=== PATIENT | female | born 1945 | race Caucasian/White ===

== ENCOUNTER 2017-10-24 18:34 | Inpatient (IN) | payer MEDICARE, SELFPAY ==
[2017-10-24] VITALS (8 sets, daily range): BP systolic 123–181; BP diastolic 62–119; PULSE 59–87; RESP 15–17; TEMP 36.2; O2SAT 93–96; BMI 36.8
[2017-10-24] MEDS: Morphine 4 MG/ML Syringe IV (19:04)
[2017-10-24] MEDS: 0.9% Normal Saline 1,000 ML 150 ML IV (19:04)
[2017-10-24] MEDS: Ondansetron 4 MG/2 ML Vial IV (19:04)
[2017-10-24 19:17] LABS: Absolute Lymphocyte Count 3.71 X10^3/ul (0.83-4.51); Absolute Neutrophil Count 4.6 X10^3/uL (2.0-7.7); Basophil# 0.02 X10^3/uL; Basophil% 0.2 % (0-1); Eosinophil# 0.12 X10^3/uL; Eosinophils% 1.3 % (0-5); Hematocrit 40.9 % (37-47); Hemoglobin 13.1 g/dl (12.0-15.0); Lymphocyte # 3.71 X10^3/ul (4.0); Lymphocyte % 39.1 % (19-41); Mean Corpuscular Hgb 28.8 pg (27.0-32.0); Mean Corpuscular Volume 89.9 fL (81-99); Mean Platelet Vol. 12.4 fl (6.2-12.0); Monocyte# 1.02 X10^3/uL; Monocyte% 10.8 % (0-10); Neutrophil # 4.59 X10^3/uL (2.7-7.7); Neutrophil % 48.4 % (47-70); Platelet Count 185 K/mm3 (150-450); RBC Distribution Width CV 13.9 % (11.6-14.6); RBC Distribution Width SD 45.2 fl (35.1-43.9); Red Blood Count 4.55 M/mm3 (4.2-5.4); White Blood Count 9.5 K/mm3 (4.4-11.0)
[2017-10-24 19:22] LABS: POSITIVE COUNT NO; POSITIVE DIFFERENTIAL NO; POSITIVE MORPHOLOGY NO
[2017-10-24 19:32] LABS: Anion Gap 13 (5-15); BUN 14 mg/dL (7-18); BUN/Creat Ratio 10.1 RATIO (10-20); Calcium,Total 9.3 mg/dL (8.5-10.1); Chloride 105 mmol/L (98-107); Creatinine, Serum 1.38 mg/dL (0.55-1.02); EST Glomerular Filtration Rate 40 mL/min (>60); Est Glom Filt Rate - Afr Amer 48 mL/min (>60); Estimated Creatinine Clearance 29.14 ml/min; Glucose 147 mg/dL (74-106); Potassium 3.8 mmol/L (3.5-5.1); Sodium Level 141 mmol/L (136-145)
--- NOTE | 2017-10-24 20:18 | ED.RN ---
NO OLD EKG
[2017-10-24] MEDS: Mag Hydrox/Al Hydrox/Simeth 30 ML UDC PO (20:52)
--- NOTE | 2017-10-24 22:49 | PCM.HP.STD ---
Problem List (1) Chest pain Status: Acute Qualifiers: Chest pain type: unspecified Qualified Code(s): R07.9 - Chest pain, unspecified (2) NSTEMI (non-ST elevated myocardial infarction) Status: Acute (3) HTN (hypertension) Status: Chronic Qualifiers: Hypertension type: essential hypertension Qualified Code(s): I10 - Essential (primary) hypertension (4) HLD (hyperlipidemia) Status: Chronic Qualifiers: Hyperlipidemia type: pure hypercholesterolemia Qualified Code(s): E78.00 - Pure hypercholesterolemia, unspecified; E78.0 - Pure hypercholesterolemia (5) GERD (gastroesophageal reflux disease) Status: Chronic Qualifiers: Esophagitis presence: esophagitis presence not specified Qualified Code(s): K21.9 - Gastro-esophageal reflux disease without esophagitis (6) Diabetes mellitus, type II Status: Chronic Qualifiers: Diabetes mellitus long term acute care registered nurse insulin use: without custodial use Diabetes mellitus complication status: with unspecified complications Qualified Code(s): E11.8 - Type 2 diabetes mellitus with unspecified complications (7) Hypothyroidism Status: Chronic Qualifiers: Hypothyroidism type: unspecified Qualified Code(s): E03.9 - Hypothyroidism, unspecified (8) Obesity (BMI 30-39.9) Status: Chronic (9) Anxiety and depression Status: Chronic History of Present Illness Date of Admission: 10/24/17 Chief Complaint: Chest pain The patient is a 72 y/o F w/ PMHx: HTN, HLD, GERD, Diabetes mellitus type II, Hypothyroidism, Anxiety and Depression, Obesity who presents to the [facility] ED on 10/24/17 with history of onset substernal chest pain described as pressure without radiation with associated nausea without emesis w/ notable belching and dyspnea starting ~ 20 minutes following her evening meal, rated 9/10 with upon ED presentation improvement to 8/10. Following interventions in the ED patient reported being pain free. In the ED work-up included T 97.1, heart rate 87, BP initially 181/105--> 129/62, respiratory rate 17, 94% on room air, CBC unremarkable, BMP with BUN/creatinine 14/1.38 with no comparison function, hgb 147, initial troponin less than 0.015 with repeat delta 0.445, chest x-ray with minimal interstitial prominence in the lung bases possibly fibrosis versus interstitial pneumonia, EKG initial scooped T waves inferiorly, ST changes resolved after repeat EKG w/ resolution of chest pain. The ED patient administered Zofran, GI cocktail, morphine, oral lidocaine, therapeutic Lovenox, aspirin, Mylanta. Cardiology consulted per ED and requested therapeutic lovenox administration with planned evaluation. Past Medical History Past Medical History (Chronic Problems): Chronic Problems HTN (hypertension) (Chronic) HLD (hyperlipidemia) (Chronic) GERD (gastroesophageal reflux disease) (Chronic) Diabetes mellitus, type II (Chronic) Hypothyroidism (Chronic) Obesity (BMI 30-39.9) (Chronic) Anxiety and depression (Chronic) Allergies No Known Allergies Allergy (Verified 10/24/17 18:36) Home Medications: Ambulatory Orders Medication Instructions Recorded Aspirin [Aspirin, Baby] 81 mg PO DAILY@0810/24/17 Cholecalciferol (Vitamin D3) 5,000 unit PO DAILY 10/24/17 [Vitamin D3] Cyanocobalamin [Vitamin B12] 500 mcg PO DAILY@0800 10/24/17 Diltiazem CD [Cardizem CD] 180 mg PO DAILY 10/24/17 Escitalopram Oxalate [Lexapro] 10 mg PO DAILY 10/24/17 Levothyroxine Sodium [Synthroid] 50 mcg PO DAILY 10/24/17 Magnesium Oxide 500 mg PO DAILY 10/24/17 Metformin HCl 500 mg PO TID 10/24/17 [place]-3S/Dha/Epa/Fish Oil [Fish 1 each PO DAILY 10/24/17 Oil 1,200 mg Softgel] Omeprazole [Prilosec] 20 mg PO DAILY 10/24/17 Potassium 99 mg PO DAILY 10/24/17 Simvastatin [Zocor] 40 mg PO QHS 10/24/17 Solifenacin Succinate [Vesicare] 10 mg PO DAILY 10/24/17 Vit A/Vit C/Vit E/Zinc/Copper 1 each PO DAILY 10/24/17 [Preservision Areds Softgel] Surgical History: - - Cholecystectomy, hernia repair (ventral/umb). 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 Paternal History Items: - - Patient notes a paternal family history of heart disease, hypertension, hyperlipidemia and diabetes and does note he did have stents. Review of Systems Constitutional: Reports: Malaise, Weakness, Fatigue. Denies: Chills, Fever, Weight Change HEENT: Denies: Head Aches, Sinus Congestion, Sinus Drainage Cardiovascular: Reports: Chest Pain, Chest Pressure. Denies: Edema, Heaviness, Light Headedness, Orthopnea, Palpitations, Syncope Respiratory: Reports: Shortness of Breath. Denies: Cough, Shortness of breath at rest, Shortness of breath upon exertion, Sputum production Gastrointestinal: Reports: Nausea. Denies: Abdominal Pain, Vomiting Genitourinary: Denies: Dysuria Musculoskeletal: Denies: Joint Pain, Joint Tenderness Skin: Denies: Rash, Wounds Neurological: Denies: Numbness, Tingling, Focal weakness Psychiatric: Reports: Anxiety, Depression. Denies: Homicidal Ideations, Suicidal Ideations Hematologic/ Lymphatic: Denies: Easy Bruising, Easy Bleeding VTE Information - Inpt Only VTE Present on Admission: No VTE Mechan Device Prophylaxis: SCD's VTE Pharm Prophylaxis ordered?: Yes Patient Problems: Active and Suspected Problems Chest pain (Acute) NSTEMI (non-ST elevated myocardial infarction) (Acute) Subjective: Seated upright in the ED bed, notes chest pain 2/10, improved since initial ED presentation. Objective: Physical Examination: General: awake, alert, oriented x 3 and cooperative, seated upright in the ED bed in no apparent distress, notes improved chest pain, 2/10. Skin: normal color, turgor, no icterus, cyanosis. HEENT: AT/NC, EOMI, PERRLA, MMM, no carotid bruits or JVD noted. Lungs: CTA bilaterally, moderate effort, mild decrease BL bases, no rales, ronchi or wheezing. Heart: Regular rate and rhythm; no gallop, rub audible. Abdomen: soft, obese, NTTP, ND, normal BS, no HSM. Extremities: no cyanosis, clubbing, or edema. Neurological: patient awake, alert, oriented x 3; cognitive function intact; pupils equally reactive to light and accomodation; cranial nerves II-XII grossly normal, moving all 4 extremities, no focal deficits, strength mildly globally decreased. Psychiatric: affect appears normal, no acute evidence of depressive or anxiety feelings. - Physical Exam Vital Signs Temp Pulse Resp BP Pulse Ox 97.1 F L 59 L 15 129/62 H 95 10/24/17 18:34 10/24/17 20:34 10/24/17 20:34 10/24/17 20:34 10/24/17 20:34 Oxygen Delivery Method Room Air Weight: 201 lb 0.985 oz Body Mass Index (BMI) 36.8 Laboratory Tests Past 24 Hrs 10/24/17 10/24/17 10/24/17 18:40 18:40 21:40 WBC 9.5 RBC 4.55 Hgb 13.1 Hct 40.9 MCV 89.9 MCH 28.8 MCHC 32.0 RDW 13.9 RDW Differential 45.2 H Plt Count 185 MPV 12.4 H Immature Gran % (Auto) 0.200 Neut % (Auto) 48.4 Lymph % (Auto) 39.1 [place] % (Auto) 10.8 H Eos % (Auto) 1.3 Baso % (Auto) 0.2 Absolute Neuts (auto) 4.6 Absolute Lymphs (auto) 3.71 Total Counted Not Reportable Sodium 141 Potassium 3.8 Chloride 105 Carbon Dioxide 23.0 Anion Gap 13 BUN 14 Creatinine 1.38 H Estim Creat Clear Calc 29.14 Est GFR (MDRD) Af Amer 48 L Est GFR (MDRD) Non-Af 40 L BUN/Creatinine Ratio 10.1 Glucose 147 H Calcium 9.3 Troponin I < 0.015 0.445 H Assessment/Plan All Active Problems Chest pain (Acute) NSTEMI (non-ST elevated myocardial infarction) (Acute) The patient is a 72 y/o F w/ PMHx: HTN, HLD, GERD, Diabetes mellitus type II, Hypothyroidism, Anxiety and Depression, Obesity who presents to the [facility] ED on 10/24/17 with history of onset substernal chest pain described as pressure without radiation with associated nausea without emesis w/ notable belching and dyspnea starting ~ 20 minutes following her evening meal, rated 9/10 with upon ED presentation improvement to 8/10. (1) Chest Pain w/ Acute NSTEMI: ED work-up included T 97.1, heart rate 87, BP initially 181/105--> 129/62, respiratory rate 17, 94% on room air, CBC unremarkable, BMP with BUN/creatinine 14/1.38 with no comparison function, Evaristo 147, initial troponin less than 0.015 with repeat delta 0.445, chest x-ray with minimal interstitial prominence in the lung bases possibly fibrosis versus interstitial pneumonia, EKG initial scooped T waves inferiorly, ST changes resolved after repeat EKG w/ resolution of chest pain. The ED patient administered Zofran, GI cocktail, morphine, oral lidocaine, therapeutic Lovenox, aspirin, Mylanta. Will admit to PCU, maintain on a monitored bed, continue serial cardiac enzymes and EKGs. Obtain magnesium level upon admission. Continue therapeutic lovenox per Cardiology request. Continue medical management w/ asa, on cardizem but may need to consider transition but defer to cardiology, statin w/ AM FLP. Cardiology consulted, plan for cardiac catheterization. Maintain NPO after midnight for planned AM catheterization (10:00 am per discussion w/ Skein Drier). ASA, NG, morphine. ECHO requested but again may not be performed until 10/27/17. (2) Hypertension: Continue home regimen including Cardizem, PRN hydralazine. (3) Hyperlipidemia: Continue home statin regimen. AM FLP. (4) Diabetes mellitus type II: Hold oral home regimen, ADA diet until NPO status, accu checks w/ ISS. HgbA1c pending. (5) Suspected Chronic Kidney Disease Stage Likely Stage III: Admission BUN/Cr 14/1.38, no comparison function, repeat BMP in AM. (6) Hypothyroidism: Continue home synthroid regimen. (7) Anxiety and Depression: Continue home lexapro regimen. (8) GERD: PPI. (9) DVT Prophylaxis: SCDs, continue therapeutic lovenox. Code Visit Inpatient E&M: [id number] Init Hosp L3
--- NOTE | 2017-10-24 22:52 | ED.VISSUMM ---
- ER Visit Summary Date of Service: 10/24/17 Chief Complaint: Chest pain History of Present Illness: The patient is a [address] Jimenez. She reports that she had just finished eating dinner and began having substernal chest pain approximately 20 minutes ago. She describes it as a heaviness is 9 at 10 worsening a 10 currently. Is worsened by nothing including exertion. Is relieved by belching. She has been nauseated and short of breath with this. No vomiting or diaphoresis. There is no radiation of the pain. Patient reports she had a stress test proximally 6 months ago and Brittaney that was negative. She has never had a heart catheterization. She does have a strong family history of coronary artery disease. Physical Examination: Vitals: Stable. Afebrile. General: Well-nourished and well-developed. Head: Normocephalic atraumatic. Neck: Supple, no lymphadenopathy. No JVD. Nontender. Cardiovascular: Regular rate and rhythm. No murmurs. Respiratory: No respiratory distress. Clear to auscultation bilaterally. Moderate tenderness palpation over her sternum that does reproduce her pain. Abdominal: Soft, nontender, nondistended, normal bowel sounds. No guarding, rebound, or peritoneal signs. Back: Nontender. Extremities: Nontender, no edema. Skin: Normal color, no rash. Neurologic: Alert and oriented ?3. Cranial nerves II through XII are intact. Normal strength and sensation. Psych: Normal affect. Test Results: EKG is sinus at [address] segments inferiorly. There is no old EKG for comparison. Repeat EKG sinus bradycardia [address] changes of resolved. Initial troponin 0 0.015. Repeat troponin is 0.4453 hours. Chem-7 is more for creatinine is 1.38 and glucose 147. CBC is more for monocytes of 11. Chest x-ray shows no acute disease. Emergency Department Course and Treatment: Patient was treated with aspirin p.o., Lovenox subcu, morphine and Zofran IV. She is resting comfortably is pain-free at this time. Treatment Plan: Patient was discussed with Dr. Mitchell and Dr. Fernandez. She will be admitted to the hospital for further evaluation and treatment. Disposition: Admitted in serious condition. Impression: 1. Chest pain. 2. TABATHA score of 6. 3. Indeterminate troponin. 4. Critical care time 30 minutes. This note was generated with [employer] dictation software. It may contain incorrect words, spelling, and punctuation that were not noted in review of the chart prior to signing ED Disposition - Plan for ED Patient: Chief Complaint: Chest Pain Referrals: Angie Jimenez [Primary Care Provider] -
[2017-10-24] MEDS: Aspirin 81 MG TAB.CHEW 324 MG PO (23:23)
[2017-10-24] MEDS: Enoxaparin 100 MG/ML Syringe 90 MG SC (23:23)
--- NOTE | 2017-10-24 23:25 | NURSING ---
Called [facility] charge nursejoanie to send patient to the floor.
[2017-10-25] VITALS (24 sets, daily range): BP systolic 126–146; BP diastolic 51–87; PULSE 72–99; RESP 18; TEMP 36.4–37; O2SAT 88–96; BMI 35.7; BMI 35.8
[2017-10-25 00:16] LABS: Magnesium 1.9 mg/dL (1.6-2.6)
[2017-10-25] MEDS: Mag Hydrox/Al Hydrox/Simeth 30 ML UDC PO (00:39)
[2017-10-25] MEDS: 0.9% Normal Saline 1,000 ML 100 ML IV (00:40)
[2017-10-25 00:46] LABS: Hemoglobin A1c 6.1 % (4.2-6.3)
[2017-10-25 03:06] LABS: Bedside Glucose 156 mg/dL (70-110)
[2017-10-25 04:37] LABS: Hematocrit 35.3 % (37-47); Hemoglobin 11.4 g/dl (12.0-15.0); Mean Corp Hgb Conc 32.3 g/gl (32-36); Mean Corpuscular Hgb 29.2 pg (27.0-32.0); Mean Corpuscular Volume 90.5 fL (81-99); Mean Platelet Vol. 12.1 fl (6.2-12.0); Platelet Count 144 K/mm3 (150-450); RBC Distribution Width CV 13.8 % (11.6-14.6); RBC Distribution Width SD 45.1 fl (35.1-43.9)
[2017-10-25 04:40] LABS: Scan Indicated on CBC? Y/N NO
[2017-10-25 04:46] LABS: International Normalized Ratio 1.3; Prothrombin Time (Protime)PT. 15.9 SECONDS (11.7-14.9)
[2017-10-25 04:47] LABS: Partial Thromboplast Time 35.8 Seconds (24.1-36.2)
[2017-10-25 05:29] LABS: ALB/GLOB Ratio 0.9 RATIO (0.9-2.4); AST(SGOT) 92 U/L (15-37); Alanine Aminotransfer ALT/SGPT 57 U/L (13-56); Albumin, Serum 3.1 g/dL (3.2-5.0); Alkaline Phosphatase 64 U/L (45-117); Anion Gap 11 (5-15); BUN 12 mg/dL (7-18); BUN/Creat Ratio 10.1 RATIO (10-20); Calcium,Total 8.6 mg/dL (8.5-10.1); Chloride 109 mmol/L (98-107); Cholesterol 178 mg/dL (200); Creatinine, Serum 1.19 mg/dL (0.55-1.02); EST Glomerular Filtration Rate 47 mL/min (>60); Est Glom Filt Rate - Afr Amer 57 mL/min (>60); Estimated Creatinine Clearance 32.25 ml/min; Globulin 3.5 g/dL (2.2-4.2); Glucose 152 mg/dL (74-106); High Density Lipoprotein 29 mg/dL; Potassium 4.2 mmol/L (3.5-5.1); Protein, Total 6.6 g/dL (6.4-8.2); Sodium Level 143 mmol/L (136-145); Triglycerides 154 mg/dL; Very Low Density Lipoprotein 31 mg/dL (5-40)
[2017-10-25] MEDS: Morphine 2 MG/ML Syringe IV (06:13)
[2017-10-25] MEDS: Levothyroxine 50 MCG Tablet PO (06:19)
[2017-10-25] MEDS: Aspirin 81 MG TAB.CHEW PO (06:19)
[2017-10-25] MEDS: dilTIAZem CD 180 MG Capsule PO (06:19)
[2017-10-25] MEDS: Furosemide 20 MG/2 ML VIAL IV (09:11)
[2017-10-25] MEDS: 0.9% NaCl Peripheral Flush Adult/Peds IV (09:11)
--- NOTE | 2017-10-25 09:39 | PCM.CONS.C ---
Problem List (1) Chest pain Status: Chronic Qualifiers: Chest pain type: unspecified Qualified Code(s): R07.9 - Chest pain, unspecified (2) NSTEMI (non-ST elevated myocardial infarction) Status: Acute Reason for Consult Date of Consultation: 10/25/17 History of Present Illness: The patient is a 72 y/o F w/ PMHx: HTN, HLD, GERD, Diabetes mellitus type II, Hypothyroidism, Anxiety and Depression, Obesity who presents to the [facility] ED on 10/24/17 with history of onset substernal chest pain described as pressure without radiation with associated nausea without emesis w/ notable belching and dyspnea starting ~ 20 minutes following her evening meal, rated 9/10 with upon ED presentation improvement to 8/10. Following interventions in the ED patient reported being pain free. In the ED work-up included T 97.1, heart rate 87, BP initially 181/105--> 129/62, respiratory rate 17, 94% on room air, CBC unremarkable, BMP with BUN/creatinine 14/1.38 with no comparison function, hgb 147, initial troponin less than 0.015 with repeat delta 0.445, chest x-ray with minimal interstitial prominence in the lung bases possibly fibrosis versus interstitial pneumonia, EKG initial scooped T waves inferiorly, ST changes resolved after repeat EKG w/ resolution of chest pain. The ED patient administered Zofran, GI cocktail, morphine, oral lidocaine, therapeutic Lovenox, aspirin, Mylanta. Mi is now ruled in by minimally rising Troponin and dynamic ST deviation throughout the night. Pt also has developed pulmonary congestion which has required more O2 and . stopping the IV fluids and small dose of Lasix. Pt also has sleep apnea and uses a CPAP, and DJD of the knees. Past Medical History Allergies/Adverse Reactions: Allergies No Known Allergies Allergy (Verified 10/24/17 18:36) Home Medications: Ambulatory Orders Medication Instructions Recorded Aspirin [Aspirin, Baby] 81 mg PO DAILY@0810/24/17 Cholecalciferol (Vitamin D3) 5,000 unit PO DAILY 10/24/17 [Vitamin D3] Cyanocobalamin [Vitamin B12] 500 mcg PO DAILY@0810/24/17 Diltiazem CD [Cardizem CD] 180 mg PO DAILY 10/24/17 Escitalopram Oxalate [Lexapro] 10 mg PO DAILY 10/24/17 Levothyroxine Sodium [Synthroid] 50 mcg PO DAILY 10/24/17 Magnesium Oxide 500 mg PO DAILY 10/24/17 Metformin HCl 500 mg PO TID 10/24/17 [place]-3S/Dha/Epa/Fish Oil [Fish 1 each PO DAILY 10/24/17 Oil 1,200 mg Softgel] Omeprazole [Prilosec] 20 mg PO DAILY 10/24/17 Potassium 99 mg PO DAILY 10/24/17 Simvastatin [Zocor] 40 mg PO QHS 10/24/17 Solifenacin Succinate [Vesicare] 10 mg PO DAILY 10/24/17 Vit A/Vit C/Vit E/Zinc/Copper 1 each PO DAILY 10/24/17 [Preservision Areds Softgel] Past Medical History (Chronic Problems): Chronic Problems Chest pain (Chronic) HTN (hypertension) (Chronic) HLD (hyperlipidemia) (Chronic) GERD (gastroesophageal reflux disease) (Chronic) Diabetes mellitus, type II (Chronic) Hypothyroidism (Chronic) Obesity (BMI 30-39.9) (Chronic) Anxiety and depression (Chronic) Surgical History: - - Cholecystectomy, hernia repair (ventral/umb). 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 Paternal History Items: - - Patient notes a paternal family history of heart disease, hypertension, hyperlipidemia and diabetes and does note he did have stents. Lives: Alone Smoking Status: Never smoker Tobacco Use: Non-smoker Alcohol: None Drugs: None Review of Systems - Review of Systems General: Denies: Fever, Night Sweats, Fatigue Cardiovascular: Reports: Chest Discomfort, Chest Tightness Respiratory: Reports: Hemoptysis, Wheezing Gastrointestinal: Reports: Indigestion, Heart Burn, Dyspepsia, Epigastric Discomfort Genitourinary: Denies: Dysuria, Hematuria Muscoloskeletal: Reports: Joint Tenderness, Stiffness, Joint Pain Skin: Denies: Rash Psychiatric: Reports: Anxiety, Depression Objective: Vital Signs Temp Pulse Resp BP Pulse Ox 97.9 F 99 18 131/87 H 92 10/25/17 08:41 10/25/17 08:41 10/25/17 08:41 10/25/17 08:41 10/25/17 08:41 Oxygen Flow Rate (L/min) 3 Oxygen Delivery Method Nasal Cannula Weight: 88.2 kg Body Mass Index (BMI) 35.7 Intake and Output for Last 24 Hours 10/23/17 10/24/17 10/25/17 23:59 23:59 23:59 Intake Total 531 / 531 Balance 531 / 531 General: Oriented x 3, No Acute Distress Neck: Supple, No JVD Lungs: Rales - Mario Bases Cardiovascular: Regular Rhythm, No Murmurs Vascular: No Carotid Bruits Abdomen: Non Tender Extremities: No Cyanosis, No edema Neurological: No Focal Motor or Sensory Deficit Psych/Mental Status: Appropriate 10/25/17 00:51: Troponin I 0.714 H* 10/25/17 04:11: WBC 11.0, RBC 3.90 L, Hgb 11.4 L, Hct 35.3 L, MCV 90.5, MCH 29.2, MCHC 32.3, RDW 13.8, RDW Differential 45.1 H, Plt Count 144 L, MPV 12.1 H 10/25/17 04:11: Sodium 143, Potassium 4.2, Chloride 109 H, Carbon Dioxide 23.0, Anion Gap 11, BUN 12, Creatinine 1.19 H, Est GFR (MDRD) Af Amer 57 L, Est GFR (MDRD) Non-Af 47 L, BUN/Creatinine Ratio 10.1, Glucose 152 H, Calcium 8.6, Total Bilirubin 0.40, Triglycerides 154, Cholesterol 178, LDL Cholesterol 118, VLDL Cholesterol 31, HDL Cholesterol 29 L 10/25/17 04:11: Troponin I 1.030 H* 10/25/17 04:11: PT 15.9 H, INR 1.3, APTT 35.8 Rhythm: EKG: Sinus with inferior ST depression. ECHO: Stress Test: Cardiac Cath: PCI: CT Surgery: Holter monitor: EPS: PPM: CXR: Chest CT Scan: Assessment/Plan NSTEMI, high risk factor for CAD, mild GFR reduction, Recent negative stress test. Will Cath., today. Further recommendations to follow.
[2017-10-25] MEDS: HEPARIN/D5w 25,000 UNITS 25,000 UNITS/250 ML IV.SOLN. 10 UNITS IV (11:00)
--- NOTE | 2017-10-25 12:30 | PCM.DC.SUM ---
<Kristen Espitia - Last Filed: 10/25/17 12:41> Discharge Date and Diagnosis Date of Admission: 10/24/17 Date of Discharge: 10/25/17 - Primary Discharge Diagnosis Active and Suspected Problems 1. Unstable angina, NSTEMI (non-ST elevated myocardial infarction) 2. CAD with severe LAD 95% stenosis requiring transfer to tertiary care center for coronary revascularization consult 3. Acute hypoxia suspect secondary to fluid overload - Secondary Discharge Diagnosis Chronic Problems Chest pain (Chronic) HTN (hypertension) (Chronic) HLD (hyperlipidemia) (Chronic) GERD (gastroesophageal reflux disease) (Chronic) Diabetes mellitus, type II (Chronic) Hypothyroidism (Chronic) Obesity (BMI 30-39.9) (Chronic) Anxiety and depression (Chronic) Hospital Course and Treatment Imaging Results: Diagnostic Data Chest X-Ray 10/24/17 18:50 IMPRESSION: 1. Minimal interstitial prominence in the lung bases, possible interstitial pneumonia or fibrosis. Electronically Signed: Patito Pineda MD at 19:42 EDT Tel , Service support , Dr. Mitchell- Cardiology Operations: None Procedures: Cardiac catheterization Summary of Care Provided: The patient is a 72 year old F admitted 10/24/2017 due to chest pain. She has a past medical history of hypertension, hyperlipidemia, type 2 diabetes mellitus, GERD, hypothyroidism, anxiety, depression, obesity. Patient noted to have NSTEMI, unstable angina. Cardiology consulted. She underwent cardiac catheterization 10/25/17 which demonstrated severe 95% stenosis LAD. Transfer was arranged to [facility] for consult for coronary revascularization. Patient was started on heparin drip prior to discharge. Nitro paste applied with improvement in chest pain. Vital signs stable. Patient is stable at time of transfer. Patient was noted to have acute hypoxia suspected secondary to fluid overload as a result of IV fluids. She did receive IV Lasix ?1. General: awake, alert, oriented x 3 and cooperative Skin: normal color, turgor, no icterus, cyanosis. HEENT: EOMI, PERRLA, no carotid bruits or JVD noted. Lungs: Clear to auscultation, diminished Heart: Regular rate and rhythm; no gallop, rub audible. Abdomen: soft, obese, nontender, normal bowel sounds Extremities: no cyanosis, clubbing, or edema. Neurological: Neuro grossly intact Psychiatric: Normal affect Patient seen exam prior to discharge. Physical assessment as noted above. Patient is stable for transfer to [facility] for further evaluation. This patient was seen by MARISSA Buckley under the supervision of Dr. Hollingsworth. Home Medications: Medications to take at Discharge Aspirin [Aspirin, Baby] 81 mg PO DAILY@0810/24/17 Cholecalciferol (Vitamin D3) [Vitamin D3] 5,000 unit PO DAILY 10/24/17 Cyanocobalamin [Vitamin B12] 500 mcg PO DAILY@0800 10/24/17 Diltiazem CD [Cardizem CD] 180 mg PO DAILY 10/24/17 Escitalopram Oxalate [Lexapro] 10 mg PO DAILY 10/24/17 Levothyroxine Sodium [Synthroid] 50 mcg PO DAILY 10/24/17 Magnesium Oxide 500 mg PO DAILY 10/24/17 Metformin HCl 500 mg PO TID 10/24/17 [place]-3S/Dha/Epa/Fish Oil [Fish Oil 1,200 mg Softgel] 1 each PO DAILY 10/24/17 Omeprazole [Prilosec] 20 mg PO DAILY 10/24/17 Potassium 99 mg PO DAILY 10/24/17 Simvastatin [Zocor] 40 mg PO QHS 10/24/17 Solifenacin Succinate [Vesicare] 10 mg PO DAILY 10/24/17 Vit A/Vit C/Vit E/Zinc/Copper [Preservision Areds Softgel] 1 each PO DAILY 10/24/17 Primary Care Physician: Angie Jimenez [Primary Care Provider] - Disposition: Acute care Hospital Minutes spent on discharge:: 40 Patient Condition:: Stable Medical Necessity - Tobacco Use Smoking Status: Never smoker Tobacco Use: Non-smoker Meaningful Use Info Meaningful Use Diagnoses (Choose all that apply): None applicable <Radha Hollingsworth - Last Filed: 10/25/17 15:45> Discharge Date and Diagnosis - Secondary Discharge Diagnosis Chronic Problems Chest pain (Chronic) HTN (hypertension) (Chronic) HLD (hyperlipidemia) (Chronic) GERD (gastroesophageal reflux disease) (Chronic) Diabetes mellitus, type II (Chronic) Hypothyroidism (Chronic) Obesity (BMI 30-39.9) (Chronic) Anxiety and depression (Chronic) Hospital Course and Treatment Summary of Care Provided: Hospitalist note: Discharge summary above reviewed as well as physical examination and I agree with above discharge and transfer plan. Patient was admitted for chest pain and she was found to have acute non-ST elevation [place]. Her initial EKG revealed no evidence of acute ischemic changes. This morning, EKG revealed ST segment depression in lateral chest leads. There was no evidence of acute ST elevation. Her troponin was elevated and maximum was 1.03. She was started on aspirin, therapeutic Lovenox twice daily and statins. Cardiology consulted and she underwent cardiac authorization that revealed severe disease of LAD of 95% stenosis. Because patient is diabetic, evaluation for CABG as indicated. Patient was transferred to [facility] for evaluation for CABG. She was transferred in a stable medical condition. - Physical Exam General: Alert, Oriented x3, Cooperative, No apparent distress. HEENT: Atraumatic, PERRLA, EOMI. Neck: Supple, No JVD, Negative Carotid Bruits, Trachea Midline, Thyroid Normal. Lungs: Decreased breath sounds bilateral, no rhonchi, No wheeze, No rales. Cardiovascular: Regular rate, Regular Rhythm, Normal S1, Normal S2, PMI Normal. Abdomen: Bowel Sounds Present, Soft, Non Tender, Non-Distended, No Hepato-splenomegaly. Extremities: No clubbing, No cyanosis, No edema Skin: No rashes, No breakdown Neurological: Neuro grossly intact This note was generated with apomio dictation software. It may contain incorrect words, spelling, and punctuation that were not noted in checking the note before signing. Minutes spent on discharge:: 34 Patient Condition:: Stable Meaningful Use Info Meaningful Use Diagnoses (Choose all that apply): None applicable Code Visit Inpatient E&M: 52334 Disch Hosp
--- NOTE | 2017-10-25 12:45 | NURSING ---
Nursing report called to ERIN Munoz at [facility] CVICU at this time
[2017-10-25] MEDS: Escitalopram Oxalate 10 MG Tablet PO (12:54)
[2017-10-25] MEDS: Pantoprazole Sodium 20 MG Tablet PO (12:54)
[2017-10-25] MEDS: Tolterodine Tartrate 4 MG CAP.SA PO (12:54)
[2017-10-25] MEDS: Nitroglycerin Oint 1 INCH PACKET TRANSDERM. (12:55)
[2017-10-25 13:21] LABS: Bedside Glucose 154 mg/dL (70-110)
[2017-10-26 00:41] LABS: Bedside Glucose 169 mg/dL (70-110)
== END 2017-10-25 13:38 | disposition short-term general hospital (02) | DRG 282 ==
LOC: ED 18:57 → PCU 23:24
PROVIDERS: Admitting Provider Family Medicine; Emergency Provider Emergency Medicine; Family Provider Family Medicine; PCP Family Medicine; Visit Provider Hospitalist
DX: I21.4 Non-ST elevation (NSTEMI) myocardial infarction (principal); I25.110 Atherosclerotic heart disease of native coronary artery with unstable angina pectoris; E11.9 Type 2 diabetes mellitus without complications; I10 Essential (primary) hypertension; Z79.84 Long term (current) use of oral hypoglycemic drugs; Z79.899 Other long term (current) drug therapy; E03.9 Hypothyroidism, unspecified; K21.9 Gastro-esophageal reflux disease without esophagitis; E78.5 Hyperlipidemia, unspecified; E66.9 Obesity, unspecified; F41.9 Anxiety disorder, unspecified; F32.9 Major depressive disorder, single episode, unspecified; Z68.35 Body mass index [BMI] 35.0-35.9, adult; R09.02 Hypoxemia; E87.70 Fluid overload, unspecified
CPT/HCPCS: 36415; 71045; 80048; 80053; 80061; 82962; 83036; 83735; 84484; 85025; 85027; 85610; 85730; 93005; 93454; 99283; J7030; A4216; C1769; C1894; J1940; J2405; Q9967

== ENCOUNTER → 2017-11-30 07:23 | Outpatient (CLI) | payer MEDICARE, SELFPAY ==
[2017-11-30 08:27] LABS: AST(SGOT) 14 U/L (15-37); Alanine Aminotransfer ALT/SGPT 14 U/L (13-56); Albumin, Serum 3.2 g/dL (3.2-5.0); Alkaline Phosphatase 63 U/L (45-117); Cholesterol 90 mg/dL (200); Globulin 3.4 g/dL (2.2-4.2); High Density Lipoprotein 35 mg/dL; Protein, Total 6.6 g/dL (6.4-8.2); Triglycerides 98 mg/dL; Very Low Density Lipoprotein 20 mg/dL (5-40)
== END ==
PROVIDERS: Family Provider Family Medicine; PCP Family Medicine; Referring Provider Internal Medicine Cardiovascular Disease; Visit Provider Internal Medicine Cardiovascular Disease
DX: I25.10 Atherosclerotic heart disease of native coronary artery without angina pectoris (principal); I25.5 Ischemic cardiomyopathy
CPT/HCPCS: 36415; 80061; 80076

== ENCOUNTER → 2017-12-14 12:38 | Outpatient (CLI) | payer MEDICARE, SELFPAY ==
--- NOTE | 2017-12-14 12:54 | PCM.CR.HP2 ---
CR - History & Physical - General Arrival date:: 12/14/17 Arrival time:: 12:54 Date of Referral:: 12/10/17 Date of CR Evaluation:: 12/14/17 Referring Physician: Dr. Jaren Castellano Primary Diagnosis: Z95.5 coronary artery stenting 11/13/2017 - History of Present Cardiac Event Onset Date: Enter Onset Date of cardiac illnesses in Comment field below Acute Myocardial Infarction within 12 months:: Yes - NSTEMI 10/24/2017 PTCA or coronary stenting:: Yes - Medications Home Medications: Ambulatory Orders Medication Instructions Recorded Aspirin [Aspirin, Baby] 81 mg PO DAILY@0800 10/24/17 Cholecalciferol (Vitamin D3) 5,000 unit PO DAILY 10/24/17 [Vitamin D3] Escitalopram Oxalate [Lexapro] 10 mg PO DAILY 10/24/17 Magnesium Oxide 500 mg PO DAILY 10/24/17 Potassium 99 mg PO DAILY 10/24/17 Vit A/Vit C/Vit E/Zinc/Copper 1 ea PO DAILY 10/24/17 [Preservision Areds Softgel] metformin 500 mg tablet 500 mg PO BID tab 11/17/17 amiodarone 200 mg tablet 200 mg PO DAILY #90 tab 11/20/17 metoprolol tartrate 25 mg tablet 12.5 mg PO BID #90 tab 11/20/17 pantoprazole 40 mg tablet,delayed 40 mg PO DAILY #90 tab 11/20/17 release atorvastatin 80 mg tablet 80 mg PO QHS #90 tab 12/08/17 levothyroxine 50 mcg tablet 50 mcg PO DAILY #90 tab 12/08/17 ticagrelor 90 mg tablet 90 mg PO BID #270 tab 12/08/17 - Allergies Allergies/Adverse Reactions: Allergies No Known Allergies Allergy (Verified 11/20/17 13:57) - Sleep Disorder Evaluation Hx of Sleep Apnea: Yes Do you snore loudly (louder than talking or can be heard through closed doors)?: No Do you often feel tired/ fatigued/ sleepy during daytime?: No Has anyone observed you stop breathing during sleep?: Yes - pt uses machine History of Hypertension (for STOP score): Yes STOP Results: Positive Advanced Directives - Advanced Directives Power of Instrument Adjuster: No Living Will: No Advance Directives Information Provided: No Advance Directives on File: No DNR Order?:: No Past Medical History - Past Medical Illness Medical History: Past Medical History (Last Reviewed 11/20/17 @ 13:53 by Luz Marina Mckeon) Nonrheumatic mitral valve regurgitation (Chronic) I34.0 Mild (1+) per echo 10/28/2017 done @ [facility] Ischemic cardiomyopathy (Chronic) I25.5 EF 45-50% per echo done 10/28/2017 @ [facility] Atherosclerotic heart disease of [place] coronary artery without angina pectoris (Chronic) I25.10 Resolute laura 3.0 X 18 mm CHANTELLE to proximal LAD into left main per Dr. Gamez @ [facility] History of non-ST elevation myocardial infarction (NSTEMI) (Chronic) Onset Date: 10/24/17 I25.2 HTN (hypertension) (Chronic) I10 HLD (hyperlipidemia) (Chronic) E78.5 GERD (gastroesophageal reflux disease) (Chronic) K21.9 Diabetes mellitus, type II (Chronic) E11.9 Hypothyroidism (Chronic) E03.9 Obesity (BMI 30-39.9) (Chronic) E66.9 - Past Surgical History Surgical History: Past Surgical History (Last Reviewed 11/20/17 @ 13:53 by Luz Marina Mckeon) History of left heart catheterization (Chronic) Onset Date: 10/25/[address] Mitchell @ [facility], pt tsferred to [facility] for PCI vs. Possible CABG Stented coronary artery (Chronic) Onset Date: 10/25/17 Z95.5 Resolute laura 3.0 X 18 mm CHANTELLE to proximal LAD into left main, with post stent balloon angioplasty done to proximal LAD with 3.0 X 12 NC balloon and distal left main with 4.0 NC balloon; kissing balloon to ostial LAD and ramus was done with 2.5 X 12 balloon in ramus and 3.5 mm in ostial LAD. IVUS done, see report. Pt then admitted to ICU with balloon pump. Surgical History: - - Cholecystectomy, hernia repair (ventral/umb). - Family History Summary Family History: Family History (Last Updated 11/20/17 @ 13:54 by Luz Marina Mckeon) Mother CAD (coronary artery disease) Myocardial infarction Father CAD (coronary artery disease) Myocardial infarction Sister Myocardial infarction CAD (coronary artery disease) Stented coronary artery Social History - Smoking History Smoking Status: Never smoker Hx Tobacco Use: No Hx Smoking Exposure: No - Alcohol Use Alcohol Usage: No - Substance Abuse Hx Substance Use: No - Occupation Occupation (List type of work in comments):: Retired - Hobbies, Recreation, Social Activities Hobbies: Reading, Other - protestant Recreational Activities: I am able to engage in all my recreational activities Social Environment - Status Marital Status: - Current Living Arrangements Living Environment:: Alone - Children How many children do you have?: 0 Do any of your children live nearby?: No - Safety Do you feel safe in your surroundings?: Yes - Assistance Do you need any assistance at home?: none Review of Systems - Review of Systems Hints: Right click = Denies (Slash). Left click = Reports ([place]) Review of Present Symptoms: Reports: Fatigue, Heart Arrhythmia/Irregularities - Hx A-Fib, Sleep - Normal. Denies: Shortness of Breath at Rest, Shortness of Breath with Exertion, PVD, Operative Discomfort, Angina, Wound Healing, Dizziness/Lightheadedness, Appetite - Normal - not eating very much, Appetite - Special Diet, Sexual Changes - Pain Is Patient Pain Free?: Yes Risk Factor Assessment - Chief Complaint Chief Complaint: coronary artery stenting - Vital Signs Pulse Ox: 97 - Pulse Pulse Rate: 64 Pulse Rhythm: Regular - Hypertension How long have you been treated?: 5 years Blood Pressure Sitting - Left Arm: 124/76 - Stress Stress: Home/Family - Diabetes Diabetic History: Type II Nutrition Referral for Diabetes: No - Obesity Height: 1.57 m Weight:: 83.007 kg Weight in Pounds: 183.0 lbs Weight Source: Standing Scale Body Mass Index (BMI): 33.5 Nutritional Referral for Obesity: No - Physical Inactivity Physical Inactivity: Reg Exercise 30 min/day - walks every day - Risk Stratification Risk Guidelines: Lowest Risk: Risk Factor for Smoking, Moderate Risk: Risk Factor for Dyslipidemia, Risk Factor for Diabetes, Risk Factor for Obesity, Risk Factor for Hypertension, Risk Factor for Sedentary Lifestyle, Risk Factor for Depression - For Smoking Smoking Risk Guidelines: Smoking Low Risk: None or quit greater than 6 months ago. Smoking Moderate Risk: Smoker or quit 6 months or less ago. Smoking High Risk: Smoker - For Dyslipidemia Dyslipidemia Risk Guidelines: Low Risk: Moderate Risk: High Risk: 15-25% fat 25.1-29% fat >/= 30% fat. <7% sat fat 7-9% sat fat >9% sat fat. <150 mg chol 150-299 mg chol >/= 300 mg chol. LDL <100 LDL 100-129 LDL >/= 130. Chol/HDL ratio <5.0 Chol/HDL ratio 5.0-6.0 Chol/HDL ratio >6.0. Triglycerides <100 Triglycerides 100-149 Triglycerides >/= 150 - For Diabetes Mellitus Diabetes Risk Guidelines: Diabetes Low Risk: HgA1c <6.5% and/or FBG <120. Diabetes Moderate Risk: HgA1c 6.6-7.9% and/or FBG 120-180. Diabetes High Risk: HgA1c >/= 8% and/or FBG >180 - For Obesity/Overweight Obesity/Overweight Risk Guidelines: Obesity Low Risk: BMI <25.0. Obesity Moderate Risk: BMI 25-29.9. Obesity High Risk: BMI >/= 30.0 - For Hypertension Hypertension Risk Guidelines: Hypertension Low Risk: Systolic <120 and Diastolic <80. Hypertension Moderate Risk: Systolic 120-139 and Diastolic 80-89. Hypertension High Risk: Systolic >/= 140 and Diastolic >/= 90 - For Sedentary Lifestyle Sedentary Lifestyle Risk Guidelines: Sedentary Lifestyle Low Risk: >/= 1,500 kcal/week. Sedentary Lifestyle Moderate Risk: 700-1,499 kcal/week. Sedentary Lifestyle High Risk: < 700 kcal/week - For Depression Depression Risk Guidelines: Depression Low Risk: Not clinically depressed. Depression Moderate Risk: Mildly depressed. Depression High Risk: Clinically depressed - Family History Family History: Family History (Last Updated 11/20/17 @ 13:54 by Luz Marina Mckeon) Mother CAD (coronary artery disease) Myocardial infarction Father CAD (coronary artery disease) Myocardial infarction Sister Myocardial infarction CAD (coronary artery disease) Stented coronary artery Motivation - Motivation to Participate On a scale of 1 to 10, how prepared are you to commit to attending program?: 8 What do you see as barriers to successfully being able to complete the program?: transportation What do you see as the benefits of succesfully completing the program? In other words, what do you hope to get out of participating in the program?: improved health Are there issues you are dealing with that will interfere with completing the program?: none Do you have a spouse or signficant other, family or friends who will help support you to complete the program?: yes sister
--- NOTE | 2017-12-14 12:58 | CR.HP_ITS ---
CR - History & Physical - General Arrival date:: 12/14/17 Arrival time:: 12:54 Date of Referral:: 12/10/17 Date of CR Evaluation:: 12/14/17 Referring Physician: Dr. Jaren Castellano Primary Diagnosis: Z95.5 coronary artery stenting 11/13/2017 - History of Present Cardiac Event Onset Date: Enter Onset Date of cardiac illnesses in Comment field below Acute Myocardial Infarction within 12 months:: Yes - NSTEMI 10/24/2017 PTCA or coronary stenting:: Yes - Medications Home Medications: Ambulatory Orders Medication Instructions Recorded Aspirin [Aspirin, Baby] 81 mg PO DAILY@0800 10/24/17 Cholecalciferol (Vitamin D3) 5,000 unit PO DAILY 10/24/17 [Vitamin D3] Escitalopram Oxalate [Lexapro] 10 mg PO DAILY 10/24/17 Magnesium Oxide 500 mg PO DAILY 10/24/17 Potassium 99 mg PO DAILY 10/24/17 Vit A/Vit C/Vit E/Zinc/Copper 1 ea PO DAILY 10/24/17 [Preservision Areds Softgel] metformin 500 mg tablet 500 mg PO BID tab 11/17/17 amiodarone 200 mg tablet 200 mg PO DAILY #90 tab 11/20/17 metoprolol tartrate 25 mg tablet 12.5 mg PO BID #90 tab 11/20/17 pantoprazole 40 mg tablet,delayed 40 mg PO DAILY #90 tab 11/20/17 release atorvastatin 80 mg tablet 80 mg PO QHS #90 tab 12/08/17 levothyroxine 50 mcg tablet 50 mcg PO DAILY #90 tab 12/08/17 ticagrelor 90 mg tablet 90 mg PO BID #270 tab 12/08/17 - Allergies Allergies/Adverse Reactions: Allergies No Known Allergies Allergy (Verified 11/20/17 13:57) - Sleep Disorder Evaluation Hx of Sleep Apnea: Yes Do you snore loudly (louder than talking or can be heard through closed doors)?: No Do you often feel tired/ fatigued/ sleepy during daytime?: No Has anyone observed you stop breathing during sleep?: Yes - pt uses machine History of Hypertension (for STOP score): Yes STOP Results: Positive Advanced Directives - Advanced Directives Power of Sales Representative Metals: No Living Will: No Advance Directives Information Provided: No Advance Directives on File: No DNR Order?:: No Past Medical History - Past Medical Illness Medical History: Past Medical History (Last Reviewed 11/20/17 @ 13:53 by Luz Marina Mckeon) Nonrheumatic mitral valve regurgitation (Chronic) I34.0 Mild (1+) per echo 10/28/2017 done @ [facility] Ischemic cardiomyopathy (Chronic) I25.5 EF 45-50% per echo done 10/28/2017 @ [facility] Atherosclerotic heart disease of [place] coronary artery without angina pectoris (Chronic) I25.10 Resolute laura 3.0 X 18 mm CHANTELLE to proximal LAD into left main per Dr. Lorraine Silva @ [facility] History of non-ST elevation myocardial infarction (NSTEMI) (Chronic) Onset Date: 10/24/17 I25.2 HTN (hypertension) (Chronic) I10 HLD (hyperlipidemia) (Chronic) E78.5 GERD (gastroesophageal reflux disease) (Chronic) K21.9 Diabetes mellitus, type II (Chronic) E11.9 Hypothyroidism (Chronic) E03.9 Obesity (BMI 30-39.9) (Chronic) E66.9 - Past Surgical History Surgical History: Past Surgical History (Last Reviewed 11/20/17 @ 13:53 by Luz Marina Mckeon) History of left heart catheterization (Chronic) Onset Date: 10/25/[address] Mitchell @ [facility], pt tsferred to [facility] for PCI vs. Possible CABG Stented coronary artery (Chronic) Onset Date: 10/25/17 Z95.5 Resolute laura 3.0 X 18 mm CHANTELLE to proximal LAD into left main, with post stent balloon angioplasty done to proximal LAD with 3.0 X 12 NC balloon and distal left main with 4.0 NC balloon; kissing balloon to ostial LAD and ramus was done with 2.5 X 12 balloon in ramus and 3.5 mm in ostial LAD. IVUS done, see report. Pt then admitted to ICU with balloon pump. Surgical History: - - Cholecystectomy, hernia repair (ventral/umb). - Family History Summary Family History: Family History (Last Updated 11/20/17 @ 13:54 by Luz Marina Mckeon) Mother CAD (coronary artery disease) Myocardial infarction Father CAD (coronary artery disease) Myocardial infarction Sister Myocardial infarction CAD (coronary artery disease) Stented coronary artery Social History - Smoking History Smoking Status: Never smoker Hx Tobacco Use: No Hx Smoking Exposure: No - Alcohol Use Alcohol Usage: No - Substance Abuse Hx Substance Use: No - Occupation Occupation (List type of work in comments):: Retired - Hobbies, Recreation, Social Activities Hobbies: Reading, Other - worship Recreational Activities: I am able to engage in all my recreational activities Social Environment - Status Marital Status: - Current Living Arrangements Living Environment:: Alone - Children How many children do you have?: 0 Do any of your children live nearby?: No - Safety Do you feel safe in your surroundings?: Yes - Assistance Do you need any assistance at home?: none Review of Systems - Review of Systems Hints: Right click = Denies (Slash). Left click = Reports ([place]) Review of Present Symptoms: Reports: Fatigue, Heart Arrhythmia/Irregularities - Hx A-Fib, Sleep - Normal. Denies: Shortness of Breath at Rest, Shortness of Breath with Exertion, PVD, Operative Discomfort, Angina, Wound Healing, Dizziness/Lightheadedness, Appetite - Normal - not eating very much, Appetite - Special Diet, Sexual Changes - Pain Is Patient Pain Free?: Yes Risk Factor Assessment - Chief Complaint Chief Complaint: coronary artery stenting - Vital Signs Pulse Ox: 97 - Pulse Pulse Rate: 64 Pulse Rhythm: Regular - Hypertension How long have you been treated?: 5 years Blood Pressure Sitting - Left Arm: 124/76 - Stress Stress: Home/Family - Diabetes Diabetic History: Type II Nutrition Referral for Diabetes: No - Obesity Height: 1.57 m Weight:: 83.007 kg Weight in Pounds: 183.0 lbs Weight Source: Standing Scale Body Mass Index (BMI): 33.5 Nutritional Referral for Obesity: No - Physical Inactivity Physical Inactivity: Reg Exercise 30 min/day - walks every day - Risk Stratification Risk Guidelines: Lowest Risk: Risk Factor for Smoking, Moderate Risk: Risk Factor for Dyslipidemia, Risk Factor for Diabetes, Risk Factor for Obesity, Risk Factor for Hypertension, Risk Factor for Sedentary Lifestyle, Risk Factor for Depression - For Smoking Smoking Risk Guidelines: Smoking Low Risk: None or quit greater than 6 months ago. Smoking Moderate Risk: Smoker or quit 6 months or less ago. Smoking High Risk: Smoker - For Dyslipidemia Dyslipidemia Risk Guidelines: Low Risk: Moderate Risk: High Risk: 15-25% fat 25.1-29% fat >/= 30% fat. <7% sat fat 7-9% sat fat >9% sat fat. <150 mg chol 150-299 mg chol >/= 300 mg chol. LDL <100 LDL 100-129 LDL >/= 130. Chol/HDL ratio <5.0 Chol/HDL ratio 5.0-6.0 Chol/HDL ratio >6.0. Triglycerides <100 Triglycerides 100-149 Triglycerides >/= 150 - For Diabetes Mellitus Diabetes Risk Guidelines: Diabetes Low Risk: HgA1c <6.5% and/or FBG <120. Diabetes Moderate Risk: HgA1c 6.6-7.9% and/or FBG 120-180. Diabetes High Risk: HgA1c >/= 8% and/or FBG >180 - For Obesity/Overweight Obesity/Overweight Risk Guidelines: Obesity Low Risk: BMI <25.0. Obesity Moderate Risk: BMI 25-29.9. Obesity High Risk: BMI >/= 30.0 - For Hypertension Hypertension Risk Guidelines: Hypertension Low Risk: Systolic <120 and Diastolic <80. Hypertension Moderate Risk: Systolic 120-139 and Diastolic 80-89. Hypertension High Risk: Systolic >/= 140 and Diastolic >/= 90 - For Sedentary Lifestyle Sedentary Lifestyle Risk Guidelines: Sedentary Lifestyle Low Risk: >/= 1,500 kcal/week. Sedentary Lifestyle Moderate Risk: 700-1,499 kcal/week. Sedentary Lifestyle High Risk: < 700 kcal/week - For Depression Depression Risk Guidelines: Depression Low Risk: Not clinically depressed. Depression Moderate Risk: Mildly depressed. Depression High Risk: Clinically depressed - Family History Family History: Family History (Last Updated 11/20/17 @ 13:54 by Luz Marina Mckeon) Mother CAD (coronary artery disease) Myocardial infarction Father CAD (coronary artery disease) Myocardial infarction Sister Myocardial infarction CAD (coronary artery disease) Stented coronary artery Motivation - Motivation to Participate On a scale of 1 to 10, how prepared are you to commit to attending program?: 8 What do you see as barriers to successfully being able to complete the program?: transportation What do you see as the benefits of succesfully completing the program? In other words, what do you hope to get out of participating in the program?: improved health Are there issues you are dealing with that will interfere with completing the program?: none Do you have a spouse or signficant other, family or friends who will help support you to complete the program?: yes sister
[2017-12-14 13:53] VITALS: BP 124/76; PULSE 64; O2SAT 97; BMI 33.5
--- NOTE | 2017-12-14 13:55 | PCM.CR.ITP ---
General Information - General Information Admitting Diagnosis: Z95.5 coronary artery stenting - Education/Goals Barriers to Learning: None Cardiac Rehabilitation Goals: 1. Maintain the individual as the primary focus of care. 2. To improve the patient's quality of life. 3. Identification of cardiac risk factors and provide cardiac risk factor management. 4. Enhance the psychosocial status of the patient. 5. Reconditioning enough to allow the patient to resume customary activities. 6. Control symptoms of cardiac disease Scale for measuring improvement of personal goals: Enter appropriate number in Comments. 2 = Unchanged. 3 = Slightly Better. 4 = Moderate Improvement. 5 = Met my Goal Personal Goals: Initial Assessment: Improve energy level, Get back to work, or to resume activities faster, Improve knowledge of cardiac disease, Improve muscle strength and endurance, Improve diet and eating habits (eat healthier) Exercise - Initial Assessment - Visit Date of Eval: 12/14/17 - [facility] - Stages of Change Stages of Change:: Contemplate - Exercise Prescription Mode:: Treadmill, Biodyne, Rower, Airdyne, NuStep, Arm Ergometer Angina with exercise?: No Target Heart Rate:: 96-111 - Hypertension Do any of the following apply?: Yes Resting Blood Pressure:: 124/76 - Intervention Home Exercise/Activity Goal:: Sitting Time <3 hrs/day - Education Goals:: Warm-up, RPE [place] Scale, S/S, Safe Exercise, Self-Monitoring - Exercise Program Goals Exercise Program Goals: Aerobic Activity >30 min, B/P <130/80 Nutrition - Initial Assessment - Program Goals Nutrition Program Goals: LDL <70. Total Cholesterol <200. HDL >45. Triglycerides <150. HgbA1C <7%. BMI <25 - Visit Date of Assessment:: 12/14/17 - Stages of Change Stages of Change:: Contemplate - Diabetes Diabetes:: Yes Do you monitor your blood sugar at home?: Yes - Weight Management Height: 1.57 m Weight:: 83.007 kg Total Score:: 6 - Intervention Referral to dietitian:: No Referral to Diabetic Clinic:: No Will attend diet classes:: Yes - Education Gave educational materials for:: Signs & symptoms of hypoglycemia, Signs & symptoms of hyperglycemia, Relate diabetes to coronary artery disease, Healthy eating Tobacco - Initial Assessment - Program Goals Tobacco Program Goals: Complete smoking cessation. Attend education classes. Improve Knowledge Test score - Stage of Change Stages of Change:: Contemplate - Learning Barriers Total Score:: 15 - Family Support Do you have family support?: Yes - Tobacco Use Tobacco Use: Non-smoker Do you use smokeless tobacco?: No - Intervention Smoking Cessation Referral:: No Individual Education/Counseling:: No Education Schedule Given:: Yes - Education Gave educational material for:: Tobacco triggers, Coronary artery disease, Risk factors, Sexuality, Medical compliance, Cardiac A&P, Angina signs & symptoms Psychosocial - Initial Assess - Target Goals Target Goals: Assess presence or absence of depression. Using a valid screening tool, maximizes coping skills. Positive support system - Stages of Change Stages of Change:: Action - Psychosocial Test Tool Used:: HANDS Depression Questionnaire Total Mood Screening Score:: 10 Self-Efficacy Score:: 6 - Intervention PS - Interventions: Yes Attend Stress Management Classes, Yes Uses Stress Management Skills, No Referral to Mental Health, No Referral to [facility] Case Management, No Referral to Physician - Education Gave educational materials for:: Coping techniques, Signs & symptoms of depression, Stress management, Relaxation techniques - Assistive Devices Assistive Devices:: None Fall Risk Assessed:: Yes Patient Health Questionnaire Initial Assessment 1. Little interest or pleasure in doing things: More than half the days 2. Feeling down, depressed, or hopeless: Several days 3. Trouble falling or staying asleep, or sleeping too much: Several days 4. Feeling tired or having little energy: Nearly every day 5. Poor appetite or overeating: Nearly every day 6. Feeling bad about yourself -- or that you are a failure or have let yourself or your family down: Not at all 7. Trouble concentrating on things, such as reading the newspaper or watching television: Not at all 8. Moving or speaking so slowly that other people could have noticed. Or the opposite - being so fidgety or restless that you have been moving around a lot more than usual: Not at all 9. Thoughts that you would be better off , or of hurting yourself in some way: Not at all How difficult have these problems made it for you to do your work, take care of things at home, or get along with other people?: Not difficult at all Total Score: 10 HONEY-Q SV Test - Statements CAD is a disease of the arteries in the heart: True Examples of risk factors for heart disease: True Angina is chest pain or discomfort: True The benefits of resistance training include: True Eating more meat and dairy products: False Anti-platelet medications such as aspirin are important: True The only effective way to manage stress: True An exercise warm-up slowly increases heart rate: True Prepared, processed foods usually have high sodium: True Depression is common after a heart attack: True The statin medications lower cholesterol: True To control blood pressure, lower the amount of sodium: True If someone gets chest discomfort during walking: False Transfats are partially hydrogenated vegetable oils: False Sleep apnea that is not treated increases the risk: True To control cholesterol, one should become a vegetarian: False Someone knows if he/she is exercising at the right level: False Diabetes cannot be prevented with exercise & health eating: False Stress is a large risk for heart attack: True A diet that can help lower blood pressure is rich in: True - Total Score Total Correct Responses: 15 Self-Efficacy Initial Assessment We would like to know how confident you are in doing certain activities. Please select your confidence level for:: Select your confidence level for the following using the scale 1-10 where 1 is not at all confident and 10 is totally confident. Your score is the average of all 6 responses. Fatigue: How confident are you that you can keep the fatigue caused by your disease from interfering with the things you want to do? Select Number: 5 Physical Discomfort or Pain: How confident are you that you can keep the physical discomfort or pain of your disease from interfering with the things you want to do? Select Number: 7 Emotional Distress: How confident are you that you can keep the emotional distress caused by your disease from interfering with the things you want to do? Select Number: 5 Other Symptoms or Health Problems: How confident are you that you can keep other symptoms or health problems from interfering with the things you want to do? Select Number: 5 Different Tasks and Activities: How confident are you that you can do the different tasks and activities needed to manage your health condition so as to reduce your need to see a doctor? Select Number: 8 Medication: How confident are you that you can do things other than just taking medication to reduce how much your illness affects your everyday life? Select Number: 7 Total Score:: 6 Nutrition Survey - Nutrition Survey Instructions Scoring Instructions: Scoring is as follows: Yes = 1 points. No = 0 point. Patient score that is >/=12 is considered to be at potential nutritional risk and could benefit from a referral to a registered dietitian. - Nutrition Survey Initial Have you lost >10 lbs over the past 2 months without trying?: Yes Are you following a special diet at home for diabetes, low fat, or low salt?: Yes Are you interested in meeting with a dietitian for help understanding your diet?: No Do you eat less than 3 meals a day?: Yes Do you eat fatty meats (beach, sausage, ribs, etc), fried foods, desserts, large amounts of salad dressings, margarine, butter, or cheese most days?: Yes Do you have food allergies? [Enter types in comment field]: No Do you eat in restaurants more than 3 times a week?: No Do you season food with salt, seasoning salt, or garlic salt?: Yes Do you used canned, boxed, frozen meals, or soups, seasoning packets?: Yes Total Score:: 6
[2017-12-14 14:14] VITALS: BP 124/76
== END ==
PROVIDERS: Family Provider Family Medicine; PCP Family Medicine; Referring Provider Internal Medicine Cardiovascular Disease; Visit Provider Internal Medicine Cardiovascular Disease
DX: I25.10 Atherosclerotic heart disease of native coronary artery without angina pectoris (principal); I34.0 Nonrheumatic mitral (valve) insufficiency; I25.5 Ischemic cardiomyopathy; I25.2 Old myocardial infarction; I10 Essential (primary) hypertension; E78.5 Hyperlipidemia, unspecified; K21.9 Gastro-esophageal reflux disease without esophagitis; E11.9 Type 2 diabetes mellitus without complications; E03.9 Hypothyroidism, unspecified; E66.9 Obesity, unspecified; Z68.33 Body mass index [BMI] 33.0-33.9, adult; Z95.5 Presence of coronary angioplasty implant and graft; Z90.49 Acquired absence of other specified parts of digestive tract; Z79.82 Long term (current) use of aspirin; Z79.84 Long term (current) use of oral hypoglycemic drugs; Z79.899 Other long term (current) drug therapy

== ENCOUNTER 2017-12-23 09:15 | Outpatient (RCR) | payer MEDICARE, SELFPAY | END 2017-12-23 23:59 | LOC: CR 09:15 | PROVIDERS: Family Provider Family Medicine; PCP Family Medicine; Referring Provider Internal Medicine Cardiovascular Disease; Visit Provider Internal Medicine Cardiovascular Disease | DX: Z95.5 Presence of coronary angioplasty implant and graft (principal); I25.10 Atherosclerotic heart disease of native coronary artery without angina pectoris; I25.5 Ischemic cardiomyopathy; I34.0 Nonrheumatic mitral (valve) insufficiency; I25.2 Old myocardial infarction | CPT/HCPCS: 93798 ==

== ENCOUNTER 2018-01-22 09:15 | Outpatient (RCR) | payer MEDICARE, SELFPAY ==
--- NOTE | 2018-01-13 14:18 | PCM.CR.ITP ---
Exercise - 30-day Assessment - Visit Date of Eval: 01/13/18 Session #:: 11 - Stages of Change Stages of Change:: Action - Exercise Prescription Mode:: Treadmill, Biodyne, Airdyne, NuStep, Arm Ergometer Frequency (x/week): 3 Duration:: 35 METs - Progression: 0.5-1 MET as tolerated: 2.5 Target Heart Rate:: 111-118 - Hypertension Resting Blood Pressure:: 104/60 Peak Exercise Blood Pressure:: 142/80 Medication Changes:: No - Intervention Home Exercise/Activity Goal:: Sitting Time <3 hrs/day - Education Goals:: Warm-up, RPE [place] Scale, S/S, Safe Exercise, Self-Monitoring - Exercise Program Goals Exercise Program Goals: Aerobic Activity >30 min Nutrition - Initial Assessment - Program Goals Nutrition Program Goals: LDL <70. Total Cholesterol <200. HDL >45. Triglycerides <150. HgbA1C <7%. BMI <25 - Diabetes Do you monitor your blood sugar at home?: Yes Nutrition - 30-Day Assessment - Program Goals Nutrition Program Goals: LDL <70. Total Cholesterol <200. HDL >45. Triglycerides <150. HgbA1C <7%. BMI <25 - Visit Date of Eval: 01/13/18 - Stages of Change Stages of Change:: Action - Lipids Has the patient seen the dietitian?: Yes - Diabetes Diabetes:: No Insulin: No Non-Insulin Dependent?: No - Weight Management Weight:: 178 lb - Intervention Referral to dietitian:: No Referral to Diabetic Clinic:: No Will attend diet classes:: Yes - Education Attended class for:: Healthy eating Tobacco - 30-Day Assessment - Program Goals Tobacco Program Goals: Complete smoking cessation. Attend education classes. Improve Knowledge Test score - Stage of Change Stages of Change:: Action - Learning Barriers Learning Barriers: Participates in education - Family Support Do you have family support?: Yes - Tobacco Use Tobacco Use: Non-smoker Do you use smokeless tobacco?: No - Intervention Smoking Cessation Referral:: No Individual Education/Counseling:: No Education Schedule Given:: Yes - Education Attended class for:: Coronary artery disease, Risk factors, Sexuality, Medical compliance, Cardiac A&P, Angina signs & symptoms Psychosocial - Initial Assess - Target Goals Target Goals: Assess presence or absence of depression. Using a valid screening tool, maximizes coping skills. Positive support system - Psychosocial Test Tool Used:: HANDS Depression Questionnaire - Assistive Devices Fall Risk Assessed:: Yes Psychosocial - 30-Day Assess - Target Goals Target Goals: Assess presence or absence of depression. Using a valid screening tool, maximizes coping skills. Positive support system - Stages of Change Stages of Change:: Action - Psychosocial Test Tool Used:: HANDS Depression Questionnaire - Intervention PS - Interventions: Yes Attend Stress Management Classes, Yes Uses Stress Management Skills, No Referral to Mental Health, No Referral to [facility] Case Management, No Referral to Physician - Education Attended classes for:: Coping techniques, Signs & symptoms of depression, Stress management, Relaxation techniques - Patient/Program Goal Preventative Medication(s):: Aspirin, Clopidogrel, Beta bhavana, Statin/lipid - Assistive Devices Assistive Devices:: None Fall Risk Assessed:: Yes Patient Health Questionnaire 30-Day Re-eval Assessment 1. Little interest or pleasure in doing things: More than half the days 2. Feeling down, depressed, or hopeless: Several days 3. Trouble falling or staying asleep, or sleeping too much: Several days 4. Feeling tired or having little energy: Nearly every day 5. Poor appetite or overeating: Nearly every day 6. Feeling bad about yourself -- or that you are a failure or have let yourself or your family down: Not at all 7. Trouble concentrating on things, such as reading the newspaper or watching television: Not at all 8. Moving or speaking so slowly that other people could have noticed. Or the opposite - being so fidgety or restless that you have been moving around a lot more than usual: Not at all 9. Thoughts that you would be better off , or of hurting yourself in some way: Not at all How difficult have these problems made it for you to do your work, take care of things at home, or get along with other people?: Not difficult at all Total Score: 10 Self-Efficacy 30-Day Re-eval Assessment We would like to know how confident you are in doing certain activities. Please select your confidence level for:: Select your confidence level for the following using the scale 1-10 where 1 is not at all confident and 10 is totally confident. Your score is the average of all 6 responses. Fatigue: How confident are you that you can keep the fatigue caused by your disease from interfering with the things you want to do? Select Number: 6 Physical Discomfort or Pain: How confident are you that you can keep the physical discomfort or pain of your disease from interfering with the things you want to do? Select Number: 8 Emotional Distress: How confident are you that you can keep the emotional distress caused by your disease from interfering with the things you want to do? Select Number: 6 Other Symptoms or Health Problems: How confident are you that you can keep other symptoms or health problems from interfering with the things you want to do? Select Number: 6 Different Tasks and Activities: How confident are you that you can do the different tasks and activities needed to manage your health condition so as to reduce your need to see a doctor? Select Number: 8 Medication: How confident are you that you can do things other than just taking medication to reduce how much your illness affects your everyday life? Select Number: 7 Total Score:: 6
[2018-01-13 14:22] VITALS: BP 104/60; BP 142/80
== END 2018-01-22 23:59 ==
LOC: CR 09:15
PROVIDERS: Family Provider Family Medicine; PCP Family Medicine; Referring Provider Internal Medicine Cardiovascular Disease; Visit Provider Internal Medicine Cardiovascular Disease
DX: Z95.5 Presence of coronary angioplasty implant and graft (principal); I25.10 Atherosclerotic heart disease of native coronary artery without angina pectoris; I25.5 Ischemic cardiomyopathy; I34.0 Nonrheumatic mitral (valve) insufficiency; I25.2 Old myocardial infarction
CPT/HCPCS: 93798

== ENCOUNTER 2018-02-17 09:15 | Outpatient (RCR) | payer MEDICARE, SELFPAY ==
[2017-12-14 13:53] VITALS: BMI 33.5
[2018-01-23 01:45] VITALS: BP 104/60; BP 142/80
--- NOTE | 2018-02-12 11:08 | CR.ITP_ITS ---
General Information - General Information Admitting Diagnosis: PCI with coronary stent placement - Education/Goals Cardiac Rehabilitation Goals: 1. Maintain the individual as the primary focus of care. 2. To improve the patient's quality of life. 3. Identification of cardiac risk factors and provide cardiac risk factor management. 4. Enhance the psychosocial status of the patient. 5. Reconditioning enough to allow the patient to resume customary activities. 6. Control symptoms of cardiac disease Scale for measuring improvement of personal goals: Enter appropriate number in Comments. 2 = Unchanged. 3 = Slightly Better. 4 = Moderate Improvement. 5 = Met my Goal Exercise - 60-Day Assessment - Visit Date of Eval: 02/12/18 Session #:: 21 - Stages of Change Stages of Change:: Action - Exercise Prescription Mode:: Airdyne, NuStep, Arm Ergometer Frequency (x/week): 3 Duration:: 35 METs: 3.5 Target Heart Rate:: 111-118 Max HR 111 - Hypertension Resting Blood Pressure:: 108/58 Peak Exercise Blood Pressure:: 164/66 Medication Changes:: No - Intervention Home Exercise/Activity Goal:: Sitting Time <3 hrs/day - Education Goals:: Warm-up, RPE [place] Scale, S/S, Safe Exercise, Self-Monitoring - Exercise Program Goals Exercise Program Goals: Aerobic Activity >30 min, B/P <130/80 Nutrition - Initial Assessment - Program Goals Nutrition Program Goals: LDL <70. Total Cholesterol <200. HDL >45. Triglycerides <150. HgbA1C <7%. BMI <25 - Diabetes Do you monitor your blood sugar at home?: Yes Nutrition - 60-Day Assessment - Program Goals Nutrition Program Goals: LDL <70. Total Cholesterol <200. HDL >45. Triglycerides <150. HgbA1C <7%. BMI <25 - Visit Date of Eval: 02/12/18 - Stages of Change Stages of Change:: Action - Lipids Has the patient seen the dietitian?: No - Weight Management Weight:: 81.42 kg - Intervention Referral to dietitian:: No Referral to Diabetic Clinic:: No Will attend diet classes:: Yes - Education Attended class for:: Signs & symptoms of hypoglycemia, Signs & symptoms of hyperglycemia, Relate diabetes to coronary artery disease, Healthy eating Tobacco - 60-Day Assessment - Program Goals Tobacco Program Goals: Complete smoking cessation. Attend education classes. Improve Knowledge Test score - Stage of Change Stages of Change:: Action - Learning Barriers Learning Barriers: Participates in education - Family Support Do you have family support?: Yes - Tobacco Use Tobacco Use: Non-smoker - Intervention Smoking Cessation Referral:: No Individual Education/Counseling:: No Education Schedule Given:: Yes - Education Attended class for:: Tobacco triggers, Coronary artery disease, Risk factors, Sexuality, Medical compliance, Cardiac A&P, Angina signs & symptoms Psychosocial - Initial Assess - Target Goals Target Goals: Assess presence or absence of depression. Using a valid screening tool, maximizes coping skills. Positive support system - Psychosocial Test Tool Used:: HANDS Depression Questionnaire - Assistive Devices Fall Risk Assessed:: Yes Psychosocial - 60-Day Assess - Target Goals Target Goals: Assess presence or absence of depression. Using a valid screening tool, maximizes coping skills. Positive support system - Stages of Change Stages of Change:: Action - Psychosocial Test Tool Used:: HANDS Depression Questionnaire - Intervention PS - Interventions: Yes Attend Stress Management Classes, Yes Uses Stress Management Skills, No Referral to Mental Health, No Referral to [facility] Case Management, No Referral to Physician - Education Attended classes for:: Coping techniques, Signs & symptoms of depression, Stress management, Relaxation techniques - Assistive Devices Assistive Devices:: None Fall Risk Assessed:: Yes Patient Health Questionnaire 60-Day Re-eval Assessment 1. Little interest or pleasure in doing things: More than half the days 2. Feeling down, depressed, or hopeless: Several days 3. Trouble falling or staying asleep, or sleeping too much: Several days 4. Feeling tired or having little energy: Nearly every day 5. Poor appetite or overeating: Nearly every day 6. Feeling bad about yourself -- or that you are a failure or have let yourself or your family down: Not at all 7. Trouble concentrating on things, such as reading the newspaper or watching television: Not at all 8. Moving or speaking so slowly that other people could have noticed. Or the opposite - being so fidgety or restless that you have been moving around a lot more than usual: Not at all 9. Thoughts that you would be better off , or of hurting yourself in some way: Not at all How difficult have these problems made it for you to do your work, take care of things at home, or get along with other people?: Not difficult at all Total Score: 10 Self-Efficacy 60-Day Re-eval Assessment We would like to know how confident you are in doing certain activities. Please select your confidence level for:: Select your confidence level for the following using the scale 1-10 where 1 is not at all confident and 10 is totally confident. Your score is the average of all 6 responses. Fatigue: How confident are you that you can keep the fatigue caused by your disease from interfering with the things you want to do? Select Number: 6 Physical Discomfort or Pain: How confident are you that you can keep the physical discomfort or pain of your disease from interfering with the things you want to do? Select Number: 8 Emotional Distress: How confident are you that you can keep the emotional distress caused by your disease from interfering with the things you want to do? Select Number: 6 Other Symptoms or Health Problems: How confident are you that you can keep other symptoms or health problems from interfering with the things you want to do? Select Number: 6 Different Tasks and Activities: How confident are you that you can do the different tasks and activities needed to manage your health condition so as to reduce your need to see a doctor? Select Number: 8 Medication: How confident are you that you can do things other than just taking medication to reduce how much your illness affects your everyday life? Select Number: 7 Total Score:: 6
[2018-02-12 11:11] VITALS: BP 108/58; BP 164/66
== END 2018-02-22 23:59 ==
LOC: CR 09:15
PROVIDERS: Family Provider Family Medicine; PCP Family Medicine; Referring Provider Internal Medicine Cardiovascular Disease; Visit Provider Internal Medicine Cardiovascular Disease
DX: I25.2 Old myocardial infarction (principal); Z95.5 Presence of coronary angioplasty implant and graft; I25.10 Atherosclerotic heart disease of native coronary artery without angina pectoris; I25.5 Ischemic cardiomyopathy; I34.0 Nonrheumatic mitral (valve) insufficiency
CPT/HCPCS: 93798

== ENCOUNTER → 2018-02-18 13:41 | Outpatient (CLI) | payer MEDICARE, SELFPAY ==
[2017-12-14 13:53] VITALS: BMI 33.5
--- NOTE | 2018-02-18 13:43 | ECHOD_ITS ---
Reason For Study: S/P NC, ISCHEMIC CMP Procedure This was a 2D Doppler, Color Flow transthoracic echocardiogram. Exam performed in department. Left Ventricle Normal size and thickness. D shaped septum in diastole. The estimated ejection fraction is 55-60 %. Stage 1 diastolic dysfunction. No regional wall motion abnormalities noted. Right Ventricle Normal size and thickness. Normal systolic function. Atria The left atrium is mildly enlarged. Normal right atrium. Normal atrial septum. Mitral Valve The mitral valve is structurally normal. No prolapse or stenosis seen. Mild (1+) eccentric mitral valve insufficiency. Tricuspid Valve Normal tricuspid valve. Mild to moderate (1-2+) tricuspid valve insufficiency. Right ventricular systolic pressure estimated to be 51 mmHg. Moderate pulmonary hypertension. Aortic Valve Normal aortic valve. Trisinus/trileaflet aortic valve. Pulmonic Valve Normal pulmonic valve. Great Vessels Normal aortic root. Normal arch. Inferior vena cava collapse with sniff. The inferior vena cava is dilated. Pericardium/Pleural No pericardial effusion. MMode/2D Measurements & Calculations LVIDd: 5.3 cm IVSd: 0.88 cm Ao root diam: 2.8 cm LVIDs: 3.4 cm LVPWd: 0.82 cm RVDd: 3.5 cm FS: 36.6 % LAV(MOD-bp): 74.3 ml LA A4 area: 23.8 cm2 LA dimension(2D): 4.4 cm LAV(MOD-bp) Indexed: 40.4 ml/m2 LAV(MOD-sp2): 72.8 ml LAV(MOD-sp4): 75.2 ml RA A4 area: 17.7 cm2 Time Measurements MV dec time: 0.23 sec Doppler Measurements & Calculations MV E max tae: 139.6 cm/sec Lat Peak E' Tae: 11.0 cm/sec Med Peak E' Tae: 7.7 cm/sec MV A max tae: 52.0 cm/sec E/E' lat: 12.7 E/E' med: 18.2 MV E/A: 2.7 Ao V2 max: 158.7 cm/sec LV V1 max: 103.5 cm/sec MR max tae: 541.4 cm/sec Ao max P.1 mmHg LV V1 max P.3 mmHg MR max P.2 mmHg MR mean tae: 427.0 cm/sec MR mean P.3 mmHg MR VTI: 181.6 cm PA V2 max: 101.6 cm/sec TR max tae: 334.1 cm/sec TR max P.0 mmHg Interpretation Summary D shaped septum in diastole. The estimated ejection fraction is 55-60 %. Stage 1 diastolic dysfunction. The left atrium is mildly enlarged. Mild (1+) eccentric mitral valve insufficiency. Mild to moderate (1-2+) tricuspid valve insufficiency. Right ventricular systolic pressure estimated to be 51 mmHg. Moderate pulmonary hypertension. There is no comparison study available. Ordering Physician: Jaren Castellano Referring Physician: Angie Jimenez Performed By: Kimmy Rodríguez RDCS, RVT
== END ==
PROVIDERS: Family Provider Family Medicine; PCP Family Medicine; Referring Provider Internal Medicine Cardiovascular Disease; Visit Provider Internal Medicine Cardiovascular Disease
DX: I25.10 Atherosclerotic heart disease of native coronary artery without angina pectoris (principal); I25.2 Old myocardial infarction; I25.5 Ischemic cardiomyopathy; I34.0 Nonrheumatic mitral (valve) insufficiency; Z95.5 Presence of coronary angioplasty implant and graft
CPT/HCPCS: 93306

== ENCOUNTER 2018-05-13 10:47 | Emergency (ER) | payer MEDICARE, SELFPAY ==
[2018-05-13 10:47] VITALS: BP 140/99; PULSE 72; RESP 17; TEMP 36.7; O2SAT 98; BMI 31.1
[2018-05-13 10:50] VITALS: O2SAT 98
--- NOTE | 2018-05-13 10:57 | EKG12_ITS ---
Test Reason : SOB Blood Pressure : / mmHG Vent. Rate : 070 BPM Atrial Rate : 070 BPM P-R Int : 158 ms QRS Dur : 080 ms QT Int : 428 ms P-R-T Axes : 027 036 064 degrees QTc Int : 462 ms Normal sinus rhythm Normal ECG Confirmed by BRITTANY BECK, TRUNG ([id number]), proposal editor CARA CURTIS ([id number]) on 05/17/2018 11:31:00 AM Referred By: DALIA Confirmed By:TRUNG SOTO MD
--- NOTE | 2018-05-13 10:57 | RAD_ITS ---
STUDY: X-RAY CHEST REASON FOR EXAM: Female, 73 years old. TECHNIQUE: Portable chest upright COMPARISON: None. FINDINGS: The lungs are clear and expanded. Normal cardiomediastinal silhouette, dimitris and pleural margins. No acute osseous or upper abdominal process. RAD/Chest 1 View (Portable) IMPRESSION: No acute cardiopulmonary process. Electronically Signed: Baudilio Baez MD at 13:07 EDT Tel , Service support ,
--- NOTE | 2018-05-13 10:59 | ED.VISSUMM ---
- ER Visit Summary Date of Service: 05/13/18 Chief Complaint: Shortness of breath History of Present Illness: The patient is a 73 F who complains of shortness of breath. She has had this for 2 weeks. She feels more dyspnea on exertion. She states she went to make breakfast this morning and by the time she was finished she was out of breath and winded. She has never had any chest pain before during or after exerting herself. Her symptoms do get better with rest. She denies a cough or rhinorrhea. No fevers. She had a heart attack back in October. She has a total of [address] 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 She states she had a recent echocardiogram and was told that she has valve issues. Physical Examination: Vital signs reviewed. HEENT exam unremarkable. Heart is regular rate and rhythm without murmurs. Lungs are clear to auscultation. Abdomen is soft and nontender. Extremities reveal no edema. Her peripheral pulses are equal. Skin exam normal. Neurologic exam normal. Test Results: EKG is normal sinus rhythm with rate of 70. Nonspecific ST and T wave changes noted. Chest x-ray per my interpretation reveals chronic changes with no evidence of CHF or infiltrate. Hemoglobin 8.5, creatinine 1.31, glucose 114. Troponin less than 0.015. D-dimer 0.56. BNP 332 Emergency Department Course and Treatment: The patient's workup is fairly benign. Her hemoglobin is slightly low the patient denies any bleeding, dark stools. I do not feel she requires admission. Her echocardiogram reveals some slight valvular insufficiency with moderate pulmonary hypertension. She does see Dr. Castellano and she needs to follow-up with him as an outpatient. Treatment Plan: [] Disposition: Discharge Impression: Dyspnea This note was generated with [employer] dictation software. It may contain incorrect words, spelling, and punctuation that were not noted in review of the chart prior to signing ED Disposition - Plan for ED Patient: Referrals: Angie Jimenez [Primary Care Provider] -
[2018-05-13 11:48] LABS: Absolute Lymphocyte Count 0.54 X10^3/ul (0.83-4.51); Absolute Neutrophil Count 3.3 X10^3/uL (2.0-7.7); Basophil# 0.01 X10^3/uL; Basophil% 0.2 % (0-1); Eosinophil# 0.05 X10^3/uL; Eosinophils% 1.1 % (0-5); Hematocrit 28.7 % (37-47); Hemoglobin 8.5 g/dl (12.0-15.0); Lymphocyte # 0.54 X10^3/ul (4.0); Lymphocyte % 12.3 % (19-41); Mean Corp Hgb Conc 29.6 g/gl (32-36); Mean Corpuscular Hgb 26.5 pg (27.0-32.0); Mean Corpuscular Volume 89.4 fL (81-99); Mean Platelet Vol. 12.4 fl (6.2-12.0); Monocyte# 0.48 X10^3/uL; Monocyte% 10.9 % (0-10); Neutrophil % 75.3 % (47-70); Platelet Count 183 K/mm3 (150-450); RBC Distribution Width CV 16.3 % (11.6-14.6); Red Blood Count 3.21 M/mm3 (4.2-5.4); White Blood Count 4.4 K/mm3 (4.4-11.0)
[2018-05-13 11:49] LABS: Differential Indicated SCAN CRITERIA MET; POSITIVE COUNT NO; POSITIVE DIFFERENTIAL YES; POSITIVE MORPHOLOGY NO
[2018-05-13 11:52] VITALS: PULSE 62; RESP 15; O2SAT 97
[2018-05-13 11:57] LABS: Anion Gap 6 (5-15); BUN 17 mg/dL (7-18); Calcium,Total 8.8 mg/dL (8.5-10.1); Chloride 112 mmol/L (98-107); Creatinine, Serum 1.31 mg/dL (0.55-1.02); D-Dimer Quantitative (DVT/PE) 0.56 FEU/ug/m (0.27-0.49); EST Glomerular Filtration Rate 42 mL/min (>60); Est Glom Filt Rate - Afr Amer 51 mL/min (>60); Estimated Creatinine Clearance 30.25 ml/min; Glucose 114 mg/dL (74-106); Sodium Level 141 mmol/L (136-145)
--- NOTE | 2018-05-13 11:57 | ED.RN ---
d-dimer 0.56, md aware.
[2018-05-13 12:05] LABS: Anisocytosis 1+; Hypochromasia 2+; Platelet Estimate ADEQUATE (ADEQ)
[2018-05-13 12:06] LABS: Acanthocytes 1+; Ovalocyte 1+; Tear Drop Cell RARE
[2018-05-13 12:12] VITALS: BP 128/87; PULSE 60; RESP 15; O2SAT 98
[2018-05-13 12:14] LABS: BNP,B-Type NATRIURETIC PEPTIDE 332.6 pg/mL (0-100)
--- NOTE | 2018-05-13 13:07 | ED.DEP ---
ED Disposition - Plan for ED Patient: Disposition: Home or Assisted Living Instructions: ED Dyspnea Shortness of Breath Referrals: Angie Jimenez [Primary Care Provider] -
[2018-05-13 13:30] VITALS: BP 142/68; PULSE 61; RESP 16; O2SAT 96
== END 2018-05-13 13:31 | disposition home or self-care (01) ==
PROVIDERS: Emergency Provider Emergency Medicine; Family Provider Family Medicine; PCP Family Medicine
DX: R06.00 Dyspnea, unspecified (principal); I25.2 Old myocardial infarction; Z95.5 Presence of coronary angioplasty implant and graft
CPT/HCPCS: 71045; 80048; 83880; 84484; 85025; 85379; 93005; 99285; A4216

== ENCOUNTER → 2018-06-07 16:10 | Outpatient (CLI) | payer MEDICARE, SELFPAY ==
[2018-06-07 15:19] VITALS: BMI 31.4
--- NOTE | 2018-06-07 16:40 | RAD_ITS ---
STUDY: X-RAY CHEST REASON FOR EXAM: Female, 73 years old. Shortness of breath TECHNIQUE: PA and lateral chest COMPARISON: 05/13/2018 FINDINGS: The lungs are clear and expanded. Normal cardiomediastinal silhouette, dimitris and pleural margins. No acute osseous or upper abdominal process. Thoracolumbar scoliosis. RAD/Chest PA and Lateral IMPRESSION: No acute cardiopulmonary process. Electronically Signed: Baudilio Baez MD at 16:53 EDT Tel , Service support ,
[2018-06-07 17:07] LABS: Absolute Lymphocyte Count 0.72 X10^3/ul (0.83-4.51); Absolute Neutrophil Count 3.5 X10^3/uL (2.0-7.7); Basophil# 0.01 X10^3/uL; Basophil% 0.2 % (0-1); Eosinophil# 0.05 X10^3/uL; Hematocrit 26.2 % (37-47); Hemoglobin 7.7 g/dl (12.0-15.0); Lymphocyte # 0.72 X10^3/ul (4.0); Lymphocyte % 14.8 % (19-41); Mean Corp Hgb Conc 29.4 g/gl (32-36); Mean Corpuscular Hgb 24.8 pg (27.0-32.0); Mean Corpuscular Volume 84.5 fL (81-99); Mean Platelet Vol. 12.4 fl (6.2-12.0); Monocyte# 0.61 X10^3/uL; Monocyte% 12.5 % (0-10); Neutrophil # 3.48 X10^3/uL (2.7-7.7); Neutrophil % 71.3 % (47-70); Platelet Count 153 K/mm3 (150-450); RBC Distribution Width CV 16.3 % (11.6-14.6); RBC Distribution Width SD 48.5 fl (35.1-43.9); White Blood Count 4.9 K/mm3 (4.4-11.0)
[2018-06-07 17:10] LABS: POSITIVE COUNT NO; POSITIVE DIFFERENTIAL NO; POSITIVE MORPHOLOGY NO
[2018-06-07 18:25] LABS: AST(SGOT) 20 U/L (15-37); Alanine Aminotransfer ALT/SGPT 18 U/L (13-56); Albumin, Serum 3.3 g/dL (3.2-5.0); Alkaline Phosphatase 56 U/L (45-117); Bilirubin, Direct 0.27 mg/dL (0.00-0.30); Globulin 3.6 g/dL (2.2-4.2); Protein, Total 6.9 g/dL (6.4-8.2)
== END ==
PROVIDERS: Family Provider Family Medicine; PCP Family Medicine; Referring Provider Internal Medicine Cardiovascular Disease; Visit Provider Internal Medicine Cardiovascular Disease
DX: I50.22 Chronic systolic (congestive) heart failure (principal); E78.5 Hyperlipidemia, unspecified; D64.9 Anemia, unspecified; I27.21 Secondary pulmonary arterial hypertension; R06.02 Shortness of breath
CPT/HCPCS: 36415; 71046; 80076; 85025

== ENCOUNTER 2018-06-08 11:02 | Observation (INO) | payer MEDICARE, SELFPAY ==
[2018-06-07 15:19] VITALS: BMI 31.4
[2018-06-08] VITALS (16 sets, daily range): BP systolic 111–141; BP diastolic 46–73; PULSE 58–66; RESP 16–18; TEMP 36.6–37.1; O2SAT 92–98; BMI 31.0
[2018-06-08 09:07] LABS: Cholesterol 97 mg/dL (200); High Density Lipoprotein 39 mg/dL; Triglycerides 91 mg/dL; Very Low Density Lipoprotein 18 mg/dL (5-40)
--- NOTE | 2018-06-08 13:15 | EKG12_ITS ---
Test Reason : SYMPTOMATIC ANEMIA Blood Pressure : / mmHG Vent. Rate : 062 BPM Atrial Rate : 062 BPM P-R Int : 164 ms QRS Dur : 080 ms QT Int : 472 ms P-R-T Axes : 049 021 040 degrees QTc Int : 479 ms Normal sinus rhythm Septal infarct , age undetermined Abnormal ECG When compared with ECG of 13-MAY-2018 10:50, No significant change was found Confirmed by BRITTANY BECK, TRUNG ([id number]), brands editor CASSI HOOPER ([id number]) on 06/10/2018 9:51:44 AM Referred By: Po Pelayo Confirmed By:TRUNG SOTO MD
--- NOTE | 2018-06-08 13:24 | PCM.HP.STD ---
Problem List (1) Symptomatic anemia Status: Acute (2) Chronic systolic HF (heart failure) Status: Chronic (3) Shortness of breath Status: Acute (4) Secondary pulmonary arterial hypertension Status: Chronic Comment: RVSP 51 mmhg per echo 02/18/2018 (5) Nonrheumatic tricuspid (valve) insufficiency Status: Chronic Comment: 1-2+ per echo 02/18/18 done @ [facility] (6) History of left heart catheterization Status: Chronic Comment: Done by Dr. Mitchell @ [facility], pt tsferred to [facility] for PCI vs. Possible CABG (7) Nonrheumatic mitral valve regurgitation Status: Chronic Comment: Mild (1+) per echo 10/28/2017 done @ [facility], and per echo 02/18/18 @ [facility] (8) Ischemic cardiomyopathy Status: Chronic Comment: EF 45-50% per echo done 10/28/2017 @ [facility] (9) Atherosclerotic heart disease of [place] coronary artery without angina pectoris Status: Chronic Comment: Resolute laura 3.0 X 18 mm CHANTELLE to proximal LAD into left main per Dr. Gamez @ [facility] (10) Stented coronary artery Status: Chronic Comment: Resolute laura 3.0 X 18 mm CHANTELLE to proximal LAD into left main, with post stent balloon angioplasty done to proximal LAD with 3.0 X 12 NC balloon and distal left main with 4.0 NC balloon; kissing balloon to ostial LAD and ramus was done with 2.5 X 12 balloon in ramus and 3.5 mm in ostial LAD. IVUS done, see report. Pt then admitted to ICU with balloon pump. (11) History of non-ST elevation myocardial infarction (NSTEMI) Status: Chronic (12) HTN (hypertension) Status: Chronic Qualifiers: (13) HLD (hyperlipidemia) Status: Chronic Qualifiers: (14) GERD (gastroesophageal reflux disease) Status: Chronic Qualifiers: (15) Diabetes mellitus, type II Status: Chronic Qualifiers: (16) Hypothyroidism Status: Chronic Qualifiers: (17) Obesity (BMI 30-39.9) Status: Chronic (18) Anxiety and depression Status: Chronic History of Present Illness Date of Admission: 06/08/18 Chief Complaint: Dyspnea on exertion The patient is a 73 year old F with a past medical history of hypertension, status post PTCA/CHANTELLE to the ostial LAD and slightly into the left main in October 2017, coronary artery disease, diabetes mellitus type 2, anxiety/depression, hypothyroidism, obesity, hyperlipidemia and GERD who was sent to the hospital by Dr. Castellano for symptomatic anemia. Hemoglobin in October 2017 was 11.4 with an MCV of 90.5 and a normal RDW. Hemoglobin today is 7.7 with an MCV of 84.5 and an RDW of 16.3. She is complaining of severe shortness of breath with exertion and increased fatigue. She has no history of peptic ulcer disease. She has not had a colonoscopy in greater than 10 years. She does not look at her bowel movements but tells me that for the past 2 days she has had loose stool. Denies any nausea and also denies any abdominal pain. She has no vaginal bleeding. She does have lightheadedness. She has been on Brilinta and aspirin since the drug-eluting stent in October 2017. Brilinta is currently on hold but she will continue on aspirin. She will be transfused and Dr. Mathis has been consulted for endoscopy. Past Medical History Past Medical History (Chronic Problems): Chronic Problems (Last Reviewed 06/07/18 @ 15:29 by Luz Marina Mckeon) Chronic systolic HF (heart failure) (Chronic) Secondary pulmonary arterial hypertension (Chronic) RVSP 51 mmhg per echo 02/18/2018 Nonrheumatic tricuspid (valve) insufficiency (Chronic) 1-2+ per echo 02/18/18 done @ [facility] History of left heart catheterization (Chronic 10/25/17) Done by Dr. Mitchell @ [facility], pt tsferred to [facility] for PCI vs. Possible CABG Nonrheumatic mitral valve regurgitation (Chronic) Mild (1+) per echo 10/28/2017 done @ [facility], and per echo 02/18/18 @ [facility] Ischemic cardiomyopathy (Chronic) EF 45-50% per echo done 10/28/2017 @ [facility] Atherosclerotic heart disease of [place] coronary artery without angina pectoris (Chronic) Resolute laura 3.0 X 18 mm CHANTELLE to proximal LAD into left main per Dr. Gamez @ [facility] Stented coronary artery (Chronic 10/25/17) Resolute laura 3.0 X 18 mm CHANTELLE to proximal LAD into left main, with post stent balloon angioplasty done to proximal LAD with 3.0 X 12 NC balloon and distal left main with 4.0 NC balloon; kissing balloon to ostial LAD and ramus was done with 2.5 X 12 balloon in ramus and 3.5 mm in ostial LAD. IVUS done, see report. Pt then admitted to ICU with balloon pump. History of non-ST elevation myocardial infarction (NSTEMI) (Chronic 10/24/17) HTN (hypertension) (Chronic) HLD (hyperlipidemia) (Chronic) GERD (gastroesophageal reflux disease) (Chronic) Diabetes mellitus, type II (Chronic) Hypothyroidism (Chronic) Obesity (BMI 30-39.9) (Chronic) Anxiety and depression (Chronic) Medical History: Medical History (Last Reviewed 06/08/18 @ 13:39 by Po Pelayo DO) Chronic systolic HF (heart failure) (Chronic) I50.22 Shortness of breath (Acute) R06.02 Secondary pulmonary arterial hypertension (Chronic) I27.21 RVSP 51 mmhg per echo 02/18/2018 Nonrheumatic tricuspid (valve) insufficiency (Chronic) I36.1 1-2+ per echo 02/18/18 done @ [facility] Nonrheumatic mitral valve regurgitation (Chronic) I34.0 Mild (1+) per echo 10/28/2017 done @ [facility], and per echo 02/18/18 @ [facility] Ischemic cardiomyopathy (Chronic) I25.5 EF 45-50% per echo done 10/28/2017 @ [facility] Atherosclerotic heart disease of [place] coronary artery without angina pectoris (Chronic) I25.10 Resolute laura 3.0 X 18 mm CHANTELLE to proximal LAD into left main per Dr. Gamez @ [facility] History of non-ST elevation myocardial infarction (NSTEMI) (Chronic) Onset Date: 10/24/17 I25.2 HTN (hypertension) (Chronic) I10 HLD (hyperlipidemia) (Chronic) E78.5 GERD (gastroesophageal reflux disease) (Chronic) K21.9 Diabetes mellitus, type II (Chronic) E11.9 Hypothyroidism (Chronic) E03.9 Obesity (BMI 30-39.9) (Chronic) E66.9 Allergies No Known Allergies Allergy (Verified 06/07/18 15:31) Home Medications: Ambulatory Orders Medication Instructions Recorded Aspirin [Aspirin, Baby] 81 mg PO DAILY@0800 10/24/17 Escitalopram Oxalate [Lexapro] 10 mg PO DAILY 10/24/17 metformin 500 mg tablet 500 mg PO BID tab 11/17/17 Atorvastatin Calcium [Lipitor] 80 mg PO QHS 06/08/18 Levothyroxine Sodium [Synthroid] 50 mcg PO DAILY 06/08/18 Metoprolol Tartrate [Lopressor 12.5 mg PO BID 06/08/18 (beta bhavana)] Pantoprazole Sodium [Protonix] 40 mg PO DAILY 06/08/18 Vit A/Vit C/Vit E/Zinc/Copper 1 each PO DAILY 06/08/18 [Preservision Areds Softgel] Surgical History: Surgical History (Last Reviewed 06/08/18 @ 13:39 by Po Pelayo DO) History of left heart catheterization (Chronic) Onset Date: 10/25/[address] Mitchell @ [facility], pt tsferred to [facility] for PCI vs. Possible CABG Stented coronary artery (Chronic) Onset Date: 10/25/17 Z95.5 Resolute laura 3.0 X 18 mm CHANTELLE to proximal LAD into left main, with post stent balloon angioplasty done to proximal LAD with 3.0 X 12 NC balloon and distal left main with 4.0 NC balloon; kissing balloon to ostial LAD and ramus was done with 2.5 X 12 balloon in ramus and 3.5 mm in ostial LAD. IVUS done, see report. Pt then admitted to ICU with balloon pump. Surgical History: - - Cholecystectomy, hernia repair (ventral/umb). 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 Paternal Family History: Family History (Last Reviewed 06/08/18 @ 13:40 by Po Pelayo DO) Mother CAD (coronary artery disease) Myocardial infarction Father CAD (coronary artery disease) Myocardial infarction Sister Myocardial infarction CAD (coronary artery disease) Stented coronary artery History Items: - - Patient notes a paternal family history of heart disease, hypertension, hyperlipidemia and diabetes and does note he did have stents. Review of Systems Constitutional: Denies: Chills, Fever, Weight Change HEENT: Denies: Head Aches, Sinus Congestion, Sinus Drainage Cardiovascular: Denies: Chest Pain, Palpitations Respiratory: Reports: Shortness of breath upon exertion. Denies: Cough, Shortness of breath at rest, Sputum production Gastrointestinal: Denies: Abdominal Pain, Nausea, Vomiting Genitourinary: Denies: Dysuria Gynecological: Denies: Vaginal bleeding, Vaginal discharge Musculoskeletal: Denies: Joint Pain, Joint Tenderness Skin: Denies: Rash, Wounds Neurological: Denies: Numbness, Tingling, Focal weakness Psychiatric: Denies: Anxiety, Depression, Homicidal Ideations, Suicidal Ideations Hematologic/ Lymphatic: Denies: Easy Bruising, Easy Bleeding, Hx of blood clot VTE Information - Inpt Only VTE Present on Admission: No VTE Mechan Device Prophylaxis: SCD's, Knee High NGOZI Hose VTE Pharm Prophylaxis ordered?: No Reason prophylaxis not ordered:: Medical Contraindication - pt is admitted for severe anemia with marked ABRR and fatigue Patient Problems: Active and Suspected Problems (Last Reviewed 06/07/18 @ 15:29 by Luz Marina Mckeon) Symptomatic anemia (Acute) - Physical Exam General: Alert, Oriented x3, Cooperative, No apparent distress, Well developed, Well nourished, - - She has a bruise on the right forehead secondary to an encounter with a washing machine. HEENT: PERRLA, EOMI, Normocephalic Oral: Moist Mucosa, No Gingival or Mucosal Lesions/ Ulcerations Neck: Supple, No JVD, No Nodes, No Nuchal Rigidity, Trachea Midline, Carotid Bruit, Right - soft bruit R carotid Lungs: Clear to auscultation, Normal air movement, No rhonchi, No wheeze, No rales Cardiovascular: Regular rate, Regular Rhythm, Normal S1, Normal S2, Murmur - very soft systolic MM at the second RICS radiating to the LLSB Abdomen: Bowel Sounds Present, Soft, Non Tender, Non-Distended Extremities: No clubbing, No cyanosis, No edema, Peripheral Pulses Normal Skin: No rashes, No breakdown Musculoskeletal: No Muscle Wasting, Arthritic Changes Neurological: Cranial nerves II-XII grossly intact, Neuro grossly intact Psych/Mental Status: Normal Affect, Appropriate Vital Signs Temp Pulse Resp BP Pulse Ox 98.4 F 60 18 119/46 L 98 06/08/18 11:58 06/08/18 11:58 06/08/18 11:58 06/08/18 11:58 06/08/18 11:58 Oxygen Delivery Method Room Air Weight: 169 lb 12.095 oz Body Mass Index (BMI) 31.0 Laboratory Tests Past 24 Hrs 06/08/18 08:02 Triglycerides 91 Cholesterol 97 LDL Cholesterol 40 VLDL Cholesterol 18 HDL Cholesterol 39 L Assessment/Plan All Active Problems (Last Reviewed 06/07/18 @ 15:29 by Luz Marina Mckeon) Symptomatic anemia (Acute) Shortness of breath (Acute) Chest pain (Resolved) NSTEMI (non-ST elevated myocardial infarction) (Resolved) Impressions 1. Symptomatic anemia with severe dyspnea on exertion and fatigue. Patient on Brilinta and aspirin since October when she had a drug-eluting stent to the ostial LAD which extends partly into the left main. Suspect probable GI blood loss. 2. Hypertension 3. Hyperlipidemia 4. Coronary artery disease 5. PTCA/CHANTELLE to the left ostial LAD and partially into the left main in October 2017 at an outside facility 6. Moderate pulmonary hypertension 7. GERD 8. Diabetes mellitus type 2 9. Hypothyroidism 10. Anxiety/depression 11. Ischemic cardiomyopathy with a ejection fraction of 45% in October 2017 at an outside facility but 55-60% on an echocardiogram done at [facility] in January 2019. 12. Nonrheumatic mitral valve regurgitation 13. Nonrheumatic tricuspid insufficiency Type and crossmatch for 2 units of packed red blood cells and transfuse Dr. Mathis has been consulted for endoscopy 4 L of GoLYTELY and a clear liquid diet Continue aspirin but hold Brilinta until results of the endoscopy are available Recheck lab in the a.m. Protonix 40 mg IV every 12 hours EKG now Supplemental oxygen as needed Hemoccult stool D/W Dr. Castellano Code Visit OBSV E&M: 19830 Initial observation care L3
--- NOTE | 2018-06-08 13:29 | HP.PCM_ITS ---
Problem List (1) Symptomatic anemia Status: Acute (2) Chronic systolic HF (heart failure) Status: Chronic (3) Shortness of breath Status: Acute (4) Secondary pulmonary arterial hypertension Status: Chronic Comment: RVSP 51 mmhg per echo 02/18/2018 (5) Nonrheumatic tricuspid (valve) insufficiency Status: Chronic Comment: 1-2+ per echo 02/18/18 done @ [facility] (6) History of left heart catheterization Status: Chronic Comment: Done by Dr. Mitchell @ [facility], pt tsferred to [facility] for PCI vs. Possible CABG (7) Nonrheumatic mitral valve regurgitation Status: Chronic Comment: Mild (1+) per echo 10/28/2017 done @ [facility], and per echo 02/18/18 @ [facility] (8) Ischemic cardiomyopathy Status: Chronic Comment: EF 45-50% per echo done 10/28/2017 @ [facility] (9) Atherosclerotic heart disease of [place] coronary artery without angina pectoris Status: Chronic Comment: Resolute laura 3.0 X 18 mm CHANTELLE to proximal LAD into left main per Dr. Gamez @ [facility] (10) Stented coronary artery Status: Chronic Comment: Resolute laura 3.0 X 18 mm CHANTELLE to proximal LAD into left main, with post stent balloon angioplasty done to proximal LAD with 3.0 X 12 NC balloon and distal left main with 4.0 NC balloon; kissing balloon to ostial LAD and ramus was done with 2.5 X 12 balloon in ramus and 3.5 mm in ostial LAD. IVUS done, see report. Pt then admitted to ICU with balloon pump. (11) History of non-ST elevation myocardial infarction (NSTEMI) Status: Chronic (12) HTN (hypertension) Status: Chronic Qualifiers: (13) HLD (hyperlipidemia) Status: Chronic Qualifiers: (14) GERD (gastroesophageal reflux disease) Status: Chronic Qualifiers: (15) Diabetes mellitus, type II Status: Chronic Qualifiers: (16) Hypothyroidism Status: Chronic Qualifiers: (17) Obesity (BMI 30-39.9) Status: Chronic (18) Anxiety and depression Status: Chronic History of Present Illness Date of Admission: 06/08/18 Chief Complaint: Dyspnea on exertion The patient is a 73 year old F with a past medical history of hypertension, status post PTCA/CHANTELLE to the ostial LAD and slightly into the left main in October 2017, coronary artery disease, diabetes mellitus type 2, anxiety/depression, hypothyroidism, obesity, hyperlipidemia and GERD who was sent to the hospital by Dr. Castellano for symptomatic anemia. Hemoglobin in October 2017 was 11.4 with an MCV of 90.5 and a normal RDW. Hemoglobin today is 7.7 with an MCV of 84.5 and an RDW of 16.3. She is complaining of severe shortness of breath with exertion and increased fatigue. She has no history of peptic ulcer disease. She has not had a colonoscopy in greater than 10 years. She does not look at her bowel movements but tells me that for the past 2 days she has had loose stool. Denies any nausea and also denies any abdominal pain. She has no vaginal bleeding. She does have lightheadedness. She has been on Brilinta and aspirin since the drug-eluting stent in October 2017. Brilinta is currently on hold but she will continue on aspirin. She will be transfused and Dr. Mathis has been consulted for endoscopy. Past Medical History Past Medical History (Chronic Problems): Chronic Problems (Last Reviewed 06/07/18 @ 15:29 by Luz Marina Mckeon) Chronic systolic HF (heart failure) (Chronic) Secondary pulmonary arterial hypertension (Chronic) RVSP 51 mmhg per echo 02/18/2018 Nonrheumatic tricuspid (valve) insufficiency (Chronic) 1-2+ per echo 02/18/18 done @ [facility] History of left heart catheterization (Chronic 10/25/17) Done by Dr. Mitchell @ [facility], pt tsferred to [facility] for PCI vs. Possible CABG Nonrheumatic mitral valve regurgitation (Chronic) Mild (1+) per echo 10/28/2017 done @ [facility], and per echo 02/18/18 @ [facility] Ischemic cardiomyopathy (Chronic) EF 45-50% per echo done 10/28/2017 @ [facility] Atherosclerotic heart disease of [place] coronary artery without angina pectoris (Chronic) Resolute laura 3.0 X 18 mm CHANTELLE to proximal LAD into left main per Dr. Lorraine Silva @ [facility] Stented coronary artery (Chronic 10/25/17) Resolute laura 3.0 X 18 mm CHANTELLE to proximal LAD into left main, with post stent balloon angioplasty done to proximal LAD with 3.0 X 12 NC balloon and distal left main with 4.0 NC balloon; kissing balloon to ostial LAD and ramus was done with 2.5 X 12 balloon in ramus and 3.5 mm in ostial LAD. IVUS done, see report. Pt then admitted to ICU with balloon pump. History of non-ST elevation myocardial infarction (NSTEMI) (Chronic 10/24/17) HTN (hypertension) (Chronic) HLD (hyperlipidemia) (Chronic) GERD (gastroesophageal reflux disease) (Chronic) Diabetes mellitus, type II (Chronic) Hypothyroidism (Chronic) Obesity (BMI 30-39.9) (Chronic) Anxiety and depression (Chronic) Medical History: Medical History (Last Reviewed 06/08/18 @ 13:39 by Po Pelayo DO) Chronic systolic HF (heart failure) (Chronic) I50.22 Shortness of breath (Acute) R06.02 Secondary pulmonary arterial hypertension (Chronic) I27.21 RVSP 51 mmhg per echo 02/18/2018 Nonrheumatic tricuspid (valve) insufficiency (Chronic) I36.1 1-2+ per echo 02/18/18 done @ [facility] Nonrheumatic mitral valve regurgitation (Chronic) I34.0 Mild (1+) per echo 10/28/2017 done @ [facility], and per echo 02/18/18 @ [facility] Ischemic cardiomyopathy (Chronic) I25.5 EF 45-50% per echo done 10/28/2017 @ [facility] Atherosclerotic heart disease of [place] coronary artery without angina pectoris (Chronic) I25.10 Resolute laura 3.0 X 18 mm CHANTELLE to proximal LAD into left main per Dr. Lorraine Silva @ [facility] History of non-ST elevation myocardial infarction (NSTEMI) (Chronic) Onset Date: 10/24/17 I25.2 HTN (hypertension) (Chronic) I10 HLD (hyperlipidemia) (Chronic) E78.5 GERD (gastroesophageal reflux disease) (Chronic) K21.9 Diabetes mellitus, type II (Chronic) E11.9 Hypothyroidism (Chronic) E03.9 Obesity (BMI 30-39.9) (Chronic) E66.9 Allergies No Known Allergies Allergy (Verified 06/07/18 15:31) Home Medications: Ambulatory Orders Medication Instructions Recorded Aspirin [Aspirin, Baby] 81 mg PO DAILY@0800 10/24/17 Escitalopram Oxalate [Lexapro] 10 mg PO DAILY 10/24/17 metformin 500 mg tablet 500 mg PO BID tab 11/17/17 Atorvastatin Calcium [Lipitor] 80 mg PO QHS 06/08/18 Levothyroxine Sodium [Synthroid] 50 mcg PO DAILY 06/08/18 Metoprolol Tartrate [Lopressor 12.5 mg PO BID 06/08/18 (beta bhavana)] Pantoprazole Sodium [Protonix] 40 mg PO DAILY 06/08/18 Vit A/Vit C/Vit E/Zinc/Copper 1 each PO DAILY 06/08/18 [Preservision Areds Softgel] Surgical History: Surgical History (Last Reviewed 06/08/18 @ 13:39 by Po Pelayo DO) History of left heart catheterization (Chronic) Onset Date: 10/25/[address] Mitchell @ [facility], pt tsferred to [facility] for PCI vs. Possible CABG Stented coronary artery (Chronic) Onset Date: 10/25/17 Z95.5 Resolute laura 3.0 X 18 mm CHANTELLE to proximal LAD into left main, with post stent balloon angioplasty done to proximal LAD with 3.0 X 12 NC balloon and distal left main with 4.0 NC balloon; kissing balloon to ostial LAD and ramus was done with 2.5 X 12 balloon in ramus and 3.5 mm in ostial LAD. IVUS done, see report. Pt then admitted to ICU with balloon pump. Surgical History: - - Cholecystectomy, hernia repair (ventral/umb). Psychiatric History: No pertinent psych hx DIRECTOR TRIAL History: No pertinent DIRECTOR TRIAL history Lives: Alone Smoking Status: Never smoker Tobacco Use: Non-smoker Alcohol: None Drugs: None - *Family History Maternal Family History: Family History (Last Reviewed 06/08/18 @ 13:40 by Po Pelayo DO) Mother CAD (coronary artery disease) Myocardial infarction Father CAD (coronary artery disease) Myocardial infarction Sister Myocardial infarction CAD (coronary artery disease) Stented coronary artery History Items: - - Patient notes a maternal family history of heart disease, hypertension, hyperlipidemia and diabetes. Paternal Family History: Family History (Last Reviewed 06/08/18 @ 13:40 by Po Pelayo DO) Mother CAD (coronary artery disease) Myocardial infarction Father CAD (coronary artery disease) Myocardial infarction Sister Myocardial infarction CAD (coronary artery disease) Stented coronary artery History Items: - - Patient notes a paternal family history of heart disease, hypertension, hyperlipidemia and diabetes and does note he did have stents. Review of Systems Constitutional: Denies: Chills, Fever, Weight Change HEENT: Denies: Head Aches, Sinus Congestion, Sinus Drainage Cardiovascular: Denies: Chest Pain, Palpitations Respiratory: Reports: Shortness of breath upon exertion. Denies: Cough, Shortness of breath at rest, Sputum production Gastrointestinal: Denies: Abdominal Pain, Nausea, Vomiting Genitourinary: Denies: Dysuria Gynecological: Denies: Vaginal bleeding, Vaginal discharge Musculoskeletal: Denies: Joint Pain, Joint Tenderness Skin: Denies: Rash, Wounds Neurological: Denies: Numbness, Tingling, Focal weakness Psychiatric: Denies: Anxiety, Depression, Homicidal Ideations, Suicidal Ideations Hematologic/ Lymphatic: Denies: Easy Bruising, Easy Bleeding, Hx of blood clot VTE Information - Inpt Only VTE Present on Admission: No VTE Mechan Device Prophylaxis: SCD's, Knee High NGOZI Hose VTE Pharm Prophylaxis ordered?: No Reason prophylaxis not ordered:: Medical Contraindication - pt is admitted for severe anemia with marked BARR and fatigue Patient Problems: Active and Suspected Problems (Last Reviewed 06/07/18 @ 15:29 by Luz Marina Mckeon) Symptomatic anemia (Acute) - Physical Exam General: Alert, Oriented x3, Cooperative, No apparent distress, Well developed, Well nourished, - - She has a bruise on the right forehead secondary to an encounter with a washing machine. HEENT: PERRLA, EOMI, Normocephalic Oral: Moist Mucosa, No Gingival or Mucosal Lesions/ Ulcerations Neck: Supple, No JVD, No Nodes, No Nuchal Rigidity, Trachea Midline, Carotid Bruit, Right - soft bruit R carotid Lungs: Clear to auscultation, Normal air movement, No rhonchi, No wheeze, No rales Cardiovascular: Regular rate, Regular Rhythm, Normal S1, Normal S2, Murmur - very soft systolic MM at the second RICS radiating to the LLSB Abdomen: Bowel Sounds Present, Soft, Non Tender, Non-Distended Extremities: No clubbing, No cyanosis, No edema, Peripheral Pulses Normal Skin: No rashes, No breakdown Musculoskeletal: No Muscle Wasting, Arthritic Changes Neurological: Cranial nerves II-XII grossly intact, Neuro grossly intact Psych/Mental Status: Normal Affect, Appropriate Vital Signs Temp Pulse Resp BP Pulse Ox 98.4 F 60 18 119/46 L 98 06/08/18 11:58 06/08/18 11:58 06/08/18 11:58 06/08/18 11:58 06/08/18 11:58 Oxygen Delivery Method Room Air Weight: 169 lb 12.095 oz Body Mass Index (BMI) 31.0 Laboratory Tests Past 24 Hrs 06/08/18 08:02 Triglycerides 91 Cholesterol 97 LDL Cholesterol 40 VLDL Cholesterol 18 HDL Cholesterol 39 L Assessment/Plan All Active Problems (Last Reviewed 06/07/18 @ 15:29 by Luz Marina Mckeon) Symptomatic anemia (Acute) Shortness of breath (Acute) Chest pain (Resolved) NSTEMI (non-ST elevated myocardial infarction) (Resolved) Impressions 1. Symptomatic anemia with severe dyspnea on exertion and fatigue. Patient on Brilinta and aspirin since October when she had a drug-eluting stent to the ostial LAD which extends partly into the left main. Suspect probable GI blood loss. 2. Hypertension 3. Hyperlipidemia 4. Coronary artery disease 5. PTCA/CHANTELLE to the left ostial LAD and partially into the left main in October 2017 at an outside facility 6. Moderate pulmonary hypertension 7. GERD 8. Diabetes mellitus type 2 9. Hypothyroidism 10. Anxiety/depression 11. Ischemic cardiomyopathy with a ejection fraction of 45% in October 2017 at an outside facility but 55-60% on an echocardiogram done at [facility] in January 2019. 12. Nonrheumatic mitral valve regurgitation 13. Nonrheumatic tricuspid insufficiency Type and crossmatch for 2 units of packed red blood cells and transfuse Dr. Mathis has been consulted for endoscopy 4 L of GoLYTELY and a clear liquid diet Continue aspirin but hold Brilinta until results of the endoscopy are available Recheck lab in the a.m. Protonix 40 mg IV every 12 hours EKG now Supplemental oxygen as needed Hemoccult stool D/W Dr. Castellano Code Visit OBSV E&M: [id number] Initial observation care L3
[2018-06-08 14:52] LABS: Phosphorus 2.6 mg/dL (2.5-4.9)
[2018-06-08 14:54] LABS: ALB/GLOB Ratio 0.9 RATIO (0.9-2.4); AST(SGOT) 17 U/L (15-37); Alanine Aminotransfer ALT/SGPT 16 U/L (13-56); Albumin, Serum 2.9 g/dL (3.2-5.0); Alkaline Phosphatase 51 U/L (45-117); Anion Gap 9 (5-15); BUN 15 mg/dL (7-18); BUN/Creat Ratio 11.5 RATIO (10-20); Calcium,Total 8.4 mg/dL (8.5-10.1); Chloride 109 mmol/L (98-107); EST Glomerular Filtration Rate 43 mL/min (>60); Est Glom Filt Rate - Afr Amer 52 mL/min (>60); Estimated Creatinine Clearance 30.48 ml/min; Ferritin 42 ng/mL (8-252); Globulin 3.4 g/dL (2.2-4.2); Glucose 111 mg/dL (74-106); Iron 24 ug/dL (50-170); Iron Binding Capacity,Total 382 ug/dL (250-450); Magnesium 1.7 mg/dL (1.6-2.6); PERCENT IRON SATURATION 6.3 % (15.0-55.0); Potassium 3.7 mmol/L (3.5-5.1); Protein, Total 6.3 g/dL (6.4-8.2); Sodium Level 141 mmol/L (136-145)
[2018-06-08] MEDS: Electrolyte Solution/Peg's 4000 ML PO (15:25)
[2018-06-08] MEDS: 0.9% NaCl Peripheral Flush Adult/Peds IV (16:21)
--- NOTE | 2018-06-08 18:41 | PCM.CONS.GEN ---
Reason for Consult Date of Consultation: 06/08/18 Reason for Consultation: anemia History of Present Illness: The patient is a 73 year old F presents with symptomatic anemia. Patient's current hemoglobin is 7.7. She presented to [facility] respiratory complaining of severe shortness of breath with exertion and increasing fatigue. The patient had a hemoglobin level of 11.4 in October 2017. She denies a history of peptic ulcer disease. She has not had colonoscopy for greater than 10 years. She does not check her bowel movements for signs of bleeding. She notes no vaginal bleeding. She is on aspirin and Alimta since a drug-eluting stent was placed in 2018. She has a past medical history consistent with hypertension, previous PTCA with a drug-eluting stent for an ostial LAD lesion placed in October [address] Castellano.she has chronic systolic cardiac dysfunction with secondary pulmonary hypertension, mitral valve insufficiency mild ischemic cardiomyopathy with a decreased ejection fraction of 45% she had a non-ST elevation myocardial infarction on October 24, 2017, otherwise also has GERD, diabetes, hypothyroidism, and obesity Past Medical History Past Medical History (Chronic Problems): Chronic Problems (Last Reviewed 06/08/18 @ 13:39 by Po Pelayo DO) Chronic systolic HF (heart failure) (Chronic) Secondary pulmonary arterial hypertension (Chronic) RVSP 51 mmhg per echo 02/18/2018 Nonrheumatic tricuspid (valve) insufficiency (Chronic) 1-2+ per echo 02/18/18 done @ [facility] History of left heart catheterization (Chronic 10/25/17) Done by Dr. Mitchell @ [facility], pt tsferred to [facility] for PCI vs. Possible CABG Nonrheumatic mitral valve regurgitation (Chronic) Mild (1+) per echo 10/28/2017 done @ [facility], and per echo 02/18/18 @ [facility] Ischemic cardiomyopathy (Chronic) EF 45-50% per echo done 10/28/2017 @ [facility] Atherosclerotic heart disease of [place] coronary artery without angina pectoris (Chronic) Resolute laura 3.0 X 18 mm CHANTELLE to proximal LAD into left main per Dr. Gamze @ [facility] Stented coronary artery (Chronic 10/25/17) Resolute laura 3.0 X 18 mm CHANTELLE to proximal LAD into left main, with post stent balloon angioplasty done to proximal LAD with 3.0 X 12 NC balloon and distal left main with 4.0 NC balloon; kissing balloon to ostial LAD and ramus was done with 2.5 X 12 balloon in ramus and 3.5 mm in ostial LAD. IVUS done, see report. Pt then admitted to ICU with balloon pump. History of non-ST elevation myocardial infarction (NSTEMI) (Chronic 10/24/17) HTN (hypertension) (Chronic) HLD (hyperlipidemia) (Chronic) GERD (gastroesophageal reflux disease) (Chronic) Diabetes mellitus, type II (Chronic) Hypothyroidism (Chronic) Obesity (BMI 30-39.9) (Chronic) Anxiety and depression (Chronic) Medical History: Medical History (Last Reviewed 06/08/18 @ 13:39 by Po Pelayo DO) Chronic systolic HF (heart failure) (Chronic) I50.22 Shortness of breath (Acute) R06.02 Secondary pulmonary arterial hypertension (Chronic) I27.21 RVSP 51 mmhg per echo 02/18/2018 Nonrheumatic tricuspid (valve) insufficiency (Chronic) I36.1 1-2+ per echo 02/18/18 done @ [facility] Nonrheumatic mitral valve regurgitation (Chronic) I34.0 Mild (1+) per echo 10/28/2017 done @ [facility], and per echo 02/18/18 @ [facility] Ischemic cardiomyopathy (Chronic) I25.5 EF 45-50% per echo done 10/28/2017 @ [facility] Atherosclerotic heart disease of [place] coronary artery without angina pectoris (Chronic) I25.10 Resolute laura 3.0 X 18 mm CHANTELLE to proximal LAD into left main per Dr. Gamez @ [facility] History of non-ST elevation myocardial infarction (NSTEMI) (Chronic) Onset Date: 10/24/17 I25.2 HTN (hypertension) (Chronic) I10 HLD (hyperlipidemia) (Chronic) E78.5 GERD (gastroesophageal reflux disease) (Chronic) K21.9 Diabetes mellitus, type II (Chronic) E11.9 Hypothyroidism (Chronic) E03.9 Obesity (BMI 30-39.9) (Chronic) E66.9 Allergies No Known Allergies Allergy (Verified 06/07/18 15:31) Home Medications: Ambulatory Orders Medication Instructions Recorded Aspirin [Aspirin, Baby] 81 mg PO DAILY@0800 10/24/17 Escitalopram Oxalate [Lexapro] 10 mg PO DAILY 10/24/17 metformin 500 mg tablet 500 mg PO BID tab 11/17/17 Pantoprazole Sodium [Protonix] 40 mg PO DAILY 06/08/18 RX: Atorvastatin Calcium [Lipitor] 80 mg PO QHS 06/08/18 RX: Levothyroxine Sodium 50 mcg PO DAILY 06/08/18 [Synthroid] RX: Metoprolol Tartrate [Lopressor 12.5 mg PO BID 06/08/18 (beta bhavana)] Vit A/Vit C/Vit E/Zinc/Copper 1 each PO DAILY 06/08/18 [Preservision Areds Softgel] Surgical History: Surgical History (Last Reviewed 06/08/18 @ 13:39 by Po Pelayo DO) History of left heart catheterization (Chronic) Onset Date: 10/25/[address] Mitchell @ [facility], pt tsferred to [facility] for PCI vs. Possible CABG Stented coronary artery (Chronic) Onset Date: 10/25/17 Z95.5 Resolute laura 3.0 X 18 mm CHANTELLE to proximal LAD into left main, with post stent balloon angioplasty done to proximal LAD with 3.0 X 12 NC balloon and distal left main with 4.0 NC balloon; kissing balloon to ostial LAD and ramus was done with 2.5 X 12 balloon in ramus and 3.5 mm in ostial LAD. IVUS done, see report. Pt then admitted to ICU with balloon pump. Surgical History: - - Cholecystectomy, hernia repair (ventral/umb). Psychiatric History: No pertinent psych hx HUMAN RESOURCE ADVISER History: No pertinent HUMAN RESOURCE ADVISER history Lives: Alone Smoking Status: Never smoker Tobacco Use: Non-smoker Alcohol: None Drugs: None - *Family History Maternal Family History: Family History (Last Reviewed 06/08/18 @ 13:40 by Po Pelayo DO) Mother CAD (coronary artery disease) Myocardial infarction Father CAD (coronary artery disease) Myocardial infarction Sister Myocardial infarction CAD (coronary artery disease) Stented coronary artery History Items: - - Patient notes a maternal family history of heart disease, hypertension, hyperlipidemia and diabetes. Paternal Family History: Family History (Last Reviewed 06/08/18 @ 13:40 by Po Pelayo DO) Mother CAD (coronary artery disease) Myocardial infarction Father CAD (coronary artery disease) Myocardial infarction Sister Myocardial infarction CAD (coronary artery disease) Stented coronary artery History Items: - - Patient notes a paternal family history of heart disease, hypertension, hyperlipidemia and diabetes and does note he did have stents. Review of Systems Constitutional: Reports: Fatigue HEENT: Denies: Head Aches, Sinus Congestion, Sinus Drainage Cardiovascular: Denies: Chest Pain, Palpitations Respiratory: Reports: Shortness of Breath, Shortness of breath upon exertion. Denies: Cough, Shortness of breath at rest, Sputum production Gastrointestinal: Denies: Abdominal Pain, Nausea, Vomiting Genitourinary: Denies: Dysuria Musculoskeletal: Denies: Joint Pain, Joint Tenderness Skin: Denies: Rash, Wounds Neurological: Denies: Numbness, Tingling, Focal weakness Psychiatric: Denies: Anxiety, Depression, Homicidal Ideations, Suicidal Ideations Hematologic/ Lymphatic: Denies: Easy Bruising, Easy Bleeding Patient Problems: Active and Suspected Problems (Last Reviewed 06/08/18 @ 13:39 by Po Pelayo DO) Symptomatic anemia (Acute) - Physical Exam General: Alert, Oriented x3, Cooperative Lungs: Clear to auscultation, Normal air movement Cardiovascular: Regular rate, Regular Rhythm, Murmur - soft Abdomen: Bowel Sounds Present, Soft, Non Tender Vital Signs Temp Pulse Resp BP Pulse Ox 98 F 60 16 141/73 H 95 06/08/18 18:33 06/08/18 18:33 06/08/18 18:33 06/08/18 18:33 06/08/18 18:33 Oxygen Delivery Method Room Air Weight: 77 kg Body Mass Index (BMI) 31.0 Intake and Output for Last 24 Hours 06/06/18 06/07/18 06/08/18 23:59 23:59 23:59 Intake Total 1000 / 1000 Balance 1000 / 1000 Laboratory Tests Past 24 Hrs 06/08/18 06/08/18 06/08/18 08:02 14:15 14:15 Sodium 141 Potassium 3.7 Chloride 109 H Carbon Dioxide 23.0 Anion Gap 9 BUN 15 Creatinine 1.30 H Estim Creat Clear Calc 30.48 Est GFR (MDRD) Af Amer 52 L Est GFR (MDRD) Non-Af 43 L BUN/Creatinine Ratio 11.5 Glucose 111 H Calcium 8.4 L Phosphorus Magnesium 1.7 Iron 24 L TIBC 382 Iron Saturation 6.3 L Ferritin 42 Total Bilirubin 0.50 AST 17 ALT 16 Alkaline Phosphatase 51 Total Protein 6.3 L Albumin 2.9 L Globulin 3.4 Albumin/Globulin Ratio 0.9 Triglycerides 91 Cholesterol 97 LDL Cholesterol 40 VLDL Cholesterol 18 HDL Cholesterol 39 L Blood Type O POSITIVE Antibody Screen NEGATIVE Crossmatch See Detail 06/08/18 14:15 Sodium Potassium Chloride Carbon Dioxide Anion Gap BUN Creatinine Estim Creat Clear Calc Est GFR (MDRD) Af Amer Est GFR (MDRD) Non-Af BUN/Creatinine Ratio Glucose Calcium Phosphorus 2.6 Magnesium Iron TIBC Iron Saturation Ferritin Total Bilirubin AST ALT Alkaline Phosphatase Total Protein Albumin Globulin Albumin/Globulin Ratio Triglycerides Cholesterol LDL Cholesterol VLDL Cholesterol HDL Cholesterol Blood Type Antibody Screen Crossmatch Assessment/Plan All Active Problems (Last Reviewed 06/08/18 @ 13:39 by Po Pelayo DO) Symptomatic anemia (Acute) Shortness of breath (Acute) Chest pain (Resolved) NSTEMI (non-ST elevated myocardial infarction) (Resolved) increasing anemia with fatigue and shortness of breath with exertion, questionable GI source I plan to perform upper and lower endoscopy with monitored anesthetic care. The patient was in the risks, benefits, complications and possible alternatives to endoscopy. Currently her Balint is being held. The aspirin will be continued given her stent placement. we'll plan for bowel preparation with GoLYTELY which since the patient has had some looser stools can be stopped once she has adequate clearing of her stool.
--- NOTE | 2018-06-08 18:46 | CON.PCM_ITS ---
Reason for Consult Date of Consultation: 06/08/18 Reason for Consultation: anemia History of Present Illness: The patient is a 73 year old F presents with symptomatic anemia. Patient's current hemoglobin is 7.7. She presented to [facility] respiratory complaining of severe shortness of breath with exertion and increasing fatigue. The patient had a hemoglobin level of 11.4 in October 2017. She denies a history of peptic ulcer disease. She has not had colonosc opy for greater than 10 years. She does not check her bowel movements for signs of bleeding. She notes no vaginal bleeding. She is on aspirin and Alimta since a drug-eluting stent was placed in 2018. She has a past medical history consistent with hypertension, previous PTCA with a drug-eluting stent for an ostial LAD lesion placed in October [address] Castellano.she has chronic systolic cardiac dysfunction with secondary pulmonary hypertension, mitral valve insufficiency mild ischemic cardiomyopathy with a decreased ejection fraction of 45% she had a non-ST elevation myocardial infarction on October 24, 2017, otherwise also has GERD, diabetes, hypothyroidism, and obesity Past Medical History Past Medical History (Chronic Problems): Chronic Problems (Last Reviewed 06/08/18 @ 13:39 by Po Pelayo DO) Chronic systolic HF (heart failure) (Chronic) Secondary pulmonary arterial hypertension (Chronic) RVSP 51 mmhg per echo 02/18/2018 Nonrheumatic tricuspid (valve) insufficiency (Chronic) 1-2+ per echo 02/18/18 done @ [facility] History of left heart catheterization (Chronic 10/25/17) Done by Dr. Mitchell @ [facility], pt tsferred to [facility] for PCI vs. Possible CABG Nonrheumatic mitral valve regurgitation (Chronic) Mild (1+) per echo 10/28/2017 done @ [facility], and per echo 02/18/18 @ [facility] Ischemic cardiomyopathy (Chronic) EF 45-50% per echo done 10/28/2017 @ [facility] Atherosclerotic heart disease of [place] coronary artery without angina pectoris (Chronic) Resolute laura 3.0 X 18 mm CHANTELLE to proximal LAD into left main per Dr. Damian trinidad @ [facility] Stented coronary artery (Chronic 10/25/17) Resolute laura 3.0 X 18 mm CHANTELLE to proximal LAD into left main, with post stent balloon angioplasty done to proximal LAD with 3.0 X 12 NC balloon and distal left main with 4.0 NC balloon; kissing balloon to ostial LAD and ramus was done with 2.5 X 12 balloon in ramus and 3.5 mm in ostial LAD. IVUS done, see report. Pt then admitted to ICU with balloon pump. History of non-ST elevation myocardial infarction (NSTEMI) (Chronic 10/24/17) HTN (hypertension) (Chronic) HLD (hyperlipidemia) (Chronic) GERD (gastroesophageal reflux disease) (Chronic) Diabetes mellitus, type II (Chronic) Hypothyroidism (Chronic) Obesity (BMI 30-39.9) (Chronic) Anxiety and depression (Chronic) Medical History: Medical History (Last Reviewed 06/08/18 @ 13:39 by Po Pelayo DO) Chronic systolic HF (heart failure) (Chronic) I50.22 Shortness of breath (Acute) R06.02 Secondary pulmonary arterial hypertension (Chronic) I27.21 RVSP 51 mmhg per echo 02/18/2018 Nonrheumatic tricuspid (valve) insufficiency (Chronic) I36.1 1-2+ per echo 02/18/18 done @ [facility] Nonrheumatic mitral valve regurgitation (Chronic) I34.0 Mild (1+) per echo 10/28/2017 done @ [facility], and per echo 02/18/18 @ [facility] Ischemic cardiomyopathy (Chronic) I25.5 EF 45-50% per echo done 10/28/2017 @ [facility] Atherosclerotic heart disease of [place] coronary artery without angina pectoris (Chronic) I25.10 Resolute laura 3.0 X 18 mm CHANTELLE to proximal LAD into left main per Dr. Lorraine Silva @ [facility] History of non-ST elevation myocardial infarction (NSTEMI) (Chronic) Onset Date: 10/24/17 I25.2 HTN (hypertension) (Chronic) I10 HLD (hyperlipidemia) (Chronic) E78.5 GERD (gastroesophageal reflux disease) (Chronic) K21.9 Diabetes mellitus, type II (Chronic) E11.9 Hypothyroidism (Chronic) E03.9 Obesity (BMI 30-39.9) (Chronic) E66.9 Allergies No Known Allergies Allergy (Verified 06/07/18 15:31) Home Medications: Ambulatory Orders Medication Instructions Recorded Aspirin [Aspirin, Baby] 81 mg PO DAILY@0800 10/24/17 Escitalopram Oxalate [Lexapro] 10 mg PO DAILY 10/24/17 metformin 500 mg tablet 500 mg PO BID tab 11/17/17 Pantoprazole Sodium [Protonix] 40 mg PO DAILY 06/08/18 RX: Atorvastatin Calcium [Lipitor] 80 mg PO QHS 06/08/18 RX: Levothyroxine Sodium 50 mcg PO DAILY 06/08/18 [Synthroid] RX: Metoprolol Tartrate [Lopressor 12.5 mg PO BID 06/08/18 (beta bhavana)] Vit A/Vit C/Vit E/Zinc/Copper 1 each PO DAILY 06/08/18 [Preservision Areds Softgel] Surgical History: Surgical History (Last Reviewed 06/08/18 @ 13:39 by Po Pelayo DO) History of left heart catheterization (Chronic) Onset Date: 10/25/[address] Mitchell @ [facility], pt tsferred to [facility] for PCI vs. Possible CABG Stented coronary artery (Chronic) Onset Date: 10/25/17 Z95.5 Resolute laura 3.0 X 18 mm CHANTELLE to proximal LAD into left main, with post stent balloon angioplasty done to proximal LAD with 3.0 X 12 NC balloon and distal left main with 4.0 NC balloon; kissing balloon to ostial LAD and ramus was done with 2.5 X 12 balloon in ramus and 3.5 mm in ostial LAD. IVUS done, see report. Pt then admitted to ICU with balloon pump. Surgical History: - - Cholecystectomy, hernia repair (ventral/umb). 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 Paternal Family History: Family History (Last Reviewed 06/08/18 @ 13:40 by Po Pelayo DO) Mother CAD (coronary artery disease) Myocardial infarction Father CAD (coronary artery disease) Myocardial infarction Sister Myocardial infarction CAD (coronary artery disease) Stented coronary artery History Items: - - Patient notes a paternal family history of heart disease, hypertension, hyperlipidemia and diabetes and does note he did have stents. Review of Systems Constitutional: Reports: Fatigue HEENT: Denies: Head Aches, Sinus Congestion, Sinus Drainage Cardiovascular: Denies: Chest Pain, Palpitations Respiratory: Reports: Shortness of Breath, Shortness of breath upon exertion. Denies: Cough, Shortness of breath at rest, Sputum production Gastrointestinal: Denies: Abdominal Pain, Nausea, Vomiting Genitourinary: Denies: Dysuria Musculoskeletal: Denies: Joint Pain, Joint Tenderness Skin: Denies: Rash, Wounds Neurological: Denies: Numbness, Tingling, Focal weakness Psychiatric: Denies: Anxiety, Depression, Homicidal Ideations, Suicidal Ideations Hematologic/ Lymphatic: Denies: Easy Bruising, Easy Bleeding Patient Problems: Active and Suspected Problems (Last Reviewed 06/08/18 @ 13:39 by Po Pelayo DO) Symptomatic anemia (Acute) - Physical Exam General: Alert, Oriented x3, Cooperative Lungs: Clear to auscultation, Normal air movement Cardiovascular: Regular rate, Regular Rhythm, Murmur - soft Abdomen: Bowel Sounds Present, Soft, Non Tender Vital Signs Temp Pulse Resp BP Pulse Ox 98 F 60 16 141/73 H 95 06/08/18 18:33 06/08/18 18:33 06/08/18 18:33 06/08/18 18:33 06/08/18 18:33 Oxygen Delivery Method Room Air Weight: 77 kg Body Mass Index (BMI) 31.0 Intake and Output for Last 24 Hours 06/06/18 06/07/18 06/08/18 23:59 23:59 23:59 Intake Total 1000 / 1000 Balance 1000 / 1000 Laboratory Tests Past 24 Hrs 06/08/18 06/08/18 06/08/18 08:02 14:15 14:15 Sodium 141 Potassium 3.7 Chloride 109 H Carbon Dioxide 23.0 Anion Gap 9 BUN 15 Creatinine 1.30 H Estim Creat Clear Calc 30.48 Est GFR (MDRD) Af Amer 52 L Est GFR (MDRD) Non-Af 43 L BUN/Creatinine Ratio 11.5 Glucose 111 H Calcium 8.4 L Phosphorus Magnesium 1.7 Iron 24 L TIBC 382 Iron Saturation 6.3 L Ferritin 42 Total Bilirubin 0.50 AST 17 ALT 16 Alkaline Phosphatase 51 Total Protein 6.3 L Albumin 2.9 L Globulin 3.4 Albumin/Globulin Ratio 0.9 Triglycerides 91 Cholesterol 97 LDL Cholesterol 40 VLDL Cholesterol 18 HDL Cholesterol 39 L Blood Type O POSITIVE Antibody Screen NEGATIVE Crossmatch See Detail 06/08/18 14:15 Sodium Potassium Chloride Carbon Dioxide Anion Gap BUN Creatinine Estim Creat Clear Calc Est GFR (MDRD) Af Amer Est GFR (MDRD) Non-Af BUN/Creatinine Ratio Glucose Calcium Phosphorus 2.6 Magnesium Iron TIBC Iron Saturation Ferritin Total Bilirubin AST ALT Alkaline Phosphatase Total Protein Albumin Globulin Albumin/Globulin Ratio Triglycerides Cholesterol LDL Cholesterol VLDL Cholesterol HDL Cholesterol Blood Type Antibody Screen Crossmatch Assessment/Plan All Active Problems (Last Reviewed 06/08/18 @ 13:39 by Po Pelayo DO) Symptomatic anemia (Acute) Shortness of breath (Acute) Chest pain (Resolved) NSTEMI (non-ST elevated myocardial infarction) (Resolved) increasing anemia with fatigue and shortness of breath with exertion, questionable GI source I plan to perform upper and lower endoscopy with monitored anesthetic care. The patient was in the risks, benefits, complications and possible alternatives to endoscopy. Currently her Balint is being held. The aspirin will be continued given her stent placement. we'll plan for bowel preparation with GoLYTELY which since the patient has had some looser stools can be stopped once she has adequate clearing of her stool.
[2018-06-08] MEDS: Metoprolol Tartrate 25 MG Tablet 12.5 MG PO (22:13)
[2018-06-08] MEDS: Atorvastatin Calcium 80 MG Tablet PO (22:13)
[2018-06-09] VITALS (18 sets, daily range): BP systolic 106–139; BP diastolic 53–95; PULSE 54–80; RESP 14–18; TEMP 36.4–37.2; O2SAT 83–97
--- NOTE | 2018-06-09 | GASB_PTH ---
PATIENT: JORGE HARRY LOC: PCU U#:[id number] AGE/SX: 73/F ROOM: [facility] RE06/08/[address]: Dr. Radha Hollingsworth MD : 1945 BED: 1 DIS: 06/10/2018 SPEC #: [id number] RECD: 06/09/18 14:29 STATUS: CAROLINE REQ #: [id number] KETAN: 06/09/18 00:[address]: Baudilio Mathis DEPT: SURGICAL PATHOLOGY RECD BY: Avery Marcelino ENTERED: 06/09/18 14:29 SP TYPE: Gastric Bx OTHR DR: DO Dr. Jaren Chong MD Dr. Ghasem E Ashelfah, MD Dr. Lisa M Esterle, DO Dr. Baudilio Mathis MD Tissues: Gastric mucous membrane Procedures: Surgery Specimen Level IV Comments: @ Ordering doctor for SUIV edited from to DR.RGUTTM Hinojosa by JAMAL at 06/09/18 160 @ Submitting doctor edited from to DR.RGUTTM Hinojosa by JAMAL at 06/09/18 1602 HEADER OPERATION: Colonoscopy[place] [place] DIAGNOSIS: Anemia TISSUE SUBMITTED: Antral biopsy MICROSCOPIC DIAGNOSIS Antral biopsy: Mild gastritis. See microscopic description and comment. JOVAYN:ralph 06/10/18 COMMENT The results of immunohistochemistry for Helicobacter pylori will be reported separately ([id number]). MICROSCOPIC DESCRIPTION Slides are reviewed. The specimen shows fragments of gastric mucosa with chronic inflammatory cell infiltrates in the lamina propria consisting of lymphocytes and plasma cells, consistent with mild chronic gastritis. GROSS DESCRIPTION Received in fixative is one container labeled with the patient's name and designated antral biopsy. The specimen consists of one irregular fragment of light christie soft tissue that measures 0.9 x 0.2 x 0.1 cm. The entire specimen is submitted in one cassette. / JOVANY:ralph 06/09/18 TC:3 CPT: 67818
--- NOTE | 2018-06-09 | IMM_PTH ---
PATIENT: JORGE HARRY LOC: PCU U#:[id number] AGE/SX: 73/F ROOM: [facility] RE06/08/[address]: Dr. Radha Hollingsworth MD : 1945 BED: 1 DIS: 06/10/2018 SPEC #: [id number] RECD: 06/10/18 13:00 STATUS: CAROLINE REQ #: [id number] KETAN: 06/09/18 00:[address]: Baudilio Mathis DEPT: IMMUNOHISTOCHEMISTRY RECD BY: Nicole Parker ENTERED: 06/10/18 13:01 SP TYPE: IMMUNO OTHR DR: DO Dr. Jaren Chong MD Dr. Ghasem E Ashelfah, MD Dr. Lisa M Esterle, DO Tissues: Stomach, NOS Procedures: H Pylori (initial) PHYSICIAN & INSTITUTION [place] [address] SPECIMEN INFORMATION: Tissue Source: Antral biopsy Clinical Info: Mercedes Specimen Number: [id number] CPT code: 69442 METHODOLOGY: Deparaffinized sections of prefer/formalin-fixed tissue or PAP/DQ stained slides are incubated with monoclonal/polyclonal antibodies/oligonucleotide probes. Localization is made via biotin free immunoperoxidase method. Appropriate controls are performed and reacted as expected. Results on target cell population are indicated in the following table: RESULTS: ANTIBODY / CLONE RESULT H Pylori (polyclonal) negative These tests were developed and their performance characteristics determined by [facility]. They may not have been cleared or approved by the U.S. Food and Drug Administration. The FDA has determined that such clearance or approval is not necessary. INTERPRETATION: Antral biopsy: Negative for Helicobacter pylori organisms. SJ:ralph 06/11/18
[2018-06-09] MEDS: Levothyroxine 50 MCG Tablet PO (05:18)
[2018-06-09 06:21] LABS: Hematocrit 29.9 % (37-47); Hemoglobin 9.3 g/dl (12.0-15.0); Mean Corp Hgb Conc 31.1 g/gl (32-36); Mean Corpuscular Hgb 25.5 pg (27.0-32.0); Mean Corpuscular Volume 81.9 fL (81-99); Mean Platelet Vol. 11.9 fl (6.2-12.0); Platelet Count 119 K/mm3 (150-450); RBC Distribution Width CV 16.2 % (11.6-14.6); RBC Distribution Width SD 47.3 fl (35.1-43.9); Red Blood Count 3.65 M/mm3 (4.2-5.4)
[2018-06-09 06:24] LABS: Scan Indicated on CBC? Y/N NO
[2018-06-09 06:52] LABS: Anion Gap 5 (5-15); BUN 15 mg/dL (7-18); BUN/Creat Ratio 12.7 RATIO (10-20); Calcium,Total 8.3 mg/dL (8.5-10.1); Chloride 112 mmol/L (98-107); Creatinine, Serum 1.18 mg/dL (0.55-1.02); EST Glomerular Filtration Rate 48 mL/min (>60); Est Glom Filt Rate - Afr Amer 58 mL/min (>60); Estimated Creatinine Clearance 33.58 ml/min; Glucose 85 mg/dL (74-106); Phosphorus 2.5 mg/dL (2.5-4.9); Potassium 3.9 mmol/L (3.5-5.1); Sodium Level 138 mmol/L (136-145); Thyroid Stim Hormone (TSH) 0.93 uIU/mL (0.358-3.74)
[2018-06-09] MEDS: Metoprolol Tartrate 25 MG Tablet 12.5 MG PO ×2 (09:08→20:49)
[2018-06-09] MEDS: 0.9% NaCl Peripheral Flush Adult/Peds IV ×2 (09:12→20:47)
--- NOTE | 2018-06-09 11:29 | NURSING ---
off unit via bed for scope
--- NOTE | 2018-06-09 13:05 | OP.ENDO_ITS ---
06/09/2018 Angie Jimenez Re : Upper GI endoscopy procedure for Chante Travis Dear Tony This procedure was performed on Saturday, June 09, 2018. My impressions and recommendations are as follows: Impressions : - A single non-bleeding angiodysplastic lesion in the jejunum. - Normal. - Normal stomach. Biopsied. - Normal esophagus. Recommendations : - [facility]. - Return to my office in 1 week. - Continue present medications. My findings are described in the full procedure note, which is enclosed. If I can be of further assistance, please feel free to contact me at Doctor phone number(s): , Work: . Sincerely, Baudilio Mathis MD 06/09/2018 1:04:35 PM This report has been signed electronically.
--- NOTE | 2018-06-09 13:06 | OP.ENDO_ITS ---
06/09/2018 Angie Jimenez Re : Colonoscopy procedure for Chante Travis Dear Tony This procedure was performed on Saturday, June 09, 2018. My impressions and recommendations are as follows: Impressions : - The entire examined colon is normal on direct and retroflexion views. - Diverticulosis in the entire examined colon. - No specimens collected. Recommendations : - [facility]. - Repeat colonoscopy in 10 years for screening purposes. - Continue present medications. My findings are described in the full procedure note, which is enclosed. If I can be of further assistance, please feel free to contact me at Doctor phone number(s): , Work: . Sincerely, Baudilio Mathis MD 06/09/2018 1:06:11 PM This report has been signed electronically.
--- NOTE | 2018-06-09 13:54 | NURSING ---
back from procedure
--- NOTE | 2018-06-09 14:04 | PN_ITS ---
<Kristen Espitia - Last Filed: 06/09/18 14:04> Patient Problems: Active and Suspected Problems (Last Reviewed 06/08/18 @ 13:39 by Po Pelayo DO) Symptomatic anemia (Acute) Subjective: Patient seen and examined. Reports she has had ongoing shortness of breath for the past 4 months. States she has been generally feeling unwell. Denies blood in stool. Denies other associated symptoms. - Physical Exam General: Alert, Oriented x3, Cooperative HEENT: Atraumatic, PERRLA, EOMI, Normocephalic, - - Right eye ecchymosis following injury at home Oral: Moist Mucosa Neck: Supple, No JVD, Negative Carotid Bruits Lungs: Clear to auscultation, Normal air movement Cardiovascular: Regular Rhythm, Normal S1, Normal S2, Bradycardic, Murmur Abdomen: Bowel Sounds Present, Soft, Non Tender, Non-Distended Extremities: No clubbing, No cyanosis, No edema, Capillary Refill Less than 3 Seconds Skin: No rashes, No breakdown Musculoskeletal: No Tenderness to Palpation of Joints or Extremities Neurological: Cranial nerves II-XII grossly intact, Neuro grossly intact Psych/Mental Status: Normal Affect, Appropriate Vital Signs Temp Pulse Resp BP Pulse Ox 98.9 F 54 L 16 132/59 H 94 06/09/18 13:25 06/09/18 13:25 06/09/18 13:25 06/09/18 13:20 06/09/18 13:25 Oxygen Flow Rate (L/min) 2 Oxygen Delivery Method Nasal Cannula Weight: 169 lb 12.095 oz Body Mass Index (BMI) 31.0 Intake and Output for Last 24 Hours 06/07/18 06/08/18 06/09/18 23:59 23:59 23:59 Intake Total 2426 / 2426 1000 / 1000 Balance 2426 / 2426 1000 / 1000 Microbiology Past 72 Hours 06/08/18 21:00 Stool Occult Blood (YUE) - Final Stool Laboratory Tests Past 24 Hrs 06/08/18 06/08/18 06/08/18 14:15 14:15 14:15 WBC RBC Hgb Hct MCV MCH MCHC RDW RDW Differential Plt Count MPV Sodium 141 Potassium 3.7 Chloride 109 H Carbon Dioxide 23.0 Anion Gap 9 BUN 15 Creatinine 1.30 H Estim Creat Clear Calc 30.48 Est GFR (MDRD) Af Amer 52 L Est GFR (MDRD) Non-Af 43 L BUN/Creatinine Ratio 11.5 Glucose 111 H Hemoglobin A1c Calcium 8.4 L Phosphorus 2.6 Magnesium 1.7 Iron 24 L TIBC 382 Iron Saturation 6.3 L Ferritin 42 Total Bilirubin 0.50 AST 17 ALT 16 Alkaline Phosphatase 51 Total Protein 6.3 L Albumin 2.9 L Globulin 3.4 Albumin/Globulin Ratio 0.9 TSH Blood Type O POSITIVE Antibody Screen NEGATIVE Crossmatch See Detail 06/09/18 06/09/18 06/09/18 05:54 05:54 05:54 WBC 5.0 RBC 3.65 L Hgb 9.3 L Hct 29.9 L MCV 81.9 MCH 25.5 L MCHC 31.1 L RDW 16.2 H RDW Differential 47.3 H Plt Count 119 L MPV 11.9 Sodium 138 Potassium 3.9 Chloride 112 H Carbon Dioxide 21.0 Anion Gap 5 BUN 15 Creatinine 1.18 H Estim Creat Clear Calc 33.58 Est GFR (MDRD) Af Amer 58 L Est GFR (MDRD) Non-Af 48 L BUN/Creatinine Ratio 12.7 Glucose 85 Hemoglobin A1c 6.0 Calcium 8.3 L Phosphorus 2.5 Magnesium 2.0 Iron TIBC Iron Saturation Ferritin Total Bilirubin AST ALT Alkaline Phosphatase Total Protein Albumin Globulin Albumin/Globulin Ratio TSH 0.93 Blood Type Antibody Screen Crossmatch Medical Necessity - Tobacco Use Smoking Status: Never smoker Tobacco Use: Non-smoker Assessment/Plan All Active Problems (Last Reviewed 06/08/18 @ 13:39 by Po Pelayo DO) Symptomatic anemia (Acute) Shortness of breath (Acute) Chest pain (Resolved) NSTEMI (non-ST elevated myocardial infarction) (Resolved) 1. Acute on chronic normocytic anemia-her hemoglobin appears to have trended down since October 2017. Status post 2 units PRBC for hemoglobin 7.7. Improved to 9.[address] Mathis consulted. Patient underwent EGD/colonoscopy which were both generally unremarkable. Colonoscopy with diverticulosis. EGD with single nonbleeding angiodysplastic lesion in the jejunum. Otherwise normal. Trend CBC. Follow up with Dr. Mathis in 1 week. Iron studies consistent with iron deficiency anemia. Begin iron supplementation. PO Protonix. 2. Chronic dyspnea, suspect multifactorial as a result of #1 as well as moderate pulmonary hypertension and chronic diastolic CHF-slightly improved following blood transfusion however patient reports dyspnea has been ongoing for the past 4 months. She is currently on supplemental oxygen although she was not documented to be hypoxic. She will need walking pulse ox prior to discharge. Echocardiogram February 2018 with EF 55-60%, stage I diastolic dysfunction, mild mitral valve insufficiency, mild to moderate tricuspid valve insufficiency, RVSP estimated to be 51 mmHg, moderate pulmonary hypertension. Recommend outpatient follow-up with pulmonary medicine. Continue CPAP regimen. Begin low-dose Lasix 20mg daily. 3. CAD status post PTCA/CHANTELLE of the left ostial LAD October 2017/ischemic cardiomyopathy-prior EF 45% at outside facility however echo February 2017 with EF 55-60%. Continue aspirin, statin, beta-bhavana. Continue outpatient follow- up with Dr. Castellano. 4. Type 2 diabetes mellitus-on metformin regimen at home. On hold. Hemoglobin A1c 6%. Carb controlled diet. 5. Chronic kidney disease stage III-at baseline. 6. Hypertension-stable, continue home metoprolol regimen. 7. Hyperlipidemia-continue statin. 8. Hypothyroidism-continue Synthroid regimen. 9. GERD-continue PPI. 10. Anxiety/Depression-continue home Lexapro regimen. DVT prophylaxis- SCDs. This patient was seen by MARISSA Buckley under the supervision of Dr. Hollingsworth. <Radha Hollingsworth - Last Filed: 06/09/18 15:49> - Physical Exam Vital Signs Temp Pulse Resp BP Pulse Ox 97.9 F 54 L 14 122/53 H 94 06/09/18 14:00 06/09/18 14:00 06/09/18 14:00 06/09/18 14:00 06/09/18 14:00 Oxygen Flow Rate (L/min) 2 Oxygen Delivery Method Nasal Cannula Weight: 169 lb 12.095 oz Body Mass Index (BMI) 31.0 Intake and Output for Last 24 Hours 06/07/18 06/08/18 06/09/18 23:59 23:59 23:59 Intake Total 2426 / 2426 1156 / 1156 Balance 2426 / 2426 1156 / 1156 Microbiology Past 72 Hours 06/08/18 21:00 Stool Occult Blood (YUE) - Final Stool Laboratory Tests Past 24 Hrs 04/06/09/18 06/09/18 14:15 05:54 05:54 WBC 5.0 RBC 3.65 L Hgb 9.3 L Hct 29.9 L MCV 81.9 MCH 25.5 L MCHC 31.1 L RDW 16.2 H RDW Differential 47.3 H Plt Count 119 L MPV 11.9 Sodium 138 Potassium 3.9 Chloride 112 H Carbon Dioxide 21.0 Anion Gap 5 BUN 15 Creatinine 1.18 H Estim Creat Clear Calc 33.58 Est GFR (MDRD) Af Amer 58 L Est GFR (MDRD) Non-Af 48 L BUN/Creatinine Ratio 12.7 Glucose 85 Hemoglobin A1c Calcium 8.3 L Phosphorus 2.5 Magnesium 2.0 TSH 0.93 Blood Type O POSITIVE Antibody Screen NEGATIVE Crossmatch See Detail 06/09/18 05:54 WBC RBC Hgb Hct MCV MCH MCHC RDW RDW Differential Plt Count MPV Sodium Potassium Chloride Carbon Dioxide Anion Gap BUN Creatinine Estim Creat Clear Calc Est GFR (MDRD) Af Amer Est GFR (MDRD) Non-Af BUN/Creatinine Ratio Glucose Hemoglobin A1c 6.0 Calcium Phosphorus Magnesium TSH Blood Type Antibody Screen Crossmatch Assessment/Plan Hospitalist note: I am seeing this patient in conjunction with Kristen Espitia. I independently seen and examined the patient. Progress note above, laboratory data and imaging studies reviewed and I concur with the above treatment plan. Patient seen and examined.. No acute events overnight. She has been having shortness of breath over the last several months. She mentioned that her breathing is slightly improved with oxygen. Denied chest pain, orthopnea, PND, cough or sputum pro duction. Her vital signs are stable, pulse ox is maintained on 2 L of oxygen. - Physical Exam General: Alert, Oriented x3, Cooperative, No apparent distress. HEENT: Atraumatic, PERRLA, EOMI. Neck: Supple, No JVD, Negative Carotid Bruits, Trachea Midline, Thyroid Normal. Lungs: Decreased sounds bilateral, otherwise clear, No rhonchi, No wheeze, No rales. Cardiovascular: Regular rate, Regular Rhythm, Normal S1, Normal S2, PMI Normal. Abdomen: Bowel Sounds Present, Soft, Non Tender, Non-Distended, No Hepato- splenomegaly. Extremities: No clubbing, No cyanosis, No edema Skin: No rashes, No breakdown Neurological: Neuro grossly intact Vital Signs are stable. Assessment and plan: #1 acute on chronic normocytic anemia: Received 2 units of packed RBCs, hemoglobin went up to 9.3 g/dL. Her serum iron and iron saturation are low. Upper EGD and colonoscopy revealed no evidence of active GI bleed. She is on iron supplement. #2 respiratory insufficiency/chronic shortness of breath: Seems to be multifactorial secondary to obstructive sleep apnea, moderate pulmonary hypertension and also exacerbated by anemia. Patient has history of obstructive apnea, has been on CPAP. 2D echocardiogram on February, revealed ejection fraction of 55-60%, stage I diastolic dysfunction and moderate pulmonary hypertension. Chest x-ray showed no acute findings. Started on small dose of Lasix, recommend follow-up with pulmonology as outpatient to titrate her CPAP machine, repeat walking pulse oximetry tomorrow morning, home oxygen if pulse ox dropped down less than 88%. #3 other chronic medical problems: Stable, continue current medications as above. This note was generated with [employer] dictation software. It may contain incorrect words, spelling, and punctuation that were not noted in checking the note before signing. Code Visit Inpatient E&M: 97408 Subs Hosp L2
--- NOTE | 2018-06-09 15:07 | CASEMGMT ---
ERIN SMALL NOTE: To room to review LAWSON form with pt. Pt denies having any questions. LAWSNO form signed by pt, copy made and placed on chart, and pt given original. Pt also given MCR's article Are you a hospital Inpatient or Outpatient. Sylvia RUBALCAVAN ERIN CM
--- NOTE | 2018-06-09 16:41 | PCM.PN.SRG ---
Patient Problems: Active and Suspected Problems (Last Reviewed 06/08/18 @ 13:39 by Po Pelayo DO) Symptomatic anemia (Acute) Subjective: follow-up patient noted darker stools overnight with bowel prep, feeling more energy after transfusion - Physical Exam Lungs: Clear to auscultation, Normal air movement Cardiovascular: Regular rate, No murmurs Abdomen: Bowel Sounds Present, Soft, Non Tender Vital Signs Temp Pulse Resp BP Pulse Ox 97.9 F 54 L 14 122/53 H 94 06/09/18 14:00 06/09/18 14:00 06/09/18 14:00 06/09/18 14:00 06/09/18 14:00 Oxygen Flow Rate (L/min) 2 Oxygen Delivery Method Nasal Cannula Weight: 77 kg Body Mass Index (BMI) 31.0 Intake and Output for Last 24 Hours 06/07/18 06/08/18 06/09/18 23:59 23:59 23:59 Intake Total 2426 / 2426 1156 / 1156 Balance 2426 / 2426 1156 / 1156 Microbiology Past 72 Hours 06/08/18 21:00 Stool Occult Blood (YUE) - Final Stool Laboratory Tests Past 24 Hrs 06/08/18 06/09/18 06/09/18 14:15 05:54 05:54 WBC 5.0 RBC 3.65 L Hgb 9.3 L Hct 29.9 L MCV 81.9 MCH 25.5 L MCHC 31.1 L RDW 16.2 H RDW Differential 47.3 H Plt Count 119 L MPV 11.9 Sodium 138 Potassium 3.9 Chloride 112 H Carbon Dioxide 21.0 Anion Gap 5 BUN 15 Creatinine 1.18 H Estim Creat Clear Calc 33.58 Est GFR (MDRD) Af Amer 58 L Est GFR (MDRD) Non-Af 48 L BUN/Creatinine Ratio 12.7 Glucose 85 Hemoglobin A1c Calcium 8.3 L Phosphorus 2.5 Magnesium 2.0 TSH 0.93 Blood Type O POSITIVE Antibody Screen NEGATIVE Crossmatch See Detail 06/09/18 05:54 WBC RBC Hgb Hct MCV MCH MCHC RDW RDW Differential Plt Count MPV Sodium Potassium Chloride Carbon Dioxide Anion Gap BUN Creatinine Estim Creat Clear Calc Est GFR (MDRD) Af Amer Est GFR (MDRD) Non-Af BUN/Creatinine Ratio Glucose Hemoglobin A1c 6.0 Calcium Phosphorus Magnesium TSH Blood Type Antibody Screen Crossmatch Medical Necessity - Tobacco Use Smoking Status: Never smoker Tobacco Use: Non-smoker Assessment/Plan All Active Problems (Last Reviewed 06/08/18 @ 13:39 by Po Pelayo DO) Symptomatic anemia (Acute) Shortness of breath (Acute) Chest pain (Resolved) NSTEMI (non-ST elevated myocardial infarction) (Resolved) increasing anemia with fatigue and shortness of breath with exertion, questionable GI source I performed upper and lower endoscopy with monitored anesthetic care. the patient had an unremarkable colonoscopy with few diverticula. 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 Its possible that the patient has additional AVMs and that could've been the source of bleeding.
[2018-06-09] MEDS: Aspirin 81 MG TAB.CHEW PO (17:03)
[2018-06-09] MEDS: Multivitamin (Healthy Eyes) Capsule 1 CAP PO (17:04)
[2018-06-09] MEDS: Ferrous Sulfate 325 MG Tablet PO (17:04)
[2018-06-09] MEDS: Furosemide 20 MG Tablet PO (17:04)
[2018-06-09] MEDS: Escitalopram Oxalate 10 MG Tablet PO (17:04)
[2018-06-09] MEDS: Atorvastatin Calcium 80 MG Tablet PO (20:49)
[2018-06-10] VITALS (8 sets, daily range): BP systolic 124–138; BP diastolic 60–78; PULSE 57–79; RESP 16–18; TEMP 36.6–36.8; O2SAT 87–95
[2018-06-10] MEDS: Levothyroxine 50 MCG Tablet PO (05:12)
[2018-06-10 05:30] LABS: Hematocrit 30.3 % (37-47); Hemoglobin 9.4 g/dl (12.0-15.0); Mean Corpuscular Hgb 25.8 pg (27.0-32.0); Mean Platelet Vol. 11.6 fl (6.2-12.0); Platelet Count 140 K/mm3 (150-450); RBC Distribution Width CV 16.3 % (11.6-14.6); RBC Distribution Width SD 49.2 fl (35.1-43.9); Red Blood Count 3.65 M/mm3 (4.2-5.4); White Blood Count 6.1 K/mm3 (4.4-11.0)
[2018-06-10 05:44] LABS: Anion Gap 3 (5-15); BUN 14 mg/dL (7-18); BUN/Creat Ratio 11.7 RATIO (10-20); Calcium,Total 8.7 mg/dL (8.5-10.1); Chloride 112 mmol/L (98-107); EST Glomerular Filtration Rate 47 mL/min (>60); Est Glom Filt Rate - Afr Amer 57 mL/min (>60); Estimated Creatinine Clearance 33.02 ml/min; Glucose 115 mg/dL (74-106); Potassium 4.2 mmol/L (3.5-5.1); Sodium Level 142 mmol/L (136-145)
[2018-06-10 06:04] LABS: Scan Indicated on CBC? Y/N NO
--- NOTE | 2018-06-10 06:07 | PCM.PN.SRG ---
Patient Problems: Active and Suspected Problems (Last Reviewed 06/08/18 @ 13:39 by Po Pelayo DO) Symptomatic anemia (Acute) Subjective: no complaints - Physical Exam Abdomen: Soft, Non Tender Vital Signs Temp Pulse Resp BP Pulse Ox 98.3 F 58 L 16 125/60 H 93 06/10/18 05:00 06/10/18 05:00 06/10/18 05:00 06/10/18 05:00 06/10/18 05:00 Oxygen Flow Rate (L/min) 2 Oxygen Delivery Method Nasal Cannula Weight: 77 kg Body Mass Index (BMI) 31.0 Intake and Output for Last 24 Hours 06/08/18 06/09/18 06/10/18 23:59 23:59 23:59 Intake Total 2426 / 2426 1316 / 1316 Balance 2426 / 2426 1316 / 1316 Microbiology Past 72 Hours 06/08/18 21:00 Stool Occult Blood (YUE) - Final Stool Laboratory Tests Past 24 Hrs 06/09/18 06/09/18 06/09/18 05:54 05:54 05:54 WBC 5.0 RBC 3.65 L Hgb 9.3 L Hct 29.9 L MCV 81.9 MCH 25.5 L MCHC 31.1 L RDW 16.2 H RDW Differential 47.3 H Plt Count 119 L MPV 11.9 Sodium 138 Potassium 3.9 Chloride 112 H Carbon Dioxide 21.0 Anion Gap 5 BUN 15 Creatinine 1.18 H Estim Creat Clear Calc 33.58 Est GFR (MDRD) Af Amer 58 L Est GFR (MDRD) Non-Af 48 L BUN/Creatinine Ratio 12.7 Glucose 85 Hemoglobin A1c 6.0 Calcium 8.3 L Phosphorus 2.5 Magnesium 2.0 TSH 0.93 06/10/18 06/10/18 05:20 05:20 WBC 6.1 RBC 3.65 L Hgb 9.4 L Hct 30.3 L MCV 83.0 MCH 25.8 L MCHC 31.0 L RDW 16.3 H RDW Differential 49.2 H Plt Count 140 L MPV 11.6 Sodium 142 Potassium 4.2 Chloride 112 H Carbon Dioxide 27.0 Anion Gap 3 L BUN 14 Creatinine 1.20 H Estim Creat Clear Calc 33.02 Est GFR (MDRD) Af Amer 57 L Est GFR (MDRD) Non-Af 47 L BUN/Creatinine Ratio 11.7 Glucose 115 H Hemoglobin A1c Calcium 8.7 Phosphorus Magnesium TSH Medical Necessity - Tobacco Use Smoking Status: Never smoker Tobacco Use: Non-smoker Assessment/Plan All Active Problems (Last Reviewed 06/08/18 @ 13:39 by Po Pelayo DO) Symptomatic anemia (Acute) Shortness of breath (Acute) Chest pain (Resolved) NSTEMI (non-ST elevated myocardial infarction) (Resolved) increasing anemia with fatigue and shortness of breath with exertion, questionable GI source I performed upper and lower endoscopy with monitored anesthetic care. the patient had an unremarkable colonoscopy with few diverticula. 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 Its possible that the patient has additional AVMs and that could've been the source of bleeding.
[2018-06-10] MEDS: Furosemide 20 MG Tablet PO (08:03)
[2018-06-10] MEDS: Multivitamin (Healthy Eyes) Capsule 1 CAP PO (08:03)
[2018-06-10] MEDS: Metoprolol Tartrate 25 MG Tablet 12.5 MG PO (08:03)
[2018-06-10] MEDS: Escitalopram Oxalate 10 MG Tablet PO (08:03)
[2018-06-10] MEDS: Aspirin 81 MG TAB.CHEW PO (08:03)
[2018-06-10] MEDS: Pantoprazole Sodium 40 MG Tablet PO (08:04)
--- NOTE | 2018-06-10 10:19 | PCM.PN.CARD ---
Subjectve: Patient doing better this morning. Colonoscopy and EGD completed. Colonoscopy was clean, EGD demonstrated 1 nonbleeding angiodysplastic lesion in the jejunum. Be aspirin continued. Hemoglobin stable at 9.7. Objective: Vital Signs Temp Pulse Resp BP Pulse Ox 98.3 F 64 16 125/60 H 90 06/10/18 05:00 06/10/18 08:03 06/10/18 05:00 06/10/18 05:00 06/10/18 08:23 Oxygen Flow Rate (L/min) 2 Oxygen Delivery Method Nasal Cannula Weight: 169 lb 12.095 oz Body Mass Index (BMI) 31.0 Intake and Output for Last 24 Hours 06/08/18 06/09/18 06/10/18 23:59 23:59 23:59 Intake Total 2426 / 2426 1316 / 1316 60 / 60 Balance 2426 / 2426 1316 / 1316 60 / 60 General: Awake, Alert, Oriented x 3 HEENT: PERRL, EOMI, Sclera Non Icteric Neck: Supple, Good ROM, No Lymph Node Enlargement Lungs: Clear to auscultation Cardiovascular: Regular Rhythm, Normal S1, Normal S2, No Murmurs, No Rubs, No Gallops Vascular: No Carotid Bruits, Normal Femoral Pulses, Normal Radial Pulses, Normal Dorsalis Pedal Pulse, Normal Posterior Tibial Pulses Abdomen: Bowel Sounds Present, Soft, Non Tender, No HSM, No Organomegaly Extremities: No Cyanosis, No Clubbing, No edema Neurological: No Focal Motor or Sensory Deficit 06/10/18 05:20: WBC 6.1, RBC 3.65 L, Hgb 9.4 L, Hct 30.3 L, MCV 83.0, MCH 25.8 L, MCHC 31.0 L, RDW 16.3 H, RDW Differential 49.2 H, Plt Count 140 L, MPV 11.6 06/10/18 05:20: Sodium 142, Potassium 4.2, Chloride 112 H, Carbon Dioxide 27.0, Anion Gap 3 L, BUN 14, Creatinine 1.20 H, Est GFR (MDRD) Af Amer 57 L, Est GFR (MDRD) Non-Af 47 L, BUN/Creatinine Ratio 11.7, Glucose 115 H, Calcium 8.7 Rhythm: EKG: ECHO: Stress Test: Cardiac Cath: PCI: CT Surgery: Holter monitor: EPS: PPM: CXR: Chest CT Scan: Medical Necessity - Tobacco Use Smoking Status: Never smoker Tobacco Use: Non-smoker Assessment/Plan #1. Coronary artery disease: Patient underwent complex angioplasty and drug-eluting stenting of her ostial LAD in October 2017. At that time she received a 3.0X 18 resolute [place] drug-eluting stent. She has less than 12 months out from her procedure, and requires dual antiplatelet therapy at least for 1 years time. Now that her EGD has been completed and identified a nonbleeding angiodysplastic lesion in her jejunum, we can continue her baby aspirin and will restart her Plavix 75 mg p.o. daily. We will hold off on loading her with Plavix. His lungs her hemoglobin remains stable, we will continue dual antiplatelet therapy and continue look for other reasons for her anemia. It is possible she may have a AV formation somewhere in between her stomach/jejunum in her colon, and we will repeat serial hemoglobins. 2. Hyperlipidemia: Continue Lipitor therapy. 3. Thank you very much for allowing us the opportunity to participate in the cardiac care of your patient. Code Visit Inpatient E&M: 54922 Subs Hosp L2
--- NOTE | 2018-06-10 10:24 | PN.CARD_ITS ---
Subjectve: Patient doing better this morning. Colonoscopy and EGD completed. Colonoscopy was clean, EGD demonstrated 1 nonbleeding angiodysplastic lesion in the jejunum. Be aspirin continued. Hemoglobin stable at 9.7. Objective: Vital Signs Temp Pulse Resp BP Pulse Ox 98.3 F 64 16 125/60 H 90 06/10/18 05:00 06/10/18 08:03 06/10/18 05:00 06/10/18 05:00 06/10/18 08:23 Oxygen Flow Rate (L/min) 2 Oxygen Delivery Method Nasal Cannula Weight: 169 lb 12.095 oz Body Mass Index (BMI) 31.0 Intake and Output for Last 24 Hours 06/08/18 06/09/18 06/10/18 23:59 23:59 23:59 Intake Total 2426 / 2426 1316 / 1316 60 / 60 Balance 2426 / 2426 1316 / 1316 60 / 60 General: Awake, Alert, Oriented x 3 HEENT: PERRL, EOMI, Sclera Non Icteric Neck: Supple, Good ROM, No Lymph Node Enlargement Lungs: Clear to auscultation Cardiovascular: Regular Rhythm, Normal S1, Normal S2, No Murmurs, No Rubs, No Gallops Vascular: No Carotid Bruits, Normal Femoral Pulses, Normal Radial Pulses, Normal Dorsalis Pedal Pulse, Normal Posterior Tibial Pulses Abdomen: Bowel Sounds Present, Soft, Non Tender, No HSM, No Organomegaly Extremities: No Cyanosis, No Clubbing, No edema Neurological: No Focal Motor or Sensory Deficit 06/10/18 05:20: WBC 6.1, RBC 3.65 L, Hgb 9.4 L, Hct 30.3 L, MCV 83.0, MCH 25.8 L , MCHC 31.0 L, RDW 16.3 H, RDW Differential 49.2 H, Plt Count 140 L, MPV 11.6 06/10/18 05:20: Sodium 142, Potassium 4.2, Chloride 112 H, Carbon Dioxide 27.0, Anion Gap 3 L, BUN 14, Creatinine 1.20 H, Est GFR (MDRD) Af Amer 57 L, Est GFR (MDRD) Non-Af 47 L, BUN/Creatinine Ratio 11.7, Glucose 115 H, Calcium 8.7 Rhythm: EKG: ECHO: Stress Test: Cardiac Cath: PCI: CT Surgery: Holter monitor: EPS: PPM: CXR: Chest CT Scan: Medical Necessity - Tobacco Use Smoking Status: Never smoker Tobacco Use: Non-smoker Assessment/Plan #1. Coronary artery disease: Patient underwent complex angioplasty and drug- eluting stenting of her ostial LAD in October 2017. At that time she received a 3.0X 18 resolute [place] drug-eluting stent. She has less than 12 months out from her procedure, and requires dual antiplatelet therapy at least for 1 years time. Now that her EGD has been completed and identified a nonbleeding angiodysplastic lesion in her jejunum, we can continue her baby aspirin and will restart her Plavix 75 mg p.o. daily. We will hold off on loading her with Plavix. His lungs her hemoglobin remains stable, we will continue dual antiplatelet therapy and continue look for other reasons for her anemia. It is possible she may have a AV formation somewhere in between her stomach/jejunum in her colon, and we will repeat serial hemoglobins. 2. Hyperlipidemia: Continue Lipitor therapy. 3. Thank you very much for allowing us the opportunity to participate in the cardiac care of your patient. Code Visit Inpatient E&M: 49932 Subs Hosp L2
--- NOTE | 2018-06-10 10:58 | DCINST_ITS ---
- Discharge Diagnoses Current Active Problems: Current Active and Chronic Problems (Last Reviewed 06/08/18 @ 13:39 by Po Pelayo DO) Symptomatic anemia (Acute) You will use the following diet at home:: Calorie/Carbohydrate Controlled (specify 1200, 1400, etc) - 1800 dwaine / day, Cardiac Your food should be the consistency of: Regular Your liquids should be the consistency of: Regular/Thin Discharge Activity: Return to Normal Activity Allergies/Adverse Reactions: Allergies No Known Allergies Allergy (Verified 06/07/18 15:31) Medications to take at Discharge Aspirin [Aspirin, Baby] 81 mg PO DAILY@0800 10/24/17 Escitalopram Oxalate [Lexapro] 10 mg PO DAILY 10/24/17 metformin 500 mg tablet 500 mg PO BID tab 11/17/17 Atorvastatin Calcium [Lipitor] 80 mg PO QHS 06/08/18 Levothyroxine Sodium [Synthroid] 50 mcg PO DAILY 06/08/18 Metoprolol Tartrate [Lopressor (beta bhavana)] 12.5 mg PO BID 06/08/18 Vit A/Vit C/Vit E/Zinc/Copper [Preservision Areds Softgel] 1 each PO DAILY 06/08/18 Clopidogrel Bisulfate [Plavix] 75 mg PO DAILY tablet 06/10/18 Ferrous Sulfate 325 mg PO 1200,1700 #60 tablet 06/10/18 Furosemide [Lasix] 20 mg PO DAILY #30 tablet 06/10/18 Pantoprazole Sodium [Protonix] 40 mg PO DAILY tablet 06/10/18 The following prescriptions were given: Ferrous Sulfate 325 mg PO 1200,1700 #60 tablet Furosemide [Lasix] 20 mg PO DAILY #30 tablet Primary Care Physician: Angie Jimenez [Primary Care Provider] - Please follow up with your Primary Care Physician in: 1-2 weeks Test Results: Test results from this visit will be discussed in further detail at your follow- up appointment, if applicable. Please Follow Up With: Baudilio Mathis MD When: 3-4 weeks Please Follow Up With: Jaren Castellano MD When: As directed Proposed Discharge Date: 06/10/18
[2018-06-10] MEDS: Clopidogrel Bisulfate 75 MG Tablet PO (11:06)
[2018-06-10] MEDS: Ferrous Sulfate 325 MG Tablet PO (11:07)
--- NOTE | 2018-06-10 11:22 | CASEMGMT ---
Per Sydney RN, pt qualifies for home oxygen at this time. This RN CM to room to discuss with pt and pt states no preference for DME at this time. Pt does have [facility] and [facility] is the preferred provider. Pt agrees to [facility] at this time and all pt's questions answered at this time. Referral faxed to [facility] at this time, awaiting F2F and then will fax. Keshav KHAN CM
--- NOTE | 2018-06-10 12:49 | PCM.DC.SUM ---
<Adama Mahajan - Last Filed: 06/10/18 12:49> Discharge Date and Diagnosis Date of Admission: 06/08/18 Date of Discharge: 06/10/18 - Primary Discharge Diagnosis Symptomatic anemia, 2/2 jejunal AVM Iron deficiency anemia Chronic Respiratory failure with hypoxia CAD with prior PTCA Ischemic CM T2DM BERTHA on cpap. CKDIII HTN HLD Hypothyroidism GERD Anx/Depression - Secondary Discharge Diagnosis Chronic Problems (Last Reviewed 06/08/18 @ 13:39 by Po Pelayo DO) Chronic systolic HF (heart failure) (Chronic) Secondary pulmonary arterial hypertension (Chronic) RVSP 51 mmhg per echo 02/18/2018 Nonrheumatic tricuspid (valve) insufficiency (Chronic) 1-2+ per echo 02/18/18 done @ [facility] History of left heart catheterization (Chronic 10/25/17) Done by Dr. Mitchell @ [facility], pt tsferred to [facility] for PCI vs. Possible CABG Nonrheumatic mitral valve regurgitation (Chronic) Mild (1+) per echo 10/28/2017 done @ [facility], and per echo 02/18/18 @ [facility] Ischemic cardiomyopathy (Chronic) EF 45-50% per echo done 10/28/2017 @ [facility] Atherosclerotic heart disease of [place] coronary artery without angina pectoris (Chronic) Resolute laura 3.0 X 18 mm CHANTELLE to proximal LAD into left main per Dr. Gamez @ [facility] Stented coronary artery (Chronic 10/25/17) Resolute laura 3.0 X 18 mm CHANTELLE to proximal LAD into left main, with post stent balloon angioplasty done to proximal LAD with 3.0 X 12 NC balloon and distal left main with 4.0 NC balloon; kissing balloon to ostial LAD and ramus was done with 2.5 X 12 balloon in ramus and 3.5 mm in ostial LAD. IVUS done, see report. Pt then admitted to ICU with balloon pump. History of non-ST elevation myocardial infarction (NSTEMI) (Chronic 10/24/17) HTN (hypertension) (Chronic) HLD (hyperlipidemia) (Chronic) GERD (gastroesophageal reflux disease) (Chronic) Diabetes mellitus, type II (Chronic) Hypothyroidism (Chronic) Obesity (BMI 30-39.9) (Chronic) Anxiety and depression (Chronic) Hospital Course and Treatment Consults: [facility] Cardiology - [place] Operations: None Procedures: Colonoscopy, EGD Summary of Care Provided: Hospital course: The patient is a 73 year old F with past medical history as above who presented to primary bereavement counselor Dr. Castellano for symptomatic anemia. In October 2017 she had a hemoglobin of 11.4, on presentation she had a hemoglobin of 7.7 with decreased MCV. She complained of shortness of breath with exertion and increased fatigue. She had not had a colonoscopy within 10 years. She was on aspirin and Plavix for prior stents in 2018. She is admitted to the PCU and placed on telemetry. Dr. Bergman, general surgery, and Dr. Castellano, cardiology were consulted. She underwent an EGD and colonoscopy, this revealed a jejunal AVM which could have been the source of bleeding. It was not bleeding at this time. She received 2 units of packed red blood cells and had market improvement. Her colonoscopy showed a few diverticula. Dr. Castellano was okay with her returning on aspirin and Plavix. Patient was already on Protonix 40 daily, this was resumed. She was iron deficient and was started on oral iron. Her hemoglobin remained stable. She did remain short of breath with exertion, a walking pulse oximeter demonstrated hypoxia with exertion. She was stable with room air. She will require oxygen with ambulation going forward after discharge, this is been arranged for her. She will continue CPAP at night. We also advised her to follow-up with pulmonology as an outpatient regarding her underlying breathing issues. She was discharged home in stable condition will need to follow-up with her PCP in 1-2 weeks, cardiology as directed, Dr. Bergman in 3-4 weeks. This patient was seen by Adama Mahajan PA-C under the supervision of Doctor Hollingsworth. [] - Physical Exam General: Alert, Oriented x3, Cooperative HEENT: Atraumatic, PERRLA, EOMI, Normocephalic Neck: Supple, No JVD, Negative Carotid Bruits Lungs: Clear to auscultation, Normal air movement Cardiovascular: Regular rate, No murmurs Abdomen: Bowel Sounds Present, Soft, Non Tender Extremities: No edema, Capillary Refill Less than 3 Seconds Skin: No rashes, No breakdown Musculoskeletal: No Tenderness to Palpation of Joints or Extremities Neurological: Cranial nerves II-XII grossly intact Psych/Mental Status: Normal Affect, Appropriate Vital Signs Temp Pulse Resp BP Pulse Ox 97.9 F 79 18 124/78 H 94 06/10/18 10:54 06/10/18 10:54 06/10/18 10:54 06/10/18 10:54 06/10/18 10:54 Oxygen Flow Rate (L/min) [ 2 AMBULATION with Oxygen] Oxygen Flow Rate (L/min) 2 Oxygen Delivery Method Room Air Weight: 169 lb 12.095 oz Body Mass Index (BMI) 31.0 Intake and Output for Last 24 Hours 06/08/18 06/09/18 06/10/18 23:59 23:59 23:59 Intake Total 2426 / 2426 1316 / 1316 660 / 660 Balance 2426 / 2426 1316 / 1316 660 / 660 Microbiology Past 72 Hours 06/08/18 21:00 Stool Occult Blood (YUE) - Final Stool Laboratory Tests Past 24 Hrs 06/10/18 06/10/18 05:20 05:20 WBC 6.1 RBC 3.65 L Hgb 9.4 L Hct 30.3 L MCV 83.0 MCH 25.8 L MCHC 31.0 L RDW 16.3 H RDW Differential 49.2 H Plt Count 140 L MPV 11.6 Sodium 142 Potassium 4.2 Chloride 112 H Carbon Dioxide 27.0 Anion Gap 3 L BUN 14 Creatinine 1.20 H Estim Creat Clear Calc 33.02 Est GFR (MDRD) Af Amer 57 L Est GFR (MDRD) Non-Af 47 L BUN/Creatinine Ratio 11.7 Glucose 115 H Calcium 8.7 Discharge Diet: Low fat/ Low Cholesterol, 1800 Calorie Control Diet, 2000 mg Sodium Diet Discharge Activity: Return to Normal Activity Home Medications: Medications to take at Discharge Aspirin [Aspirin, Baby] 81 mg PO DAILY@0800 10/24/17 Escitalopram Oxalate [Lexapro] 10 mg PO DAILY 10/24/17 metformin 500 mg tablet 500 mg PO BID tab 11/17/17 Atorvastatin Calcium [Lipitor] 80 mg PO QHS 06/08/18 Levothyroxine Sodium [Synthroid] 50 mcg PO DAILY 06/08/18 Metoprolol Tartrate [Lopressor (beta bhavana)] 12.5 mg PO BID 06/08/18 Vit A/Vit C/Vit E/Zinc/Copper [Preservision Areds Softgel] 1 each PO DAILY 06/08/18 Clopidogrel Bisulfate [Plavix] 75 mg PO DAILY #30 tablet 06/10/18 Ferrous Sulfate 325 mg PO 1200,1700 #60 tablet 06/10/18 Furosemide [Lasix] 20 mg PO DAILY #30 tablet 06/10/18 Pantoprazole Sodium [Protonix] 40 mg PO DAILY tablet 06/10/18 Following Prescrptions Were Given to Patient: Clopidogrel Bisulfate [Plavix] 75 mg PO DAILY #30 tablet Ferrous Sulfate 325 mg PO 1200,1700 #60 tablet Furosemide [Lasix] 20 mg PO DAILY #30 tablet Primary Care Physician: Angie Jimenez [Primary Care Provider] - Please follow up with your Primary Care Physician in: 1-2 weeks Please Follow Up With: Baudilio Mathis MD When: 3-4 weeks Please Follow Up With: Jaren Castellano MD When: As directed Please Follow Up With: Sav Longoria MD When: 2 weeks Disposition: Home Minutes spent on discharge:: 35 Patient Condition:: Stable Medical Necessity - Tobacco Use Smoking Status: Never smoker Tobacco Use: Non-smoker Meaningful Use Info Meaningful Use Diagnoses (Choose all that apply): None applicable <Radha Hollingsworth E - Last Filed: 06/10/18 15:19> Discharge Date and Diagnosis - Secondary Discharge Diagnosis Chronic Problems (Last Reviewed 06/08/18 @ 13:39 by Po Pelayo DO) Chronic systolic HF (heart failure) (Chronic) Secondary pulmonary arterial hypertension (Chronic) RVSP 51 mmhg per echo 02/18/2018 Nonrheumatic tricuspid (valve) insufficiency (Chronic) 1-2+ per echo 02/18/18 done @ [facility] History of left heart catheterization (Chronic 10/25/17) Done by Dr. Mitchell @ [facility], pt tsferred to [facility] for PCI vs. Possible CABG Nonrheumatic mitral valve regurgitation (Chronic) Mild (1+) per echo 10/28/2017 done @ [facility], and per echo 02/18/18 @ [facility] Ischemic cardiomyopathy (Chronic) EF 45-50% per echo done 10/28/2017 @ [facility] Atherosclerotic heart disease of [place] coronary artery without angina pectoris (Chronic) Resolute laura 3.0 X 18 mm CHANTELLE to proximal LAD into left main per Dr. Gamez @ [facility] Stented coronary artery (Chronic 10/25/17) Resolute laura 3.0 X 18 mm CHANTELLE to proximal LAD into left main, with post stent balloon angioplasty done to proximal LAD with 3.0 X 12 NC balloon and distal left main with 4.0 NC balloon; kissing balloon to ostial LAD and ramus was done with 2.5 X 12 balloon in ramus and 3.5 mm in ostial LAD. IVUS done, see report. Pt then admitted to ICU with balloon pump. History of non-ST elevation myocardial infarction (NSTEMI) (Chronic 10/24/17) HTN (hypertension) (Chronic) HLD (hyperlipidemia) (Chronic) GERD (gastroesophageal reflux disease) (Chronic) Diabetes mellitus, type II (Chronic) Hypothyroidism (Chronic) Obesity (BMI 30-39.9) (Chronic) Anxiety and depression (Chronic) Hospital Course and Treatment Summary of Care Provided: Hospitalist note: Discharge summary above reviewed as well as physical examination and I agree with above discharge and treatment plan. Patient was admitted for shortness of breath for several months for evaluation. She was found to have respiratory failure which seems to be chronic and probably exaggerated by acute on chronic anemia that required blood transfusion. This patient has a history of obstructive sleep apnea and she has been on CPAP machine and her sleep apnea is not well controlled and she has been never followed up with a agency service coordinator regarding her sleep apnea. Her chest x-ray showed no acute findings. She was found to have hemoglobin of 7.7 g/dL. She received 2 units of packed RBCs and her hemoglobin went up to 9.4 g/dL upon discharge. Her stool was negative for occult blood. Because of anemia, she underwent upper EGD and colonoscopy. Both upper EGD and colonoscopy revealed no evidence of active GI bleed. Upper EGD revealed 1 nonbleeding angiodysplastic lesion of the jejunum. She had 2D echocardiogram that was done on February, that revealed ejection fraction of 55-60%, RVSP of 51 consistent with moderate pulmonary hypertension. Patient required oxygen and before discharge, walking pulse oximeter dropped down to 87% with ambulation on room air and she qualified for home oxygen to be able to ambulate around home and do her daily activities. This shortness of breath which has been chronic is likely due to moderate pulmonary hypertension secondary to obstructive sleep apnea which seems to be not well controlled and also this shortness of breath exaggerated by acute on chronic anemia. Patient discharged home in a stable medical condition, discharged home oxygen, started on small dose of Lasix 20 mg daily, started on iron supplement, continued on aspirin and Plavix and her other previous medications without any changes, recommended follow-up with PCP in 1-2 weeks, follow-up with Dr. Bergman in 2-4 weeks and follow-up with Dr. Castellano according to his recommendations. - Physical Exam General: Alert, Oriented x3, Cooperative, No apparent distress. HEENT: Atraumatic, PERRLA, EOMI. Neck: Supple, No JVD, Negative Carotid Bruits, Trachea Midline, Thyroid Normal. Lungs: Diminished breath sounds bilateral, otherwise clear, No rhonchi, No wheeze, No rales. Cardiovascular: Regular rate, Regular Rhythm, Normal S1, Normal S2, PMI Normal. Abdomen: Bowel Sounds Present, Soft, Non Tender, Non-Distended, No Hepato-splenomegaly. Extremities: No clubbing, No cyanosis, No edema Skin: No rashes, No breakdown Neurological: Neuro grossly intact Vital Signs are stable. This note was generated with [employer] dictation software. It may contain incorrect words, spelling, and punctuation that were not noted in checking the note before signing. - Physical Exam Vital Signs Temp Pulse Resp BP Pulse Ox 97.9 F 79 18 124/78 H 94 06/10/18 10:54 06/10/18 10:54 06/10/18 10:54 06/10/18 10:54 06/10/18 10:54 Oxygen Flow Rate (L/min) [ 2 AMBULATION with Oxygen] Oxygen Flow Rate (L/min) 2 Oxygen Delivery Method Room Air Weight: 169 lb 12.095 oz Body Mass Index (BMI) 31.0 Intake and Output for Last 24 Hours 06/08/18 06/09/18 06/10/18 23:59 23:59 23:59 Intake Total 2426 / 2426 1316 / 1316 660 / 660 Balance 2426 / 2426 1316 / 1316 660 / 660 Microbiology Past 72 Hours 06/08/18 21:00 Stool Occult Blood (YUE) - Final Stool Laboratory Tests Past 24 Hrs 06/10/18 06/10/18 05:20 05:20 WBC 6.1 RBC 3.65 L Hgb 9.4 L Hct 30.3 L MCV 83.0 MCH 25.8 L MCHC 31.0 L RDW 16.3 H RDW Differential 49.2 H Plt Count 140 L MPV 11.6 Sodium 142 Potassium 4.2 Chloride 112 H Carbon Dioxide 27.0 Anion Gap 3 L BUN 14 Creatinine 1.20 H Estim Creat Clear Calc 33.02 Est GFR (MDRD) Af Amer 57 L Est GFR (MDRD) Non-Af 47 L BUN/Creatinine Ratio 11.7 Glucose 115 H Calcium 8.7 Disposition: Home Minutes spent on discharge:: 32 Patient Condition:: Stable Meaningful Use Info Meaningful Use Diagnoses (Choose all that apply): None applicable Code Visit Inpatient E&M: 10804 Disch Hosp
--- NOTE | 2018-06-10 12:56 | DS.PCM_ITS ---
<Adama Mahajan - Last Filed: 06/10/18 12:49> Discharge Date and Diagnosis Date of Admission: 06/08/18 Date of Discharge: 06/10/18 - Primary Discharge Diagnosis Symptomatic anemia, 2/2 jejunal AVM Iron deficiency anemia Chronic Respiratory failure with hypoxia CAD with prior PTCA Ischemic CM T2DM BERTHA on cpap. CKDIII HTN HLD Hypothyroidism GERD Anx/Depression - Secondary Discharge Diagnosis Chronic Problems (Last Reviewed 06/08/18 @ 13:39 by Po Pelayo DO) Chronic systolic HF (heart failure) (Chronic) Secondary pulmonary arterial hypertension (Chronic) RVSP 51 mmhg per echo 02/18/2018 Nonrheumatic tricuspid (valve) insufficiency (Chronic) 1-2+ per echo 02/18/18 done @ [facility] History of left heart catheterization (Chronic 10/25/17) Done by Dr. Mitchell @ [facility], pt tsferred to [facility] for PCI vs. 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 Lorraine Silva @ [facility] Stented coronary artery (Chronic 10/25/17) Resolute laura 3.0 X 18 mm CHANTELLE to proximal LAD into left main, with post stent balloon angioplasty done to proximal LAD with 3.0 X 12 NC balloon and distal left main with 4.0 NC balloon; kissing balloon to ostial LAD and ramus was done with 2.5 X 12 balloon in ramus and 3.5 mm in ostial LAD. IVUS done, see report. Pt then admitted to ICU with balloon pump. History of non-ST elevation myocardial infarction (NSTEMI) (Chronic 10/24/17) HTN (hypertension) (Chronic) HLD (hyperlipidemia) (Chronic) GERD (gastroesophageal reflux disease) (Chronic) Diabetes mellitus, type II (Chronic) Hypothyroidism (Chronic) Obesity (BMI 30-39.9) (Chronic) Anxiety and depression (Chronic) Hospital Course and Treatment Consults: [facility] Surgery Cardiology - [place] Operations: None Procedures: Colonoscopy, EGD Summary of Care Provided: Hospital course: The patient is a 73 year old F with past medical history as above who presented to primary gun number Dr. Castellano for symptomatic anemia. In October 2017 she had a hemoglobin of 11.4, on presentation she had a hemoglobin of 7.7 with decreased MCV. She complained of shortness of breath with exertion and increased fatigue. She had not had a colonoscopy within 10 years. She was on aspirin and Plavix for prior stents in 2018. She is admitted to the PCU and placed on telemetry. Dr. Bergman, general surgery, and Dr. Castellano, cardiology were consulted. She underwent an EGD and colonoscopy, this revealed a jejunal AVM which could have been the source of bleeding. It was not bleeding at this time. She received 2 units of packed red blood cells and had market improvement. Her colonoscopy showed a few diverticula. Dr. Castellano was okay with her returning on aspirin and Plavix. Patient was already on Protonix 40 daily, this was resumed. She was iron deficient and was started on oral iron. Her hemoglobin remained stable. She did remain short of breath with exertion, a walking pulse oximeter demonstrated hypoxia with exertion. She was stable with room air. She will require oxygen with ambulation going forward after discharge, this is been arranged for her. She will continue CPAP at night. We also advised her to follow-up with pulmonology as an outpatient regarding her underlying breathing issues. She was discharged home in stable condition will need to follow-up with her PCP in 1-2 weeks, cardiology as directed, Dr. Bergman in 3-4 weeks. This patient was seen by Adama Mahajan PA-C under the supervision of Doctor Hollingsworth. [] - Physical Exam General: Alert, Oriented x3, Cooperative HEENT: Atraumatic, PERRLA, EOMI, Normocephalic Neck: Supple, No JVD, Negative Carotid Bruits Lungs: Clear to auscultation, Normal air movement Cardiovascular: Regular rate, No murmurs Abdomen: Bowel Sounds Present, Soft, Non Tender Extremities: No edema, Capillary Refill Less than 3 Seconds Skin: No rashes, No breakdown Musculoskeletal: No Tenderness to Palpation of Joints or Extremities Neurological: Cranial nerves II-XII grossly intact Psych/Mental Status: Normal Affect, Appropriate Vital Signs Temp Pulse Resp BP Pulse Ox 97.9 F 79 18 124/78 H 94 06/10/18 10:54 06/10/18 10:54 06/10/18 10:54 06/10/18 10:54 06/10/18 10:54 Oxygen Flow Rate (L/min) [ 2 AMBULATION with Oxygen] Oxygen Flow Rate (L/min) 2 Oxygen Delivery Method Room Air Weight: 169 lb 12.095 oz Body Mass Index (BMI) 31.0 Intake and Output for Last 24 Hours 06/08/18 06/09/18 06/10/18 23:59 23:59 23:59 Intake Total 2426 / 2426 1316 / 1316 660 / 660 Balance 2426 / 2426 1316 / 1316 660 / 660 Microbiology Past 72 Hours 06/08/18 21:00 Stool Occult Blood (YUE) - Final Stool Laboratory Tests Past 24 Hrs 06/10/18 06/10/18 05:20 05:20 WBC 6.1 RBC 3.65 L Hgb 9.4 L Hct 30.3 L MCV 83.0 MCH 25.8 L MCHC 31.0 L RDW 16.3 H RDW Differential 49.2 H Plt Count 140 L MPV 11.6 Sodium 142 Potassium 4.2 Chloride 112 H Carbon Dioxide 27.0 Anion Gap 3 L BUN 14 Creatinine 1.20 H Estim Creat Clear Calc 33.02 Est GFR (MDRD) Af Amer 57 L Est GFR (MDRD) Non-Af 47 L BUN/Creatinine Ratio 11.7 Glucose 115 H Calcium 8.7 Discharge Diet: Low fat/ Low Cholesterol, 1800 Calorie Control Diet, 2000 mg Sodium Diet Discharge Activity: Return to Normal Activity Home Medications: Medications to take at Discharge Aspirin [Aspirin, Baby] 81 mg PO DAILY@0800 10/24/17 Escitalopram Oxalate [Lexapro] 10 mg PO DAILY 10/24/17 metformin 500 mg tablet 500 mg PO BID tab 11/17/17 Atorvastatin Calcium [Lipitor] 80 mg PO QHS 06/08/18 Levothyroxine Sodium [Synthroid] 50 mcg PO DAILY 06/08/18 Metoprolol Tartrate [Lopressor (beta bhavana)] 12.5 mg PO BID 06/08/18 Vit A/Vit C/Vit E/Zinc/Copper [Preservision Areds Softgel] 1 each PO DAILY 06/08/18 Clopidogrel Bisulfate [Plavix] 75 mg PO DAILY #30 tablet 06/10/18 Ferrous Sulfate 325 mg PO 1200,1700 #60 tablet 06/10/18 Furosemide [Lasix] 20 mg PO DAILY #30 tablet 06/10/18 Pantoprazole Sodium [Protonix] 40 mg PO DAILY tablet 06/10/18 Following Prescrptions Were Given to Patient: Clopidogrel Bisulfate [Plavix] 75 mg PO DAILY #30 tablet Ferrous Sulfate 325 mg PO 1200,1700 #60 tablet Furosemide [Lasix] 20 mg PO DAILY #30 tablet Primary Care Physician: Angie Jimenez [Primary Care Provider] - Please follow up with your Primary Care Physician in: 1-2 weeks Please Follow Up With: Baudilio Mathis MD When: 3-4 weeks Please Follow Up With: Jaren Castellano MD When: As directed Please Follow Up With: Sav Longoria MD When: 2 weeks Disposition: Home Minutes spent on discharge:: 35 Patient Condition:: Stable Medical Necessity - Tobacco Use Smoking Status: Never smoker Tobacco Use: Non-smoker Meaningful Use Info Meaningful Use Diagnoses (Choose all that apply): None applicable <Radha Hollingsworth E - Last Filed: 06/10/18 15:19> Discharge Date and Diagnosis - Secondary Discharge Diagnosis Chronic Problems (Last Reviewed 06/08/18 @ 13:39 by Po Pelayo DO) Chronic systolic HF (heart failure) (Chronic) Secondary pulmonary arterial hypertension (Chronic) RVSP 51 mmhg per echo 02/18/2018 Nonrheumatic tricuspid (valve) insufficiency (Chronic) 1-2+ per echo 02/18/18 done @ [facility] History of left heart catheterization (Chronic 10/25/17) Done by Dr. Mitchell @ [facility], pt tsferred to [facility] for PCI vs. 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 Lorraine Silva @ [facility] Stented coronary artery (Chronic 10/25/17) Resolute laura 3.0 X 18 mm CHANTELLE to proximal LAD into left main, with post stent balloon angioplasty done to proximal LAD with 3.0 X 12 NC balloon and distal left main with 4.0 NC balloon; kissing balloon to ostial LAD and ramus was done with 2.5 X 12 balloon in ramus and 3.5 mm in ostial LAD. IVUS done, see report. Pt then admitted to ICU with balloon pump. History of non-ST elevation myocardial infarction (NSTEMI) (Chronic 10/24/17) HTN (hypertension) (Chronic) HLD (hyperlipidemia) (Chronic) GERD (gastroesophageal reflux disease) (Chronic) Diabetes mellitus, type II (Chronic) Hypothyroidism (Chronic) Obesity (BMI 30-39.9) (Chronic) Anxiety and depression (Chronic) Hospital Course and Treatment Summary of Care Provided: Hospitalist note: Discharge summary above reviewed as well as physical examination and I agree with above discharge and treatment plan. Patient was admitted for shortness of breath for several months for evaluation. She was found to have respiratory failure which seems to be chronic and probably exaggerated by acute on chronic anemia that required blood transfusion. This patient has a history of obstructive sleep apnea and she has been on CPAP machine and her sleep apnea is not well controlled and she has been never followed up with a level vial marker regarding her sleep apnea. Her chest x-ray showed no acute findings. She was found to have hemoglobin of 7.7 g/dL. She received 2 units of packed RBCs and her hemoglobin went up to 9.4 g/dL upon discharge. Her stool was negative for occult blood. Because of anemia, she underwent upper EGD and colonoscopy. Both upper EGD and colonoscopy revealed no evidence of active GI bleed. Upper EGD revealed 1 nonbleeding angiodysplastic lesion of the jejunum. She had 2D echocardiogram that was done on February, that revealed ejection fraction of 55-60%, RVSP of 51 consistent with moderate pulmonary hypertension. Patient required oxygen and before discharge, walking pulse oximeter dropped down to 87% with ambulation on room air and she qualified for home oxygen to be able to ambulate around home and do her daily activities. This shortness of breath which has been chronic is likely due to moderate pulmonary hypertension s econdary to obstructive sleep apnea which seems to be not well controlled and also this shortness of breath exaggerated by acute on chronic anemia. Patient discharged home in a stable medical condition, discharged home oxygen, started on small dose of Lasix 20 mg daily, started on iron supplement, continued on aspirin and Plavix and her other previous medications without any changes, recommended follow-up with PCP in 1-2 weeks, follow-up with Dr. Bergman in 2-4 weeks and follow-up with Dr. Castellano according to his recommendations. - Physical Exam General: Alert, Oriented x3, Cooperative, No apparent distress. HEENT: Atraumatic, PERRLA, EOMI. Neck: Supple, No JVD, Negative Carotid Bruits, Trachea Midline, Thyroid Normal. Lungs: Diminished breath sounds bilateral, otherwise clear, No rhonchi, No wheeze, No rales. Cardiovascular: Regular rate, Regular Rhythm, Normal S1, Normal S2, PMI Normal. Abdomen: Bowel Sounds Present, Soft, Non Tender, Non-Distended, No Hepato- splenomegaly. Extremities: No clubbing, No cyanosis, No edema Skin: No rashes, No breakdown Neurological: Neuro grossly intact Vital Signs are stable. This note was generated with [employer] dictation software. It may contain incorrect words, spelling, and punctuation that were not noted in checking the note before signing. - Physical Exam Vital Signs Temp Pulse Resp BP Pulse Ox 97.9 F 79 18 124/78 H 94 06/10/18 10:54 06/10/18 10:54 06/10/18 10:54 06/10/18 10:54 06/10/18 10:54 Oxygen Flow Rate (L/min) [ 2 AMBULATION with Oxygen] Oxygen Flow Rate (L/min) 2 Oxygen Delivery Method Room Air Weight: 169 lb 12.095 oz Body Mass Index (BMI) 31.0 Intake and Output for Last 24 Hours 06/08/18 06/09/18 06/10/18 23:59 23:59 23:59 Intake Total 2426 / 2426 1316 / 1316 660 / 660 Balance 2426 / 2426 1316 / 1316 660 / 660 Microbiology Past 72 Hours 06/08/18 21:00 Stool Occult Blood (YUE) - Final Stool Laboratory Tests Past 24 Hrs 06/10/18 06/10/18 05:20 05:20 WBC 6.1 RBC 3.65 L Hgb 9.4 L Hct 30.3 L MCV 83.0 MCH 25.8 L MCHC 31.0 L RDW 16.3 H RDW Differential 49.2 H Plt Count 140 L MPV 11.6 Sodium 142 Potassium 4.2 Chloride 112 H Carbon Dioxide 27.0 Anion Gap 3 L BUN 14 Creatinine 1.20 H Estim Creat Clear Calc 33.02 Est GFR (MDRD) Af Amer 57 L Est GFR (MDRD) Non-Af 47 L BUN/Creatinine Ratio 11.7 Glucose 115 H Calcium 8.7 Disposition: Home Minutes spent on discharge:: 32 Patient Condition:: Stable Meaningful Use Info Meaningful Use Diagnoses (Choose all that apply): None applicable Code Visit Inpatient E&M: 84714 Disch Hosp
--- NOTE | 2018-06-10 14:11 | CASEMGMT ---
ERIN CM NOTE: Discharge summary faxed to [facility]. Sylvia RINCON RN CM
== END 2018-06-10 10:58 | disposition home or self-care (01) ==
LOC: PCU 11:02
PROVIDERS: Internal Medicine Cardiovascular Disease; Nurse Practitioner Family; Surgery; Admitting Provider Internal Medicine; Family Provider Family Medicine; PCP Family Medicine; Referring Provider Internal Medicine; Visit Provider Hospitalist
PROC: 0DJD8ZZ Inspection of Lower Intestinal Tract, Via Natural or Artificial Opening Endoscopic (ICD-10-PCS; CPT 45378; principal; 2018-06-09 11:55)
DX: D50.9 Iron deficiency anemia, unspecified (principal); Q27.33 Arteriovenous malformation of digestive system vessel; J96.11 Chronic respiratory failure with hypoxia; I25.10 Atherosclerotic heart disease of native coronary artery without angina pectoris; G47.33 Obstructive sleep apnea (adult) (pediatric); E03.9 Hypothyroidism, unspecified; F41.9 Anxiety disorder, unspecified; F32.9 Major depressive disorder, single episode, unspecified; K21.9 Gastro-esophageal reflux disease without esophagitis; E78.5 Hyperlipidemia, unspecified; E11.22 Type 2 diabetes mellitus with diabetic chronic kidney disease; N18.3 Chronic kidney disease, stage 3 (moderate); I27.21 Secondary pulmonary arterial hypertension; I13.0 Hypertensive heart and chronic kidney disease with heart failure and stage 1 through stage 4 chronic kidney disease, or unspecified chronic kidney disease; I50.22 Chronic systolic (congestive) heart failure; I25.2 Old myocardial infarction; E66.9 Obesity, unspecified; K57.90 Diverticulosis of intestine, part unspecified, without perforation or abscess without bleeding; K29.70 Gastritis, unspecified, without bleeding; K55.20 Angiodysplasia of colon without hemorrhage; Z79.899 Other long term (current) drug therapy; Z79.82 Long term (current) use of aspirin; Z68.31 Body mass index [BMI] 31.0-31.9, adult; Z71.3 Dietary counseling and surveillance; Z95.5 Presence of coronary angioplasty implant and graft
CPT/HCPCS: 43239; 45378; 36415; 36430; 80048; 80053; 80061; 82274; 82728; 83036; 83540; 83550; 83735; 84100; 84443; 85027; 86850; 86900; 86920; 86922; 88305; 88342; 93005; 96365; 96366; 97802; 99218; J7040; P9016; A4216; G0378; G0379; J2405

== ENCOUNTER → 2018-07-16 | Outpatient (CLI) | payer MEDICARE, SELFPAY ==
[2018-06-08 11:40] VITALS: BMI 31.0
[2018-07-08 13:09] VITALS: BMI 29.2
--- NOTE | 2018-07-16 09:49 | ECHOD_ITS ---
Reason For Study: SOB Procedure This was a 2D Doppler, Color Flow transthoracic echocardiogram. Exam performed in department. Left Ventricle Normal size and thickness. The estimated ejection fraction is 55-60 %. Stage 2 diastolic dysfunction. Anterior [place] : Mildly hypokinetic. Right Ventricle Mildly dilated right ventricle. Normal systolic function. Atria The left atrium is moderately enlarged. Normal right atrium. Normal atrial septum. Mitral Valve The mitral valve is structurally normal. No prolapse or stenosis seen. Mild (1+) mitral valve insufficiency. Tricuspid Valve Normal tricuspid valve. Mild (1+) tricuspid valve insufficiency. Right ventricular systolic pressure estimated to be 37 mmHg. Mild pulmonary hypertension. Aortic Valve Normal aortic valve. Trisinus/trileaflet aortic valve. Pulmonic Valve The pulmonic valve is not well visualized. Great Vessels Normal aortic root. Normal arch. Normal inferior vena cava. Inferior vena cava collapse with sniff. Pericardium/Pleural No pericardial effusion. MMode/2D Measurements & Calculations LVIDd: 4.7 cm IVSd: 0.76 cm Ao root diam: 3.2 cm LVIDs: 3.0 cm LVPWd: 1.2 cm RVDd: 3.6 cm FS: 35.3 % LAV(MOD-bp): 58.8 ml EDV(MOD-sp4): 79.7 ml EDV(MOD-sp2): 70.1 ml LAV(MOD-bp) Indexed: 34.1 ml/m2 ESV(MOD-sp4): 35.9 ml EF(MOD-sp2): 57.9 % LAV(MOD-sp2): 42.7 ml EF(MOD-sp4): 55.0 % LAV(MOD-sp4): 61.3 ml SV(MOD-sp4): 43.8 ml SV(MOD-sp2): 40.6 ml LA A4 area: 22.1 cm2 LA dimension(2D): 4.4 cm RA A4 area: 13.5 cm2 Doppler Measurements & Calculations MV E max tae: 92.2 cm/sec Lat Peak E' Tae: 9.8 cm/sec Med Peak E' Tae: 6.4 cm/sec MV A max tae: 57.8 cm/sec E/E' lat: 9.4 E/E' med: 14.4 MV E/A: 1.6 Ao V2 max: 164.6 cm/sec LV V1 max: 131.8 cm/sec PA V2 max: 100.4 cm/sec Ao max P.8 mmHg LV V1 max P.0 mmHg TR max tae: 279.9 cm/sec TR max P.4 mmHg Interpretation Summary The estimated ejection fraction is 55-60 %. Anterior [place] : Mildly hypokinetic Stage 2 diastolic dysfunction. Mildly dilated right ventricle. The left atrium is moderately enlarged. Mild (1+) mitral valve insufficiency. Mild (1+) tricuspid valve insufficiency. Right ventricular systolic pressure estimated to be 37 mmHg. Mild pulmonary hypertension. Compared to echo report dated 02/18/2018, no appreciable changes noted. Ordering Physician: Jaren Castellano Referring Physician: Angie Jimenez Performed By: Rosa Ruiz RDCS
== END | disposition home or self-care (01) ==
LOC: CVS 09:48
PROVIDERS: Family Provider Family Medicine; PCP Family Medicine; Referring Provider Internal Medicine Cardiovascular Disease; Visit Provider Internal Medicine Cardiovascular Disease
DX: I50.22 Chronic systolic (congestive) heart failure (principal)
CPT/HCPCS: 93306

== ENCOUNTER 2018-09-11 18:16 | Observation (INO) | payer MEDICARE, SELFPAY ==
[2018-09-02 13:57] VITALS: BMI 29.6
[2018-09-11 18:18] VITALS: BP 148/66; PULSE 57; RESP 16; TEMP 37; O2SAT 100; BMI 27.1
--- NOTE | 2018-09-11 18:46 | EKG12_ITS ---
Test Reason : GENERAL ILLNESS Blood Pressure : / mmHG Vent. Rate : 057 BPM Atrial Rate : 057 BPM P-R Int : 160 ms QRS Dur : 072 ms QT Int : 546 ms P-R-T Axes : 062 039 064 degrees QTc Int : 531 ms Sinus bradycardia Confirmed by TRUNG SOTO MD ([id number]), news editor SEBASTIÁN PATTERSON ([id number]) on 09/13/2018 1:48:35 PM Referred By: Jean Serna Confirmed By:TRUNG SOTO MD
[2018-09-11 19:03] LABS: Hematocrit 31.8 % (37-47); Hemoglobin 10.4 g/dL (12.0-15.0); Mean Corp Hgb Conc 32.7 g/dL (32-36); Mean Corpuscular Hgb 29.1 pg (27.0-32.0); Mean Corpuscular Volume 88.8 fL (81-99); Mean Platelet Vol. 11.9 fl (6.2-12.0); Platelet Count 122 K/mm3 (150-450); RBC Distribution Width CV 19.1 % (11.6-14.6); RBC Distribution Width SD 62.7 fl (35.1-43.9); Red Blood Count 3.58 M/mm3 (4.2-5.4); White Blood Count 5.6 K/mm3 (4.4-11.0)
[2018-09-11] MEDS: 0.9% Normal Saline 1,000 ML 1000 ML IV (19:05)
[2018-09-11 19:17] LABS: AST(SGOT) 25 U/L (15-37); Alanine Aminotransfer ALT/SGPT 15 U/L (13-56); Albumin, Serum 3.7 g/dL (3.2-5.0); Alkaline Phosphatase 64 U/L (45-117); Anion Gap 8 (5-15); BUN 20 mg/dL (7-18); BUN/Creat Ratio 8.8 RATIO (10-20); Calcium,Total 9.9 mg/dL (8.5-10.1); Chloride 106 mmol/L (98-107); Creatinine, Serum 2.26 mg/dL (0.55-1.02); EST Glomerular Filtration Rate 23 mL/min (>60); Est Glom Filt Rate - Afr Amer 27 mL/min (>60); Estimated Creatinine Clearance 17.53 ml/min; Globulin 3.8 g/dL (2.2-4.2); Glucose 87 mg/dL (74-106); Potassium 3.7 mmol/L (3.5-5.1); Protein, Total 7.5 g/dL (6.4-8.2); Sodium Level 138 mmol/L (136-145)
[2018-09-11 19:24] LABS: Basophil% 0.4 % (0-1); Eosinophils% 0.9 % (0-5); Lymphocyte % 31.5 % (19-41); Monocyte% 12.6 % (0-10); Neutrophil % 54.4 % (47-70)
[2018-09-11 19:25] LABS: Absolute Lymphocyte Count 1.75 X10^3/uL (0.83-4.51); Basophil# 0.02 X10^3/uL; Eosinophil# 0.05 X10^3/uL; Lymphocyte # 1.75 X10^3/ul (4.0); Neutrophil # 3.02 X10^3/uL (2.7-7.7)
--- NOTE | 2018-09-11 19:49 | ED.VIS.GEN ---
History of Present Illness Chief Complaint: General Illness Informant: Patient, Family Onset: Today Timing: Continuous Current Severity: Moderate Maximum Severity: Moderate Narrative: Patient presents via squad, apparently she called her daughter because she did not feel well she felt confused, her daughter found her house quite hot at least 90 degrees and humid she apparently had her air conditioning off, she was given an IV and brought to the emergency department apparently by the time I saw her she had improved somewhat per her daughter. She denies any chest pain shortness of breath fever or chills. There was no history of localizing symptoms or weakness. No speech difficulty. Past Medical History - Allergies and Home Meds Allergies/Adverse Reactions: Allergies No Known Allergies Allergy (Verified 09/11/18 18:17) Primary Care Physician: Angie Jimenez [Primary Care Provider] - Past Medical History: - - Hypertension, history of DVT, on Eliquis Surgical History: - - Cholecystectomy, hernia repair (ventral/umb). Lives: Alone Smoking Status: Never smoker - Family History Maternal Family History: Family History (Last Reviewed 07/08/18 @ 13:10 by Luz Marina Mckeon) Mother CAD (coronary artery disease) Myocardial infarction Father CAD (coronary artery disease) Myocardial infarction Sister Myocardial infarction CAD (coronary artery disease) Stented coronary artery Family History: Reports: - - Patient notes a maternal family history of heart disease, hypertension, hyperlipidemia and diabetes. Paternal Family History: Family History (Last Reviewed 07/08/18 @ 13:10 by Luz Marina Mckeon) Mother CAD (coronary artery disease) Myocardial infarction Father CAD (coronary artery disease) Myocardial infarction Sister Myocardial infarction CAD (coronary artery disease) Stented coronary artery Family History: Reports: - - Patient notes a paternal family history of heart disease, hypertension, hyperlipidemia and diabetes and does note he did have stents. Review of Systems All systems negative except as indicated General: Reports: - - She feels weak and lightheaded. Denies: Fever Eyes: Denies: Visual changes - bilaterally Cardiovascular: Denies: Chest pain Respiratory: Denies: Dyspnea, Cough Gastrointestinal: Denies: Nausea Musculoskeletal: Denies: Back pain Skin: Denies: Rash Neurological: Reports: Weakness. Denies: Parasthesia, Numbness Psych: Denies: Depression Endocrine: Denies: Polydipsia Physical Exam Vital Signs/Narrative: Vital Signs Temp Pulse Resp BP Pulse Ox 09/11/18 18:18 98.6 F 57 L 16 148/66 H 100 General: Well nourished, - - Does not appear in significant distress Head: Negative for: Trauma Eyes: - - Chronic disconjugate gaze ENT: Dry mucous membranes Cardiovascular: Regular rate, Regular rhythm Respiratory: No distress, CTA bilaterally Abdomen: Soft, Nontender Rectal: Deferred Back: Nontender Extremities: Nontender, No edema Skin: Normal color, No rash Neurological: Alert, Oriented x3 Psychological: Normal affect Diagnostic/Tx/Re-eval - Medical Decision Making Patient is given IV fluids. Her creatinine essentially doubled from her last creatinine. She has an unremarkable EKG. Because of her renal insufficiency, this is likely secondary to dehydration I will admit, likely suffered a heat stroke and she was confused and now she improved. Disposition admit in guarded condition ED Disposition - Plan for ED Patient: Diagnosis: Renal insufficiency, Heat stroke Referrals: Angie Jimenez [Primary Care Provider] -
--- NOTE | 2018-09-11 19:53 | PCM.HP.STD ---
Problem List (1) Acute encephalopathy Status: Acute (2) Heat stroke Status: Acute (3) Symptomatic anemia Status: Resolved History of Present Illness Date of Admission: 09/11/18 Chief Complaint: altered mental status The patient is a 73 year old F with a significant history of CAD status post stent; diabetes mellitus type 2; ischemic cardiomyopathy who presented to the emergency department with altered mental status. Reportedly patient was confused; had vertigo and rigors. She felt very hot at her home so she intended to increase the air conditioning at home. She placed a cold rag on her head. She called her family. However her family realized that her air-conditioning was rather turned off. At the emergency department patient was found to have severely elevated creatinine. Patient was given IV fluid bolus for probable heat stroke and she was admitted. Past Medical History Past Medical History (Chronic Problems): Chronic Problems (Last Reviewed 09/11/18 @ 23:14 by Jean Serna MD) Chronic systolic HF (heart failure) (Chronic) Secondary pulmonary arterial hypertension (Chronic) RVSP 51 mmhg per echo 02/18/2018 Nonrheumatic tricuspid (valve) insufficiency (Chronic) 1-2+ per echo 02/18/18 done @ [facility] History of left heart catheterization (Chronic 10/25/17) Done by Dr. Mitchell @ [facility], pt tsferred to [facility] for PCI vs. Possible CABG Nonrheumatic mitral valve regurgitation (Chronic) Mild (1+) per echo 10/28/2017 done @ [facility], and per echo 02/18/18 @ [facility] Ischemic cardiomyopathy (Chronic) EF 45-50% per echo done 10/28/2017 @ [facility] Atherosclerotic heart disease of apache coronary artery without angina pectoris (Chronic) Resolute laura 3.0 X 18 mm CHANTELLE to proximal LAD into left main per Dr. Gamez @ [facility] Stented coronary artery (Chronic 10/25/17) Resolute laura 3.0 X 18 mm CHANTELLE to proximal LAD into left main, with post stent balloon angioplasty done to proximal LAD with 3.0 X 12 NC balloon and distal left main with 4.0 NC balloon; kissing balloon to ostial LAD and ramus was done with 2.5 X 12 balloon in ramus and 3.5 mm in ostial LAD. IVUS done, see report. Pt then admitted to ICU with balloon pump. History of non-ST elevation myocardial infarction (NSTEMI) (Chronic 10/24/17) HTN (hypertension) (Chronic) HLD (hyperlipidemia) (Chronic) GERD (gastroesophageal reflux disease) (Chronic) Diabetes mellitus, type II (Chronic) Hypothyroidism (Chronic) Obesity (BMI 30-39.9) (Chronic) Anxiety and depression (Chronic) Medical History: Medical History (Last Reviewed 09/11/18 @ 23:14 by Jean Serna MD) Chronic systolic HF (heart failure) (Chronic) I50.22 Shortness of breath (Resolved) R06.02 Secondary pulmonary arterial hypertension (Chronic) I27.21 RVSP 51 mmhg per echo 02/18/2018 Nonrheumatic tricuspid (valve) insufficiency (Chronic) I36.1 1-2+ per echo 02/18/18 done @ [facility] Nonrheumatic mitral valve regurgitation (Chronic) I34.0 Mild (1+) per echo 10/28/2017 done @ [facility], and per echo 02/18/18 @ [facility] Ischemic cardiomyopathy (Chronic) I25.5 EF 45-50% per echo done 10/28/2017 @ [facility] Atherosclerotic heart disease of apache coronary artery without angina pectoris (Chronic) I25.10 Resolute laura 3.0 X 18 mm CHANTELLE to proximal LAD into left main per Dr. Gamez @ [facility] History of non-ST elevation myocardial infarction (NSTEMI) (Chronic) Onset Date: 10/24/17 I25.2 HTN (hypertension) (Chronic) I10 HLD (hyperlipidemia) (Chronic) E78.5 GERD (gastroesophageal reflux disease) (Chronic) K21.9 Diabetes mellitus, type II (Chronic) E11.9 Hypothyroidism (Chronic) E03.9 Obesity (BMI 30-39.9) (Chronic) E66.9 Allergies No Known Allergies Allergy (Verified 09/11/18 18:17) Home Medications: Ambulatory Orders Medication Instructions Recorded metformin 500 mg tablet 500 mg PO BID tab 11/17/17 Atorvastatin Calcium [Lipitor] 80 mg PO QHS 06/08/18 Levothyroxine Sodium [Synthroid] 50 mcg PO DAILY 06/08/18 Metoprolol Tartrate [Lopressor 12.5 mg PO BID 06/08/18 (beta bhavana)] Vit A/Vit C/Vit E/Zinc/Copper 1 ea PO DAILY 06/08/18 [Preservision Areds Softgel] escitalopram 20 mg tablet 20 mg PO DAILY tab 07/08/18 aspirin 81 mg chewable tablet 81 mg PO DAILY@0800 09/02/18 Clopidogrel Bisulfate [Plavix] 75 mg PO DAILY 09/11/18 Ferrous Sulfate 325 mg PO 1200,1700 09/11/18 Furosemide [Lasix] 20 mg PO DAILY 09/11/18 Pantoprazole Sodium [Protonix] 40 mg PO DAILY 09/11/18 Surgical History: Surgical History (Last Reviewed 09/11/18 @ 23:14 by Jean Serna MD) History of left heart catheterization (Chronic) Onset Date: 10/25/[address] Mitchell @ [facility], pt tsferred to [facility] for PCI vs. Possible CABG Stented coronary artery (Chronic) Onset Date: 10/25/17 Z95.5 Resolute laura 3.0 X 18 mm CHANTELLE to proximal LAD into left main, with post stent balloon angioplasty done to proximal LAD with 3.0 X 12 NC balloon and distal left main with 4.0 NC balloon; kissing balloon to ostial LAD and ramus was done with 2.5 X 12 balloon in ramus and 3.5 mm in ostial LAD. IVUS done, see report. Pt then admitted to ICU with balloon pump. Surgical History: - - Cholecystectomy, hernia repair (ventral/umb). 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 Paternal Family History: Family History (Last Reviewed 09/12/18 @ 01:30 by Jean Serna MD) Mother CAD (coronary artery disease) Myocardial infarction Father CAD (coronary artery disease) Myocardial infarction Sister Myocardial infarction CAD (coronary artery disease) Stented coronary artery History Items: - - Patient notes a paternal family history of heart disease, hypertension, hyperlipidemia and diabetes and does note he did have stents. Review of Systems Constitutional: Denies: Fever, Weight Change HEENT: Denies: Head Aches, Sinus Congestion, Sinus Drainage Cardiovascular: Denies: Chest Pain, Palpitations Respiratory: Denies: Cough, Shortness of breath at rest, Sputum production Gastrointestinal: Denies: Abdominal Pain, Nausea, Vomiting Genitourinary: Denies: Dysuria Musculoskeletal: Denies: Joint Pain, Joint Tenderness Skin: Denies: Rash, Wounds Neurological: Reports: Confusion. Denies: Focal weakness, Numbness, Tingling Psychiatric: Denies: Anxiety, Depression, Homicidal Ideations, Suicidal Ideations Hematologic/ Lymphatic: Denies: Easy Bruising, Easy Bleeding VTE Information - Inpt Only VTE Present on Admission: No VTE Mechan Device Prophylaxis: None VTE Pharm Prophylaxis ordered?: Yes Patient Problems: Active and Suspected Problems (Last Reviewed 09/11/18 @ 23:14 by Jean Serna MD) Renal insufficiency (Acute) Heat stroke (Acute) Acute encephalopathy (Acute) - Physical Exam General: Alert, Oriented x3, Cooperative HEENT: Atraumatic, PERRLA, EOMI, Normocephalic Neck: Supple, No JVD, Negative Carotid Bruits Lungs: Clear to auscultation, Normal air movement Cardiovascular: Regular rate, No murmurs Abdomen: Bowel Sounds Present, Soft, Non Tender Extremities: No edema, Capillary Refill Less than 3 Seconds Skin: No rashes, No breakdown Musculoskeletal: No Tenderness to Palpation of Joints or Extremities Neurological: Cranial nerves II-XII grossly intact Psych/Mental Status: Normal Affect, Appropriate Vital Signs Temp Pulse Resp BP Pulse Ox 98.6 F 57 L 16 148/66 H 100 09/11/18 18:18 09/11/18 18:18 09/11/18 18:18 09/11/18 18:18 09/11/18 18:18 Oxygen Delivery Method Room Air Weight: 67.3 kg Body Mass Index (BMI) 27.1 Laboratory Tests Past 24 Hrs 09/11/18 09/11/18 18:38 18:55 WBC 5.6 RBC 3.58 L Hgb 10.4 L Hct 31.8 L MCV 88.8 MCH 29.1 MCHC 32.7 RDW Std Deviation 62.7 H RDW Coeff of Yesy 19.1 H Plt Count 122 L MPV 11.9 Immature Gran % (Auto) 0.200 Neut % (Auto) 54.4 Lymph % (Auto) 31.5 [place] % (Auto) 12.6 H Eos % (Auto) 0.9 Baso % (Auto) 0.4 Absolute Neuts (auto) 3.0 Absolute Lymphs (auto) 1.75 Absolute Nucleated RBC Not Reportable Sodium 138 Potassium 3.7 Chloride 106 Carbon Dioxide 24.0 Anion Gap 8 BUN 20 H Creatinine 2.26 H Estim Creat Clear Calc 17.53 Est GFR (MDRD) Af Amer 27 L Est GFR (MDRD) Non-Af 23 L BUN/Creatinine Ratio 8.8 L Glucose 87 Calcium 9.9 Total Bilirubin 0.80 AST 25 ALT 15 Alkaline Phosphatase 64 Troponin I < 0.015 Total Protein 7.5 Albumin 3.7 Globulin 3.8 Albumin/Globulin Ratio 1.0 Assessment/Plan All Active Problems (Last Reviewed 09/11/18 @ 23:14 by Jean Serna MD) Renal insufficiency (Acute) Heat stroke (Acute) Acute encephalopathy (Acute) Symptomatic anemia (Resolved) Shortness of breath (Resolved) Chest pain (Resolved) NSTEMI (non-ST elevated myocardial infarction) (Resolved) The patient is a 73 year old F with a significant history of CAD status post stent; diabetes mellitus type 2; ischemic cardiomyopathy who presented to the emergency department with altered mental status; confused; vertigo and rigors; and who felt hot; and with a severe elevation in the creatinine consistent with acute encephalopathy secondary to likely heatstroke; and with MANJIT on CKD. Acute encephalopathy secondary to probable heat stroke Patient received normal saline bolus at the emergency department and she was feeling better. We will continue patient on gentle normal saline hydration. We will stop home Lasix at this time. MANJIT on CKD stage III On presentation her creatinine was 2.26. Review of old records shows a creatinine baseline 1.18 at 1.38. Likely due to his stroke IV hydration as above Trend BMP Avoid nephrotoxic Hold Lasix. Depression/anxiety Citalopram continued CAD status post stent Aspirin; Plavix; Lipitor; and metoprolol continued. Hypertension On presentation her blood pressure was fairly stable in regard to age Metoprolol continued Trend blood pressure and adjust blood pressure medication Hypothyroidism Synthroid continued diabetes mellitus Diabetes mellitus Blood glucose on BMP was normal. Hold metformin because of MANJIT. Accu-Chek q. before meals at bedtime with no correction scale at this time. Patient is at risk of hypoglycemia since her blood glucose on admission was 87. Chronic Anemia Ferrous sulfate continued DVT prophylaxis SC Heparin Code Visit OBSV E&M: [id number] Initial observation care L3
[2018-09-11 20:11] VITALS: BP 155/117; PULSE 60; RESP 20; O2SAT 100
[2018-09-11 21:09] VITALS: BMI 30.4
[2018-09-11 21:35] VITALS: BP 126/60; PULSE 57; RESP 16; TEMP 36.9; O2SAT 100
[2018-09-11 22:21] LABS: Bedside Glucose 101 mg/dL (70-110)
[2018-09-11] MEDS: Heparin Injection (Vial) 5,000 UNIT/ML VIAL 5000 UNIT SC (23:13)
[2018-09-11] MEDS: Atorvastatin Calcium 80 MG Tablet PO (23:14)
[2018-09-11] MEDS: 0.9% Normal Saline 1,000 ML 100 ML IV (23:15)
[2018-09-11 23:16] VITALS: PULSE 54
[2018-09-12 03:30] VITALS: BP 124/55; PULSE 55; RESP 18; TEMP 36.8; O2SAT 99
[2018-09-12] MEDS: Levothyroxine 50 MCG Tablet PO (05:36)
[2018-09-12] MEDS: 0.9% Normal Saline 1,000 ML 100 ML IV (05:36)
[2018-09-12 06:04] LABS: Absolute Lymphocyte Count 1.16 X10^3/uL (0.83-4.51); Absolute Neutrophil Count 2.6 X10^3/uL (2.0-7.7); Basophil# 0.01 X10^3/uL; Basophil% 0.2 % (0-1); Eosinophil# 0.07 X10^3/uL; Eosinophils% 1.6 % (0-5); Hematocrit 30.1 % (37-47); Hemoglobin 9.6 g/dL (12.0-15.0); Lymphocyte # 1.16 X10^3/ul (4.0); Lymphocyte % 25.8 % (19-41); Mean Corp Hgb Conc 31.9 g/dL (32-36); Mean Corpuscular Hgb 29.3 pg (27.0-32.0); Mean Corpuscular Volume 91.8 fL (81-99); Mean Platelet Vol. 11.7 fl (6.2-12.0); Monocyte% 13.4 % (0-10); NRBC Flagged by Analyzer 0 % (0-5); Neutrophil # 2.64 X10^3/uL (2.7-7.7); Neutrophil % 58.8 % (47-70); POSITIVE MORPHOLOGY YES; Platelet Count 99 K/mm3 (150-450); RBC Distribution Width CV 19.9 % (11.6-14.6); Red Blood Count 3.28 M/mm3 (4.2-5.4); White Blood Count 4.5 K/mm3 (4.4-11.0)
[2018-09-12 06:29] LABS: Anion Gap 9 (5-15); BUN 23 mg/dL (7-18); BUN/Creat Ratio 11.6 RATIO (10-20); Calcium,Total 8.6 mg/dL (8.5-10.1); Chloride 111 mmol/L (98-107); Creatinine, Serum 1.98 mg/dL (0.55-1.02); EST Glomerular Filtration Rate 26 mL/min (>60); Est Glom Filt Rate - Afr Amer 32 mL/min (>60); Estimated Creatinine Clearance 20.01 ml/min; Glucose 96 mg/dL (74-106); Potassium 3.5 mmol/L (3.5-5.1); Sodium Level 147 mmol/L (136-145)
[2018-09-12 06:55] LABS: Bedside Glucose 93 mg/dL (70-110)
[2018-09-12] MEDS: 0.45% Normal Saline 1,000 ML 100 ML IV (07:25)
[2018-09-12 08:00] VITALS: BP 122/51; PULSE 56; RESP 16; TEMP 36.6; O2SAT 99
[2018-09-12] MEDS: Multivitamins,Ther W-Minerals Tablet 1 TABLET PO (08:16)
[2018-09-12] MEDS: Pantoprazole Sodium 40 MG Tablet PO (08:16)
[2018-09-12] MEDS: Escitalopram Oxalate 20 MG Tablet PO (08:16)
[2018-09-12] MEDS: Aspirin 81 MG TAB.CHEW PO (08:17)
[2018-09-12 08:55] LABS: Bacteria 0 SEEN /hpf (None Seen); Mucous, Urine 0 SEEN /hpf (<or=2+); Red Blood Cells-Urine 0 SEEN /hpf (0-5); Squamous Epithelial Cells - UA 0 SEEN /hpf (5-10)
[2018-09-12 09:11] LABS: Color, Urine Yellow (Yellow); Glucose, Dipstick Normal (Normal); Ketone-Dipstick Negative (Negative); Leukocyte Esterase-Dipstick 25 /ul (Negative); Nitrite-Dipstick Negative (Negative); Occult Blood-Urine Negative /ul (Negative); Protein-Dipstick Negative (Negative); Specific Gravity, Urine 1.015 (1.002-1.030); Urine Bilirubin Dipstick Negative (Negative); Urine Clarity Sl. Cloudy (Clear); Urine Urobilinogen Normal (Normal)
[2018-09-12 09:13] LABS: White Blood Cells 0-5 SEEN /hpf (0-5)
--- NOTE | 2018-09-12 09:36 | PN_ITS ---
Patient Problems: Active and Suspected Problems (Last Reviewed 09/11/18 @ 23:14 by Jean Serna MD) Renal insufficiency (Acute) Heat stroke (Acute) Acute encephalopathy (Acute) Subjective: Feels better today, knows where she is and what year it is. Still has to work with physical therapy today. Vitals/I&O's: Vital Signs Temp Pulse Resp BP Pulse Ox 97.9 F 56 L 16 122/51 H 99 09/12/18 08:00 09/12/18 08:00 09/12/18 08:00 09/12/18 08:00 09/12/18 08:00 Oxygen Delivery Method Room Air Weight: 166 lb 7.184 oz Body Mass Index (BMI) 30.4 Intake and Output for Last 24 Hours 09/10/18 09/11/18 09/12/18 23:59 23:59 23:59 Intake Total 1072 / 1072 Balance 1072 / 1072 General: Alert, Oriented x3, Cooperative, No apparent distress HEENT: Atraumatic, PERRLA, EOMI, Normocephalic Oral: Moist Mucosa Neck: Supple, No JVD Lungs: Clear to auscultation, Normal air movement, No rhonchi, No wheeze, No rales Cardiovascular: Regular rate, Regular Rhythm, Normal S1, Normal S2, No murmurs Abdomen: Soft, Non Tender, Non-Distended, No Hepato-splenomegaly Extremities: No edema, Capillary Refill Less than 3 Seconds Skin: No rashes, No breakdown Neurological: Neuro grossly intact, Sensory exam intact to light touch and pain Psych/Mental Status: Normal Affect, Appropriate Laboratory Results 09/11/18 18:38: Sodium 138, Potassium 3.7, Chloride 106, Carbon Dioxide 24.0, Anion Gap 8, BUN 20 H, Creatinine 2.26 H, Estim Creat Clear Calc 17.53, Est GFR (MDRD) Af Amer 27 L, Est GFR (MDRD) Non-Af 23 L, BUN/Creatinine Ratio 8.8 L, Glucose 87, Calcium 9.9, Total Bilirubin 0.80, AST 25, ALT 15, Alkaline Phosphatase 64, Troponin I < 0.015, Total Protein 7.5, Albumin 3.7, Globulin 3.8, Albumin/Globulin Ratio 1.0 09/11/18 18:55: WBC 5.6, RBC 3.58 L, Hgb 10.4 L, Hct 31.8 L, MCV 88.8, MCH 29.1, MCHC 32.7, RDW Std Deviation 62.7 H, RDW Coeff of Yesy 19.1 H, Plt Count 122 L, MPV 11.9, Immature Gran % (Auto) 0.200, Neut % (Auto) 54.4, Lymph % (Auto) 31.5, [place] % (Auto) 12.6 H, Eos % (Auto) 0.9, Baso % (Auto) 0.4, Absolute Neuts (auto) 3.0, Absolute Lymphs (auto) 1.75, Absolute Nucleated RBC Not Reportable 09/11/18 22:15: POC Glucose 101 09/12/18 05:41: WBC 4.5, RBC 3.28 L, Hgb 9.6 L, Hct 30.1 L, MCV 91.8, MCH 29.3, MCHC 31.9 L, RDW Std Deviation 67.0 H, RDW Coeff of Yesy 19.9 H, Plt Count 99 L, MPV 11.7, Immature Gran % (Auto) 0.200, Neut % (Auto) 58.8, Lymph % (Auto) 25.8, [place] % (Auto) 13.4 H, Eos % (Auto) 1.6, Baso % (Auto) 0.2, Absolute Neuts (auto) 2.6, Absolute Lymphs (auto) 1.16, Absolute Nucleated RBC 0.00, Nucleated RBC % 0, Diff Path Review N/A 09/12/18 05:41: Sodium 147 H, Potassium 3.5, Chloride 111 H, Carbon Dioxide 27.0, Anion Gap 9, BUN 23 H, Creatinine 1.98 H, Estim Creat Clear Calc 20.01, Est GFR (MDRD) Af Amer 32 L, Est GFR (MDRD) Non-Af 26 L, BUN/Creatinine Ratio 11.6, Glucose 96, Calcium 8.6 09/12/18 06:51: POC Glucose 93 09/12/18 08:20: Urine Color Yellow, Urine Clarity Sl. Cloudy, Urine pH 6.0, Ur Specific [place] 1.015, Urine Protein Negative, Urine Glucose (UA) Normal, Urine Ketones Negative, Urine Occult Blood Negative, Urine Nitrite Negative, Urine Bilirubin Negative, Urine Urobilinogen Normal, Ur Leukocyte Esterase 25 H, Urine RBC 0 SEEN, Urine WBC 0-5 SEEN, Ur Squamous Epith Cells 0 SEEN, Urine Bacteria 0 SEEN, Urine Mucus 0 SEEN Current Medications Acetaminophen (Tylenol) 650 mg PO Q6H PRN PRN PRN Reason: Mild Pain (1-3)/Temp > 100.7 F Aspirin (Aspirin, Baby) 81 mg PO DAILY@0800 [facility] Last Admin: 09/12/18 08:17 Dose: 81 mg Documented by: Atorvastatin Calcium (Lipitor) 80 mg PO QHS [facility] Last Admin: 09/11/18 23:14 Dose: 80 mg Documented by: Clopidogrel Bisulfate (Plavix) 75 mg PO DAILY [facility] Dextrose (D50w Syringe) 0 gm IV X1 PRN; Protocol PRN Reason: Hypoglycemia Escitalopram Oxalate (Lexapro) 20 mg PO DAILY [facility] Last Admin: 09/12/18 08:16 Dose: 20 mg Documented by: Ferrous Sulfate (Ferrous Sulfate) 325 mg PO 1200,1700 [facility] Glucagon () 1 mg IM .X1 PRN PRN Reason: Hypoglycemia Heparin Sodium (Porcine) (Heparin Na) 5,000 unit SC Q12 [facility] Last Admin: 09/11/18 23:13 Dose: 5,000 unit Documented by: Sodium Chloride () 1,000 mls @ 100 mls/hr IV .Q10H [facility] Last Admin: 09/12/18 07:25 Dose: 100 mls/hr Documented by: Levothyroxine Sodium (Synthroid) 50 mcg PO DAILY@0600 [facility] Last Admin: 09/12/18 05:36 Dose: 50 mcg Documented by: Metoprolol Tartrate (Lopressor (Beta Dat)) 12.5 mg PO BID [facility] Last Admin: 09/11/18 23:16 Dose: Not Given Documented by: Multivitamins/Minerals (Multivitamin With Minerals) 1 tablet PO DAILY@0800 [facility] Last Admin: 09/12/18 08:16 Dose: 1 tablet Documented by: Pantoprazole Sodium (Protonix) 40 mg PO DAILY [facility] Last Admin: 09/12/18 08:16 Dose: 40 mg Documented by: Sodium Chloride () 10 - 40 ml IV UD PRN PRN Reason: SALINE FLUSH Medical Necessity - Tobacco Use Smoking Status: Never smoker Assessment/Plan All Active Problems (Last Reviewed 09/11/18 @ 23:14 by Jean Serna MD) Renal insufficiency (Acute) Heat stroke (Acute) Acute encephalopathy (Acute) Symptomatic anemia (Resolved) Shortness of breath (Resolved) Chest pain (Resolved) NSTEMI (non-ST elevated myocardial infarction) (Resolved) 1. Acute encephalopathy secondary to possible heatstroke/MANJIT/hypernatremia/CKD 3 -She is found to have an elevated creatinine on admission to 2.26 which is down to 1.98 -Continue with IV fluids -She has been afebrile since admission -We will obtain a UA to evaluate for possible UTI to explain altered mental status -We will transition normal saline to half-normal saline given her elevated sodium of 147 -If UA is normal, will discuss with the possibility of discharge later today. 2. CAD status post stent/HTN/HLD -Blood pressure stable -Continue with her home medications 3. Hypothyroidism -Stable, most recent TSH is 0.93 -Continue with Synthroid 4. DM 2 -Continue to monitor blood sugars with Accu-Cheks, hold metformin 5. Chronic iron deficiency anemia/GERD -Hemoglobin is stable -Continue with iron replacement -continue with vitamin C and PPI DVT: Heparin Code Visit OBSV E&M: [id number] Subsequent observation care L2
[2018-09-12 10:42] VITALS: PULSE 56
[2018-09-12] MEDS: Clopidogrel Bisulfate 75 MG Tablet PO (10:42)
[2018-09-12] MEDS: Metoprolol Tartrate 25 MG Tablet 12.5 MG PO (10:42)
--- NOTE | 2018-09-12 11:26 | DCINST_ITS ---
- Discharge Diagnoses Current Active Problems: Current Active and Chronic Problems (Last Reviewed 09/11/18 @ 23:14 by Jean Serna MD) Renal insufficiency (Acute) Heat stroke (Acute) Acute encephalopathy (Acute) You will use the following diet at home:: Calorie/Carbohydrate Controlled (specify 1200, 1400, etc) Your food should be the consistency of: Regular Your liquids should be the consistency of: Regular/Thin Discharge Activity: Return to Normal Activity Call your doctor if you observe: Fever of 101 or Higher, Shortness of breath, Dizziness, Fainting spells, Swelling in the ankles, Chest pain, Increased p alpitations (irregular heartbeat) Additional Instructions: Hold Metformin for 3 days and obtain a BMP at your PCP for your kidney function prior to restarting. Allergies/Adverse Reactions: Allergies No Known Allergies Allergy (Verified 09/11/18 18:17) Medications to take at Discharge metformin 500 mg tablet 500 mg PO BID tab 11/17/17 Atorvastatin Calcium [Lipitor] 80 mg PO QHS 06/08/18 Levothyroxine Sodium [Synthroid] 50 mcg PO DAILY 06/08/18 Metoprolol Tartrate [Lopressor (beta bhavana)] 12.5 mg PO BID 06/08/18 Vit A/Vit C/Vit E/Zinc/Copper [Preservision Areds Softgel] 1 ea PO DAILY 06/08/18 escitalopram 20 mg tablet 20 mg PO DAILY tab 07/08/18 aspirin 81 mg chewable tablet 81 mg PO DAILY@0800 09/02/18 Clopidogrel Bisulfate [Plavix] 75 mg PO DAILY 09/11/18 Ferrous Sulfate 325 mg PO 1200,1700 09/11/18 Pantoprazole Sodium [Protonix] 40 mg PO DAILY 09/11/18 Furosemide [Lasix] 20 mg PO DAILY #0 09/12/18 Primary Care Physician: Angie Jimenez [Primary Care Provider] - Please follow up with your Primary Care Physician in: 3-5 days Test Results: Test results from this visit will be discussed in further detail at your follow- up appointment, if applicable.
--- NOTE | 2018-09-12 11:55 | PCM.DC.SUM ---
Discharge Date and Diagnosis - Problem List Patient Problems: Active and Suspected Problems (Last Reviewed 09/11/18 @ 23:14 by Jean Serna MD) Renal insufficiency (Acute) Heat stroke (Acute) Acute encephalopathy (Acute) Date of Admission: 09/11/18 Date of Discharge: 09/12/18 - Primary Discharge Diagnosis Active and Suspected Problems (Last Reviewed 09/11/18 @ 23:14 by Jean Serna MD) Renal insufficiency (Acute) Heat stroke (Acute) Acute encephalopathy (Acute) - Secondary Discharge Diagnosis Chronic Problems (Last Reviewed 09/11/18 @ 23:14 by Jean Serna MD) Chronic systolic HF (heart failure) (Chronic) Secondary pulmonary arterial hypertension (Chronic) RVSP 51 mmhg per echo 02/18/2018 Nonrheumatic tricuspid (valve) insufficiency (Chronic) 1-2+ per echo 02/18/18 done @ [facility] History of left heart catheterization (Chronic 10/25/17) Done by Dr. Mitchell @ [facility], pt tsferred to [facility] for PCI vs. Possible CABG Nonrheumatic mitral valve regurgitation (Chronic) Mild (1+) per echo 10/28/2017 done @ [facility], and per echo 02/18/18 @ [facility] Ischemic cardiomyopathy (Chronic) EF 45-50% per echo done 10/28/2017 @ [facility] Atherosclerotic heart disease of [place] coronary artery without angina pectoris (Chronic) Resolute laura 3.0 X 18 mm CHANTELLE to proximal LAD into left main per Dr. Gamez @ [facility] Stented coronary artery (Chronic 10/25/17) Resolute laura 3.0 X 18 mm CHANTELLE to proximal LAD into left main, with post stent balloon angioplasty done to proximal LAD with 3.0 X 12 NC balloon and distal left main with 4.0 NC balloon; kissing balloon to ostial LAD and ramus was done with 2.5 X 12 balloon in ramus and 3.5 mm in ostial LAD. IVUS done, see report. Pt then admitted to ICU with balloon pump. History of non-ST elevation myocardial infarction (NSTEMI) (Chronic 10/24/17) HTN (hypertension) (Chronic) HLD (hyperlipidemia) (Chronic) GERD (gastroesophageal reflux disease) (Chronic) Diabetes mellitus, type II (Chronic) Hypothyroidism (Chronic) Obesity (BMI 30-39.9) (Chronic) Anxiety and depression (Chronic) Hospital Course and Treatment Imaging Results: None Consults: None Operations: None Procedures: None Summary of Care Provided: Per HPI: The patient is a 73 year old F with a significant history of CAD status post stent; diabetes mellitus type 2; ischemic cardiomyopathy who presented to the emergency department with altered mental status. Reportedly patient was confused; had vertigo and rigors. She felt very hot at her home so she intended to increase the air conditioning at home. She placed a cold rag on her head. She called her family. However her family realized that her air-conditioning was rather turned off. At the emergency department patient was found to have severely elevated creatinine. Patient was given IV fluid bolus for probable heat stroke and she was admitted. Hospital Course: 1. Encephalopathy secondary to heat exhaustion/MANJIT/hypernatremia/CKD 1-29-j[age]nc-old female who was at home and became confused, had vertigo and rigors and called her family saying that she needed help. He came over noticed that she was confused and she had told him that she turned the air conditioning up in the when they went to look they noticed that it had been turned off. She presents to the ER and was found to have an elevated creatinine to 2.26 which is down to 1.98 after IV fluids. However with the IV fluids her sodium did increase to 147 so her fluids were changed to half-normal saline. She had a UA which was normal indicating that her confusion was not secondary to UTI, and she worked with physical therapy who did not feel that she needs any ongoing therapy on discharge. Family is in the room and they stated that they are happy to take her home and I explained to the patient that she can go home as long as she remains hydrated. She is to hold off on her Lasix for 3 days as well as her metformin until she sees her PCP and has a follow-up BMP to document that her creatinine has returned to her baseline of 1.2. This plan was discussed with both the patient and her family and they are in agreement. 2. Her other medical diagnoses were evaluated and her home medications were continued where appropriate Patient Problems: Active and Suspected Problems (Last Reviewed 09/11/18 @ 23:14 by Jean Serna MD) Renal insufficiency (Acute) Heat stroke (Acute) Acute encephalopathy (Acute) - Physical Exam Vital Signs Temp Pulse Resp BP Pulse Ox 97.9 F 56 L 16 122/51 H 99 09/12/18 08:00 09/12/18 10:42 09/12/18 08:00 09/12/18 08:00 09/12/18 08:00 Oxygen Delivery Method Room Air Weight: 166 lb 7.184 oz Body Mass Index (BMI) 30.4 Intake and Output for Last 24 Hours 09/10/18 09/11/18 09/12/18 23:59 23:59 23:59 Intake Total 1072 / 1072 Balance 1072 / 1072 Laboratory Tests Past 24 Hrs 09/11/18 09/11/18 09/12/18 18:38 18:55 05:41 WBC 5.6 4.5 RBC 3.58 L 3.28 L Hgb 10.4 L 9.6 L Hct 31.8 L 30.1 L MCV 88.8 91.8 MCH 29.1 29.3 MCHC 32.7 31.9 L RDW Std Deviation 62.7 H 67.0 H RDW Coeff of Yesy 19.1 H 19.9 H Plt Count 122 L 99 L MPV 11.9 11.7 Immature Gran % (Auto) 0.200 0.200 Neut % (Auto) 54.4 58.8 Lymph % (Auto) 31.5 25.8 Alfalfa % (Auto) 12.6 H 13.4 H Eos % (Auto) 0.9 1.6 Baso % (Auto) 0.4 0.2 Absolute Neuts (auto) 3.0 2.6 Absolute Lymphs (auto) 1.75 1.16 Absolute Nucleated RBC Not Reportable 0.00 Nucleated RBC % 0 Diff Path Review N/A Sodium 138 Potassium 3.7 Chloride 106 Carbon Dioxide 24.0 Anion Gap 8 BUN 20 H Creatinine 2.26 H Estim Creat Clear Calc 17.53 Est GFR (MDRD) Af Amer 27 L Est GFR (MDRD) Non-Af 23 L BUN/Creatinine Ratio 8.8 L Glucose 87 Calcium 9.9 Total Bilirubin 0.80 AST 25 ALT 15 Alkaline Phosphatase 64 Troponin I < 0.015 Total Protein 7.5 Albumin 3.7 Globulin 3.8 Albumin/Globulin Ratio 1.0 Urine Color Urine Clarity Urine pH Ur Specific [place] Urine Protein Urine Glucose (UA) Urine Ketones Urine Occult Blood Urine Nitrite Urine Bilirubin Urine Urobilinogen Ur Leukocyte Esterase Urine RBC Urine WBC Ur Squamous Epith Cells Urine Bacteria Urine Mucus 09/12/18 09/12/18 05:41 08:20 WBC RBC Hgb Hct MCV MCH MCHC RDW Std Deviation RDW Coeff of Yesy Plt Count MPV Immature Gran % (Auto) Neut % (Auto) Lymph % (Auto) Alfalfa % (Auto) Eos % (Auto) Baso % (Auto) Absolute Neuts (auto) Absolute Lymphs (auto) Absolute Nucleated RBC Nucleated RBC % Diff Path Review Sodium 147 H Potassium 3.5 Chloride 111 H Carbon Dioxide 27.0 Anion Gap 9 BUN 23 H Creatinine 1.98 H Estim Creat Clear Calc 20.01 Est GFR (MDRD) Af Amer 32 L Est GFR (MDRD) Non-Af 26 L BUN/Creatinine Ratio 11.6 Glucose 96 Calcium 8.6 Total Bilirubin AST ALT Alkaline Phosphatase Troponin I Total Protein Albumin Globulin Albumin/Globulin Ratio Urine Color Yellow Urine Clarity Sl. Cloudy Urine pH 6.0 Ur Specific [place] 1.015 Urine Protein Negative Urine Glucose (UA) Normal Urine Ketones Negative Urine Occult Blood Negative Urine Nitrite Negative Urine Bilirubin Negative Urine Urobilinogen Normal Ur Leukocyte Esterase 25 H Urine RBC 0 SEEN Urine WBC 0-5 SEEN Ur Squamous Epith Cells 0 SEEN Urine Bacteria 0 SEEN Urine Mucus 0 SEEN POC Glucose 09/12/18 09/11/18 06:51 22:15 POC Glucose 93 101 Discharge Activity: Return to Normal Activity Call your doctor if you observe: Fever of 101 or Higher, Shortness of breath, Dizziness, Fainting spells, Swelling in the ankles, Chest pain, Increased palpitations (irregular heartbeat) Home Medications: Medications to take at Discharge metformin 500 mg tablet 500 mg PO BID tab 11/17/17 Atorvastatin Calcium [Lipitor] 80 mg PO QHS 06/08/18 Levothyroxine Sodium [Synthroid] 50 mcg PO DAILY 06/08/18 Metoprolol Tartrate [Lopressor (beta bhavana)] 12.5 mg PO BID 06/08/18 Vit A/Vit C/Vit E/Zinc/Copper [Preservision Areds Softgel] 1 ea PO DAILY 06/08/18 escitalopram 20 mg tablet 20 mg PO DAILY tab 07/08/18 aspirin 81 mg chewable tablet 81 mg PO DAILY@0800 09/02/18 Clopidogrel Bisulfate [Plavix] 75 mg PO DAILY 09/11/18 Ferrous Sulfate 325 mg PO 1200,1700 09/11/18 Pantoprazole Sodium [Protonix] 40 mg PO DAILY 09/11/18 Furosemide [Lasix] 20 mg PO DAILY #0 09/12/18 Primary Care Physician: Angie Jimenez [Primary Care Provider] - Please follow up with your Primary Care Physician in: 3-5 days Disposition: Home Minutes spent on discharge:: 35 Patient Condition:: Good Medical Necessity - Tobacco Use Smoking Status: Never smoker Meaningful Use Info Meaningful Use Diagnoses (Choose all that apply): None applicable Code Visit OBSV E&M: 43652 Observation care discharge
== END 2018-09-12 12:24 | disposition home or self-care (01) ==
LOC: ED 19:43 → MS3 20:24
PROVIDERS: Admitting Provider Hospitalist; Emergency Provider Emergency Medicine; Family Provider Family Medicine; PCP Family Medicine; Referring Provider Hospitalist; Visit Provider Family Medicine
DX: N17.9 Acute kidney failure, unspecified (principal); T67.0XXA Heatstroke and sunstroke, initial encounter; X58.XXXA Exposure to other specified factors, initial encounter; I25.10 Atherosclerotic heart disease of native coronary artery without angina pectoris; I50.22 Chronic systolic (congestive) heart failure; I27.21 Secondary pulmonary arterial hypertension; I25.5 Ischemic cardiomyopathy; K21.9 Gastro-esophageal reflux disease without esophagitis; E03.9 Hypothyroidism, unspecified; E66.9 Obesity, unspecified; F41.9 Anxiety disorder, unspecified; F32.9 Major depressive disorder, single episode, unspecified; E78.5 Hyperlipidemia, unspecified; I25.2 Old myocardial infarction; D50.9 Iron deficiency anemia, unspecified; G93.40 Encephalopathy, unspecified; I13.0 Hypertensive heart and chronic kidney disease with heart failure and stage 1 through stage 4 chronic kidney disease, or unspecified chronic kidney disease; E11.22 Type 2 diabetes mellitus with diabetic chronic kidney disease; N18.3 Chronic kidney disease, stage 3 (moderate); Z86.718 Personal history of other venous thrombosis and embolism; Z79.01 Long term (current) use of anticoagulants; Z79.899 Other long term (current) drug therapy; Z79.02 Long term (current) use of antithrombotics/antiplatelets; Z95.5 Presence of coronary angioplasty implant and graft; Z68.30 Body mass index [BMI] 30.0-30.9, adult; Z71.3 Dietary counseling and surveillance; Z79.84 Long term (current) use of oral hypoglycemic drugs; E87.0 Hyperosmolality and hypernatremia
CPT/HCPCS: 36415; 80048; 80053; 81001; 82962; 84484; 85025; 93005; 96360; 96361; 96372; 97161; 97165; 99218; 99285; J7030; A4216; G0378

== ENCOUNTER → 2019-02-05 10:34 | Outpatient (CLI) | payer MEDICARE, SELFPAY ==
[2019-02-03 13:25] VITALS: BMI 28.5
[2019-02-05 11:53] LABS: Hematocrit 30.9 % (37-47); Hemoglobin 9.8 g/dL (12.0-15.0); Mean Corp Hgb Conc 31.7 g/dL (32-36); Mean Corpuscular Volume 97.8 fL (81-99); Mean Platelet Vol. 12.4 fl (6.2-12.0); Platelet Count 113 K/mm3 (150-450); RBC Distribution Width CV 14.4 % (11.6-14.6); Red Blood Count 3.16 M/mm3 (4.2-5.4); White Blood Count 6.2 K/mm3 (4.4-11.0)
[2019-02-05 12:19] LABS: AST(SGOT) 16 U/L (15-37); Alanine Aminotransfer ALT/SGPT 17 U/L (13-56); Albumin, Serum 3.6 g/dL (3.2-5.0); Alkaline Phosphatase 48 U/L (45-117); Anion Gap 5 (5-15); BUN 50 mg/dL (7-18); BUN/Creat Ratio 17.5 RATIO (10-20); Bilirubin, Direct 0.16 mg/dL (0.00-0.30); Chloride 108 mmol/L (98-107); Cholesterol 125 mg/dL (200); Creatinine, Serum 2.86 mg/dL (0.55-1.02); EST Glomerular Filtration Rate 17 mL/min (>60); Est Glom Filt Rate - Afr Amer 21 mL/min (>60); Globulin 3.4 g/dL (2.2-4.2); Glucose 104 mg/dL (74-106); High Density Lipoprotein 53 mg/dL; Potassium 4.2 mmol/L (3.5-5.1); Sodium Level 141 mmol/L (136-145); Triglycerides 75 mg/dL; Very Low Density Lipoprotein 15 mg/dL (5-40)
== END ==
PROVIDERS: Family Provider Family Medicine; PCP Family Medicine; Referring Provider Internal Medicine Cardiovascular Disease; Visit Provider Internal Medicine Cardiovascular Disease
DX: I50.22 Chronic systolic (congestive) heart failure (principal); I25.5 Ischemic cardiomyopathy; E78.5 Hyperlipidemia, unspecified; D64.9 Anemia, unspecified; N28.9 Disorder of kidney and ureter, unspecified
CPT/HCPCS: 36415; 80048; 80061; 80076; 85027

== ENCOUNTER → 2019-08-12 11:23 | Outpatient (CLI) | payer MEDICARE, SELFPAY ==
[2019-02-03 13:25] VITALS: BMI 28.5
--- NOTE | 2019-08-12 11:38 | US_ITS ---
STUDY: RENAL ULTRASOUND - COMPLETE REASON FOR EXAM: Female, 74 years old. MANJIT TECHNIQUE: Ultrasound evaluation of the kidneys was performed with real-time and static baker-scale imaging. COMPARISON: None. FINDINGS: RIGHT KIDNEY: with mild renal atrophy. The right kidney measures 8.4 cm x 4.2 cm x 3.7 cm. There is a normal cortex of the right kidney. The renal cortex measures 1.1 cm. There is an 8mm by 8mm by 6 mm cyst in the superior pole. There are no right renal calculi. There is no right hydronephrosis. DISTAL RIGHT URETER: There is non-visualization of the distal right ureter. There is no demonstrated right ureterovesical junction calculus. There is a visualized right ureteral jet. LEFT KIDNEY: with mild renal atrophy. The left kidney measures 7 cm x 3.5 cm x 4.0 cm. There is a normal cortex of the left kidney. The renal cortex measures 1.0 cm. There is no left renal mass or cyst. There are no left renal calculi. There is no left hydronephrosis. DISTAL LEFT URETER: There is non-visualization of the distal left ureter. There is no demonstrated left ureterovesical junction calculus. There is a visualized left ureteral jet. BLADDER: The distended urinary bladder has a volume of 103 ml. There is a normal wall thickness of the distended urinary bladder. There is no demonstrated mass within the urinary bladder. There are no demonstrated bladder calculi. US/Kidney and Bladder IMPRESSION: Mild atrophy of both kidneys. 8mm by 8mm by 6 mm cyst in the upper pole of the right kidney. Electronically Signed: Tc Thakur, at 13:01 EDT , Service support ,
== END ==
PROVIDERS: PCP Family Medicine
DX: N17.9 Acute kidney failure, unspecified (principal)
CPT/HCPCS: 76770

== ENCOUNTER → 2019-09-14 07:56 | Outpatient (CLI) | payer MEDICARE, SELFPAY ==
[2019-02-03 13:25] VITALS: BMI 28.5
[2019-09-14 09:11] LABS: AST(SGOT) 19 U/L (15-37); Alanine Aminotransfer ALT/SGPT 22 U/L (13-56); Albumin, Serum 3.3 g/dL (3.2-5.0); Alkaline Phosphatase 66 U/L (45-117); Bilirubin, Direct 0.11 mg/dL (0.00-0.30); Cholesterol 162 mg/dL (200); Globulin 3.3 g/dL (2.2-4.2); High Density Lipoprotein 44 mg/dL; Protein, Total 6.6 g/dL (6.4-8.2); Triglycerides 111 mg/dL; Very Low Density Lipoprotein 22 mg/dL (5-40)
== END ==
PROVIDERS: PCP Family Medicine; Referring Provider Internal Medicine Cardiovascular Disease; Visit Provider Internal Medicine Cardiovascular Disease
DX: I25.10 Atherosclerotic heart disease of native coronary artery without angina pectoris (principal); E78.5 Hyperlipidemia, unspecified
CPT/HCPCS: 36415; 80061; 80076

== ENCOUNTER → 2019-09-30 08:40 | Outpatient (CLI) | payer MEDICARE, SELFPAY ==
[2019-09-15 08:53] VITALS: BMI 26.6
--- NOTE | 2019-09-30 08:41 | ECHOD_ITS ---
Reason For Study: Pulmonary Hypertension Procedure This was a 2D Doppler, Color Flow transthoracic echocardiogram. Exam performed in department. Left Ventricle Normal size and thickness. The estimated ejection fraction is 65 %. Stage 2 diastolic dysfunction. No regional wall motion abnormalities noted. Right Ventricle Normal size and thickness. Normal systolic function. Atria Normal left atrium. Normal right atrium. Normal atrial septum. Mitral Valve Mild diffuse mitral valve thickening. Mild (1+) mitral valve insufficiency. Tricuspid Valve Normal tricuspid valve. Mild (1+) tricuspid valve insufficiency. Right ventricular systolic pressure estimated to be 41 mmHg. Mild pulmonary hypertension. Aortic Valve Trisinus/trileaflet aortic valve. Pulmonic Valve Normal pulmonic valve. Great Vessels Normal aortic root. Normal arch. Normal inferior vena cava. Inferior vena cava collapse with sniff. Pericardium/Pleural No pericardial effusion. MMode/2D Measurements & Calculations LVIDd: 4.4 cm IVSd: 0.91 cm LA dimension: 3.6 cm LVIDs: 3.0 cm LVPWd: 0.98 cm RVDd: 3.1 cm FS: 32.6 % LAV(MOD-bp): 59.0 ml LA A4 area: 19.4 cm2 RA A4 area: 18.0 cm2 LAV(MOD-bp) Indexed: 35.2 ml/m2 LAV(MOD-sp2): 64.8 ml LAV(MOD-sp4): 53.9 ml Time Measurements MV dec time: 0.29 sec Doppler Measurements & Calculations MV E max tae: 119.9 cm/sec Lat Peak E' Tae: 9.3 cm/sec Med Peak E' Tae: 7.2 cm/sec MV A max tae: 28.9 cm/sec E/E' lat: 12.9 E/E' med: 16.6 MV E/A: 4.1 MV V2 max: 117.1 cm/sec MV P1/2t max tae: 117.1 cm/sec Ao V2 max: 156.3 cm/sec MV max P.5 mmHg MV P1/2t: 113.5 msec Ao max P.8 mmHg MV V2 mean: 54.1 cm/sec MV dec slope: 302.2 cm/sec2 Ao V2 mean: 105.2 cm/sec MV mean P.5 mmHg MVA(P1/2t): 1.9 cm2 Ao mean P.9 mmHg MV V2 VTI: 36.8 cm Ao V2 VTI: 40.2 cm LV V1 max: 99.3 cm/sec MR max tae: 541.0 cm/sec PA V2 max: 87.5 cm/sec LV V1 max P.9 mmHg MR max P.1 mmHg LV V1 mean P.0 mmHg MR mean tae: 431.0 cm/sec LV V1 mean: 66.8 cm/sec MR mean P.3 mmHg LV V1 VTI: 24.1 cm MR VTI: 220.1 cm TR max tae: 305.8 cm/sec TR max P.4 mmHg Interpretation Summary The estimated ejection fraction is 65 %. Stage 2 diastolic dysfunction. Mild (1+) mitral valve insufficiency. Mild (1+) tricuspid valve insufficiency. Right ventricular systolic pressure estimated to be 41 mmHg. Mild pulmonary hypertension. Compared to echo report dated 07/16/2018, LV wall motion abnormalities have normalized, EF has improved from 55 to 65%, and RVSP has remained about the same. Ordering Physician: Jaren Castellano Referring Physician: Angie Jimenez Performed By: Antony Silva RCS
== END ==
PROVIDERS: PCP Family Medicine; Referring Provider Internal Medicine Cardiovascular Disease; Visit Provider Internal Medicine Cardiovascular Disease
DX: I50.22 Chronic systolic (congestive) heart failure (principal); I27.20 Pulmonary hypertension, unspecified
CPT/HCPCS: 93306

== ENCOUNTER → 2020-09-06 13:08 | Outpatient (CLI) | payer MEDICARE, SELFPAY ==
[2020-04-11 13:22] VITALS: BMI 27.4
== END ==
PROVIDERS: PCP Family Medicine; Referring Provider Physician Assistant Medical; Visit Provider Physician Assistant Medical
DX: R55 Syncope and collapse (principal)
CPT/HCPCS: 93225; 93226

== ENCOUNTER → 2020-10-18 07:50 | Outpatient (CLI) | payer MEDICARE, SELFPAY ==
[2020-09-28 15:43] VITALS: BMI 29.9
--- NOTE | 2020-10-18 07:54 | CDU_ITS ---
Reason For Study: bruit Rt. Velocities/BP Lt. Velocities/BP Prox CCA 69.5/13.4 cm/sec. Prox CCA 65.7/16.8 cm/sec. Mid CCA 74.7/13.4 cm/sec. Mid CCA 77.0/19.5 cm/sec. Dist CCA 79.9/17.3 cm/sec. Dist CCA 70.0/18.6 cm/sec. Prox ICA 135.7/29.8 cm/sec. Prox ICA 77.9/15.1 cm/sec. Mid ICA 124.7/26.1 cm/sec. Mid ICA 71.8/23.8 cm/sec. Dist ICA 117.4/24.3 cm/sec. Dist ICA 94.9/27.8 cm/sec. Rt. ICA/CCA = 1.8. Lt. ICA/CCA = 1.2. Prox ECA 86.5/6.9 cm/sec. Prox ECA 63.1/9.0 cm/sec. Rt. Vert. 38.6/7.2 cm/sec. Lt. Vert. 48.7/12.4 cm/sec. Right Extracranial There is homogeneous, smooth atherosclerotic plaque noted in the right common carotid artery. There is heterogeneous, irregular atherosclerotic plaque noted in the right internal carotid artery. There is heterogeneous, irregular atherosclerotic plaque noted in the right external carotid artery. Antegrade flow is noted in the right vertebral artery. Left Extracranial There is heterogeneous, smooth atherosclerotic plaque noted in the left common carotid artery. There is heterogeneous, irregular atherosclerotic plaque noted in the left internal carotid artery. There is heterogeneous, irregular atherosclerotic plaque noted in the left external carotid artery. Antegrade flow is noted in the left vertebral artery. Procedure Carotid Duplex 56103. This is a Carotid Duplex examination using B-mode, color flow and specral Doppler. The exam was diagnostic. Exam performed in department. VL/Carotid Duplex Ultrasound Interpretation Summary Moderate (50-69%) stenosis right extracranial internal carotid. Mild (<50%) josefina nosis left extracranial internal carotid. Flow within the vertebral arteries is antegrade bilaterally. Ordering Physician: Rafael Trivedi Performed By: Tom Joseph RVT
[2020-10-18 09:25] LABS: AST(SGOT) 27 U/L (15-37); Alanine Aminotransfer ALT/SGPT 25 U/L (13-56); Albumin, Serum 3.2 g/dL (3.2-5.0); Alkaline Phosphatase 67 U/L (45-117); Bilirubin, Direct 0.13 mg/dL (0.00-0.30); Cholesterol 164 mg/dL (200); Free T3 1.5 pg/mL (2.18-3.98); Free T3 1.6 pg/mL (2.18-3.98); Globulin 3.2 g/dL (2.2-4.2); High Density Lipoprotein 53 mg/dL; Protein, Total 6.4 g/dL (6.4-8.2); T4 Free Direct 1.24 ng/dL (0.76-1.46); T4 Free Direct 1.25 ng/dL (0.76-1.46); T4 Total, Thyroxin 12.7 ug/dL (4.8-13.9); Triglycerides 67 mg/dL; Very Low Density Lipoprotein 13 mg/dL (5-40)
== END ==
PROVIDERS: Physician Assistant Medical; PCP Family Medicine; Referring Provider Internal Medicine Cardiovascular Disease; Visit Provider Internal Medicine Cardiovascular Disease
DX: I25.10 Atherosclerotic heart disease of native coronary artery without angina pectoris (principal); Z95.5 Presence of coronary angioplasty implant and graft; R09.89 Other specified symptoms and signs involving the circulatory and respiratory systems; E78.00 Pure hypercholesterolemia, unspecified; I27.21 Secondary pulmonary arterial hypertension; I34.0 Nonrheumatic mitral (valve) insufficiency; I36.1 Nonrheumatic tricuspid (valve) insufficiency; I11.0 Hypertensive heart disease with heart failure; I50.22 Chronic systolic (congestive) heart failure; E11.9 Type 2 diabetes mellitus without complications; I48.0 Paroxysmal atrial fibrillation
CPT/HCPCS: 36415; 80061; 80076; 84436; 84439; 84443; 84481; 93880

== ENCOUNTER 2020-11-26 15:17 | Emergency (ER) | payer MEDICARE, SELFPAY ==
[2020-11-26 15:18] VITALS: BP 138/66; PULSE 55; RESP 20; TEMP 36.1; O2SAT 100; BMI 29.6
--- NOTE | 2020-11-26 15:21 | EKG12_ITS ---
Test Reason : Blood Pressure : / mmHG Vent. Rate : 054 BPM Atrial Rate : 054 BPM P-R Int : 156 ms QRS Dur : 070 ms QT Int : 502 ms P-R-T Axes : 074 019 061 degrees QTc Int : 476 ms Sinus bradycardia Low voltage QRS Poor R wave progression Anterior [place], age undetermined, cannot be excluded Confirmed by TRINIDAD BECK, MOHAN ([id number]), metropolitan editor CARA CURTIS ([id number]) on 11/27/2020 10:15:04 AM Referred By: CRISTINA Confirmed By:MOHAN ABDI MD
--- NOTE | 2020-11-26 15:25 | RAD_ITS ---
STUDY: X-RAY - UNILATERAL RIBS ( LEFT ) WITH CHEST REASON FOR EXAM: Female, 75 years old. FALL, LEFT SIDED RIB PAIN -- ED WAITING ROOM, WHEELCHAIR TECHNIQUE - RIBS: 3 view(s) of the ribs. TECHNIQUE - CHEST: Single PA view of the chest. COMPARISON: 06/07/2018 FINDINGS - RIBS: Normal visualized ribs without a demonstrated fracture. FINDINGS - CHEST: The lungs are clear and expanded. There is no demonstrated pleural abnormality. Normal size heart. Normal mediastinum and dimitris. Normal visualized pulmonary arteries. Normal visualized aortic arch and descending thoracic aorta. Normal visualized thoracic spine. Normal visualized ribs, clavicles, and shoulders. There is no demonstrated abnormality of the visualized soft tissue structures of the upper abdomen. RAD/Ribs Uni Min 3V w/PA Chest IMPRESSION: RIBS: Normal x-ray examination of the ribs. CHEST: Normal x-ray examination of the chest. Electronically Signed: Baudilio Zaldivar MD at 15:46 EDT Tel , Service support ,
[2020-11-26 17:57] VITALS: RESP 18
--- NOTE | 2020-11-26 19:12 | ED.VIS.FALL ---
HPI HPI - Fall History of Present Illness Chief Complaint: Fall Informant: patient Occured/Mechanism Occurred: Yesterday Pain/Injury Pain Location: chest and upper extremity Quality of Pain: Sharp Current Severity: Mild Maximum Severity: Mild Associated Symptoms Associated Symptoms: Negative for Parasthesias and Weakness Narrative Narrative: 75-year-old female was at home yesterday lost her balance fell hitting the kitchen table bruising the medial aspect of her right arm and injuring her left lower and lateral rib cage. She denies being ill. She denies any nausea vomiting or diarrhea. No fever or chills. Otherwise she states she feels okay. Prior similar symptoms: No Recent Illness/Hospitalization: No PFSH PFSH Medical History Atherosclerotic heart disease of [place] coronary artery without angina pectoris Bruit of left carotid artery Chronic systolic HF (heart failure) Diabetes mellitus, type II End stage kidney disease Essential hypertension GERD (gastroesophageal reflux disease) History of non-ST elevation myocardial infarction (NSTEMI) (10/24/17) Hypothyroidism Ischemic cardiomyopathy senior living current use of amiodarone Nonrheumatic mitral valve regurgitation Nonrheumatic tricuspid (valve) insufficiency Obesity (BMI 30-39.9) Pure hypercholesterolemia Secondary pulmonary arterial hypertension Shortness of breath Home Medications vitamins A,C,O-wscd-iqfsgn 1 ea PO DAILY 06/08/18 [History Last Taken 09/11/18 08:00] escitalopram oxalate 20 mg tablet 20 mg PO DAILY tab 07/08/18 [History Last Taken 09/11/18 08:00 20 mg] aspirin 81 mg chewable tablet 81 mg PO DAILY@0800 09/02/18 [History Last Taken 09/11/18 08:00 81 mg] ferrous sulfate 325 mg PO 1200,1700 09/11/18 [History Last Taken 09/11/18 08:00 325 mg] alprazolam 0.5 mg tablet 0.5 mg PO QHS PRN 09/15/19 [History Last Taken Unknown] clopidogrel 75 mg tablet 75 mg PO DAILY #90 tab 03/07/20 [Rx Last Taken Unknown] atorvastatin 80 mg tablet 80 mg PO DAILY 04/11/20 [History Last Taken Unknown] amiodarone 200 mg tablet 100 mg PO DAILY #90 tab 09/12/20 [Rx Last Taken Unknown] levothyroxine 50 mcg tablet 50 mcg PO DAILY #90 tab 10/23/20 [Rx Last Taken Unknown] Allergy/AdvReac Type Severity Reaction Status Date / Time No Known Allergies Allergy Verified 11/26/20 15:18 Family History Mother CAD (coronary artery disease) Myocardial infarction Father CAD (coronary artery disease) Myocardial infarction Sister Myocardial infarction CAD (coronary artery disease) Stented coronary artery Surgical History History of left heart catheterization (10/25/17) Stented coronary artery (10/25/17) Social History Smoking Status: Never smoker ROS ROS ED ROS Narrative Denies recent illness. Review of Systems ROS Unobtainable: Denies due to encephalopathy Constitutional Constitutional ED: Denies chills or fever(s) Eyes Eyes: Denies change in vision ENT ENT ED: Denies ear pain Cardiovascular Cardiovascular: Denies chest pain or palpitations Respiratory/Chest Respiratory/Chest: Denies cough or dyspnea Gastrointestinal Gastrointestinal: Denies abdominal pain, diarrhea, nausea or vomiting Genitourinary Genitourinary ED: Denies dysuria or hematuria Musculoskeletal Musculoskeletal: Denies myalgias Integumentary Denies abscess or rash Neurologic Neurologic: Denies headache(s) Psychiatric Psychiatric: Denies depression Endocrine Endocrinology: Denies polyuria Hematologic/Lymphatic Hematologic/Lymphatic: Denies easy bruising Allergic/Immunologic Allergic/Immunologic ED: Denies urticaria EXAM Physical Exam Narrative Exam Narrative: 79-year-old female sitting upright in hallway chair with family member. Vital signs are stable afebrile. No distress. H EENT exam atraumatic. Moist extremities. Neck nontender. Lungs clear to auscultation bilaterally. Heart regular rhythm no murmur. Chest wall mild tenderness left lower lateral rib cage. No ecchymosis or bruising. No subcu air crepitance. Abdomen soft nontender no signs of trauma. Pelvic girdle intact. Extremities moves all 4. Small hematoma right bicep area medially. Full range of motion of both shoulders elbows wrist and hands. Nontender. Lower extremities are nontender. Neurologically she is awake alert with no focal motor deficits. Const Vital Signs: 11/26/20 15:18 11/26/20 17:55 11/26/20 17:57 Temperature 96.9 F L Temperature Source Temporal Pulse Rate 55 L Respiratory Rate 20 H 18 Respiratory Effort Normal Blood Pressure 138/66 H Blood Pressure Mean 90 Pulse Ox 100 Oxygen Delivery Method Room Air Room Air Positive well nourished and well developed; Negative for cachectic, contractures or unkempt General Appearance ED: well developed and NAD; Negative for unkempt, cachectic or contractures Nutritional Appearance: Negative for cachectic HEENT Reports normocephalic atraumatic; Negative for trauma or tenderness Eyes PERRL and EOMs intact bilaterally Neck full ROM, no lymphadenopathy and supple General: Negative for tenderness Chest Wall inspection of chest normal; Negative for palpation of chest normal Chest Narrative: Mild tenderness left lower lateral rib cage. Resp normal respiratory effort, no retractions and clear to auscultation bilaterally Auscultation: Negative for rales, rhonchi, wheezes or diminished lung sounds Cardio regular rate, regular rhythm, S1 normal heart sound, S2 normal heart sound and no murmurs GI non-tender, non-distended and no masses Auscultation: normoactive bowel sounds Palpation: soft; Negative for guarding or rebound tenderness present Back/Spine no CVA tenderness Cervical Spine: Negative for cervical spine tenderness Thoracic Spine / Upper Back: Negative for thoracic spinal tenderness Lumbar Spine / Lower Back: Negative for lumbar spinal tenderness Extremity normal to inspection and full ROM Neuro oriented x3, moves all extremities and no focal motor deficits Sensorium / Orientation: alert, oriented to person, oriented to place and oriented to time; Negative for confused, lethargic or stuporous Psych mental status grossly normal Appearance: Negative for unkempt Skin Lesions: no lesions Rashes: no rashes MDM MDM MDM Narrative Medical decision making narrative: Older female fell yesterday no table. Is a bruise in her right arm but has normal range of motion of bone no bony tenderness. Left lateral rib cage is tender. X-rays obtained the chest and the rib cage shows no acute abnormality. Radiography Diagnostic Testing: Radiology Impression Ribs w/Chest X-Ray 11/26/20 15:25 IMPRESSION: RIBS: Normal x-ray examination of the ribs. CHEST: Normal x-ray examination of the chest. Electronically Signed: Baudilio Zaldivar MD at 15:46 EDT Tel , Service support , Chest x-ray and rib views show no acute fractures noted. I went over the films with the patient and family member. Also explained to them that nondisplaced rib fractures often are not seen on x-ray. But it would not change her treatment plan. Discharge Plan Triage Chief Complaint: Fall ED Provider: David Delgado Dx/Rx/DC Orders Clinical Impression: Fall, Contusion of rib, Contusion of arm, right Instructions: ED Fall with Uncertain Cause, ED Contusion, Rib Prescriptions: No Action escitalopram oxalate 20 mg tablet 20 mg PO DAILY RF: 0 alprazolam [Xanax] 0.5 mg tablet 0.5 mg PO QHS PRNRF: 0 atorvastatin 80 mg tablet 80 mg PO DAILY RF: 0 aspirin 81 mg tablet,chewable 81 mg PO DAILY@0800 RF: 0 vitamins A,C,O-zubj-ozuauj 1 EACH capsule 1 ea PO DAILY RF: 0 ferrous sulfate 325 MG tablet 325 mg PO 1200,1700 RF: 0 clopidogrel 75 mg tablet 75 mg PO DAILY Qty: 90 RF: 3 amiodarone 200 mg tablet 100 mg PO DAILY Qty: 90 RF: 3 levothyroxine 50 mcg tablet 50 mcg PO DAILY Qty: 90 RF: 3 Primary Care Provider: Angie Jimenez Referrals: Angie Jimenez, DO [Primary Care Provider] - 1 Week if not improving Activity Restrictions/Additional Instructions: Ice all sore areas. To decrease pain and swelling. Tylenol for pain. Use a pillow or blankets to help support the rib cage area that sore. This should progressively get better may take several weeks. If not improving follow-up with your doctor. These are either bruised or cracked ribs that are not seen on the x-ray. Disposition Disposition: Home, Self Care
[2020-11-26 19:48] VITALS: PULSE 55; RESP 18; O2SAT 99
== END 2020-11-26 19:48 | disposition home or self-care (01) ==
PROVIDERS: Emergency Provider Emergency Medicine; PCP Family Medicine
DX: S20.212A Contusion of left front wall of thorax, initial encounter (principal); S40.021A Contusion of right upper arm, initial encounter; W01.190A Fall on same level from slipping, tripping and stumbling with subsequent striking against furniture, initial encounter; Y93.9 Activity, unspecified; Y92.009 Unspecified place in unspecified non-institutional (private) residence as the place of occurrence of the external cause; E03.9 Hypothyroidism, unspecified; E11.22 Type 2 diabetes mellitus with diabetic chronic kidney disease; E78.00 Pure hypercholesterolemia, unspecified; I13.2 Hypertensive heart and chronic kidney disease with heart failure and with stage 5 chronic kidney disease, or end stage renal disease; I25.10 Atherosclerotic heart disease of native coronary artery without angina pectoris; I36.1 Nonrheumatic tricuspid (valve) insufficiency; I34.0 Nonrheumatic mitral (valve) insufficiency; I25.2 Old myocardial infarction; I25.5 Ischemic cardiomyopathy; I27.21 Secondary pulmonary arterial hypertension; I50.22 Chronic systolic (congestive) heart failure; K21.9 Gastro-esophageal reflux disease without esophagitis; N18.6 End stage renal disease; Z79.82 Long term (current) use of aspirin; Z79.899 Other long term (current) drug therapy
CPT/HCPCS: 71101; 93005; 99284

== ENCOUNTER 2021-03-30 09:48 | Outpatient (CLI) | payer MEDICARE, SELFPAY ==
[2021-03-30 11:02] LABS: AST(SGOT) 19 U/L (15-37); Alanine Aminotransfer ALT/SGPT 16 U/L (13-56); Albumin, Serum 3.2 g/dL (3.2-5.0); Alkaline Phosphatase 67 U/L (45-117); Bilirubin, Direct 0.17 mg/dL (0.00-0.30); Cholesterol 170 mg/dL (200); Free T3 1.3 pg/mL (2.18-3.98); Globulin 3.2 g/dL (2.2-4.2); High Density Lipoprotein 53 mg/dL; Protein, Total 6.4 g/dL (6.4-8.2); T4 Total, Thyroxin 12.2 ug/dL (4.8-13.9); Thyroid Stim Hormone (TSH) 1.78 uIU/mL (0.358-3.74); Triglycerides 54 mg/dL; Very Low Density Lipoprotein 11 mg/dL (5-40)
== END 2021-03-30 23:59 | disposition home or self-care (01) ==
LOC: LAB 09:50
PROVIDERS: PCP Family Medicine; Referring Provider Internal Medicine Cardiovascular Disease; Visit Provider Internal Medicine Cardiovascular Disease
DX: I48.0 Paroxysmal atrial fibrillation (principal); E78.00 Pure hypercholesterolemia, unspecified; Z79.899 Other long term (current) drug therapy
CPT/HCPCS: 36415; 80061; 80076; 84436; 84443; 84481

== ENCOUNTER 2021-05-31 11:51 | Outpatient (CLI) | payer MEDICARE, SELFPAY ==
--- NOTE | 2021-05-31 12:00 | RAD_ITS ---
STUDY: X-RAY CHEST REASON FOR EXAM: Female, 76 years old. Technologist Notes Dyspnea on exertion, Amiodarone, Pt. states she generally just doesn''t feel well, SOB with small activities PAIN Dyspnea on exertion, Amiodarone TECHNIQUE: XR Chest 2 Views COMPARISON: 11.26.20 FINDINGS: There is no demonstrated pleural abnormality. Normal size heart. Normal mediastinum and dimitris. Normal visualized pulmonary arteries. There is atherosclerotic calcification of the aortic arch with tortuosity. There are diffuse degenerative changes of the visualized thoracic spine. There is degenerative osteoarthritis of the bilateral shoulders. There is no demonstrated abnormality of the visualized soft tissue structures of the upper abdomen. RAD/Chest PA and Lateral IMPRESSION: There are no acute findings. Electronically Signed: Parmjit Ludwig MD at 8:26 EDT ,
[2021-05-31 13:53] LABS: Absolute Lymphocyte Count 1.54 X10^3/uL (0.83-4.51); Absolute Neutrophil Count 2.8 X10^3/uL (2.0-7.7); Basophil# 0.02 X10^3/uL; Basophil% 0.4 % (0-1); Eosinophil# 0.07 X10^3/uL; Eosinophils% 1.4 % (0-5); Hematocrit 36.3 % (37-47); Hemoglobin 11.4 g/dL (12.0-15.0); Lymphocyte # 1.54 X10^3/ul (0.83-4.51); Lymphocyte % 31.2 % (19-41); Mean Corp Hgb Conc 31.4 g/dL (32-36); Mean Corpuscular Hgb 30.5 pg (27.0-32.0); Mean Corpuscular Volume 97.1 fL (81-99); Mean Platelet Vol. 12.3 fl (6.2-12.0); Monocyte# 0.53 X10^3/uL; Monocyte% 10.7 % (0-10); NRBC Flagged by Analyzer 0 % (0-5); Neutrophil # 2.76 X10^3/uL (2.7-7.7); Neutrophil % 55.9 % (47-70); Platelet Count 115 K/mm3 (150-450); RBC Distribution Width CV 13.6 % (11.6-14.6); RBC Distribution Width SD 48.6 fl (35.1-43.9); Red Blood Count 3.74 M/mm3 (4.2-5.4); White Blood Count 4.9 K/mm3 (4.4-11.0)
[2021-05-31 14:15] LABS: BNP,B-Type NATRIURETIC PEPTIDE 155.4 pg/mL (0-100)
[2021-05-31 14:17] LABS: AST(SGOT) 22 U/L (15-37); Alanine Aminotransfer ALT/SGPT 20 U/L (13-56); Albumin, Serum 3.6 g/dL (3.2-5.0); Alkaline Phosphatase 65 U/L (45-117); Bilirubin, Direct 0.13 mg/dL (0.00-0.30); Cholesterol 174 mg/dL (200); Globulin 3.4 g/dL (2.2-4.2); High Density Lipoprotein 55 mg/dL; Triglycerides 104 mg/dL; Very Low Density Lipoprotein 21 mg/dL (5-40)
[2021-05-31 14:58] LABS: Anion Gap 8 (5-15); BUN 52 mg/dL (7-18); BUN/Creat Ratio 14.1 RATIO (10-20); Calcium,Total 8.9 mg/dL (8.5-10.1); Chloride 109 mmol/L (98-107); Creatinine, Serum 3.69 mg/dL (0.55-1.02); EST Glomerular Filtration Rate 13 mL/min (>60); Est Glom Filt Rate - Afr Amer 15 mL/min (>60); Free T3 1.4 pg/mL (2.18-3.98); Glucose 101 mg/dL (74-106); Potassium 4.4 mmol/L (3.5-5.1); Sodium Level 139 mmol/L (136-145); T4 Free Direct 1.27 ng/dL (0.76-1.46); T4 Total, Thyroxin 12.9 ug/dL (4.8-13.9); Thyroid Stim Hormone (TSH) 1.14 uIU/mL (0.358-3.74)
== END 2021-05-31 23:59 | disposition home or self-care (01) ==
PROVIDERS: Internal Medicine Cardiovascular Disease; Referring Provider Nurse Practitioner Gerontology; Visit Provider Nurse Practitioner Gerontology
DX: R06.02 Shortness of breath (principal); Z79.899 Other long term (current) drug therapy
CPT/HCPCS: 36415; 71046; 80048; 80061; 80076; 83880; 84436; 84439; 84443; 84481; 85025

== ENCOUNTER → 2021-06-19 | Outpatient (CLI) | payer MEDICARE, SELFPAY ==
--- NOTE | 2021-06-19 13:10 | PFTCOMP_ITS ---
COMPLETE PULMONARY FUNCTION TEST INTERPRETATION Brief HPI: Patient is a 76 year old female, currently under the care of Dr. Trivedi, who presents to [facility] for complete pulmonary function tests secondary to diagnosis of dyspnea. Respiratory therapist reports good effort and reproducible results. Interpretation: Forced expiration spirometry shows no large airways obstructive ventilatory defect with an FEV1 of 154% predicted. There is no significant bronchodilator response by strict ATS criteria. Spirograms are of poor quality with prebronchodilator showing exhalation for only 1 second, likely greatly underestimating FVC. The respiratory flow volume loop shows a normal pattern. Lung volumes by body plethysmography show an elevated total lung capacity at 6.88 L, 158% predicted. All other lung volumes are increased symmetrically. Diffusion capacity by carbon monoxide is decreased at 58% predicted. The airway resistance is normal. No previous pulmonary function tests were available for review. Impression: Isolated reduction diffusion capacity consistent with a pulmonary vascular disorder. Supranormal predicted values of unclear significance in spirometry and lung volumes.
== END | disposition home or self-care (01) ==
LOC: PSN 10:41
PROVIDERS: Referring Provider Nurse Practitioner Gerontology; Visit Provider Nurse Practitioner Gerontology
DX: R06.00 Dyspnea, unspecified (principal); Z79.899 Other long term (current) drug therapy
CPT/HCPCS: 94060; 94726; 94729

== ENCOUNTER → 2021-08-15 | Outpatient (CLI) | payer MEDICARE, SELFPAY ==
[2021-08-15 16:16] LABS: Hematocrit 37.2 % (37-47); Hemoglobin 11.7 g/dL (12.0-15.0); Mean Corp Hgb Conc 31.5 g/dL (32-36); Mean Corpuscular Hgb 30.9 pg (27.0-32.0); Mean Corpuscular Volume 98.2 fL (81-99); Mean Platelet Vol. 11.6 fl (6.2-12.0); Platelet Count 126 K/mm3 (150-450); RBC Distribution Width CV 13.8 % (11.6-14.6); RBC Distribution Width SD 49.7 fl (35.1-43.9); Red Blood Count 3.79 M/mm3 (4.2-5.4); White Blood Count 4.5 K/mm3 (4.4-11.0)
[2021-08-15 16:29] LABS: Vitamin D,25 Hydroxy 20.9 ng/mL
[2021-08-15 16:30] LABS: Albumin, Serum 3.5 g/dL (3.2-5.0); BUN 43 mg/dL (7-18); BUN/Creat Ratio 12.5 RATIO (10-20); Calcium,Total 8.7 mg/dL (8.5-10.1); Chloride 107 mmol/L (98-107); Creatinine, Serum 3.43 mg/dL (0.55-1.02); EST Glomerular Filtration Rate 14 mL/min (>60); Est Glom Filt Rate - Afr Amer 17 mL/min (>60); Ferritin 189 ng/mL (8-252); Glucose 73 mg/dL (74-106); Iron 71 ug/dL (50-170); Iron Binding Capacity,Total 252 ug/dL (250-450); Phosphorus 3.9 mg/dL (2.5-4.9); Potassium 4.4 mmol/L (3.5-5.1); Sodium Level 138 mmol/L (136-145)
[2021-08-16 08:00] LABS: PTHIN 137.7 pg/mL (18.4-80.1)
== END | disposition home or self-care (01) ==
LOC: POLAB3 11:55
PROVIDERS: Visit Provider Internal Medicine Nephrology
DX: N18.5 Chronic kidney disease, stage 5 (principal); D50.9 Iron deficiency anemia, unspecified
CPT/HCPCS: 36415; 80069; 82306; 82728; 83540; 83550; 83970; 85027

== ENCOUNTER → 2021-09-06 | Outpatient (CLI) | payer MEDICARE, SELFPAY ==
[2021-09-06 13:22] LABS: Albumin, Serum 3.4 g/dL (3.2-5.0); BUN 39 mg/dL (7-18); BUN/Creat Ratio 12.7 RATIO (10-20); Calcium,Total 8.9 mg/dL (8.5-10.1); Chloride 112 mmol/L (98-107); Creatinine, Serum 3.07 mg/dL (0.55-1.02); EST Glomerular Filtration Rate 16 mL/min (>60); Est Glom Filt Rate - Afr Amer 19 mL/min (>60); Free T3 1.5 pg/mL (2.18-3.98); Glucose 84 mg/dL (74-106); Phosphorus 3.2 mg/dL (2.5-4.9); Sodium Level 140 mmol/L (136-145); T4 Free Direct 1.29 ng/dL (0.76-1.46); Thyroid Stim Hormone (TSH) 1.04 uIU/mL (0.358-3.74)
== END | disposition home or self-care (01) ==
LOC: LAB 10:59
PROVIDERS: Internal Medicine Cardiovascular Disease; Referring Provider Internal Medicine Nephrology; Visit Provider Internal Medicine Nephrology
DX: N18.5 Chronic kidney disease, stage 5 (principal); E78.00 Pure hypercholesterolemia, unspecified; E03.9 Hypothyroidism, unspecified
CPT/HCPCS: 36415; 80069; 84439; 84443; 84481

== ENCOUNTER → 2021-12-03 | Outpatient (CLI) | payer MEDICARE, SELFPAY ==
[2021-12-03 11:05] LABS: Hematocrit 35.6 % (37-47); Hemoglobin 11.2 g/dL (12.0-15.0); Mean Corp Hgb Conc 31.5 g/dL (32-36); Mean Corpuscular Hgb 31.4 pg (27.0-32.0); Mean Corpuscular Volume 99.7 fL (81-99); Mean Platelet Vol. 11.5 fl (6.2-12.0); Platelet Count 115 K/mm3 (150-450); RBC Distribution Width CV 13.9 % (11.6-14.6); RBC Distribution Width SD 51.1 fl (35.1-43.9); Red Blood Count 3.57 M/mm3 (4.2-5.4); White Blood Count 5.3 K/mm3 (4.4-11.0)
[2021-12-03 11:37] LABS: PTHIN 110.2 pg/mL (18.4-80.1)
[2021-12-03 11:40] LABS: AST(SGOT) 18 U/L (15-37); Alanine Aminotransfer ALT/SGPT 12 U/L (13-56); Albumin, Serum 3.3 g/dL (3.2-5.0); Alkaline Phosphatase 65 U/L (45-117); BUN 38 mg/dL (7-18); BUN/Creat Ratio 12.3 RATIO (10-20); Bilirubin, Direct 0.14 mg/dL (0.00-0.30); Cholesterol 181 mg/dL (200); EST Glomerular Filtration Rate 16 mL/min (>60); Est Glom Filt Rate - Afr Amer 19 mL/min (>60); Globulin 3.6 g/dL (2.2-4.2); Glucose 91 mg/dL (74-106); Phosphorus 3.3 mg/dL (2.5-4.9); Protein, Total 6.9 g/dL (6.4-8.2); Triglycerides 68 mg/dL
[2021-12-03 11:41] LABS: Anion Gap 3 (5-15); Chloride 110 mmol/L (98-107); High Density Lipoprotein 53 mg/dL; Potassium 4.9 mmol/L (3.5-5.1); Sodium Level 139 mmol/L (136-145); Very Low Density Lipoprotein 14 mg/dL (5-40)
== END | disposition home or self-care (01) ==
LOC: LAB 10:39
PROVIDERS: Internal Medicine Cardiovascular Disease; Referring Provider Internal Medicine Nephrology; Visit Provider Internal Medicine Nephrology
DX: N18.5 Chronic kidney disease, stage 5 (principal); E78.00 Pure hypercholesterolemia, unspecified
CPT/HCPCS: 36415; 80048; 80061; 80076; 83970; 84100; 85027

== ENCOUNTER → 2022-04-07 | Outpatient (CLI) | payer MEDICARE, SELFPAY ==
[2022-04-07 14:18] LABS: Hematocrit 38.6 % (37-47); Hemoglobin 11.9 g/dL (12.0-15.0); Mean Corp Hgb Conc 30.8 g/dL (32-36); Mean Corpuscular Hgb 30.9 pg (27.0-32.0); Mean Corpuscular Volume 100.3 fL (81-99); Mean Platelet Vol. 11.3 fl (6.2-12.0); Platelet Count 115 K/mm3 (150-450); RBC Distribution Width SD 51.8 fl (35.1-43.9); Red Blood Count 3.85 M/mm3 (4.2-5.4); White Blood Count 5.7 K/mm3 (4.4-11.0)
[2022-04-07 15:05] LABS: Albumin, Serum 3.4 g/dL (3.2-5.0); BUN 44 mg/dL (7-18); BUN/Creat Ratio 15.1 RATIO (10-20); Calcium,Total 9.2 mg/dL (8.5-10.1); Chloride 115 mmol/L (98-107); Creatinine, Serum 2.91 mg/dL (0.55-1.02); EST Glomerular Filtration Rate 17 mL/min (>60); Est Glom Filt Rate - Afr Amer 20 mL/min (>60); Glucose 157 mg/dL (74-106); Phosphorus 4.2 mg/dL (2.5-4.9); Potassium 5.1 mmol/L (3.5-5.1); Sodium Level 144 mmol/L (136-145)
[2022-04-08 08:48] LABS: PTHIN 77.3 pg/mL (18.4-80.1)
== END | disposition home or self-care (01) ==
PROVIDERS: PCP Family Medicine; Referring Provider Internal Medicine Nephrology; Visit Provider Internal Medicine Nephrology
DX: N18.5 Chronic kidney disease, stage 5 (principal)
CPT/HCPCS: 36415; 80069; 83970; 85027

== ENCOUNTER → 2022-07-08 | Outpatient (CLI) | payer MEDICARE, SELFPAY ==
[2022-07-08 13:51] LABS: Hematocrit 40.2 % (37-47); Hemoglobin 12.3 g/dL (12.0-15.0); Mean Corp Hgb Conc 30.6 g/dL (32-36); Platelet Count 125 K/mm3 (150-450); RBC Distribution Width CV 13.8 % (11.6-14.6); White Blood Count 5.7 K/mm3 (4.4-11.0)
[2022-07-08 14:19] LABS: PTHIN 69.5 pg/mL (18.4-80.1)
[2022-07-08 14:28] LABS: Albumin, Serum 3.7 g/dL (3.2-5.0); BUN 39 mg/dL (7-18); BUN/Creat Ratio 11.7 RATIO (10-20); Calcium,Total 9.4 mg/dL (8.5-10.1); Chloride 113 mmol/L (98-107); Creatinine, Serum 3.32 mg/dL (0.55-1.02); EST Glomerular Filtration Rate 14 mL/min (>60); Est Glom Filt Rate - Afr Amer 17 mL/min (>60); Glucose 85 mg/dL (74-106); Phosphorus 3.6 mg/dL (2.5-4.9); Sodium Level 141 mmol/L (136-145)
== END | disposition home or self-care (01) ==
LOC: LAB 09:35 → POLAB3 09:56
PROVIDERS: PCP Family Medicine; Referring Provider Internal Medicine Nephrology; Visit Provider Internal Medicine Nephrology
DX: N18.5 Chronic kidney disease, stage 5 (principal)
CPT/HCPCS: 36415; 80069; 83970; 85027

== ENCOUNTER 2023-01-08 22:24 | Emergency (ER) | payer MEDICARE, SELFPAY ==
[2023-01-08 22:26] VITALS: BP 123/80; PULSE 75; RESP 17; TEMP 36.6; O2SAT 98; BMI 37.8
--- NOTE | 2023-01-08 22:55 | EKG12_ITS ---
Test Reason : PALPS Blood Pressure : / mmHG Vent. Rate : 081 BPM Atrial Rate : 250 BPM P-R Int : 000 ms QRS Dur : 070 ms QT Int : 416 ms P-R-T Axes : 000 014 049 degrees QTc Int : 483 ms Atrial flutter with variable A-V block Low voltage QRS Septal infarct , age undetermined Abnormal ECG Confirmed by BRITTANY BECK, TRUNG ([id number]), editor at large CARA CURTIS ([id number]) on 01/14/2023 12:07:53 PM Referred By: OKSANA Confirmed By:TRUNG SOTO MD
--- NOTE | 2023-01-08 23:17 | CT_ITS ---
INDICATION: dizziness EXAMINATION: CT BRAIN - CT Head or Brain W/O Contrast Injection TECHNIQUE: Multiple axial images were obtained of the head without intravenous contrast. A radiation dose optimization technique was used for this scan. IV Contrast dosage and agent: None. COMPARISON: None FINDINGS: BRAIN PARENCHYMA: No intra- or extra-axial hemorrhage. No evidence of acute infarct. No intracranial mass or mass effect. Unremarkable white matter for age. There is preservation of the thorpe/white matter interface. Posterior fossa structures are unremarkable. Bilateral carotid atherosclerosis. CSF SPACES: Cerebral volume appropriate for age. No hydrocephalus. Basal cisterns are patent. CALVARIUM, SKULL BASE, PARANASAL SINUSES AND MASTOID AIR CELLS: Hyperostosis frontalis. No acute osseous finding. [place] sinuses are clear. Mastoid air cells are clear. ORBITS: Both globes, extraocular muscles, optic nerves and retrobulbar fat appear unremarkable. ASPECTS Score for Acute Strokes: 10 CT/Brain/Head without Contrast IMPRESSION: Negative Brain CT without contrast. Electronically Signed: Kj Espinal MD at 0:53 EST ,
[2023-01-08 23:30] LABS: Absolute Lymphocyte Count 2.09 X10^3/uL (0.83-4.51); Absolute Neutrophil Count 3.5 X10^3/uL (2.0-7.7); Basophil# 0.03 X10^3/uL; Basophil% 0.5 % (0-1); Eosinophil# 0.13 X10^3/uL; Eosinophils% 2.1 % (0-5); Hemoglobin 12.5 g/dL (12.0-15.0); Lymphocyte # 2.09 X10^3/ul (0.83-4.51); Mean Corp Hgb Conc 31.3 g/dL (32-36); Mean Corpuscular Hgb 29.8 pg (27.0-32.0); Mean Corpuscular Volume 95.2 fL (81-99); Mean Platelet Vol. 12.2 fl (6.2-12.0); Monocyte# 0.54 X10^3/uL; Monocyte% 8.5 % (0-10); NRBC Flagged by Analyzer 0 % (0-5); Neutrophil # 3.53 X10^3/uL (2.7-7.7); Neutrophil % 55.7 % (47-70); Platelet Count 127 K/mm3 (150-450); RBC Distribution Width CV 13.6 % (11.6-14.6); RBC Distribution Width SD 47.7 fl (35.1-43.9); White Blood Count 6.3 K/mm3 (4.4-11.0)
[2023-01-08 23:52] LABS: Anion Gap 7 (5-15); BUN 38 mg/dL (7-18); BUN/Creat Ratio 11.2 RATIO (10-20); Calcium,Total 9.2 mg/dL (8.5-10.1); Chloride 111 mmol/L (98-107); Creatinine, Serum 3.39 mg/dL (0.55-1.02); EST Glomerular Filtration Rate 14 mL/min (>60); Est Glom Filt Rate - Afr Amer 17 mL/min (>60); Estimated Creatinine Clearance 10.99 ml/min; Glucose 93 mg/dL (74-106); Magnesium 2.3 mg/dL (1.6-2.6); Sodium Level 141 mmol/L (136-145)
[2023-01-08] MEDS: Ondansetron 4 MG/2 ML Vial IV (23:52)
[2023-01-08] MEDS: 0.9% Normal Saline (1000mL) 1,000 ML 999 ML IV (23:52)
[2023-01-08] MEDS: diazePAM 5 MG Tablet PO (23:52)
[2023-01-09 01:21] VITALS: BP 117/68; PULSE 57; RESP 18; O2SAT 93
--- NOTE | 2023-01-09 01:34 | ED.RN ---
cristo requests that we call her at [phone] if pt is dc'd.
--- NOTE | 2023-01-09 02:44 | EDS_ITS ---
HPI History of Present Illness Chief Complaint: Dizziness Informant: patient and family Narrative Narrative: Patient is a 77-year-old female who lives at home alone with past medical history of type 2 diabetes hypertension congestive heart failure atrial fibrillation on Eliquis and coronary artery disease. She states she was doing laundry this evening and after standing up from bending over she felt lightheaded/dizzy. She states she describes this as a sense of motion. She states that she was afraid of falling and therefore sat down and did have improvement of symptoms at rest. She states ever as she turned her head or try to stand up the symptoms returned and secondary to this she presents for evaluation [facility] Medical History (Reviewed 06/23/22 @ 11:22 by Nolan Parker INORGANIC CHEMISTRY TEACHER, INORGANIC CHEMISTRY TEACHER-C) Atherosclerotic heart disease of [place] coronary artery without angina pectoris Bruit of left carotid artery Chronic systolic HF (heart failure) Diabetes mellitus, type II End stage kidney disease Essential hypertension GERD (gastroesophageal reflux disease) History of non-ST elevation myocardial infarction (NSTEMI) (10/24/17) Hypothyroidism Ischemic cardiomyopathy [employer]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 Nonrheumatic mitral valve regurgitation Nonrheumatic tricuspid (valve) insufficiency Obesity (BMI 30-39.9) Pure hypercholesterolemia Secondary pulmonary arterial hypertension Shortness of breath Home Medications escitalopram oxalate 20 mg tablet 20 mg PO DAILY Depression 07/08/18 [History Last Taken 09/11/18 08:00 20 mg] aspirin 81 mg chewable tablet 81 mg PO DAILY@0800 [facility] 09/02/18 [History Last Taken 09/11/18 08:00 81 mg] ferrous sulfate 325 mg (65 mg iron) tablet 325 mg PO 1200,1700 supplement 09/11/18 [History Last Taken 09/11/18 08:00 325 mg] alprazolam 0.5 mg tablet (Xanax) 0.5 mg PO QHS PRN 09/15/19 [History Last Taken Unknown] hydrocodone-acetaminophen 5-325mg 5mg-325mg 1 tab PO QHS PRN 05/31/21 [History L ast Taken Unknown] levothyroxine 50 mcg tablet 50 mcg PO DAILY hypothyroid #90 tabs 01/08/22 [Rx Last Taken Unknown] apixaban 2.5 mg tablet 2.5 mg PO BID #180 tabs 10/29/22 [Rx Last Taken Unknown] diazepam 5 mg tablet (Valium) 5 mg PO TID PRN dizziness or vertigo 5 days #15 tabs 01/09/23 [Rx Last Taken Unknown] ondansetron 4 mg disintegrating tablet 4 mg PO TID PRN nausea and vomiting #21 tabs 01/09/23 [Rx Last Taken Unknown] rosuvastatin 10 mg tablet 10 mg PO DAILY 01/09/23 [History Last Taken Unknown] Allergy/AdvReac Type Severity Reaction Status Date / Time amiodarone AdvReac Severe Affected Verified 01/08/23 22:31 lung function: see PFT 05/2021 Family History (Reviewed 06/23/22 @ 11:22 by Nolan Parker INORGANIC CHEMISTRY TEACHER, INORGANIC CHEMISTRY TEACHER-C) Mother CAD (coronary artery disease) Myocardial infarction Father CAD (coronary artery disease) Myocardial infarction Sister Myocardial infarction CAD (coronary artery disease) Stented coronary artery Surgical History (Reviewed 06/23/22 @ 11:22 by Nolan Parker INORGANIC CHEMISTRY TEACHER, INORGANIC CHEMISTRY TEACHER-C) History of left heart catheterization (10/25/17) Stented coronary artery (10/25/17) Social History Smoking Status: Never smoker alcohol intake: never substance use type: does not use caffeine: Yes Type: coffee Number of servings: 1 ROS ROS ED Constitutional Constitutional ED: Denies chills or fever(s) Eyes Eyes: Denies blurry vision or change in vision ENT ENT ED: Denies sore throat Cardiovascular Cardiovascular: Reports palpitations; Denies chest pain or racing heartbeat Respiratory/Chest Respiratory/Chest: Denies cough or dyspnea Gastrointestinal Gastrointestinal: Reports nausea; Denies abdominal pain, diarrhea or vomiting Genitourinary Genitourinary ED: Denies dysuria Musculoskeletal Musculoskeletal: Denies myalgias Integumentary Denies rash Neurologic Neurologic: Reports other Details: Positive dizziness ; Denies headache(s) Hematologic/Lymphatic Hematologic/Lymphatic: Reports easy bleeding and easy bruising EXAM Physical Exam Const Vital Signs: 01/08/23 22:26 01/09/23 01:21 Temperature 98 F Temperature Source Oral Pulse Rate 75 57 L Respiratory Rate 17 18 Blood Pressure 123/80 H 117/68 Blood Pressure Mean 94 84 Pulse Ox 98 93 Oxygen Delivery Method Room Air Room Air Positive well nourished and well developed General Appearance ED: well developed; Negative for pallor HEENT HEENT Narrative: Mucous membranes are slightly dry and tacky No sign of infection noted in the posterior pharynx No signs of airway edema or compromise Bilateral canals are normal and bilateral tympanic membrane showed no signs of acute infection Eyes PERRL and EOMs intact bilaterally General Eye ED: Negative for pale conjunctiva Neck supple and no JVD Neck Narrative: No nuchal rigidity or meningeal signs noted Resp normal respiratory effort and clear to auscultation bilaterally Cardio regular rate Rate: other Other Details: Irregularly irregular rhythm with regular rate consistent past medical history of atrial fibrillation GI normal to inspection, nondistended, normoactive bowel sounds, non-tender, non- distended and no masses GI Narrative: No voluntary guarding or rigidity. No pulsatile mass or fluid wave Auscultation: normoactive bowel sounds Palpation: soft Extremity normal to inspection Neuro oriented x3, CN's II-XII intact bilaterally and no sensory deficits noted Neuro Narrative: No truncal ataxia no pronator drift no dysmetria NIH stroke scale score of 0 There is horizontal nystagmus noted Positive Hallpike [place] exam on right Sensorium / Orientation: alert Motor Exam: strength 5/5 throughout Psych mental status grossly normal Skin no rashes or lesions noted General Skin Exam: Negative for jaundice or pallor MDM MDM MDM Narrative Medical decision making narrative: Patient presented to the ER with stable vitals she was in atrial fibrillation but has a past medical history of this and is anticoagulated on Eliquis. She reported dizziness described as a sense of motion with changes in position and did have horizontal nystagmus and Hallpike [place]hil exam that was positive indicating this is peripheral vertigo. However as there is possibility for acute blood loss anemia spontaneous brain bleed or electrolyte derangement as the cause of her symptoms that elected perform basic labs with head CT. Patient's H&H is stable and her electrolytes revealed no clinically significant finding. Patient does have elevation to her creatinine at 3.4 but chart review reveals this is chronic in nature and at baseline. As physical exam showed mild dehydration she was given IV fluids and as well as Valium secondary to the vertigo. On reevaluation patient reports resolution of symptoms and can walk with a steady gait. Therefore at this time as physical exam suggest peripheral vertigo not central head CT reveals no acute bleed and blood work shows no acute blood loss anemia or severe electrolyte derangement she is otherwise safe for discharge History & Record Review Discussion w/independent historian: Patient and Family Lab Data Attestation: I reviewed the patient's lab results. Labs: Laboratory Results - last 24 hr 01/08/23 22:35 WBC 6.3 RBC 4.20 Hgb 12.5 Hct 40.0 MCV 95.2 MCH 29.8 MCHC 31.3 L RDW Std Deviation 47.7 H RDW Coeff of Yesy 13.6 Plt Count 127 L MPV 12.2 H Immature Gran % (Auto) 0.200 Neut % (Auto) 55.7 Lymph % (Auto) 33.0 [place] % (Auto) 8.5 Eos % (Auto) 2.1 Baso % (Auto) 0.5 Absolute Neuts (auto) 3.5 Absolute Lymphs (auto) 2.09 Nucleated RBC % 0 Sodium 141 Potassium 4.0 Chloride 111 H Carbon Dioxide 23.0 Anion Gap 7 BUN 38 H Creatinine 3.39 H Estim Creat Clear Calc 10.99 Est GFR (MDRD) Af Amer 17 L Est GFR (MDRD) Non-Af 14 L BUN/Creatinine Ratio 11.2 Glucose 93 Calcium 9.2 Magnesium 2.3 Radiography Diagnostic Testing: Clinical Impression(s) from Imaging Studies Brain CT 01/08/23 23:17 IMPRESSION: Negative Brain CT without contrast. Electronically Signed: Kj Espinal MD at 0:53 EST Reading Location ID and State: [facility] / [place] Tel , Service support , Discharge Plan Triage Chief Complaint: Dizziness Other Complaint: Nausea/Vomiting ED Provider: Bobby Bernard Dx/Rx/DC Orders Clinical Impression: Peripheral vertigo, Diabetes mellitus, type II, Atrial fibrillation, Current use of terminal clerk anticoagulation, Mild dehydration, End stage kidney disease Instructions: ED BPV Vertigo Prescriptions: New diazepam [Valium] 5 mg tablet 5 mg PO TID PRN (Reason: dizziness or vertigo) 5 Days Qty: 15 0RF ondansetron 4 mg tablet,disintegrating 4 mg PO TID PRN (Reason: nausea and vomiting) Qty: 21 0RF No Action escitalopram oxalate 20 mg tablet 20 mg PO DAILY alprazolam [Xanax] 0.5 mg tablet 0.5 mg PO QHS PRN hydrocodone-acetaminophen 5-325 mg tablet 1 tab PO QHS PRN aspirin 81 mg tablet,chewable 81 mg PO DAILY@0800 ferrous sulfate 325 MG tablet 325 mg PO 1200,1700 rosuvastatin 10 mg tablet 10 mg PO DAILY Patient Comments: take 1 tablet by mouth every morning levothyroxine 50 mcg tablet 50 mcg PO DAILY Qty: 90 3RF apixaban 2.5 mg tablet 2.5 mg PO BID Qty: 180 3RF Rx Instructions: New Dosage Primary Care Provider: Williams Dunne Referrals: Williams Dunne MD [Primary Care Provider] - Activity Restrictions/Additional Instructions: Do not take your Xanax/alprazolam but begin taking the Valium/diazepam for your peripheral vertigo/dizziness. Use the Zofran/ondansetron as needed. If your symptoms worsen or you have any further concerns please return to the ER for repeat evaluation Disposition Disposition: Home, Self Care Discharge Date/Time: 01/09/23 03:03
== END 2023-01-09 03:03 | disposition home or self-care (01) ==
PROVIDERS: Emergency Provider Emergency Medicine; PCP Family Medicine; Visit Provider Emergency Medicine
DX: H81.399 Other peripheral vertigo, unspecified ear (principal); I13.2 Hypertensive heart and chronic kidney disease with heart failure and with stage 5 chronic kidney disease, or end stage renal disease; I50.22 Chronic systolic (congestive) heart failure; E11.22 Type 2 diabetes mellitus with diabetic chronic kidney disease; N18.6 End stage renal disease; I48.91 Unspecified atrial fibrillation; E78.00 Pure hypercholesterolemia, unspecified; E86.0 Dehydration; I25.10 Atherosclerotic heart disease of native coronary artery without angina pectoris; Z79.01 Long term (current) use of anticoagulants; I25.2 Old myocardial infarction; I5A Non-ischemic myocardial injury (non-traumatic); Z79.899 Other long term (current) drug therapy; Z79.82 Long term (current) use of aspirin; E03.9 Hypothyroidism, unspecified; Z95.5 Presence of coronary angioplasty implant and graft
CPT/HCPCS: 70450; 80048; 83735; 85025; 93005; 96361; 96374; 99285; J7030; A4216; J2405

== ENCOUNTER → 2023-08-18 | Outpatient (CLI) | payer MEDICARE, SELFPAY ==
[2023-08-18 11:02] LABS: Hemoglobin 13.4 g/dL (12.0-15.0); Mean Corp Hgb Conc 31.2 g/dL (32-36); Mean Corpuscular Hgb 29.9 pg (27.0-32.0); Mean Platelet Vol. 12.9 fl (6.2-12.0); Platelet Count 103 K/mm3 (150-450); RBC Distribution Width CV 13.8 % (11.6-14.6); RBC Distribution Width SD 48.9 fl (35.1-43.9); Red Blood Count 4.48 M/mm3 (4.2-5.4); White Blood Count 6.7 K/mm3 (4.4-11.0)
[2023-08-18 11:21] LABS: PTHIN 104.2 pg/mL (18.4-80.1)
[2023-08-18 11:27] LABS: Albumin, Serum 3.4 g/dL (3.2-5.0); BUN 27 mg/dL (7-18); Calcium,Total 9.7 mg/dL (8.5-10.1); Chloride 113 mmol/L (98-107); Creatinine, Serum 2.71 mg/dL (0.55-1.02); EST Glomerular Filtration Rate 18 mL/min (>60); Est Glom Filt Rate - Afr Amer 22 mL/min (>60); Ferritin 254 ng/mL (8-252); Glucose 93 mg/dL (74-106); Iron 69 ug/dL (50-170); Iron Binding Capacity,Total 258 ug/dL (250-450); PERCENT IRON SATURATION 26.7 % (15.0-55.0); Phosphorus 3.1 mg/dL (2.5-4.9); Potassium 4.6 mmol/L (3.5-5.1); Sodium Level 141 mmol/L (136-145)
[2023-08-18 11:48] LABS: Hemoglobin A1c 5.8 % (3.8-5.6)
== END | disposition home or self-care (01) ==
PROVIDERS: PCP Family Medicine; Referring Provider Internal Medicine Nephrology; Visit Provider Internal Medicine Nephrology
DX: E11.22 Type 2 diabetes mellitus with diabetic chronic kidney disease (principal); N18.5 Chronic kidney disease, stage 5; D50.9 Iron deficiency anemia, unspecified
CPT/HCPCS: 36415; 80069; 82728; 83036; 83540; 83550; 83970; 85027

== ENCOUNTER → 2023-09-21 | Outpatient (CLI) | payer MEDICARE, SELFPAY | END | disposition home or self-care (01) | LOC: LAB 11:33 | PROVIDERS: PCP Family Medicine; Referring Provider Internal Medicine Nephrology; Visit Provider Internal Medicine Nephrology | DX: N18.5 Chronic kidney disease, stage 5 (principal) | CPT/HCPCS: 87086; 87088; 87186 ==

== ENCOUNTER 2023-10-10 17:20 | Observation (INO) | payer MEDICARE, SELFPAY ==
[2023-10-10 17:20] VITALS: BP 114/70; PULSE 93; RESP 15; TEMP 35.5; O2SAT 98; BMI 37.1
[2023-10-10 17:25] VITALS: O2SAT 98
[2023-10-10 17:43] LABS: Bedside Glucose 104 mg/dL (74-106)
--- NOTE | 2023-10-10 17:57 | ED.VIS.FALL ---
HPI HPI - Fall History of Present Illness Chief Complaint: Fall Informant: patient Narrative Narrative: Brought in by EMS from home mechanical fall prior to arrival. Stepping over a cord which she fell down hitting her head injuring her right knee and hip. She denies loss of conscious. She is on Eliquis for history of paroxysmal A-fib last dose this morning. Denies headache neck pain chest pain back pain. Pain more in her right knee however mild pain in the right hip. She does not walk with any assistive devices. 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 Bruit of left carotid artery Pure hypercholesterolemia Essential hypertension Paroxysmal atrial fibrillation End stage kidney disease Acute encephalopathy Renal insufficiency Symptomatic anemia Chronic systolic HF (heart failure) Shortness of breath Secondary pulmonary arterial hypertension Nonrheumatic tricuspid (valve) insufficiency Nonrheumatic mitral valve regurgitation Ischemic cardiomyopathy Atherosclerotic heart disease of [place] coronary artery without angina pectoris History of non-ST elevation myocardial infarction (NSTEMI) (10/24/17) Anxiety and depression Obesity (BMI 30-39.9) Hypothyroidism Diabetes mellitus, type II GERD (gastroesophageal reflux disease) Home Medications ?Medication ?Instructions ?Recorded ?Last Taken ?Type escitalopram oxalate 20 mg tablet 20 mg PO DAILY Depression 07/08/18 09/11/18 08:00 History 20 mg ferrous sulfate 325 mg (65 mg 325 mg PO 1200,1700 supplement 09/11/18 09/11/18 08:00 History iron) tablet 325 mg levothyroxine 50 mcg tablet 50 mcg PO DAILY hypothyroid #90 01/08/22 Unknown Rx tabs apixaban 2.5 mg tablet 2.5 mg PO BID #180 tabs 10/29/22 Unknown Rx rosuvastatin 10 mg tablet 10 mg PO DAILY 01/09/23 Unknown History Allergy/AdvReac Type Severity Reaction Status Date / Time amiodarone AdvReac Severe Affected Verified 10/10/23 17:28 lung function: see PFT 05/2021 Family History Mother CAD (coronary artery disease) Myocardial infarction Father CAD (coronary artery disease) Myocardial infarction Sister Myocardial infarction CAD (coronary artery disease) Stented coronary artery Surgical History History of left heart catheterization (10/25/17) Stented coronary artery (10/25/17) Social History housing: house Smoking Status: Never smoker alcohol intake: never substance use type: does not use caffeine: Yes Type: coffee Number of servings: 1 ROS ROS ED Constitutional Constitutional ED: Denies chills, fever(s) or sweats Eyes Eyes: Denies change in vision ENT ENT ED: Denies dysphagia or sore throat Cardiovascular Cardiovascular: Denies chest pain, leg edema, palpitations or racing heartbeat Respiratory/Chest Respiratory/Chest: Denies cough, dyspnea or dyspnea on exertion Gastrointestinal Gastrointestinal: Denies abdominal pain, diarrhea, nausea or vomiting Genitourinary Genitourinary ED: Denies dysuria, hematuria or urinary frequency Musculoskeletal Musculoskeletal: Reports extremity pain; Denies back pain or neck pain Integumentary Denies rash or wounds Neurologic Neurologic: Denies headache(s), paresthesias or weakness EXAM Physical Exam Const Vital Signs: 10/10/23 17:20 10/10/23 17:25 10/10/23 19:20 Temperature 96 F L Temperature Source Temporal Pulse Rate 93 79 Respiratory Rate 15 16 Respiratory Effort Normal Non-Labored Respiratory Depth Normal Respiratory Pattern Normal Blood Pressure 114/70 115/67 Blood Pressure Mean 84 83 Pulse Ox 98 98 98 Oxygen Delivery Method Room Air Room Air Room Air 10/10/23 21:00 10/10/23 23:00 10/10/23 23:07 Temperature 96 F L Temperature Source Pulse Rate 75 79 79 Respiratory Rate 16 12 12 Respiratory Effort Respiratory Depth Respiratory Pattern Blood Pressure 115/67 137/88 H 137/88 H Blood Pressure Mean 83 104 104 Pulse Ox 96 96 96 Oxygen Delivery Method Room Air Room Air Positive well nourished and well developed Constitutional Narrative: GCS 15 General Appearance ED: well developed and NAD HEENT Reports moist mucous membranes HEENT Narrative: Nonraised contusion right forehead. normocephalic Eyes EOMs intact bilaterally and conjunctivae normal General Eye ED: Yes normal appearance of both eyes Neck full ROM, no lymphadenopathy and supple Neck Narrative: No midline tenderness. General: Negative for tenderness Chest Wall inspection of chest normal and palpation of chest normal Chest: Negative for tenderness Resp normal respiratory effort and normal air movement Effort and Inspection: symmetric chest movement; Negative for respiratory distress Cardio regular rate, regular rhythm and no murmurs Peripheral Pulses: pulses 2+ throughout GI normal to inspection, nondistended, normoactive bowel sounds and non-tender Palpation: Negative for guarding or rebound tenderness present Back/Spine no CVA tenderness and no thoracic nor lumbar tenderness Extremity Extremity Narrative: Lower extremities: No pain left lower extremity. Right lower extremity no shortening or rotation. Pain to the lateral greater trochanter palpation, with logroll reported pain in her knee. There was patellar tenderness. There is no deformities. Soft compartments. Skin intact. Neuro vas intact distally. General Extremety ED: Yes tenderness; Negative for edema General Extremity: Negative for edema Neuro oriented x3 and no sensory deficits noted Sensorium / Orientation: awake and alert Skin no rashes or lesions noted and no wounds MDM MDM MDM Narrative Medical decision making narrative: Interventions / MDM: Differential diagnosis: Fracture, contusion, seizure Diagnosis considered but do not suspect: Intracranial hemorrhage however CT negative My EKG interpretation: N/A Imaging independently reviewed and interpreted by myself: 1 view pelvis: No fracture. 2 views right femur: No fracture. 3 views right knee: Joint effusion noted, No clear fractures identified. CT head/cervical spine: No acute process. CT right knee: Proximal tibial fracture near the posterior tibial spine. External documents reviewed: N/A Test considered but not ordered:N/A ED course: Patient declines any pain medicines. Fall on anticoagulants with head injury. Trauma scans head and neck ordered. Pain in her hip and knee. Pelvis with femur and knee films ordered for further evaluation. She declines any pain medications. Basic labs were ordered. Labs were stable. CT brain and cervical spine negative. X-ray were negative for fracture however noted concerns for effusion concerning for hemarthrosis. She had pain in her knee on reevaluation. Skin was intact. CT right knee not crush ordered for further evaluation. 2224: I was called back to the room for potential seizure-like activities. Patient returned from CT. Niece was present states she had shaking. She was given her oxycodone for her knee pain. Per her niece she has had stress-induced seizures in the past she is not on any antiepileptics. There is no seizure activity during my exam. Will monitor. Patient back to baseline on reevaluation. CT knee concerns for proximal tibial fracture near the tibial spine. Appears to be avulsion fracture. I discussed with orthopedist Dr. Forrest, agrees with knee immobilizer nonop management weight-bear as tolerated. However discussed patient does live alone and has increasing pain will have difficulty ambulating. She will be admitted to hospital service. I discussed with hospitalist Dr. Curiel, discussed findings and seizure-like activities with history of nonepileptic seizures. Will admit to PCU. Re-evaluation: stable Disposition discussed with patient/family/significant other: Patient and family Case discussed with consulting clinician: Orthopedic service, hospitalist This note was generated with [email or web address] dictation software. It may contain incorrect words, spelling, and punctuation that were not noted in checking the note before signing. Lab Data Attestation: I reviewed the patient's lab results. Labs: Laboratory Results - last 24 hr 10/10/23 10/10/23 10/10/23 17:25 17:29 18:00 WBC 6.2 RBC 4.59 Hgb 13.5 Hct 43.4 MCV 94.6 MCH 29.4 MCHC 31.1 L RDW Std Deviation 48.6 H RDW Coeff of Yesy 14.0 Plt Count 128 L MPV 12.6 H Immature Gran % (Auto) 0.200 Neut % (Auto) 56.6 Lymph % (Auto) 30.4 [place] % (Auto) 11.4 H Eos % (Auto) 1.1 Baso % (Auto) 0.3 Absolute Neuts (auto) 3.5 Absolute Lymphs (auto) 1.89 Nucleated RBC % 0 PT 16.9 H INR 1.4 APTT 27.1 Sodium 137 Potassium 4.3 Chloride 108 H Carbon Dioxide 20.0 L Anion Gap 9 BUN 37 H Creatinine 2.90 H Estim Creat Clear Calc 16.90 Est GFR (MDRD) Af Amer 20 L Est GFR (MDRD) Non-Af 17 L BUN/Creatinine Ratio 12.8 Glucose 112 H Calcium 9.4 Urine Color Urine Clarity Urine pH Ur Specific [place] Urine Protein Urine Glucose (UA) Urine Ketones Urine Occult Blood Urine Nitrite Urine Bilirubin Urine Urobilinogen Ur Leukocyte Esterase Urine RBC Urine WBC Ur Squamous Epith Cells Urine Bacteria Urine Mucus POC Glucose 104 10/10/23 21:25 WBC RBC Hgb Hct MCV MCH MCHC RDW Std Deviation RDW Coeff of Yesy Plt Count MPV Immature Gran % (Auto) Neut % (Auto) Lymph % (Auto) [place] % (Auto) Eos % (Auto) Baso % (Auto) Absolute Neuts (auto) Absolute Lymphs (auto) Nucleated RBC % PT INR APTT Sodium Potassium Chloride Carbon Dioxide Anion Gap BUN Creatinine Estim Creat Clear Calc Est GFR (MDRD) Af Amer Est GFR (MDRD) Non-Af BUN/Creatinine Ratio Glucose Calcium Urine Color Yellow Urine Clarity Clear Urine pH 6.0 Ur Specific [place] 1.010 Urine Protein Negative Urine Glucose (UA) Normal Urine Ketones Negative Urine Occult Blood Negative Urine Nitrite Negative Urine Bilirubin Negative Urine Urobilinogen Normal Ur Leukocyte Esterase 25 H Urine RBC 0 SEEN Urine WBC 0-5 SEEN Ur Squamous Epith Cells 0-5 SEEN Urine Bacteria 0 SEEN Urine Mucus 0 SEEN POC Glucose Radiography Diagnostic Testing: Clinical Impression(s) from Imaging Studies Brain CT 10/10/23 18:22 IMPRESSION: No acute abnormality. Chronic microvascular ischemic disease. Electronically Signed: Lynn Sullivan MD at 19:15 EDT , Cervical Spine CT 10/10/23 18:22 IMPRESSION: No evidence of fracture or subluxation. Electronically Signed: Lynn Sullivan MD at 19:18 EDT Reading Location ID and State: [id number] / [place] Tel , Service support , Femur X-Ray 10/10/23 18:30 IMPRESSION: No evidence of fracture. Electronically Signed: Lynn Sullivan MD at 19:20 EDT , Knee X-Ray 10/10/23 18:30 IMPRESSION: Small joint effusion questionable lipohemarthrosis. CT may be helpful for further evaluation to exclude subtle fracture. Degenerative changes. Electronically Signed: Lynn Sullivan MD at 19:23 EDT , Pelvis X-Ray 10/10/23 18:30 IMPRESSION: No evidence of fracture. Electronically Signed: Lynn Sullivan MD at 19:21 EDT , Lower Extremity CT 10/10/23 21:30 IMPRESSION: Acute proximal tibial fracture posteriorly extends through the base of the tibial spines. This likely involves the PCL insertion site. Lipohemarthrosis. Degenerative changes. Electronically Signed: Lynn Sullivan MD at 22:29 EDT , Discharge Plan Dx/Rx/DC Orders Clinical Impression: Closed right tibial fracture, Fall, CHI (closed head injury), Contusion of face, Chronic anticoagulation, Seizure-like activity Disposition Disposition: Acute Care Hospital [facility] Discharge Date/Time: 10/10/23 23:54
[2023-10-10 17:59] LABS: Absolute Lymphocyte Count 1.89 X10^3/uL (0.83-4.51); Absolute Neutrophil Count 3.5 X10^3/uL (2.0-7.7); Basophil# 0.02 X10^3/uL; Basophil% 0.3 % (0-1); Eosinophil# 0.07 X10^3/uL; Eosinophils% 1.1 % (0-5); Hematocrit 43.4 % (37-47); Hemoglobin 13.5 g/dL (12.0-15.0); Lymphocyte # 1.89 X10^3/ul (0.83-4.51); Lymphocyte % 30.4 % (19-41); Mean Corp Hgb Conc 31.1 g/dL (32-36); Mean Corpuscular Hgb 29.4 pg (27.0-32.0); Mean Corpuscular Volume 94.6 fL (81-99); Mean Platelet Vol. 12.6 fl (6.2-12.0); Monocyte# 0.71 X10^3/uL; Monocyte% 11.4 % (0-10); NRBC Flagged by Analyzer 0 % (0-5); Neutrophil # 3.52 X10^3/uL (2.7-7.7); Neutrophil % 56.6 % (47-70); Platelet Count 128 K/mm3 (150-450); RBC Distribution Width SD 48.6 fl (35.1-43.9); Red Blood Count 4.59 M/mm3 (4.2-5.4); White Blood Count 6.2 K/mm3 (4.4-11.0)
[2023-10-10 18:13] LABS: Anion Gap 9 (5-15); BUN 37 mg/dL (7-18); BUN/Creat Ratio 12.8 RATIO (10-20); Calcium,Total 9.4 mg/dL (8.5-10.1); Chloride 108 mmol/L (98-107); EST Glomerular Filtration Rate 17 mL/min (>60); Est Glom Filt Rate - Afr Amer 20 mL/min (>60); Glucose 112 mg/dL (74-106); Potassium 4.3 mmol/L (3.5-5.1); Sodium Level 137 mmol/L (136-145)
[2023-10-10 18:17] LABS: International Normalized Ratio 1.4; Prothrombin Time (Protime)PT. 16.9 SECONDS (11.7-14.9)
[2023-10-10 18:18] LABS: Partial Thromboplast Time 27.1 Seconds (24.1-36.2)
--- NOTE | 2023-10-10 18:22 | CT_ITS ---
INDICATION: polytrauma EXAMINATION: CT CERVICAL SPINE - CT Spine Cervical W/O Contrast Injection TECHNIQUE: Helically acquired images were obtained of the cervical spine. 2D reformatted images were reviewed. The protocol utilizes one or more of the following dose reduction techniques: automated exposure control, adjustment of mA and/or kV according to patient size,and/or use of iterative reconstruction technique. IV Contrast dosage and agent: None. RADIATION DOSAGE (If Supplied By Facility): CTDIvol = ( 28.79 ) mGy, DLP = ( 641.71 ) mGycm COMPARISON: No relevant prior comparison study available FINDINGS: ALIGNMENT: No subluxation. MINERALIZATION: Normal. VERTEBRAL BODIES: No fracture or acute abnormality. DISC SPACES: Mild disc space narrowing with osteophytes most pronounced C5-C7. POSTERIOR ELEMENTS: Unremarkable. SPINAL CANAL: Maintained. PARASPINAL SOFT TISSUES: Unremarkable. Carotid arterial calcifications bilaterally. OTHER: None. CT/Spine Cervical without Contras IMPRESSION: No evidence of fracture or subluxation. Electronically Signed: Lynn Sullivan MD at 19:18 EDT ,
--- NOTE | 2023-10-10 18:22 | CT_ITS ---
INDICATION: head injury EXAMINATION: CT BRAIN - CT Head or Brain W/O Contrast Injection TECHNIQUE: Multiple axial images were obtained of the head without intravenous contrast. The protocol utilizes one or more of the following dose reduction techniques: automated exposure control, adjustment of mA and/or kV according to patient size,and/or use of iterative reconstruction technique. IV Contrast dosage and agent: None. RADIATION DOSAGE (If Supplied By Facility): CTDIvol = ( 44.99 ) mGy, DLP = ( 779.24 ) mGycm COMPARISON: No relevant prior comparison study available FINDINGS: BRAIN: No acute bleed. No edema. Decreased attenuation in the periventricular white matter bilaterally. [place]-white matter differentiation is maintained. Arterial calcifications. VENTRICLES AND SULCI: Not dilated. EXTRA-AXIAL: No hemorrhage, fluid collection, or mass. CALVARIUM / SKULL BASE: Unremarkable. FACE/SINUSES: Unremarkable. SOFT TISSUES: Unremarkable. CT/Brain/Head without Contrast IMPRESSION: No acute abnormality. Chronic microvascular ischemic disease. Electronically Signed: Lynn Sullivan MD at 19:15 EDT ,
--- NOTE | 2023-10-10 18:30 | RAD_ITS ---
INDICATION: injury EXAMINATION/TECHNIQUE: X-RAY - RIGHT XR Femur Min 2 Views 4 VIEWS COMPARISON: No relevant prior comparison study available FINDINGS: BONES: No fracture demonstrated. Degenerative changes at the knee. JOINTS: No dislocation. SOFT TISSUES: Unremarkable. RAD/Femur Min 2 Views IMPRESSION: No evidence of fracture. Electronically Signed: Lynn Sullivan MD at 19:20 EDT ,
--- NOTE | 2023-10-10 18:30 | RAD_ITS ---
INDICATION: fall EXAMINATION/TECHNIQUE: X-RAY - XR Pelvis 1 or 2 Views COMPARISON: FINDINGS: Single view pelvis. No fracture demonstrated. Femoral heads are normal in contour. No dislocation at the hips. RAD/Pelvis 1 or 2 Views IMPRESSION: No evidence of fracture. Electronically Signed: Lynn Sullivan MD at 19:21 EDT ,
--- NOTE | 2023-10-10 18:30 | RAD_ITS ---
INDICATION: injury FALL, UNABLE TO BEND KNEE EXAMINATION/TECHNIQUE: X-RAY - RIGHT XR Knee 3 Views 3 VIEWS COMPARISON: FINDINGS: BONES: No definite fracture demonstrated. Joint space narrowing with osteophytes about all 3 joint compartments. Spurring at the tibial spines. JOINTS: No dislocation. SOFT TISSUES: Small joint effusion, with questionable fat fluid level. RAD/Knee 3 Views IMPRESSION: Small joint effusion questionable lipohemarthrosis. CT may be helpful for further evaluation to exclude subtle fracture. Degenerative changes. Electronically Signed: Lynn Sullivan MD at 19:23 EDT ,
[2023-10-10 19:20] VITALS: BP 115/67; PULSE 79; RESP 16; O2SAT 98
[2023-10-10 21:00] VITALS: BP 115/67; PULSE 75; RESP 16; O2SAT 96
[2023-10-10 21:30] LABS: Bacteria 0 SEEN /hpf (None Seen); Mucous, Urine 0 SEEN /hpf (<or=2+); Red Blood Cells-Urine 0 SEEN /hpf (0-5)
--- NOTE | 2023-10-10 21:30 | CT_ITS ---
EXAM: CT Lower Extremity W/O Contrast Injection RIGHT HISTORY: injury -- right knee TECHNIQUE: Axial images obtained through the knee without IV contrast. Sagittal and coronal reformats were provided. IV Contrast: None.. RADIATION DOSAGE (If Supplied By Facility): CTDIvol = ( 15.35 ) mGy, DLP = ( 449.71 ) mGycm Individualized dose optimization techniques were used for this CT. COMPARISON: X-rays right knee earlier same day. LIMITATIONS: None. FINDINGS: Bones are osteopenic. There is a fracture of the proximal tibia posterior aspect extends through the base of the tibial spines, with minimal displacement. This is at the site of the PCL insertion. No other fracture demonstrated. Moderate joint effusion with fat fluid level. No dislocation. Joint space narrowing with osteophytes at all joint compartments. CT/Extremity Lower without Contra IMPRESSION: Acute proximal tibial fracture posteriorly extends through the base of the tibial spines. This likely involves the PCL insertion site. Lipohemarthrosis. Degenerative changes. Electronically Signed: Lynn Sullivan MD at 22:29 EDT ,
[2023-10-10] MEDS: oxyCODONE 5 MG Tablet PO (21:41)
[2023-10-10 21:43] LABS: Color, Urine Yellow (Yellow); Glucose, Dipstick Normal (Normal); Ketone-Dipstick Negative (Negative); Leukocyte Esterase-Dipstick 25 /ul (Negative); Nitrite-Dipstick Negative (Negative); Occult Blood-Urine Negative /ul (Negative); Protein-Dipstick Negative (Negative); Urine Bilirubin Dipstick Negative (Negative); Urine Clarity Clear (Clear); Urine Urobilinogen Normal (Normal)
[2023-10-10 22:04] LABS: Squamous Epithelial Cells - UA 0-5 SEEN /hpf (5-10); White Blood Cells 0-5 SEEN /hpf (0-5)
--- NOTE | 2023-10-10 22:29 | ED.RN ---
THIS NURSE WAS NOTIFIED BY PT NIECE THAT THE PT WAS SHAKING. THIS NURSE WALKED INTO THE ROOM AND PT WAS TALKING RAPIDLY AND FULL BODY SHAKING. THIS NURSE ASKED THE NIECE IF THIS HAS HAPPENED BEFORE, THE NIECE SAID THE PT HAS A HX OF SEIZURES WITH ANXIETY. DR. KIRBY CALLED TO THE ROOM TO ASSESS PT. NO FURTHER ORDERS AT THIS POINT. SEIZURE PADS WERE APPLIED TO BED SIDE AND CONTINUING MONITORING.
--- NOTE | 2023-10-10 22:51 | CONS.ORTHO ---
HPI Consult Data Date of Consult: 10/10/23 HPI Narrative HPI Narrative: JORGE HARRY, is a 78 F who presents R knee injury. fell. called by the ED at 1048pm. no other concerns. 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 Bruit of left carotid artery Pure hypercholesterolemia Essential hypertension Paroxysmal atrial fibrillation End stage kidney disease Acute encephalopathy Renal insufficiency Symptomatic anemia Chronic systolic HF (heart failure) Shortness of breath Secondary pulmonary arterial hypertension Nonrheumatic tricuspid (valve) insufficiency Nonrheumatic mitral valve regurgitation Ischemic cardiomyopathy Atherosclerotic heart disease of [place] coronary artery without angina pectoris History of non-ST elevation myocardial infarction (NSTEMI) (10/24/17) Anxiety and depression Obesity (BMI 30-39.9) Hypothyroidism Diabetes mellitus, type II GERD (gastroesophageal reflux disease) Home Medications ?Medication ?Instructions ?Recorded ?Last Taken ?Type escitalopram oxalate 20 mg tablet 20 mg PO DAILY Depression 07/08/18 09/11/18 08:00 History 20 mg aspirin 81 mg chewable tablet 81 mg PO DAILY@0800 [facility] 09/02/18 09/11/18 08:00 History 81 mg ferrous sulfate 325 mg (65 mg 325 mg PO 1200,1700 supplement 09/11/18 09/11/18 08:00 History iron) tablet 325 mg alprazolam 0.5 mg tablet (Xanax) 0.5 mg PO QHS PRN 09/15/19 Unknown History hydrocodone-acetaminophen 5-325mg 1 tab PO QHS PRN 05/31/21 Unknown History 5mg-325mg levothyroxine 50 mcg tablet 50 mcg PO DAILY hypothyroid #90 01/08/22 Unknown Rx tabs apixaban 2.5 mg tablet 2.5 mg PO BID #180 tabs 10/29/22 Unknown Rx diazepam 5 mg tablet (Valium) 5 mg PO TID PRN dizziness or 01/09/23 Unknown Rx vertigo 5 days #15 tabs ondansetron 4 mg disintegrating 4 mg PO TID PRN nausea and 01/09/23 Unknown Rx tablet vomiting #21 tabs rosuvastatin 10 mg tablet 10 mg PO DAILY 01/09/23 Unknown History Allergy/AdvReac Type Severity Reaction Status Date / Time amiodarone AdvReac Severe Affected Verified 10/10/23 17:28 lung function: see PFT 05/2021 Family History Mother CAD (coronary artery disease) Myocardial infarction Father CAD (coronary artery disease) Myocardial infarction Sister Myocardial infarction CAD (coronary artery disease) Stented coronary artery Surgical History History of left heart catheterization (10/25/17) Stented coronary artery (10/25/17) Social History housing: house Smoking Status: Never smoker alcohol intake: never substance use type: does not use caffeine: Yes Type: coffee Number of servings: 1 Vital Signs Vital Signs Vital Signs: 10/10/23 17:20 10/10/23 17:25 10/10/23 19:20 Temperature 96 F L Temperature Source Temporal Pulse Rate 93 79 Respiratory Rate 15 16 Respiratory Effort Normal Non-Labored Respiratory Depth Normal Respiratory Pattern Normal Blood Pressure 114/70 115/67 Blood Pressure Mean 84 83 Pulse Ox 98 98 98 Oxygen Delivery Method Room Air Room Air Room Air 10/10/23 21:00 Temperature Temperature Source Pulse Rate 75 Respiratory Rate 16 Respiratory Effort Respiratory Depth Respiratory Pattern Blood Pressure 115/67 Blood Pressure Mean 83 Pulse Ox 96 Oxygen Delivery Method Room Air Weight Weight: 203 lb 4.259 oz Body Mass Index (BMI) 37.1 Physical Exam Narrative NVI per the ED provider. no concern for compartment syndrome. Lab / Micro Data 10/10/23 17:29 10/10/23 17:29 Labs: Laboratory Results - last 24 hr 10/10/23 17:25: POC Glucose 104 10/10/23 17:29: WBC 6.2, RBC 4.59, Hgb 13.5, Hct 43.4, MCV 94.6, MCH 29.4, MCHC 31.1 L, RDW Std Deviation 48.6 H, RDW Coeff of Yesy 14.0, Plt Count 128 L, MPV 12.6 H, Immature Gran % (Auto) 0.200, Neut % (Auto) 56.6, Lymph % (Auto) 30.4, [place] % (Auto) 11.4 H, Eos % (Auto) 1.1, Baso % (Auto) 0.3, Absolute Neuts (auto) 3.5, Absolute Lymphs (auto) 1.89, Nucleated RBC % 0, Sodium 137, Potassium 4.3, Chloride 108 H, Carbon Dioxide 20.0 L, Anion Gap 9, BUN 37 H, Creatinine 2.90 H, Estim Creat Clear Calc 16.90, Est GFR (MDRD) Af Amer 20 L, Est GFR (MDRD) Non-Af 17 L, BUN/Creatinine Ratio 12.8, Glucose 112 H, Calcium 9.4 10/10/23 18:00: PT 16.9 H, INR 1.4, APTT 27.1 10/10/23 21:25: Urine Color Yellow, Urine Clarity Clear, Urine pH 6.0, Ur Specific [place] 1.010, Urine Protein Negative, Urine Glucose (UA) Normal, Urine Ketones Negative, Urine Occult Blood Negative, Urine Nitrite Negative, Urine Bilirubin Negative, Urine Urobilinogen Normal, Ur Leukocyte Esterase 25 H, Urine RBC 0 SEEN, Urine WBC 0-5 SEEN, Ur Squamous Epith Cells 0-5 SEEN, Urine Bacteria 0 SEEN, Urine Mucus 0 SEEN Imaging Radiology Impression Brain CT 10/10/23 18:22 IMPRESSION: No acute abnormality. Chronic microvascular ischemic disease. Electronically Signed: Lynn Sullivan MD at 19:15 EDT Reading Location ID and State: [facility] / [place] Tel , Service support , Cervical Spine CT 10/10/23 18:22 IMPRESSION: No evidence of fracture or subluxation. Electronically Signed: Lynn Sullivan MD at 19:18 EDT Reading Location ID and State: [facility] / [place] Tel , Service support , Femur X-Ray 10/10/23 18:30 IMPRESSION: No evidence of fracture. Electronically Signed: Lynn Sullivan MD at 19:20 EDT Reading Location ID and State: [facility] / [place] Tel , Service support , Knee X-Ray 10/10/23 18:30 IMPRESSION: Small joint effusion questionable lipohemarthrosis. CT may be helpful for further evaluation to exclude subtle fracture. Degenerative changes. Electronically Signed: Lynn Sullivan MD at 19:23 EDT , Pelvis X-Ray 10/10/23 18:30 IMPRESSION: No evidence of fracture. Electronically Signed: Lynn Sullivan MD at 19:21 EDT , Lower Extremity CT 10/10/23 21:30 IMPRESSION: Acute proximal tibial fracture posteriorly extends through the base of the tibial spines. This likely involves the PCL insertion site. Lipohemarthrosis. Degenerative changes. Electronically Signed: Lynn Sullivan MD at 22:29 EDT , Assessment & Plan Assessment/Plan (1) Right knee pain: PLAN: 78 yr F with right knee injury, possibly PCL avulsion or min displaced proximal tibia fracture. Recommend non op mgt, WBAT in full extension with knee immobilizer and crutches PRN. Admit per hospitalist, VTE prophylaxis per them. FU as outpatient.
[2023-10-10 23:00] VITALS: BP 137/88; PULSE 79; RESP 12; O2SAT 96
[2023-10-10 23:07] VITALS: BP 137/88; PULSE 79; RESP 12; TEMP 35.5; O2SAT 96
--- NOTE | 2023-10-10 23:14 | HP.PCM.HOS_ITS ---
[facility] - General General Date of Admission: 10/10/23 Date of Service: 10/10/23 Chief Complaint: Fall with Right Knee Pain. HPI Narrative JORGE HARRY, is a 78 F with a past medical history of essential hypertension, hyperlipidemia, hypothyroidism, obesity; with BMI of 37.2 this admission, DM-2; of unknown control, CAD; s/p NSTEMI with CHANTELLE to LAD (2017), chronic systolic CHF, ischemic cardiomyopathy; with LVEF ~45% (2017), PAF; on Eliquis, secondary arterial pulmonary hypertension, history of non-Rheumatic mitral valve regurgitation, history of non-Rheumatic tricuspid valve insufficiency, history of Amiodarone-induced lung toxicity (2021), CKD; stage IV with baseline creatinine of ~3 mg/dL, depression with anxiety, history of pseudoseizures; 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 Ms. Harry reports her symptoms began approximately 30 minutes prior to arrival when she tried to step over a cord causing her to lose her balance and fall injuring her Right knee and hip. She also admits to hitting her head but she denies LOC, headache, neck pain, back pain or chest pain. She has not had to use assistive devices to walk but now she has severe Right knee pain that is made worse with movement and weight bearing. There is no report of fever, chills, nausea, vomiting, diarrhea or constipation but her family did note a pseudoseizure in the ER. Patient lives at home alone. In the ER she was noted to have an x-ray of the Right knee that revealed a small joint effusion with questionable lipohemarthrosis with no other significant acute pathologic changes noted on head CT, cervical spine CT and Femur x-ray complicated by clinical evidence of pseudoseizure triggered by stress and pain after a mechanical fall with subsequent generalized weakness and ambulatory dysfunction and she was then admitted to the general medical floor under observation status for ongoing care for a stay that is expected to be less than 2 midnights. [facility] Medical History Right knee pain [facility] (dyspnea on exertion) shelter current use of amiodarone Bruit of left carotid artery Pure hypercholesterolemia Essential hypertension Paroxysmal atrial fibrillation End stage kidney disease Acute encephalopathy Renal insufficiency Symptomatic anemia Chronic systolic HF (heart failure) Shortness of breath Secondary pulmonary arterial hypertension Nonrheumatic tricuspid (valve) insufficiency Nonrheumatic mitral valve regurgitation Ischemic cardiomyopathy Atherosclerotic heart disease of [place] coronary artery without angina pectoris History of non-ST elevation myocardial infarction (NSTEMI) (10/24/17) Anxiety and depression Obesity (BMI 30-39.9) Hypothyroidism Diabetes mellitus, type II GERD (gastroesophageal reflux disease) Home Medications ?Medication ?Instructions ?Recorded ?Last Taken ?Type escitalopram oxalate 20 mg tablet 20 mg PO DAILY Depression 07/08/18 09/11/18 08:00 History 20 mg ferrous sulfate 325 mg (65 mg 325 mg PO 1200,1700 supplement 09/11/18 09/11/18 08:00 History iron) tablet 325 mg levothyroxine 50 mcg tablet 50 mcg PO DAILY hypothyroid #90 01/08/22 Unknown Rx tabs apixaban 2.5 mg tablet 2.5 mg PO BID #180 tabs 10/29/22 Unknown Rx rosuvastatin 10 mg tablet 10 mg PO DAILY 01/09/23 Unknown History Allergy/AdvReac Type Severity Reaction Status Date / Time amiodarone AdvReac Severe Affected Verified 10/10/23 17:28 lung function: see PFT 05/2021 Family History Mother CAD (coronary artery disease) Myocardial infarction Father CAD (coronary artery disease) Myocardial infarction Sister Myocardial infarction CAD (coronary artery disease) Stented coronary artery Surgical History History of left heart catheterization (10/25/17) Stented coronary artery (10/25/17) Social History housing: house Smoking Status: Never smoker alcohol intake: never substance use type: does not use caffeine: Yes Type: coffee Number of servings: 1 ROS ROS Narrative Review of Systems: Constitutional: Patient denies fever, chills or weight loss. Eyes: Patient denies changes in vision or discharge from eyes. ENT: Patient denies runny nose, sore throat or ear pain. CV: Patient denies chest pain, palpitations, heart racing of LE edema. Resp: Patient denies SOB or cough. GI: Patient denies abdominal pain, nausea, vomiting, diarrhea or constipation. : Patient denies dysuria, hematuria or urinary frequency. MSK: Patient admits to severe pain in the Right knee that is made worse with movement. Skin: Patient denies jaundice, rash or wounds. Psych: Patient admits to severe stress due to Right knee pain after fall. Neuro: Patient admits to pseudoseizure but denies headache, paresthesias or focal neurologi weakness. Allergy: Patient denies lip swelling, tongue swelling or urticaria. Hematology: Patient denies easy bleeding. Endocrinology: Patient denies polyuria, polydipsia and polyphagia. 14 point ROS otherwise negative except for positives noted above in HPI. Vital Signs Vital Signs Vital Signs: 10/10/23 17:20 10/10/23 17:25 10/10/23 19:20 Temperature 96 F L Temperature Source Temporal Pulse Rate 93 79 Respiratory Rate 15 16 Respiratory Effort Normal Non-Labored Respiratory Depth Normal Respiratory Pattern Normal Blood Pressure 114/70 115/67 Blood Pressure Mean 84 83 Pulse Ox 98 98 98 Oxygen Delivery Method Room Air Room Air Room Air 10/10/23 21:00 10/10/23 23:00 10/10/23 23:07 Temperature 96 F L Temperature Source Pulse Rate 75 79 79 Respiratory Rate 16 12 12 Respiratory Effort Respiratory Depth Respiratory Pattern Blood Pressure 115/67 137/88 H 137/88 H Blood Pressure Mean 83 104 104 Pulse Ox 96 96 96 Oxygen Delivery Method Room Air Room Air Weight Weight: 203 lb 4.259 oz Body Mass Index (BMI) 37.1 Physical Exam Const alert and oriented x3 Constitutional Narrative: [id number]-[id number] discomfort noted. General Appearance: cooperative HEENT normocephalic, hearing grossly normal bilaterally and moist oral mucous membranes HEENT Narrative: Nonraised contusion over the Right forehead. Eyes PERRL and EOMs intact bilaterally Neck no lymphadenopathy and supple Resp normal respiratory effort, no retractions, no use of accessory muscles and clear to auscultation bilaterally Cardio regular rate and regular rhythm GI normal to inspection, nondistended, normoactive bowel sounds, soft to palpation, non-tender and non-distended Extremity normal to inspection and full ROM Skin Skin Narrative: Patient has bruising over Right forehead. Neuro oriented x3, CN's II-XII intact bilaterally, moves all extremities and no focal motor deficits Sensorium / Orientation: awake, alert, oriented to person, oriented to place and oriented to time Speech: speech normal Psych Mood & Affect: anxious Results Medical Records Data Attestation: I reviewed the patient's medical records Lab / Micro Data Attestation: I reviewed the patient's lab results. 10/10/23 17:29 10/10/23 17:29 Labs: Laboratory Results - last 24 hr 10/10/23 17:25: POC Glucose 104 10/10/23 17:29: WBC 6.2, RBC 4.59, Hgb 13.5, Hct 43.4, MCV 94.6, MCH 29.4, MCHC 31.1 L, RDW Std Deviation 48.6 H, RDW Coeff of Yesy 14.0, Plt Count 128 L, MPV 12.6 H, Immature Gran % (Auto) 0.200, Neut % (Auto) 56.6, Lymph % (Auto) 30.4, M clarice % (Auto) 11.4 H, Eos % (Auto) 1.1, Baso % (Auto) 0.3, Absolute Neuts (auto) 3.5, Absolute Lymphs (auto) 1.89, Nucleated RBC % 0, Sodium 137, Potassium 4.3, Chloride 108 H, Carbon Dioxide 20.0 L, Anion Gap 9, BUN 37 H, Creatinine 2.90 H, Estim Creat Clear Calc 16.90, Est GFR (MDRD) Af Amer 20 L, Est GFR (MDRD) Non-Af 17 L, BUN/Creatinine Ratio 12.8, Glucose 112 H, Calcium 9.4 10/10/23 18:00: PT 16.9 H, INR 1.4, APTT 27.1 10/10/23 21:25: Urine Color Yellow, Urine Clarity Clear, Urine pH 6.0, Ur Specific [place] 1.010, Urine Protein Negative, Urine Glucose (UA) Normal, Urine Ketones Negative, Urine Occult Blood Negative, Urine Nitrite Negative, Urine Bilirubin Negative, Urine Urobilinogen Normal, Ur Leukocyte Esterase 25 H, Urine RBC 0 SEEN, Urine WBC 0-5 SEEN, Ur Squamous Epith Cells 0-5 SEEN, Urine Bacteria 0 SEEN, Urine Mucus 0 SEEN Imaging Radiology Impression Brain CT 10/10/23 18:22 IMPRESSION: No acute abnormality. Chronic microvascular ischemic disease. Electronically Signed: Lynn Sullivan MD at 19:15 EDT , Cervical Spine CT 10/10/23 18:22 IMPRESSION: No evidence of fracture or subluxation. Electronically Signed: Lynn Sullivan MD at 19:18 EDT Reading Location ID and State: [facility] / [place] Tel , Service support , Femur X-Ray 10/10/23 18:30 IMPRESSION: No evidence of fracture. Electronically Signed: Lynn Sullivan MD at 19:20 EDT Reading Location ID and State: [facility] [place] / [place] Tel , Service support , Knee X-Ray 10/10/23 18:30 IMPRESSION: Small joint effusion questionable lipohemarthrosis. CT may be helpful for further evaluation to exclude subtle fracture. Degenerative changes. Electronically Signed: Lynn Sullivan MD at 19:23 EDT Reading Location ID and State: [facility] [place] / [place] Tel , Service support , Pelvis X-Ray 10/10/23 18:30 IMPRESSION: No evidence of fracture. Electronically Signed: Lynn Sullivan MD at 19:21 EDT Reading Location ID and State: [facility] / [place] Tel , Service support , Lower Extremity CT 10/10/23 21:30 IMPRESSION: Acute proximal tibial fracture posteriorly extends through the base of the tibial spines. This likely involves the PCL insertion site. Lipohemarthrosis. Degenerative changes. Electronically Signed: Lynn Sullivan MD at 22:29 EDT Reading Location ID and State: [facility] / [place] Tel , Service support , Assessment & Plan Assessment/Plan (1) Closed right tibial fracture: QUALIFIERS: Encounter type: initial encounter Fracture morphology: other fracture Tibia location: proximal Qualified Code(s): S 82.191A - Other fracture of upper end of right tibia, initial encounter for closed fracture (2) Fall: QUALIFIERS: Encounter type: initial encounter Qualified Code(s): W19.XXXA - Unspecified fall, initial encounter (3) Contusion of face: QUALIFIERS: Encounter type: initial encounter Qualified Code(s): S00.83XA - Contusion of other part of head, initial encounter (4) Chronic anticoagulation: (5) Seizure-like activity: (6) Right knee pain: QUALIFIERS: Chronicity: acute Qualified Code(s): M25.561 - Pain in right knee (7) Obesity (BMI 30-39.9): PLAN: Plan 1. Mechanical Fall with Acute Proximal Tibial Fracture that extends through the base of the tibial spines with Lipohemarthrosis with no other significant acute pathologic changes noted on head CT, cervical spine CT and Femur x-ray - Admit to general medical floor under observation status. Give Tylenol prn for [id number] (level 1-6/10) pain or fever. Give Morphine prn for severe (level 6-10/10) pain. 2. Generalized weakness and ambulatory dysfunction due to #1 - PT/OT and Case Management to see patient on-rounds in the AM for further recommendations with help appreciated in advance. 3. Pseudoseizure triggered by stress complicating #1 & #2 - Give anxiolytics prn for recurrences. 4. PAF; on Eliquis adding to the pathology of #1 - #3 - Resume Eliquis as previous with patient currently in NSR. 5. Obesity; with BMI of 37.2 this admission adding to the complexity of #1 - #4 - Weight loss will be recommended. 6. CKD; stage IV with baseline creatinine of ~3 mg/dL - Stable. Check labs daily to ensure continued stability. 7. Essential hypertension - Continue home regimen plus give prn IV Hydralazine for systolic blood pressure > 160 mmHg. 8. Hyperlipidemia - Resume statin. 9. Hypothyroidism - Continue Synthroid and check TSH. 10. DM-2; of unknown control - ADA diet. FSBS q. AC/HS plus SSI. Check HgbA1c to objectively assess the quality of diabetic control. 11. CAD; s/p NSTEMI with CHANETLLE to LAD (2017) - Noted. Resume home medications as previous. 12. Chronic systolic CHF - Stable with no evidence of volume overload at this point in time. 13. Ischemic cardiomyopathy; with LVEF ~45% (2017) - Noted. 14. Secondary arterial pulmonary hypertension - Stable. 15. History of non-Rheumatic mitral valve regurgitation - Noted. 16. History of non-Rheumatic tricuspid valve insufficiency - Noted. 17. History of Amiodarone-induced lung toxicity (2021) - Noted. 18. Depression with anxiety - Resume Escitalopram as previous. 19. GERD - Stable with patient not on PPI or H2-bhavana at this time. 20. OA - Stable. 21. DVT prophylaxis - Patient on Eliquis for #4. Total time: Approximately 70 minutes. Charges/Coding Visit Charges OBSV E&M: 39474 Observ/hosp same date L2
[2023-10-11 00:03] VITALS: BMI 34.5
[2023-10-11] MEDS: 0.9% Normal Saline (1000mL) 1,000 ML 70 ML IV ×2 (00:15→13:26)
[2023-10-11] MEDS: 0.9% Saline Lock 10 ML Syringe IV ×2 (00:15→00:52)
[2023-10-11 00:17] VITALS: BP 108/61; PULSE 81; RESP 18; TEMP 36.8; O2SAT 99
[2023-10-11] MEDS: Morphine 2 MG/ML Syringe IV (00:51)
[2023-10-11 03:53] VITALS: BMI 34.5
[2023-10-11 05:18] LABS: Absolute Lymphocyte Count 1.59 X10^3/uL (0.83-4.51); Absolute Neutrophil Count 4.8 X10^3/uL (2.0-7.7); Basophil# 0.02 X10^3/uL; Basophil% 0.3 % (0-1); Eosinophil# 0.05 X10^3/uL; Eosinophils% 0.7 % (0-5); Hematocrit 40.3 % (37-47); Hemoglobin 12.9 g/dL (12.0-15.0); Lymphocyte # 1.59 X10^3/ul (0.83-4.51); Lymphocyte % 22.3 % (19-41); Mean Corpuscular Hgb 30.1 pg (27.0-32.0); Mean Corpuscular Volume 93.9 fL (81-99); Mean Platelet Vol. 12.6 fl (6.2-12.0); Monocyte# 0.65 X10^3/uL; Monocyte% 9.1 % (0-10); NRBC Flagged by Analyzer 0 % (0-5); Neutrophil # 4.81 X10^3/uL (2.7-7.7); Neutrophil % 67.3 % (47-70); Platelet Count 118 K/mm3 (150-450); RBC Distribution Width CV 14.1 % (11.6-14.6); Red Blood Count 4.29 M/mm3 (4.2-5.4); White Blood Count 7.1 K/mm3 (4.4-11.0)
[2023-10-11 05:57] LABS: ALB/GLOB Ratio 0.9 RATIO (0.9-2.4); AST(SGOT) 72 U/L (15-37); Alanine Aminotransfer ALT/SGPT 33 U/L (13-56); Albumin, Serum 3.1 g/dL (3.2-5.0); Alkaline Phosphatase 58 U/L (45-117); Anion Gap 7 (5-15); BUN 34 mg/dL (7-18); BUN/Creat Ratio 12.3 RATIO (10-20); Calcium,Total 8.9 mg/dL (8.5-10.1); Chloride 111 mmol/L (98-107); Creatinine, Serum 2.76 mg/dL (0.55-1.02); EST Glomerular Filtration Rate 18 mL/min (>60); Est Glom Filt Rate - Afr Amer 21 mL/min (>60); Estimated Creatinine Clearance 17.72 ml/min; Globulin 3.4 g/dL (2.2-4.2); Glucose 118 mg/dL (74-106); Magnesium 2.2 mg/dL (1.6-2.6); Phosphorus 3.3 mg/dL (2.5-4.9); Potassium 4.3 mmol/L (3.5-5.1); Protein, Total 6.5 g/dL (6.4-8.2); Sodium Level 138 mmol/L (136-145)
[2023-10-11] MEDS: Levothyroxine 50 MCG Tablet PO (06:14)
[2023-10-11 06:16] VITALS: BP 102/60; PULSE 95; RESP 16; TEMP 36.7; O2SAT 94
--- NOTE | 2023-10-11 07:28 | PCM.PN.HOSP ---
Reason for Visit Reason for Visit: Diagnoses Obesity, unspecified (10/10/23) Pain in right knee (10/10/23) Unspecified convulsions (10/10/23) Contusion of other part of head, initial encounter (10/10/23) Other fracture of upper end of right tibia, initial encounter for closed fracture (10/10/23) Unspecified fall, initial encounter (10/10/23) [facility] (current) use of anticoagulants (10/10/23) Subjective Subjective Still with some pain in Right knee. Objective Data Objective Data Vital Signs: Vital Signs Temp Pulse Resp BP Pulse Ox O2 Del Method 36.7 C 95 16 102/60 94 Room Air 10/11/23 06:16 10/11/23 06:16 10/11/23 06:16 10/11/23 06:16 10/11/23 06:16 10/11/23 06:16 Oxygen Delivery Method Room Air Weight: 88.4 kg Body Mass Index (BMI) 34.5 Lab / Micro Data 10/11/23 04:18 10/11/23 04:18 Labs: Laboratory Results - last 24 hr 10/10/23 17:25: POC Glucose 104 10/10/23 17:29: WBC 6.2, RBC 4.59, Hgb 13.5, Hct 43.4, MCV 94.6, MCH 29.4, MCHC 31.1 L, RDW Std Deviation 48.6 H, RDW Coeff of Yesy 14.0, Plt Count 128 L, MPV 12.6 H, Immature Gran % (Auto) 0.200, Neut % (Auto) 56.6, Lymph % (Auto) 30.4, Cannon % (Auto) 11.4 H, Eos % (Auto) 1.1, Baso % (Auto) 0.3, Absolute Neuts (auto) 3.5, Absolute Lymphs (auto) 1.89, Nucleated RBC % 0, Sodium 137, Potassium 4.3, Chloride 108 H, Carbon Dioxide 20.0 L, Anion Gap 9, BUN 37 H, Creatinine 2.90 H, Estim Creat Clear Calc 16.90, Est GFR (MDRD) Af Amer 20 L, Est GFR (MDRD) Non-Af 17 L, BUN/Creatinine Ratio 12.8, Glucose 112 H, Calcium 9.4 10/10/23 18:00: PT 16.9 H, INR 1.4, APTT 27.1 10/10/23 21:25: Urine Color Yellow, Urine Clarity Clear, Urine pH 6.0, Ur Specific [place] 1.010, Urine Protein Negative, Urine Glucose (UA) Normal, Urine Ketones Negative, Urine Occult Blood Negative, Urine Nitrite Negative, Urine Bilirubin Negative, Urine Urobilinogen Normal, Ur Leukocyte Esterase 25 H, Urine RBC 0 SEEN, Urine WBC 0-5 SEEN, Ur Squamous Epith Cells 0-5 SEEN, Urine Bacteria 0 SEEN, Urine Mucus 0 SEEN 10/11/23 04:18: WBC 7.1, RBC 4.29, Hgb 12.9, Hct 40.3, MCV 93.9, MCH 30.1, MCHC 32.0, RDW Std Deviation 49.0 H, RDW Coeff of Yesy 14.1, Plt Count 118 L, MPV 12.6 H, Immature Gran % (Auto) 0.300, Neut % (Auto) 67.3, Lymph % (Auto) 22.3, Cannon % (Auto) 9.1, Eos % (Auto) 0.7, Baso % (Auto) 0.3, Absolute Neuts (auto) 4.8, Absolute Lymphs (auto) 1.59, Nucleated RBC % 0, Sodium 138, Potassium 4.3, Chloride 111 H, Carbon Dioxide 20.0 L, Anion Gap 7, BUN 34 H, Creatinine 2.76 H, Estim Creat Clear Calc 17.72, Est GFR (MDRD) Af Amer 21 L, Est GFR (MDRD) Non-Af 18 L, BUN/Creatinine Ratio 12.3, Glucose 118 H, Calcium 8.9, Phosphorus 3.3, Magnesium 2.2, Total Bilirubin 0.90, AST 72 H, ALT 33, Alkaline Phosphatase 58, Total Protein 6.5, Albumin 3.1 L, Globulin 3.4, Albumin/Globulin Ratio 0.9, TSH 2.010 Radiography Diagnostic Testing: Radiology Impression Brain CT 10/10/23 18:22 IMPRESSION: No acute abnormality. Chronic microvascular ischemic disease. Electronically Signed: Lynn Sullivan MD at 19:15 EDT , Cervical Spine CT 10/10/23 18:22 IMPRESSION: No evidence of fracture or subluxation. Electronically Signed: Lynn Sullivan MD at 19:18 EDT , Femur X-Ray 10/10/23 18:30 IMPRESSION: No evidence of fracture. Electronically Signed: Lynn Sullivan MD at 19:20 EDT Reading Location ID and State: [facility] / [place] Tel , Service support , Knee X-Ray 10/10/23 18:30 IMPRESSION: Small joint effusion questionable lipohemarthrosis. CT may be helpful for further evaluation to exclude subtle fracture. Degenerative changes. Electronically Signed: Lynn Sullivan MD at 19:23 EDT Reading Location ID and State: [facility] / [place] Tel , Service support , Pelvis X-Ray 10/10/23 18:30 IMPRESSION: No evidence of fracture. Electronically Signed: Lynn Sullivan MD at 19:21 EDT Reading Location ID and State: [facility] [place] [facility] / [place] Tel , Service support , Lower Extremity CT 10/10/23 21:30 IMPRESSION: Acute proximal tibial fracture posteriorly extends through the base of the tibial spines. This likely involves the PCL insertion site. Lipohemarthrosis. Degenerative changes. Electronically Signed: Lynn Sullivan MD at 22:29 EDT Reading Location ID and State: [facility] / [place] Tel , Service support , Physical Exam Const alert and no apparent distress Resp normal respiratory effort and no retractions Extremity Extremity Narrative: Right knee in an immobilizer. Slight swelling around the right knee. Neuro Sensorium / Orientation: awake and alert Assessment & Plan Assessment/Plan (1) Closed right tibial fracture: QUALIFIERS: Encounter type: initial encounter Fracture morphology: other fracture Tibia location: proximal Qualified Code(s): S82.191A - Other fracture of upper end of right tibia, initial encounter for closed fracture (2) Fall: QUALIFIERS: Encounter type: initial encounter Qualified Code(s): W19.XXXA - Unspecified fall, initial encounter (3) Contusion of face: QUALIFIERS: Encounter type: initial encounter Qualified Code(s): S00.83XA - Contusion of other part of head, initial encounter (4) Chronic anticoagulation: (5) Seizure-like activity: (6) Right knee pain: QUALIFIERS: Chronicity: acute Qualified Code(s): M25.561 - Pain in right knee (7) Obesity (BMI 30-39.9): PLAN: Plan Mechanical Fall with Acute Proximal Tibial Fracture that extends through the base of the tibial spines Seen by Dr. Forrest of orthopaedics recommending non-operative mgmt: WBAT w knee immobilizer and crutches. Debility PT OT recommending rehab. Patient walked approximately 34 feet with a front wheeled walker.. CM to assist with disposition. Pseudoseizure triggered by stress complicating #1 & #2 - Give anxiolytics prn for recurrences. Chronic conditions: PAF: apixaban. obesity class I: complicates care and recovery CKD IV: stable Hyperlipidemia: statin Hypothyroidism: levothyroxine DM-2: a1c 5.8. CAD: s/p NSTEMI with CHANTELLE to LAD (2018). Chronic HFrEF: Ischemic cardiomyopathy; with LVEF ~45% (2018). Compensated Secondary arterial pulmonary hypertension group II History of Amiodarone-induced lung toxicity Depression with anxiety - Resume Escitalopram as previous. GERD - Stable with patient not on PPI or H2-bhavana at this time. VTE prophylaxis: not indicated as already on apixaban. Discussed with the patient's daughter at bedside. Charges/Coding Visit Charges Inpatient E&M: 96333 Subs Hosp L1
[2023-10-11 08:12] VITALS: O2SAT 96
[2023-10-11] MEDS: Acetaminophen 325 MG Tablet 650 MG PO (08:48)
[2023-10-11] MEDS: Escitalopram Oxalate 20 MG Tablet PO (08:48)
[2023-10-11] MEDS: APIXABAN 2.5 MG TABLET (WCH) PO ×2 (08:48→21:05)
[2023-10-11 10:00] VITALS: BP 116/79; PULSE 95; RESP 18; TEMP 36.8; O2SAT 93
[2023-10-11] MEDS: Ferrous Sulfate 325 MG Tablet PO ×2 (12:36→16:40)
[2023-10-11 16:00] VITALS: BP 122/68; PULSE 74; RESP 16; TEMP 36.9; O2SAT 94
[2023-10-11 21:01] VITALS: BP 106/78; PULSE 93; RESP 16; TEMP 36.8; O2SAT 100
[2023-10-11] MEDS: Atorvastatin Calcium 20 MG Tablet PO (21:05)
[2023-10-12 03:00] VITALS: BP 110/80; PULSE 85; RESP 16; TEMP 36.7; O2SAT 99
[2023-10-12 05:08] VITALS: BMI 34.7
[2023-10-12] MEDS: Levothyroxine 50 MCG Tablet PO (05:58)
[2023-10-12 07:52] VITALS: O2SAT 93
--- NOTE | 2023-10-12 08:30 | PN.HOSP_ITS ---
Reason for Visit Reason for Visit: Diagnoses Obesity, unspecified (10/10/23) Pain in right knee (10/10/23) Unspecified convulsions (10/10/23) Contusion of other part of head, initial encounter (10/10/23) Other fracture of upper end of right tibia, initial encounter for closed fracture (10/10/23) Unspecified fall, initial encounter (10/10/23) correction (current) use of anticoagulants (10/10/23) Subjective Subjective Patient currently with no acute complaints with pain controlled with immobilizer in place. Discussed plan of care which included ongoing attempts for skilled facility placement given debility with fall with fracture to which patient is amenable. Patient denies fevers, chills, nausea, emesis, abdominal pain, chest pain or dyspnea. Objective Data Objective Data Vital Signs: Vital Signs Temp Pulse Resp BP Pulse Ox O2 Del Method 98.1 F 85 16 110/80 99 Room Air 10/12/23 03:00 10/12/23 03:00 10/12/23 03:00 10/12/23 03:00 10/12/23 03:00 10/12/23 03:05 Oxygen Delivery Method Room Air Weight: 196 lb 6.91 oz Body Mass Index (BMI) 34.7 Intake & Output: Intake and Output for Last 24 Hours 10/10/23 10/11/23 10/12/23 23:59 23:59 23:59 Intake Total 1155.00 / 1155.00 Balance 1155.00 / 1155.00 Lab / Micro Data 10/11/23 04:18 10/11/23 04:18 Physical Exam Narrative Physical Examination: General: Awake, alert, oriented x 3 and cooperative, seated upright in the PCU bed, fatigued, denies any acute pain currently. Skin: Normal color, normal turgor, no icterus, no cyanosis except occasional stage ecchymoses, abrasion. HEENT: AT/NC, EOMI, PERRLA, MMM. Lungs: Mildly diminished, greater bases, appropriate effort, no rales, ronchi or wheezing. Heart: Regular rate and rhythm; no gallop, rub audible. Abdomen: Soft, obese, NTTP, ND, normal BS. Extremities: No cyanosis, no clubbing, bilateral lower extremity mild peripheral edema, swelling around the right knee likely related with recent fall, immobilized currently. Neurological: Patient awake, alert, oriented as noted, cognitive function intact; pupils equally reactive to light and accommodation, cranial nerves gross normal, moving all 4 extremities except expected limitation right lower extremity given fall with fracture and immobilization, strength accordingly moderately to severely global decreased. Psychiatric: Affect appears fatigued otherwise normal, no acute evidence of depressive or anxiety feelings. Assessment & Plan Assessment/Plan (1) Closed right tibial fracture: QUALIFIERS: Encounter type: initial encounter Tibia location: p roximal Fracture morphology: other fracture Qualified Code(s): S82.191A - Other fracture of upper end of right tibia, initial encounter for closed fracture PLAN: Plan The patient is a 78 y/o F w/ PMHx: CKD stage IV, Obesity, HFrEF/Ischemic cardiomyopathy, Hypothyroidism, Diabetes mellitus type II, GERD, Anxiety and Depression, Valvular Heart Disease, HTN, HLD, PAF, CAD s/p PCI who presents to the [facility] ED on 10/10/23 with history of mechanical fall with resulting right knee pain. #1. Mechanical fall w/ acute proximal tibial fracture with extension to the base of tibial spines: Admit to medical surgical floor, orthopedic surgery following with recommended weightbearing as tolerated with knee immobilizer and crutches, maintain on fall precautions, PT/OT/case management following with recommendation for skilled facility to which patient has been accepted, plan follow-up outpatient with orthopedic surgery per their recommendation. #2. CAD: Status post history of NSTEMI with eventual cardiac catheterization with CHANTELLE to LAD 2017, continue Eliquis, statin therapy, not on beta-bhavana nor TATIANA inhibitor/ARB but does have underlying CKD stage IV concurrently as noted. #3. HFpEF/Ischemic Cardiomyopathy: 08/22/2020 echocardiogram from outside facility with systolic function normal, EF 55%, no regional wall motion abnormalities, RV normal cavity size, systolic function normal, RVSP mildly increased, mildly dilated LA and RA, moderate 2+ mitral valve regurgitation, AV not well-visualized, structurally normal TV. Judiciously hydrate if necessary, continue apixaban, statin, not on any beta-bhavana, TATIANA number/ARB or diuretic therapy. #4. Chronic Kidney Disease Stage IV: Admission BUN/Cr 34/2.76, GFR 18, baseline renal function more recently 2.8-3.3, repeat BMP in AM. #5. PAF: We will continue patient home apixaban regimen, not on any rate or rhythm agent. Of note patient does have previous history of amiodarone induced lung toxicity. #6. Anxiety and depression: We will continue patient home escitalopram regimen. #7. Chronic anemia/iron deficiency anemia: Admission hemoglobin 13.5, baseline more recently 12 range, prior in 2021 had been to 9-10 range, will continue iron supplementation, trend CBC. #8. Hyperlipidemia: We will can patient on statin therapy. #9. Hypothyroidism: We will continue patient home levothyroxine regimen. #10. GERD: We will have Mylanta as needed, not on PPI or H2 bhavana. #11. DVT prophylaxis: Will continue patient on Eliquis regimen. Charges/Coding Visit Charges Inpatient E&M: 07703 Subs Hosp L2
[2023-10-12 09:08] VITALS: BP 113/48; PULSE 82; RESP 16; TEMP 36; O2SAT 100
[2023-10-12] MEDS: Ferrous Sulfate 325 MG Tablet PO (09:11)
[2023-10-12] MEDS: APIXABAN 2.5 MG TABLET (WCH) PO (09:12)
[2023-10-12] MEDS: Escitalopram Oxalate 20 MG Tablet PO (09:12)
--- NOTE | 2023-10-12 11:32 | CASEMGMT ---
Attempted to present LAWSON form x2 and was unable to wake patient. Will attempt again today. Luz Marina Coy DC Planning Asst.
--- NOTE | 2023-10-12 11:45 | CASEMGMT ---
ERIN SMALL Face to Face with patient for initial transition planning/care coordination assessment. ERIN SMALL introduced self and role at [facility]. Patient sitting in chair, alert and oriented, niece at bedside. Patient willing to participate in assessment and is able to answer all questions appropriately. Care providers, pharmacy, and demographics verified. Strata: 3 PCP: [facility] Specialists: none Preferred Pharmacy: [facility] retail Insurance: [employer] MCR Prescription Benefit: yes Living Will/HPOA: yes, great niece Karla Franklin LNOK: brother, niece, great niece Living Arrangements: Patient lives alone in a single story home with 3 steps and railing to enter the home. Patient states she is independent at home. Transportation: self, family DME/HHC: Patient has cane and grab bars at home. No previous HHC or SNF. Discussed progress with therapy and recommendations or SNF/TCU at discharge. Patient is agreeable to referral to TCU, declined SNF list. Patient states she has no further needs or concerns at this time. ERIN SMALL updated SW regarding request for TCU. CM to follow for discharge planning needs that may arise. Disposition Plan: TCU pending acceptance and precert Rolanda RINCON, RN, CM
--- NOTE | 2023-10-12 12:49 | CASEMGMT ---
CATARINA was informed that patient would be agreeable to going to TCU. CATARINA made a referral to TCU. TCU can accept patient. CATARINA notified patient. CATARINA asked Tressa to start the pre-cert. Plan: d/c to [facility] TCU pending insurance approval. Thalia BOND
--- NOTE | 2023-10-12 13:51 | CASEMGMT ---
Patient was approved to go to [facility] TCU. SW notified physician. Plan: d/c to [facility] TCU under skilled level of care. Thalia BOND
--- NOTE | 2023-10-12 14:12 | CASEMGMT ---
Patient will be discharged to [facility] TCU. Thalia BOND
--- NOTE | 2023-10-12 14:18 | TREXTCAR_ITS ---
Diet Diet Order/Speech Therapy: 10/10/23 23:57 Diet: Renal - General Food consistency:: Regular Liquid Consistency:: Regular/Thin Dietary Modifications:: Cardiac / Heart Healthy Routine Orders/Code Status Suppository Type: Dulcolax 10mg Suppository Frequency: Daily PRN Routine Lab Work: - (May repeat CBC, BMP in 1-2 weeks.) Code Status: Full Code Wound(s) top of right foot: Wound Type: scabs right guevara: Wound Type: scabs Suggestions for Active Care Change Position every (hours): 2 Hours to sit in a chair: 6 Times a day to sit in chair: 3 Therapies Weight Bearing: Weight bearing as tolerated Physical Therapy: Eval and Treat Occupational Therapy: Eval and Treat Problem/Diagnosis (1) Closed right tibial fracture: Status: Acute Code(s): S82.201A - Unspecified fracture of shaft of right tibia, initial encounter for closed fracture Plan The patient is a 78 y/o F w/ PMHx: CKD stage IV, Obesity, HFrEF/Ischemic cardiomyopathy, Hypothyroidism, Diabetes mellitus type II, GERD, Anxiety and Depression, Valvular Heart Disease, HTN, HLD, PAF, CAD s/p PCI who presents to the [facility] ED on 10/10/23 with history of mechanical fall with resulting right knee pain. #1. Mechanical fall w/ acute right proximal tibial fracture with extension to the base of tibial spines: Admit to medical surgical floor, orthopedic surgery following with recommended weightbearing as tolerated with knee immobilizer and crutches, maintain on fall precautions, PT/OT/case management following with recommendation for skilled facility to which patient has been accepted, plan follow-up outpatient with orthopedic surgery per their recommendation. #2. CAD: Status post history of NSTEMI with eventual cardiac catheterization with CHANTELLE to LAD 2017, continue Eliquis, statin therapy, not on beta-bhavana nor TATIANA inhibitor/ARB but does have underlying CKD stage IV concurrently as noted. #3. HFpEF/Ischemic Cardiomyopathy: 08/22/2020 echocardiogram from outside facility with systolic function normal, EF 55%, no regional wall motion abnormalities, RV normal cavity size, systolic function normal, RVSP mildly increased, mildly dilated LA and RA, moderate 2+ mitral valve regurgitation, AV not well-visualized, structurally normal TV. Judiciously hydrate if necessary, continue apixaban, statin, not on any beta-bhavana, TATIANA number/ARB or diuretic therapy. #4. Chronic Kidney Disease Stage IV: Admission BUN/Cr 34/2.76, GFR 18, baseline renal function more recently 2.8-3.3, repeat BMP in AM. #5. PAF: We will continue patient home apixaban regimen, not on any rate or rhythm agent. Of note patient does have previous history of amiodarone induced lung toxicity. #6. Anxiety and depression: We will continue patient home escitalopram regimen. #7. Chronic anemia/iron deficiency anemia: Admission hemoglobin 13.5, baseline more recently 12 range, prior in 2021 had been to 9-10 range, will continue iron supplementation, trend CBC. #8. Hyperlipidemia: We will can patient on statin therapy. #9. Hypothyroidism: We will continue patient home levothyroxine regimen. #10. GERD: We will have Mylanta as needed, not on PPI or H2 bhavana. #11. DVT prophylaxis: Will continue patient on Eliquis regimen. Allergies/Procedures Done in Hospital Allergies amiodarone Adverse Reaction (Severe, Verified 10/10/23 17:28) Affected lung function: see PFT 05/2021 Procedures: None Type of Care/Length of Stay Estimated LOS: Convalescent Care Less Than 30 days Type of Care Needed: Skilled Rehab Potential: Good Prognosis: Good Additional Orders/Day of Discharge Additional Orders: (1) Encourage HOB with aspiration precautions, (2) Fall precautions, (3) IS 10x/hr 7a-7p, (4) OOB to chair/dining room for all meals. Day of Discharge: 10/12/23 Dietary and Speech Recommendations Dietitian Recommendations/Changes: Continue with Renal - General diet for management of ESRD. Pt feels that she is eating better, so will not recommend ONS use at this time. Will continue to monitor oral intakes and modify nutrition interventions as needed. Discharge Plan Admission Admit Date/Time: 10/10/23 23:17 Primary Reason for Your Visit: Fall, Acute R Proximal Tibial Fx Attending Provider: Sydney Fernandez Primary Care Provider: Williams Dunne Consulting Providers: Edmundo Garcia; Patrick Carrillo Discharge Orders/Prescriptions Prescriptions: New melatonin 3 mg Tablet 3 mg PO QHS PRN PRN (Reason: Insomnia) Qty: 0 0RF oxycodone 5 mg Tablet 5 mg PO Q4H PRN PRN (Reason: Pain Score 4-10 Or Pre Pt/Ot) Qty: 0 0RF Continued escitalopram oxalate 20 mg tablet 20 mg PO DAILY ferrous sulfate 325 MG tablet 325 mg PO 1200,1700 rosuvastatin 10 mg tablet 10 mg PO DAILY Patient Comments: take 1 tablet by mouth every morning levothyroxine 50 mcg tablet 50 mcg PO DAILY Qty: 90 3RF apixaban 2.5 mg tablet 2.5 mg PO BID Qty: 180 3RF Rx Instructions: New Dosage Referrals / Follow Up: Williams Dunne MD [Primary Care Provider] - (Follow-up within 3-4 days of SNF discharge or if prolonged SNF stay within 1-2 weeks of SNF admission.) Basilio Forrest MD [Med Staff - Active Staff] - (Follow-up within 1-2 weeks.) Disposition Disposition (needs filled in before D/C Order can be placed): Snf Facility (1) Closed right tibial fracture Qualifiers: Encounter type: initial encounter Tibia location: proximal Fracture morphology: other fracture Qualified Code(s): S82.191A - Other fracture of upper end of right tibia, initial encounter for closed fracture
[2023-10-12 14:24] VITALS: BP 115/62; PULSE 77; RESP 18; TEMP 36.7; O2SAT 96
--- NOTE | 2023-10-12 14:27 | PCM.DC.SUM ---
Providers Date of Admission: 10/10/23 Date of Discharge: 10/12/23 Primary Care Physician: MD Dr. Adriane Kelly Orthopedic surgery Reason For Visit: FALL WITH RIGHT KNEE PAIN Diagnosis Discharge Diagnosis (1) Closed right tibial fracture: Status: Acute Code(s): S82.201A - Unspecified fracture of shaft of right tibia, initial encounter for closed fracture Qualifiers: Encounter type: initial encounter Fracture morphology: other fracture Tibia location: proximal Qualified Code(s): S82.191A - Other fracture of upper end of right tibia, initial encounter for closed fracture Plan: DISCHARGE DIAGNOSES: #1. Mechanical fall w/ acute right proximal tibial fracture with extension to the base of tibial spines #2. CAD, Status post history of NSTEMI with eventual cardiac catheterization with CHANTELLE to LAD 2018 #3. HFpEF/Ischemic Cardiomyopathy #4. Chronic Kidney Disease Stage IV #5. PAF #6. Anxiety and depression #7. Chronic anemia/iron deficiency anemia #8. Hyperlipidemia #9. Hypothyroidism #10. GERD Medications at Discharge Home Medications escitalopram oxalate 20 mg tablet 20 mg PO DAILY Depression 07/08/18 ferrous sulfate 325 mg (65 mg iron) tablet 325 mg PO 1200,1700 supplement 09/11/18 levothyroxine 50 mcg tablet 50 mcg PO DAILY hypothyroid #90 tabs 01/08/22 apixaban 2.5 mg tablet 2.5 mg PO BID #180 tabs 10/29/22 rosuvastatin 10 mg tablet 10 mg PO DAILY 01/09/23 melatonin 3 mg tablet 3 mg PO QHS PRN PRN Insomnia #0 tabs 10/12/23 oxycodone 5 mg tablet 5 mg PO Q4H PRN PRN Pain Score 4-10 Or Pre Pt/Ot #0 tabs 10/12/23 Hospital Course Operations None Procedures None Summary of Care Provided Minutes Spent on Discharge: 35 Hospital Course: The patient is a 78 y/o F w/ PMHx: CKD stage IV, Obesity, HFrEF/Ischemic cardiomyopathy, Hypothyroidism, Diabetes mellitus type II, GERD, Anxiety and Depression, Valvular Heart Disease, HTN, HLD, PAF, CAD s/p PCI who presentED to the [facility] ED on 10/10/23 with history of mechanical fall with resulting right knee pain. The patient was admitted to medical surgical floor, orthopedic surgery followed with CT obtained with confirmed acute proximal tibial fracture posteriorly extending through the base of the tibial spines likely involving the PCL insertion site with recommendation for weightbearing as tolerated with knee immobilizer and crutches, maintained on fall precautions, PT/OT/case management following with recommendation for skilled facility to which patient has been accepted with plan follow-up outpatient with orthopedic surgery per their recommendation. Patient was continued on her home medications otherwise for CAD, HFpEF/Ischemic Cardiomyopathy, PAF, Anxiety and depression, HLD, Hypothyroidism with recommended also PCP follow-up. Patient obtained SNF bed quicker than expected with precertification for transition to TCU, thus at this time patient will be discharged to TCU in stable clinical condition for ongoing therapies, pain control, follow-up Orthopedic surgery evaluation and care outpatient. Weight / BMI Weight Weight: 196 lb 6.91 oz Body Mass Index (BMI) 34.7 ABG / Lab / Microbiology Data 10/11/23 04:18 10/11/23 04:18 Meaningful Use Info Meaningful Use Meaningful Use Diagnoses (Choose all that apply): None applicable Ischemic Stroke Statin Dosing Therapy Reference: STATIN DOSE THERAPY REFERENCE: * Patients > 75 years receive moderate or high dose statin therapy. * Patients 75 years or YOUNGER should receive HIGH intensity statin dose unless contraindicated. You will be required to document reason for non-treatment if statin daily dose does not meet guidelines. HIGH DOSE STATIN THERAPY DAILY Atorvastatin > than or = to 40 mg Rosuvastatin > than or = to 20 mg Amlodipine + Atorvastatin > than or = to 2.5/40 mg Ezetimibe + Simvastatin 10/80 mg Simvastatin 80mg Discharge Plan Admission Admit Date/Time: 10/10/23 23:17 Primary Reason for Your Visit: Fall, Acute R Proximal Tibial Fx Attending Provider: Sydney Fernandez Primary Care Provider: Williams Dunne Consulting Providers: Edmundo Garcia; Patrick Carrillo Discharge Orders/Prescriptions Prescriptions: New melatonin 3 mg Tablet 3 mg PO QHS PRN PRN (Reason: Insomnia) Qty: 0 0RF oxycodone 5 mg Tablet 5 mg PO Q4H PRN PRN (Reason: Pain Score 4-10 Or Pre Pt/Ot) Qty: 0 0RF Continued escitalopram oxalate 20 mg tablet 20 mg PO DAILY ferrous sulfate 325 MG tablet 325 mg PO 1200,1700 rosuvastatin 10 mg tablet 10 mg PO DAILY Patient Comments: take 1 tablet by mouth every morning levothyroxine 50 mcg tablet 50 mcg PO DAILY Qty: 90 3RF apixaban 2.5 mg tablet 2.5 mg PO BID Qty: 180 3RF Rx Instructions: New Dosage Referrals / Follow Up: Williams Dunne MD [Primary Care Provider] - (Follow-up within 3-4 days of SNF discharge or if prolonged SNF stay within 1-2 weeks of SNF admission.) Basilio Forrest MD [Med Staff - Active Staff] - (Follow-up within 1-2 weeks.) Disposition Disposition (needs filled in before D/C Order can be placed): [facility] Facility Charges/Coding Visit Charges Inpatient E&M: 16023 Disch Hosp >30min
--- NOTE | 2023-10-12 14:37 | PHA.DC.MR.R ---
Pharmacy [place] Med Reconciliation Pharmacy Service has performed discharge medication reconciliation for this patient. The patient's discharge medication list was reviewed for discrepancies and discrepancies were resolved. Medications at Discharge Home Medications escitalopram oxalate 20 mg tablet 20 mg PO DAILY Depression 07/08/18 ferrous sulfate 325 mg (65 mg iron) tablet 325 mg PO 1200,1700 supplement 09/11/18 levothyroxine 50 mcg tablet 50 mcg PO DAILY hypothyroid #90 tabs 01/08/22 apixaban 2.5 mg tablet 2.5 mg PO BID #180 tabs 10/29/22 rosuvastatin 10 mg tablet 10 mg PO DAILY 01/09/23 melatonin 3 mg tablet 3 mg PO QHS PRN PRN Insomnia #0 tabs 10/12/23 oxycodone 5 mg tablet 5 mg PO Q4H PRN PRN Pain Score 4-10 Or Pre Pt/Ot #0 tabs 10/12/23
--- NOTE | 2023-10-12 14:39 | CASEMGMT ---
Met with patient to complete LAWSON form. LAWSON form explained to patient who voiced understanding and signed form. Original form placed in pt?s chart and copy provided to patient. Luz Marina Coy, Discharge Planning Asst
--- NOTE | 2023-10-12 14:59 | CASEMGMT ---
CATARINA called patient's great niece/POA Karla. CATARINA introduced self and role at [facility]. CATARINA explained that patient's insurance approved patient to go to TCU. Patient will be discharged to TCU today. CATARINA let Karla know that patient will be able to wear regular clothes. Karla said she plans on bringing in clothes for patient and the POA papers. Plan: d/c to [facility] TCU under skilled level of care. Thalia BOND
== END 2023-10-12 14:24 ==
LOC: ED 18:22 → PCU 23:27
PROVIDERS: Admitting Provider Internal Medicine; Emergency Provider Emergency Medicine; PCP Family Medicine; Visit Provider Family Medicine
DX: S82.191A Other fracture of upper end of right tibia, initial encounter for closed fracture (principal); I13.2 Hypertensive heart and chronic kidney disease with heart failure and with stage 5 chronic kidney disease, or end stage renal disease; N18.4 Chronic kidney disease, stage 4 (severe); I50.42 Chronic combined systolic (congestive) and diastolic (congestive) heart failure; I27.21 Secondary pulmonary arterial hypertension; I48.0 Paroxysmal atrial fibrillation; R56.9 Unspecified convulsions; E11.22 Type 2 diabetes mellitus with diabetic chronic kidney disease; E03.9 Hypothyroidism, unspecified; Z79.890 Hormone replacement therapy; E66.9 Obesity, unspecified; I25.5 Ischemic cardiomyopathy; Z79.01 Long term (current) use of anticoagulants; Z79.82 Long term (current) use of aspirin; F41.9 Anxiety disorder, unspecified; S00.83XA Contusion of other part of head, initial encounter; F32.A Depression, unspecified; W01.0XXA Fall on same level from slipping, tripping and stumbling without subsequent striking against object, initial encounter; M25.551 Pain in right hip; Z68.37 Body mass index [BMI] 37.0-37.9, adult; I25.10 Atherosclerotic heart disease of native coronary artery without angina pectoris; D50.9 Iron deficiency anemia, unspecified; R53.81 Other malaise; R53.1 Weakness; K21.9 Gastro-esophageal reflux disease without esophagitis; E78.00 Pure hypercholesterolemia, unspecified; Z79.899 Other long term (current) drug therapy
CPT/HCPCS: 36415; 70450; 72125; 72170; 73552; 73562; 73700; 80048; 80053; 81001; 82962; 83735; 84100; 84443; 85025; 85610; 85730; 94668; 96374; 97162; 97166; 97530; 97802; 99221; 99285; J7030; A4216; G0378

== ENCOUNTER 2023-10-12 15:50 | Inpatient (IN) | payer MEDICARE, SELFPAY ==
[2023-10-12 16:14] VITALS: BP 116/70; PULSE 73; RESP 14; TEMP 36.7; O2SAT 98; BMI 32.3
[2023-10-12] MEDS: Ferrous Sulfate 325 MG Tablet PO (18:16)
[2023-10-12] MEDS: Glucerna Shake 120 ML LIQUID PO (18:16)
--- NOTE | 2023-10-12 20:14 | PCM.HP.STD ---
HPI - General General Date of Admission: 10/12/23 Date of Service: 10/12/23 Chief Complaint: Here for rehabilitation. HPI Narrative 10/10/2023 JORGE HARRY, is a 78 Female who presents to [facility] ED with fall. Mechanical fall, hit head, right knee, right hip. No LOC, on Eliquis for atrial fibrillation. Stress induced seizure after CT resolved. Patient has history of this. CT showed right proximal tibial fracture. Dr. Forrest recommended right knee immobilizer, WBAT. 10/10/2023 Admit [facility]. No surgery for right proximal tibial fracture. Pain control, PT/OT right proximal tibial fracture. 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 10/11/2023 Right knee pain. Right knee immobilizer, WBAT right proximal tibial fracture. PT/OT recommended rehab. 10/12/2023 SNF recommended. 10/12/2023 Admit to TCU with debility, here for rehabilitation, strengthening, prior to discharge home alone. 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 Bruit of left carotid artery Pure hypercholesterolemia Essential hypertension Paroxysmal atrial fibrillation End stage kidney disease Acute encephalopathy Renal insufficiency Symptomatic anemia Chronic systolic HF (heart failure) Shortness of breath Secondary pulmonary arterial hypertension Nonrheumatic tricuspid (valve) insufficiency Nonrheumatic mitral valve regurgitation Ischemic cardiomyopathy Atherosclerotic heart disease of [place] coronary artery without angina pectoris History of non-ST elevation myocardial infarction (NSTEMI) (10/24/17) Anxiety and depression Obesity (BMI 30-39.9) Hypothyroidism Diabetes mellitus, type II GERD (gastroesophageal reflux disease) Home Medications ?Medication ?Instructions ?Recorded ?Last Taken ?Type escitalopram oxalate 20 mg tablet 20 mg PO DAILY Depression 07/08/18 10/12/23 09:15 History ferrous sulfate 325 mg (65 mg 325 mg PO 1200,1700 supplement 09/11/18 10/12/23 09:15 History iron) tablet levothyroxine 50 mcg tablet 50 mcg PO DAILY hypothyroid #90 01/08/22 10/12/23 06:00 Rx tabs apixaban 2.5 mg tablet 2.5 mg PO BID Anticoagulant #180 10/29/22 10/12/23 09:15 Rx tabs rosuvastatin 10 mg tablet 10 mg PO DAILY Cholesterol 01/09/23 10/11/23 21:05 History melatonin 3 mg tablet 3 mg PO QHS PRN PRN Insomnia #0 10/12/23 Unknown Rx tabs oxycodone 5 mg tablet 5 mg PO Q4H PRN PRN Pain Score 10/12/23 Unknown Rx 4-10 Or Pre Pt/Ot #0 tabs Allergy/AdvReac Type Severity Reaction Status Date / Time amiodarone AdvReac Severe Affected Verified 10/10/23 17:28 lung function: see PFT 05/2021 Family History Mother CAD (coronary artery disease) Myocardial infarction Father CAD (coronary artery disease) Myocardial infarction Sister Myocardial infarction CAD (coronary artery disease) Stented coronary artery Surgical History History of left heart catheterization (10/25/17) Stented coronary artery (10/25/17) Social History (Updated 10/12/23 @ 20:[address] Miles Scott MD) household members: none housing: house Smoking Status: Never smoker alcohol intake: never substance use type: does not use caffeine: Yes Type: coffee Number of servings: 1 ROS Constitutional Constitutional: Denies chills, fever(s) or weight gain ENT HEENT: Denies headache(s), nasal congestion or nasal discharge Cardiovascular Cardiovascular: Denies chest pain or palpitations Respiratory/Chest Respiratory/Chest: Denies cough, excessive phlegm production or shortness of breath with exertion Gastrointestinal Gastrointestinal: Denies abdominal pain, nausea or vomiting Genitourinary Genitourinary: Denies dysuria Musculoskeletal Musculoskeletal: Reports other Details: Right knee pain. ; Denies joint pain or joint swelling Integumentary Integumentary: Denies rash or wounds Neurologic Neurologic: Denies focal weakness, numbness or tingling Psychiatric Psychiatric: Denies anxiety, auditory hallucinations, depression, homicidal ideation or suicidal ideation Vital Signs Vital Signs Vital Signs: 10/12/23 16:14 10/12/23 18:29 Temperature 98.1 F Temperature Source Temporal Pulse Rate 73 Pulse Rhythm Irregular Pulse Strength Normal (2+) Respiratory Rate 14 Respiratory Effort Normal Non-Labored Respiratory Depth Normal Respiratory Pattern Normal Blood Pressure 116/70 Blood Pressure Mean 85 Blood Pressure Source Monitor Blood Pressure Position Sitting Blood Pressure Location Left Arm Pulse Ox 98 Oxygen Delivery Method Room Air Room Air Weight Weight: 90.718 kg Body Mass Index (BMI) 32.3 Physical Exam Const alert General Appearance: cooperative HEENT normocephalic Eyes PERRL and EOMs intact bilaterally Neck supple, no JVD and no carotid bruits Resp normal respiratory effort, normal air movement and clear to auscultation bilaterally Cardio regular rate and regular rhythm GI normal to inspection, nondistended, normoactive bowel sounds, non-tender and non-distended Extremity normal capillary refill Extremity Narrative: Right knee immobilizer. General Extremity: Negative for edema Skin no rashes or lesions noted General Skin Exam: no breakdown Psych affect normal Appearance: appropriate Assessment & Plan Assessment/Plan (1) Debility: (2) Closed right tibial fracture: QUALIFIERS: Encounter type: initial encounter Fracture morphology: other fracture Tibia location: proximal Qualified Code(s): S82.191A - Other fracture of upper end of right tibia, initial encounter for closed fracture (3) Seizure-like activity: (4) Depression: (5) Iron deficiency anemia: (6) Hypothyroidism: (7) Atrial fibrillation: (8) Hyperlipidemia: PLAN: Plan 78 year old female with below past medical history hospitalized for right proximal tibial fracture, treated non-operatively complicated by pseudoseizure, admitted to TCU with debility, here for rehabilitation, strengthening, prior to discharge home alone. Debility - PT/OT. Pain - Tylenol 1000mg po q6 prn pain (1-3), Oxycodone 5mg q4 prn pain (4-10). Bowel - senna/colace 1 tablet bid, Dulcolax 10mg pr daily prn, Magnesium citrate 300ml po daily prn. Adult immunization - Administer pneumonia vaccine, covid vaccine, flu vaccine as appropriate. DVT prophylaxis - on Eliquis. Atrial fibrillation - Eliquis 2.5mg bid. Hyperlipidemia - Atorvastatin 20mg qhs. Depression - Lexapro 20mg daily, stable chronic nursing home use, GDR not recommended. Iron deficiency anemia - Ferrous sulfate 325mg bid. Nutrition - Glucerna Shake 120ml po tidcm. Hypothyroidism - Levothyroxine 50mcg daily. Insomnia - Melatonin 3mg qhs prn.
[2023-10-12] MEDS: APIXABAN 2.5 MG TABLET (WCH) PO (22:21)
[2023-10-12] MEDS: Atorvastatin Calcium 20 MG Tablet PO (22:21)
[2023-10-12] MEDS: 0.9% Saline Lock 10 ML Syringe IV (22:22)
--- NOTE | 2023-10-13 00:24 | NURSING ---
Pt is A&O x3, self transferred to bathroom, education provided by staff on importance of using call light to ask staff for assistance with transfers for safety. Pt continued to self transfer 2 more times within an hour even after staff reminded pt to call before getting up each time. Written communication left for Dr. Scott asking for personal alarm for safety.
[2023-10-13] MEDS: Levothyroxine 50 MCG Tablet PO (05:58)
[2023-10-13] MEDS: Glucerna Shake 120 ML LIQUID PO ×3 (08:43→18:30)
[2023-10-13] MEDS: APIXABAN 2.5 MG TABLET (WCH) PO (08:44)
[2023-10-13] MEDS: Escitalopram Oxalate 20 MG Tablet PO (08:44)
[2023-10-13] MEDS: Tuberculin,Purif.prot.deriv. 50 TU/ML Vial 0.1 ML ID (08:46)
[2023-10-13 10:40] VITALS: BMI 32.0
[2023-10-13 12:42] VITALS: PULSE 80; O2SAT 96
[2023-10-13] MEDS: Ferrous Sulfate 325 MG Tablet PO ×2 (13:27→18:30)
--- NOTE | 2023-10-13 14:08 | NURSING ---
Left VM with Dr. Forrest's office asking about removing brace for ROM and to about follow-up. Await return call.
--- NOTE | 2023-10-13 14:45 | CHAPLAIN ---
Type of Pastoral Visit ___ Initial Visit ___ Follow-up Visit ___ On-call Visit ___ General Patient Visit ___ Spiritual Assessment ___ Family Conference ___ Bereavement ___ Rapid Response ___ Code Blue ___ Other (describe below) Pastoral Care Referral From ___ Patient ___ Family ___ Nurse ___ Physician ___ Timber Killer ___ Dog Behaviorist ___ Other (describe below) Sacrament/Intervention ___ Active listening ___ Anointing ___ Christian ___ Bereavement ___ Communion ___ Mónica exploration ___ ___ Life review ___ Prayer ___ Reconciliation ___ Sacrament of Sick ___ Supportive presence ___ Wedding ___ Other (describe below) Pastoral Comments patient and bed were out of the room; left a calling card
--- NOTE | 2023-10-13 15:27 | PCM.PN.DRR ---
Documented by User: Brittney Mitchell 10/13/23 15:41 TCU RX Drug Regimen Review Subjective/Objective Subjective/Objective: Subjective: TCU Admission. 78 YOF presented to the ER with a fall. Hospitalized for right proximal tibial fracture, treated non-operatively complicated by pseudoseizure. Admitted to TCU with debility for strengthening and rehabilitation. Objective: Allergies amiodarone Adverse Reaction (Severe, Verified 10/10/23 17:28) Affected lung function: see PFT 05/2021 Current Medications Generic Name Dose Route Start Last Admin Trade Name Freq PRN Reason Stop Dose Admin Acetaminophen 1,000 mg 10/12/23 16:20 Acetaminophen 500 Mg Tablet PO Q6H PRN PRN Pain Score 1-3 Apixaban 2.5 mg 10/12/23 22:00 10/13/23 08:44 Apixaban 2.5 Mg Tablet ([facility]) PO 2.5 mg BID URMILA Administration Atorvastatin Calcium 20 mg 10/12/23 22:00 10/12/23 22:21 Atorvastatin Calcium 20 Mg Tablet PO 20 mg QHS URMILA Administration Bisacodyl 10 mg 10/12/23 16:09 Bisacodyl 10 Mg Suppository RC DAILY PRN PRN Constipation Escitalopram Oxalate 20 mg 10/13/23 10:00 10/13/23 08:44 Escitalopram Oxalate 20 Mg Tablet PO 20 mg DAILY URMILA Administration Ferrous Sulfate 325 mg 10/12/23 17:00 10/13/23 13:27 Ferrous Sulfate 325 Mg Tablet PO 325 mg 1200,1700 URMILA Administration Levothyroxine Sodium 50 mcg 10/13/23 06:00 10/13/23 05:58 Levothyroxine 50 Mcg Tablet PO 50 mcg DAILY@0600 URMILA Administration Magnesium Citrate 300 ml 10/12/23 20:26 Magnesium Citrate 300 Ml PO DAILY PRN Constipation Melatonin 3 mg 10/12/23 16:08 Melatonin 3 Mg Tablet PO QHS PRN PRN Insomnia Nutritional Formula (Lactose Free) 120 ml 10/12/23 17:45 10/13/23 13:27 Glucerna Shake 120 Ml Liquid PO 120 ml TIDCM URMILA Administration Oxycodone HCl 5 mg 10/12/23 16:08 Oxycodone 5 Mg Tablet PO Q4H PRN PRN Pain Score 4-10 Or Pre Pt/Ot Senna/Docusate Sodium 1 tablet 10/12/23 22:00 10/13/23 08:44 Senna/Docusate Sodium 1 Tablet PO Not Given BID URMILA Sodium Chloride 10 - 40 ml 10/12/23 16:16 10/12/23 22:22 0.9% Saline Lock 10 Ml Syringe IV 10 ml UD PRN Administration SALINE FLUSH Tuberculin PPD 0.1 ml 10/20/23 10:00 Tuberculin,Purif.Prot.Deriv. 50 Tu/Ml Vial ID 10/20/23 10:01 X1 ONE Problem List Hyperlipidemia (Acute) Iron deficiency anemia (Acute) Depression (Acute) Debility (Acute) Seizure-like activity (Acute) Closed right tibial fracture (Acute) Hypothyroidism (Chronic) Vital Signs Temp Pulse Resp BP Pulse Ox O2 Del Method 98.1 F 80 14 116/70 96 Room Air 10/12/23 16:14 10/13/23 12:42 10/12/23 16:14 10/12/23 16:14 10/13/23 12:42 10/13/23 12:42 Oxygen Delivery Method Room Air Weight: 90.083 kg Body Mass Index (BMI) 32.0 Assessment/Plan: 1. Pain: acetaminophen 1000mg PO Q6H PRN pain 1-3 and oxycodone 5mg PO Q4H PRN pain 4-10. Resident has not used any PRN doses. Please continue to monitor for increased pain and PRN usage. 2. Bowel: senna/docusate 1T PO BID, bisacodyl 10mg RC daily PRN constipation and magnesium citrate 300mL PO daily PRN constipation. Please consider changing senna/docusate to PRN as resident has refused 2/2 doses. Thanks. No PRN doses have been given. Please continue to monitor for constipation and PRN usage. Last documented bowel movement was 10/12. 3. Atrial fibrillation: apixaban 2.5mg PO BID. Resident does not meet criteria for decreased dose (SCr is >1.5mg/dL but age is <80 and weight is >60kg). Please consider increasing dose to 5mg if clinically appropriate. Thanks. 4. Hyperlipidemia: atorvastatin 20mg PO QHS. Please consider ordering a lipid panel as the last panel was from 12/14. Thanks. Please continue to monitor LFTs (last 10/11/23) and muscle pain. 5. Iron deficiency anemia: ferrous sulfate 325mg PO BID. Please continue to monitor hemoglobin (last 12.9g/dL), iron studies (last 08/18/23), constipation and dark stools. 6. Hypothyroidism: levothyroxine 50mcg PO daily. Please continue to monitor TSH (last 10/11/23) and S/S of hypothyroidism. 7. Insomnia: melatonin 3mg PO QHS PRN insomnia. Resident has not had any doses so far. Please continue to monitor for insomnia and PRN usage. Assessment/Plan for indications treated with psychotropic medications: 1. Depression: escitalopram 20mg PO daily. Please see physician note regarding GDR. Please continue to monitor for suicidal ideation (black box warning), sodium (last 138mmol/L), falls/factures (BEERs medication) and GI side effects. Medical chart and medication regimen reviewed. The following medication irregularities or issues were identified: 1. Senna/docusate 1T PO BID. Please consider changing senna/docusate to PRN as resident has refused 2/2 doses. Thanks. 2. Apixaban 2.5mg PO BID. Resident does not meet criteria for decreased dose (SCr is >1.5mg/dL but age is <80 and weight is >60kg). Please consider increasing dose to 5mg if clinically appropriate. Thanks. 3. Atorvastatin 20mg PO QHS. Please consider ordering a lipid panel as the last panel was from 12/14. Thanks. Date Date of Note:: 10/13/23 Documented by User: Dr. Miles Scott MD 10/13/23 16:28 TCU RX Drug Regimen Review Provider Comments Provider responsibility Provider Comments to Recommendations by Pharmacy: Agree
[2023-10-13 16:00] VITALS: BP 109/62; PULSE 80; RESP 16; TEMP 36.4; O2SAT 96
[2023-10-13] MEDS: APIXABAN 5 MG TABLET PO (19:56)
[2023-10-13] MEDS: Atorvastatin Calcium 20 MG Tablet PO (19:57)
--- NOTE | 2023-10-13 20:30 | NURSING ---
Resident's contact, Annalise, brought Healthcare POA papers to the unit. This nurse made a copy to be filed on the chart as Annalise only had the original document.
[2023-10-14] MEDS: Levothyroxine 50 MCG Tablet PO (05:24)
[2023-10-14 06:30] LABS: Cholesterol 154 mg/dL (200); High Density Lipoprotein 41 mg/dL; Triglycerides 77 mg/dL; Very Low Density Lipoprotein 15 mg/dL (5-40)
[2023-10-14 08:12] LABS: Absolute Lymphocyte Count 1.89 X10^3/uL (0.83-4.51); Basophil# 0.02 X10^3/uL; Basophil% 0.3 % (0-1); Eosinophil# 0.09 X10^3/uL; Eosinophils% 1.4 % (0-5); Hematocrit 40.6 % (37-47); Hemoglobin 12.7 g/dL (12.0-15.0); Lymphocyte # 1.89 X10^3/ul (0.83-4.51); Lymphocyte % 28.8 % (19-41); Mean Corp Hgb Conc 31.3 g/dL (32-36); Mean Corpuscular Hgb 29.8 pg (27.0-32.0); Mean Corpuscular Volume 95.3 fL (81-99); Mean Platelet Vol. 12.1 fl (6.2-12.0); Monocyte# 0.58 X10^3/uL; Monocyte% 8.8 % (0-10); NRBC Flagged by Analyzer 0 % (0-5); Neutrophil # 3.96 X10^3/uL (2.7-7.7); Neutrophil % 60.4 % (47-70); Platelet Count 127 K/mm3 (150-450); RBC Distribution Width CV 13.9 % (11.6-14.6); RBC Distribution Width SD 48.9 fl (35.1-43.9); Red Blood Count 4.26 M/mm3 (4.2-5.4); White Blood Count 6.6 K/mm3 (4.4-11.0)
[2023-10-14 08:36] LABS: Anion Gap 8 (5-15); BUN 41 mg/dL (7-18); BUN/Creat Ratio 14.5 RATIO (10-20); Calcium,Total 9.5 mg/dL (8.5-10.1); Chloride 110 mmol/L (98-107); Creatinine, Serum 2.83 mg/dL (0.55-1.02); EST Glomerular Filtration Rate 17 mL/min (>60); Est Glom Filt Rate - Afr Amer 21 mL/min (>60); Estimated Creatinine Clearance 18.52 ml/min; Glucose 113 mg/dL (74-106); Potassium 4.4 mmol/L (3.5-5.1); Sodium Level 137 mmol/L (136-145)
--- NOTE | 2023-10-14 08:58 | NURSING ---
Received phone call from Dr. Forrest's office. Per Dr. Adriane madrid to remove immoblizer and do ROM. Pt to f/u on Oct 26 @ 9:00am.
[2023-10-14] MEDS: Escitalopram Oxalate 20 MG Tablet PO (09:33)
[2023-10-14] MEDS: APIXABAN 5 MG TABLET PO ×2 (09:33→20:41)
[2023-10-14] MEDS: Glucerna Shake 120 ML LIQUID PO ×3 (09:33→20:41)
--- NOTE | 2023-10-14 10:07 | NURSING ---
Pt states she cannot find her medical alert necklace. This nurse checked through pt's belongings and did not find one. Called PCU to check if they found it. Per Pt is unsure when it was taken off. Advised pt to check with family and see if it is at her house.
[2023-10-14] MEDS: Ferrous Sulfate 325 MG Tablet PO ×2 (12:02→18:01)
--- NOTE | 2023-10-14 12:52 | NURSING ---
Automotive Design Drafter Note; Activity Asst: Carmen Sharif is independent in her choice of daily activities. He middle name is Brodie and prefers to be called that. She will watch tv, read and enjoys her word search puzzle books. Family and friends will visits and bring her items as well. Staff will continue to offer social activities, reminder her of weekly activities and respect her right to say no.
[2023-10-14 16:00] VITALS: BP 125/73; PULSE 70; RESP 16; TEMP 36.4; O2SAT 98
--- NOTE | 2023-10-14 16:20 | CHAPLAIN ---
Type of Pastoral Visit __x_ Initial Visit ___ Follow-up Visit ___ On-call Visit ___ General Patient Visit ___ Spiritual Assessment ___ Family Conference ___ Bereavement ___ Rapid Response ___ Code Blue ___ Other (describe below) Pastoral Care Referral From _x__ Patient ___ Family ___ Nurse ___ Physician ___ Engineering And Development Director ___ Passenger Car Upholsterer Apprentice ___ Other (describe below) Sacrament/Intervention _x__ Active listening ___ Anointing ___ Advent ___ Bereavement ___ Communion _x__ Mónica exploration ___ _x__ Life review _x__ Prayer ___ Reconciliation ___ Sacrament of Sick ___ Supportive presence ___ Wedding ___ Other (describe below) Pastoral Comments patient is welcoming to spiritual care and gives some of her life story which illustrates her values of mónica, community, and 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
--- NOTE | 2023-10-14 16:34 | CASEMGMT ---
Social Work SW met with pt to complete psychosocial assessment. Pt confirms she has a health care POA naming her nieces Karla Franklin and Danette Morrow. Pt has not completed a Living Will and is not interested in further information. Pt confirms she is a full code. SW educated pt to [facility] Medicare benefit and that continued stay is not guaranteed. Pt lives home alone and plans to return home and back to independent lifestyle at time of discharge. SW will continue to follow. CRISTINA Lance
[2023-10-14] MEDS: Atorvastatin Calcium 20 MG Tablet PO (20:41)
[2023-10-15] MEDS: Levothyroxine 50 MCG Tablet PO (05:19)
[2023-10-15 09:40] VITALS: BP 103/66; PULSE 85; RESP 17; TEMP 36.4; O2SAT 95
[2023-10-15] MEDS: Escitalopram Oxalate 20 MG Tablet PO (09:43)
[2023-10-15] MEDS: APIXABAN 5 MG TABLET PO ×2 (09:43→20:47)
[2023-10-15] MEDS: Glucerna Shake 120 ML LIQUID PO ×2 (09:45→20:47)
--- NOTE | 2023-10-15 11:46 | NURSING ---
Updated that a patient and a staff member tested positive for covid. Patient did not want family updated.
[2023-10-15] MEDS: Ferrous Sulfate 325 MG Tablet PO ×2 (12:38→17:12)
[2023-10-15] MEDS: Atorvastatin Calcium 20 MG Tablet PO (20:47)
[2023-10-16] MEDS: Levothyroxine 50 MCG Tablet PO (05:17)
[2023-10-16] MEDS: Glucerna Shake 120 ML LIQUID PO ×2 (09:37→21:58)
[2023-10-16] MEDS: Escitalopram Oxalate 20 MG Tablet PO (09:37)
[2023-10-16] MEDS: APIXABAN 5 MG TABLET PO ×2 (09:37→21:58)
[2023-10-16] MEDS: Ferrous Sulfate 325 MG Tablet PO ×2 (12:43→17:21)
[2023-10-16 16:00] VITALS: BP 126/58; PULSE 79; RESP 14; TEMP 36.7; O2SAT 96
[2023-10-16] MEDS: Atorvastatin Calcium 20 MG Tablet PO (21:58)
[2023-10-17] MEDS: Levothyroxine 50 MCG Tablet PO (06:11)
[2023-10-17] MEDS: Escitalopram Oxalate 20 MG Tablet PO (09:32)
[2023-10-17] MEDS: APIXABAN 5 MG TABLET PO ×2 (09:32→21:27)
[2023-10-17] MEDS: Ferrous Sulfate 325 MG Tablet PO ×2 (11:39→17:49)
[2023-10-17] MEDS: Glucerna Shake 120 ML LIQUID PO ×2 (11:39→21:26)
[2023-10-17 15:56] VITALS: BP 101/64; PULSE 74; RESP 12; TEMP 36.8; O2SAT 100
[2023-10-17 20:00] VITALS: PULSE 84; O2SAT 95
[2023-10-17] MEDS: Atorvastatin Calcium 20 MG Tablet PO (21:27)
[2023-10-18 02:57] VITALS: PULSE 88; O2SAT 95
[2023-10-18] MEDS: Levothyroxine 50 MCG Tablet PO (05:44)
[2023-10-18] MEDS: Glucerna Shake 120 ML LIQUID PO ×2 (08:52→21:01)
[2023-10-18] MEDS: Escitalopram Oxalate 20 MG Tablet PO (08:52)
[2023-10-18] MEDS: APIXABAN 5 MG TABLET PO ×2 (08:52→21:02)
[2023-10-18] MEDS: Ferrous Sulfate 325 MG Tablet PO ×2 (12:12→18:09)
[2023-10-18 13:53] VITALS: BP 138/80; PULSE 78; RESP 18; TEMP 35.8; O2SAT 98
[2023-10-18] MEDS: Atorvastatin Calcium 20 MG Tablet PO (21:03)
[2023-10-19] MEDS: Levothyroxine 50 MCG Tablet PO (05:42)
[2023-10-19 07:55] VITALS: BP 103/59; PULSE 79; RESP 16; TEMP 36; O2SAT 99
[2023-10-19] MEDS: Escitalopram Oxalate 20 MG Tablet PO (07:56)
[2023-10-19] MEDS: Glucerna Shake 120 ML LIQUID PO ×2 (07:56→20:03)
[2023-10-19] MEDS: APIXABAN 5 MG TABLET PO ×2 (07:57→20:03)
--- NOTE | 2023-10-19 08:46 | NURSING ---
Blood Bank Technologist Note; MDS for 10/19/2023 Complete
--- NOTE | 2023-10-19 10:52 | NURSING ---
therapy requested that surgeon be notified to see if immobilizer could be removed, pt lives alone and unable to apply brace self. Dr Forrest office notified, spoke with joanie Beck to remove immobilizer for DC but wants pt to follow up in his office 2-3 days after DC from TCU.
[2023-10-19] MEDS: Ferrous Sulfate 325 MG Tablet PO ×2 (11:50→17:34)
--- NOTE | 2023-10-19 12:00 | CASEMGMT ---
Social Work SW conducted BIMS (02/06) and PHQ-2 () for MDS assessment. Yasmin Aguilar MSW SECOND CRUSHER
[2023-10-19 12:58] VITALS: PULSE 76; RESP 16; O2SAT 94
[2023-10-19] MEDS: Atorvastatin Calcium 20 MG Tablet PO (20:03)
[2023-10-20 05:59] LABS: Absolute Lymphocyte Count 1.74 X10^3/uL (0.83-4.51); Absolute Neutrophil Count 3.8 X10^3/uL (2.0-7.7); Basophil# 0.02 X10^3/uL; Basophil% 0.3 % (0-1); Eosinophil# 0.05 X10^3/uL; Eosinophils% 0.8 % (0-5); Hematocrit 39.1 % (37-47); Hemoglobin 12.4 g/dL (12.0-15.0); Lymphocyte # 1.74 X10^3/ul (0.83-4.51); Lymphocyte % 27.5 % (19-41); Mean Corp Hgb Conc 31.7 g/dL (32-36); Mean Corpuscular Hgb 30.2 pg (27.0-32.0); Mean Corpuscular Volume 95.1 fL (81-99); Mean Platelet Vol. 12.2 fl (6.2-12.0); Monocyte# 0.72 X10^3/uL; Monocyte% 11.4 % (0-10); NRBC Flagged by Analyzer 0 % (0-5); Neutrophil # 3.75 X10^3/uL (2.7-7.7); Neutrophil % 59.4 % (47-70); Platelet Count 123 K/mm3 (150-450); RBC Distribution Width CV 13.9 % (11.6-14.6); RBC Distribution Width SD 48.7 fl (35.1-43.9); Red Blood Count 4.11 M/mm3 (4.2-5.4); White Blood Count 6.3 K/mm3 (4.4-11.0)
[2023-10-20] MEDS: Levothyroxine 50 MCG Tablet PO (06:10)
[2023-10-20 06:12] VITALS: RESP 16
--- NOTE | 2023-10-20 09:35 | CASEMGMT ---
Addendum entered by Yasmin Aguilar 10/20/23 15:24: Plan: DC home with family's house 10/22, HHC PT/OT/ST Original Note: Social Work SW received call from Karla martinez, requesting to discuss planning for DC for pt. Nireji stated that pt is ready to go home and TCU is not doing anything that the pt couldn't do at home. SW educated to care plan meeting scheduled for tomorrow, that IDT will explain the insurance coverage, pt's current LOF and recommendations for DC. Nireji interrupted this worker providing explanation and demanded this worker talk to the Dr for pt to be discharged home today; pt is doing everything on her own, the knee immobilizer has been removed, and wants this worker to order skilled HHC. CATARINA explained the insurance update is today and provides a 3-day notice for DC, but this worker will speak with the Dr and therapy as there were some concerns for safety with discharge. SW will follow up with nireji once IDT has provided input. Niece agreed. CATARINA began reviewing documentation when pt was walking with CORN CHIP MAKER past this worker's office moments after phone conversation. CATARINA spoke with pt and CORN CHIP MAKER about phone call and niece's request for pt to be discharged today. SW inquired to pt about her views on DC. Pt stated she is ready to go home. CORN CHIP MAKER confirmed that Dr. Forrest did agree for knee immobilizer to be removed, and CORN CHIP MAKER worked differently with knee during today's session. CORN CHIP MAKER recommending pt stay a few more days to see how knee reacts without brace, and can focus on strengthening. After OT session today, pt will be granted adlib status, which can determine safety in a controlled environment prior to returning home alone. SW noted OT is still helping Yuliet with bathing. Pt stated she will be discharging to her niece's house who can help with bathing. SW noted niece works horse race timer so pt would still be home alone during the day. Pt denied, stating niece's will be home during the day and can assist. CATARINA explained the insurance update is today, and will see that pt has made great progress, and likely issue DC date. Offered for pt to DC 10/22, to allow more days for strengthening. Pt agreed and expressed understanding to reasoning for continued stay. SW agreed this is a benefit for the pt, to help prevent readmission and prepare for a success DC. CATARINA stated she will return niece's call, but to ensure pt will follow up with niece to verify these are pt's wishes as well. Pt confirmed. ST spoke with this worker on concerns with returning home alone. Pt has mild cognitive deficits, see ST notes for details, but recommending pt have assistance with finances, meds, daily safety cues with higher level functioning tasks and short-term recall. ST to focus on safety problem solving to determine if pt would be safe if she does return home alone. SW will update niece. -- CATARINA phoned nireji to update on above. Explained POC meeting will be held tomorrow and niece can hear further details from therapy and ask questions. Pt will be discharged home 10/22. Confirmed location. Nireji stated that family has agreed for pt to DC to someone's house at [place], depending on pt's needs. CATARINA agreed for pt not to be home alone initially, and ST will report out the results of the therapy session today at the POC meeting. CATARINA stressed someone overseeing pt's meds and finances at [place]. Niece agreed and family had begun offering to take over those needs. CATARINA will coordinate services for DC as well. Nireji agreeable and will be present at the meeting. CATARINA will continue to follow. GRETCHEN Steel
[2023-10-20] MEDS: APIXABAN 5 MG TABLET PO ×2 (10:00→20:18)
[2023-10-20] MEDS: Glucerna Shake 120 ML LIQUID PO ×2 (10:00→20:17)
[2023-10-20] MEDS: Ferrous Sulfate 325 MG Tablet PO ×2 (10:00→17:12)
[2023-10-20] MEDS: Escitalopram Oxalate 20 MG Tablet PO (10:00)
[2023-10-20] MEDS: Tuberculin,Purif.prot.deriv. 50 TU/ML Vial 0.1 ML ID (10:01)
[2023-10-20 11:00] VITALS: BMI 32.0
[2023-10-20 11:01] LABS: Bacteria 0 SEEN /hpf (None Seen); Mucous, Urine 0 SEEN /hpf (<or=2+); Red Blood Cells-Urine 0 SEEN /hpf (0-5); Squamous Epithelial Cells - UA 0 SEEN /hpf (5-10); White Blood Cells 0 SEEN /hpf (0-5)
[2023-10-20 11:03] LABS: Color, Urine Yellow (Yellow); Glucose, Dipstick Normal (Normal); Ketone-Dipstick Negative (Negative); Leukocyte Esterase-Dipstick 25 /ul (Negative); Nitrite-Dipstick Negative (Negative); Occult Blood-Urine Negative /ul (Negative); Protein-Dipstick 15 mg/dl (Negative); Specific Gravity, Urine 1.015 (1.002-1.030); Urine Bilirubin Dipstick Negative (Negative); Urine Clarity Clear (Clear); Urine Urobilinogen Normal (Normal)
[2023-10-20 11:05] LABS: Anion Gap 8 (5-15); BUN 51 mg/dL (7-18); BUN/Creat Ratio 21.2 RATIO (10-20); Calcium,Total 9.8 mg/dL (8.5-10.1); Chloride 109 mmol/L (98-107); Creatinine, Serum 2.41 mg/dL (0.55-1.02); EST Glomerular Filtration Rate 21 mL/min (>60); Est Glom Filt Rate - Afr Amer 25 mL/min (>60); Estimated Creatinine Clearance 21.74 ml/min; Glucose 98 mg/dL (74-106); Potassium 4.3 mmol/L (3.5-5.1); Sodium Level 139 mmol/L (136-145)
[2023-10-20 14:21] VITALS: BP 119/62; PULSE 74; RESP 16; TEMP 36.3; O2SAT 98
[2023-10-20] MEDS: Atorvastatin Calcium 20 MG Tablet PO (20:17)
[2023-10-21] MEDS: Senna/Docusate Sodium 1 Tablet PO (05:47)
[2023-10-21] MEDS: Levothyroxine 50 MCG Tablet PO (05:47)
[2023-10-21] MEDS: Glucerna Shake 120 ML LIQUID PO ×2 (11:02→21:37)
[2023-10-21] MEDS: Escitalopram Oxalate 20 MG Tablet PO (11:02)
[2023-10-21] MEDS: APIXABAN 5 MG TABLET PO ×2 (11:02→21:38)
[2023-10-21] MEDS: Ferrous Sulfate 325 MG Tablet PO ×2 (11:02→17:03)
--- NOTE | 2023-10-21 11:39 | CASEMGMT ---
Addendum entered by Yasmin Aguilar 10/23/23 09:31: CATARINA left two more VMs with [facility] and no response. CATARINA phoned juan to inquire about referring to [facility], her second choice. Niece confirmed. CATARINA phoned referral to [facility] for PT/OT/ST. FWW delivered to pt's room. Addendum entered by Yasmin Aguilar 10/22/23 10:31: CATARINA faxed referral to N yesterday. CATARINA left VM this date to follow up on referral. [place] [facility] [place] [employer]. Original Note: Social Work IDT met with patient and three family members for care plan meeting. Discussed patient's progress in PT/OT/ST/SN. SW provided pt/family with written communication on insurance process and copay coverage during stay. Confirmed DC plan for home on 10/22. IDT stressed pt will need someone to complete medication and finances at DC. See ST note for details. Provided skilled C agency list with quality and resource data via [employer]. Juan is requesting [facility] first, then [facility] second. Pt and family does want pt to have FWW at home. SW to coordinate both services. Family to transport. Pt will DC to her own home with the three family members taking shifts to care for pt. Plan: DC home with assistance 10/22, [facility] PT/OT/ST/SN, FWW Yasmin Aguilar, TRAVEL TRAILER COMPONENTS ASSEMBLER CRISTINA
[2023-10-21 14:56] VITALS: BP 146/73; PULSE 87; RESP 16; TEMP 36.2; O2SAT 99
[2023-10-21 20:00] VITALS: PULSE 82; RESP 16; O2SAT 99
--- NOTE | 2023-10-21 20:50 | DS.PCM_ITS ---
Providers Date of Admission: 10/12/23 Primary Care Physician: Dr. Williams Dunne MD Reason For Visit: FALL AND R KNEE PAIN Diagnosis Discharge Diagnosis (1) Debility: Status: Acute Code(s): R53.81 - Other malaise (2) Closed right tibial fracture: Status: Inactive Code(s): S82.201A - Unspecified fracture of shaft of right tibia, initial encounter for closed fracture Qualifiers: Encounter type: initial encounter Tibia location: proximal Fracture morphology: other fracture Qualified Code(s): S82.191A - Other fracture of upper end of right tibia, initial encounter for closed fracture (3) Seizure-like activity: Status: Inactive Code(s): R56.9 - Unspecified convulsions (4) Depression: Status: Acute Code(s): F32.A - Depression, unspecified (5) Iron deficiency anemia: Status: Acute Code(s): D50.9 - Iron deficiency anemia, unspecified (6) Hypothyroidism: Status: Chronic Code(s): E03.9 - Hypothyroidism, unspecified (7) Atrial fibrillation: Status: Inactive Code(s): I48.91 - Unspecified atrial fibrillation (8) Hyperlipidemia: Status: Acute Code(s): E78.5 - Hyperlipidemia, unspecified Plan 78 year old female with below past medical history hospitalized for right proximal tibial fracture, treated non-operatively complicated by pseudoseizure, admitted to TCU with debility, here for rehabilitation, strengthening, prior to discharge home alone. * Debility - PT/OT. * Pain - Tylenol 1000mg po q6 prn pain (1-3), Oxycodone 5mg q4 prn pain (4-10). * Bowel - senna/colace 1 tablet bid, Dulcolax 10mg pr daily prn, Magnesium citrate 300ml po daily prn. * Adult immunization - Administer pneumonia vaccine, covid vaccine, flu vaccine as appropriate. * DVT prophylaxis - on Eliquis. * Atrial fibrillation - Eliquis 2.5mg bid. * Hyperlipidemia - Atorvastatin 20mg qhs. 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 * Iron deficiency anemia - Ferrous sulfate 325mg bid. * Nutrition - Glucerna Shake 120ml po tidcm. * Hypothyroidism - Levothyroxine 50mcg daily. * Insomnia - Melatonin 3mg qhs prn. Medications at Discharge Home Medications escitalopram oxalate 20 mg tablet 20 mg PO DAILY Depression 07/08/18 ferrous sulfate 325 mg (65 mg iron) tablet 325 mg PO 1200,1700 supplement 09/11/18 levothyroxine 50 mcg tablet 50 mcg PO DAILY hypothyroid #90 tabs 01/08/22 rosuvastatin 10 mg tablet 10 mg PO DAILY Cholesterol 01/09/23 melatonin 3 mg tablet 3 mg PO QHS PRN PRN Insomnia #0 tabs 10/12/23 apixaban 5 mg tablet (Eliquis) 5 mg PO BID 30 days #60 tabs 10/21/23 Hospital Course Operations None Procedures None Summary of Care Provided Minutes Spent on Discharge: 35 Hospital Course: 78 year old female with below past medical history hospitalized for right proximal tibial fracture, treated non-operatively complicated by pseudoseizure, admitted to TCU with debility, here for rehabilitation, strengthening, prior to discharge home alone. Discharge home with assistance 10/23/2023, [facility] PT/OT/ST/SN, FWW. FWW: Patient unsafe to use a cane and requires a walker for ambulation. Physical Exam Const alert General Appearance: cooperative HEENT normocephalic Eyes PERRL and EOMs intact bilaterally Neck supple, no JVD and no carotid bruits Resp normal respiratory effort, normal air movement and clear to auscultation bilaterally Cardio regular rate and regular rhythm GI normal to inspection, nondistended, normoactive bowel sounds, non-tender and non-distended Extremity normal capillary refill Extremity Narrative: Right knee immobilizer. General Extremity: Negative for edema Skin no rashes or lesions noted General Skin Exam: no breakdown Psych affect normal Appearance: appropriate Weight / BMI Weight Weight: 90.038 kg Body Mass Index (BMI) 32.0 ABG / Lab / Microbiology Data 10/20/23 05:34 10/20/23 05:34 Microbiology: Microbiology 10/15/23 05:20 Nasal Secretion SARS-CoV-2 Antigen (Rapid) - Final D/C Instructions Discharge Diet: No restrictions Discharge Activity: Return to Normal Activity, May Shower and Use Walker Weight Bearing Status: Weight bearing as tolerated Call your doctor if you observe: Fever of 101 or Higher, Inability to urinate, Inability to have a bowel movement, Shortness of breath, Dizziness, Fainting spells, Swelling in the ankles, Chest pain and Uncontrolled pain Additional Instructions: Discharge home with assistance 10/23/2023, [facility] PT/OT/ST/SN, FWW. FWW: Patient unsafe to use a cane and requires a walker for ambulation. Please Follow Up With: Basilio Forrest MD When: 2 weeks. Meaningful Use Info Meaningful Use Meaningful Use Diagnoses (Choose all that apply): None applicable Ischemic Stroke Statin Dosing Therapy Reference: STATIN DOSE THERAPY REFERENCE: * Patients > 75 years receive moderate or high dose statin therapy. * Patients 75 years or YOUNGER should receive HIGH intensity statin dose unless contraindicated. You will be required to document reason for non-treatment if statin daily dose does not meet guidelines. HIGH DOSE STATIN THERAPY DAILY Atorvastatin > than or = to 40 mg Rosuvastatin > than or = to 20 mg Amlodipine + Atorvastatin > than or = to 2.5/40 mg Ezetimibe + Simvastatin 10/80 mg Simvastatin 80mg Discharge Plan Admission Admit Date/Time: 10/12/23 15:50 Primary Reason for Your Visit: Debility. Attending Provider: Miles Scott Chi Primary Care Provider: Williams Dunne Instructions Additional Instructions / Restrictions: Discharge home with assistance 10/23/2023, [facility] PT/OT/ST/SN, FWW. FWW: Patient unsafe to use a cane and requires a walker for ambulation. Discharge Orders/Prescriptions Prescriptions: New Eliquis 5 mg Tablet 5 mg PO BID 30 Days Qty: 60 0RF Continued escitalopram oxalate 20 mg tablet 20 mg PO DAILY ferrous sulfate 325 MG tablet 325 mg PO 1200,1700 rosuvastatin 10 mg tablet 10 mg PO DAILY Patient Comments: take 1 tablet by mouth every morning melatonin 3 mg Tablet 3 mg PO QHS PRN PRN (Reason: Insomnia) Qty: 0 0RF levothyroxine 50 mcg tablet 50 mcg PO DAILY Qty: 90 3RF Discontinued oxycodone 5 mg Tablet 5 mg PO Q4H PRN PRN (Reason: Pain Score 4-10 Or Pre Pt/Ot) Qty: 0 0RF apixaban 2.5 mg tablet 2.5 mg PO BID Qty: 180 3RF Rx Instructions: New Dosage Referrals / Follow Up: Williams Dunne MD [Primary Care Provider] - 11/02/23 10:00 am (appt with Carleen Morales ) Disposition Disposition (needs filled in before D/C Order can be placed): Home Health Service
[2023-10-21] MEDS: Atorvastatin Calcium 20 MG Tablet PO (21:38)
[2023-10-22] MEDS: Levothyroxine 50 MCG Tablet PO (05:19)
--- NOTE | 2023-10-22 07:48 | MDS.RN ---
Information for the MDS was obtained from review of the clinical record, interview of resident, staff, and direct observation of resident?s care.
[2023-10-22] MEDS: Escitalopram Oxalate 20 MG Tablet PO (08:40)
[2023-10-22] MEDS: APIXABAN 5 MG TABLET PO ×2 (08:40→22:25)
[2023-10-22] MEDS: Glucerna Shake 120 ML LIQUID PO ×2 (08:44→22:24)
[2023-10-22 08:45] VITALS: BP 108/72; PULSE 89; RESP 15; TEMP 36; O2SAT 96
[2023-10-22] MEDS: Ferrous Sulfate 325 MG Tablet PO ×2 (12:24→17:18)
[2023-10-22 14:12] VITALS: PULSE 103; RESP 15; O2SAT 96
[2023-10-22] MEDS: Atorvastatin Calcium 20 MG Tablet PO (22:25)
[2023-10-23] MEDS: Levothyroxine 50 MCG Tablet PO (06:49)
[2023-10-23 06:54] VITALS: PULSE 80; RESP 16; O2SAT 95
[2023-10-23 08:08] VITALS: BP 126/96; PULSE 98; RESP 16; TEMP 35.9; O2SAT 98
[2023-10-23] MEDS: Escitalopram Oxalate 20 MG Tablet PO (08:12)
[2023-10-23] MEDS: Glucerna Shake 120 ML LIQUID PO (08:12)
[2023-10-23] MEDS: APIXABAN 5 MG TABLET PO (08:12)
[2023-10-23] MEDS: Ferrous Sulfate 325 MG Tablet PO (08:13)
--- NOTE | 2023-10-23 14:56 | CASEMGMT ---
Social Work SW conducted BIMS () and PHQ-2 () completed for MDS assessment. Yasmin Aguilar MSW SURFACE MINER
== END 2023-10-23 11:18 | disposition home health service (06) | DRG 559 ==
PROVIDERS: Admitting Provider Family Medicine Geriatric Medicine; PCP Family Medicine; Referring Provider Family Medicine Geriatric Medicine; Visit Provider Family Medicine Geriatric Medicine
DX: S82.101D Unspecified fracture of upper end of right tibia, subsequent encounter for closed fracture with routine healing (principal); N18.6 End stage renal disease; I13.2 Hypertensive heart and chronic kidney disease with heart failure and with stage 5 chronic kidney disease, or end stage renal disease; I50.22 Chronic systolic (congestive) heart failure; E11.22 Type 2 diabetes mellitus with diabetic chronic kidney disease; D50.9 Iron deficiency anemia, unspecified; E03.9 Hypothyroidism, unspecified; R56.9 Unspecified convulsions; F32.A Depression, unspecified; I48.0 Paroxysmal atrial fibrillation; I25.10 Atherosclerotic heart disease of native coronary artery without angina pectoris; E78.00 Pure hypercholesterolemia, unspecified; I25.5 Ischemic cardiomyopathy; W19.XXXD Unspecified fall, subsequent encounter; F41.9 Anxiety disorder, unspecified; G47.00 Insomnia, unspecified; Z95.5 Presence of coronary angioplasty implant and graft; Z79.01 Long term (current) use of anticoagulants; Z79.890 Hormone replacement therapy; Z79.899 Other long term (current) drug therapy
CPT/HCPCS: 36415; 80048; 80061; 81001; 85025; 87086; 87811; 92523; 97110; 97116; 97129; 97130; 97162; 97166; 97530; 97535; 97802; A4216

== ENCOUNTER → 2023-12-07 | Outpatient (CLI) | payer MEDICARE, SELFPAY ==
[2023-12-07 11:08] LABS: Hematocrit 42.7 % (37-47); Hemoglobin 13.2 g/dL (12.0-15.0); Mean Corp Hgb Conc 30.9 g/dL (32-36); Mean Corpuscular Hgb 29.7 pg (27.0-32.0); Mean Platelet Vol. 12.1 fl (6.2-12.0); Platelet Count 127 K/mm3 (150-450); RBC Distribution Width SD 49.5 fl (35.1-43.9); Red Blood Count 4.45 M/mm3 (4.2-5.4); White Blood Count 5.7 K/mm3 (4.4-11.0)
[2023-12-07 11:28] LABS: Albumin, Serum 3.2 g/dL (3.2-5.0); BUN 23 mg/dL (7-18); BUN/Creat Ratio 8.9 RATIO (10-20); Chloride 109 mmol/L (98-107); Creatinine, Serum 2.58 mg/dL (0.55-1.02); EST Glomerular Filtration Rate 19 mL/min (>60); Est Glom Filt Rate - Afr Amer 23 mL/min (>60); Glucose 100 mg/dL (74-106); Phosphorus 4.3 mg/dL (2.5-4.9); Potassium 4.5 mmol/L (3.5-5.1); Sodium Level 141 mmol/L (136-145)
== END | disposition home or self-care (01) ==
PROVIDERS: PCP Family Medicine; Referring Provider Internal Medicine Nephrology; Visit Provider Internal Medicine Nephrology
DX: N18.5 Chronic kidney disease, stage 5 (principal); D50.9 Iron deficiency anemia, unspecified
CPT/HCPCS: 36415; 80069; 85027

== ENCOUNTER 2024-12-20 10:33 | Observation (INO) | payer MEDICARE, SELFPAY ==
[2024-12-20 10:34] VITALS: BP 108/61; PULSE 111; RESP 20; TEMP 36.6; O2SAT 99; BMI 28.5
--- NOTE | 2024-12-20 10:43 | RAD_ITS ---
PROCEDURE: SHOULDER MIN 2 VIEWS 12/20/2024 REASON FOR EXAM: INJURY TECHNIQUE: Procedure Code: RADSH Modality: DX Procedure: SHOULDER MIN 2 VIEWS Laterality: Left shoulder. COMPARISON: None FINDINGS: Bones: There is a transverse fracture through the surgical neck of the proximal left humerus with extension to the greater tuberosity. Joints: No evidence of dislocation. Soft tissues: Soft tissue swelling. Other: RAD/Shoulder min 2 Views IMPRESSION: Transverse fracture through the surgical neck of the proximal left humerus with extension to the greater tuberosity. Soft tissue swelling. No evidence of subluxation. Reading Location: [id number]
--- NOTE | 2024-12-20 10:43 | CT_ITS ---
PROCEDURE: BRAIN/HEAD WITHOUT CONTRAST 12/20/2024 REASON FOR EXAM: FALL Patient is on Eliquis. TECHNIQUE: Procedure Code: CTBR Modality: CT Procedure: BRAIN/HEAD WITHOUT CONTRAST Coronal and Sagittal reconstruction series were provided. One or more dose reduction techniques were used (e.g., Automated exposure control, adjustment of the mA and/or kV according to patient size, use of iterative reconstruction technique. RADIATION DOSE SUMMARY: CTDlvol: 44.99 mGy DLP: 745.49 mGycm COMPARISON: None FINDINGS: Brain: Within normal limits for age CSF Spaces: Mild generalized cerebral atrophy Sinuses/Mastoids: Clear at visualized levels Bones: Hyperostosis frontalis interna. CT/Brain/Head without Contrast IMPRESSION: CHRONIC CHANGES. NO ACUTE FINDINGS. Reading Location: [id number]
--- NOTE | 2024-12-20 10:44 | EX.ED.GENINJ ---
HPI History of Present Illness Chief Complaint: Fall Detail of Chief Complaint: Fall with left shoulder injury Informant: patient Narrative Narrative: Patient presents to the emergency department with a fall today. She states that she got up to use the restroom and lost control/balance and tried to catch herself but fell onto her left arm. Does not think she hit her head but she is on Eliquis for history of A-fib. Denies neck pain. Nuys chest pain or abdomen pain. Patient used her medic alert button to call for help. Patient [id number]. [facility] Medical History (Updated 12/20/24 @ 11:[address] 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 Bruit of left carotid artery Pure hypercholesterolemia Essential hypertension Paroxysmal atrial fibrillation End stage kidney disease Acute encephalopathy Renal insufficiency Symptomatic anemia Chronic systolic HF (heart failure) Shortness of breath Secondary pulmonary arterial hypertension Nonrheumatic tricuspid (valve) insufficiency Nonrheumatic mitral valve regurgitation Ischemic cardiomyopathy Atherosclerotic heart disease of [place] coronary artery without angina pectoris History of non-ST elevation myocardial infarction (NSTEMI) (10/24/17) Anxiety and depression Obesity (BMI 30-39.9) Hypothyroidism Diabetes mellitus, type II GERD (gastroesophageal reflux disease) Home Medications ?Medication ?Instructions ?Recorded ?Last Taken ?Type escitalopram oxalate 20 mg tablet 20 mg PO DAILY Depression 07/08/18 10/12/23 09:15 History ferrous sulfate 325 mg (65 mg 325 mg PO 1200,1700 supplement 09/11/18 10/12/23 09:15 History iron) tablet levothyroxine 50 mcg tablet 50 mcg PO DAILY hypothyroid #90 01/08/22 10/12/23 06:00 Rx tabs rosuvastatin 10 mg tablet 10 mg PO DAILY Cholesterol 01/09/23 10/11/23 21:05 History melatonin 3 mg tablet 3 mg PO QHS PRN PRN Insomnia #0 10/12/23 Unknown Rx tabs apixaban 5 mg tablet (Eliquis) 5 mg PO BID 30 days #60 tabs 10/21/23 Unknown Rx hydrocodone-acetaminophen 5-325mg 1 tab PO Q4H PRN PRN Pain 2 days 12/20/24 Unknown Rx 5mg-325mg #14 TABLETS Allergy/AdvReac Type Severity Reaction Status Date / Time amiodarone AdvReac Severe Affected Verified 10/27/23 09:02 lung function: see PFT 05/2021 Family History Mother CAD (coronary artery disease) Myocardial infarction Father CAD (coronary artery disease) Myocardial infarction Sister Myocardial infarction CAD (coronary artery disease) Stented coronary artery Surgical History (Updated 10/31/23 @ 00:03 by Venkata Mcdowell) History of left heart catheterization (10/25/17) Stented coronary artery (10/25/17) Social History household members: none housing: house Smoking Status: Never smoker alcohol intake: never substance use type: does not use caffeine: Yes Type: coffee Number of servings: 1 ROS ROS ED Review of Systems ROS Unobtainable: other Constitutional Constitutional ED: Reports lethargy; Denies chills, fever(s), sweats or weight loss Eyes Eyes: Denies blurry vision, change in vision or diplopia ENT ENT ED: Denies rhinorrhea or sore throat Cardiovascular Cardiovascular: Denies chest pain, orthopnea or racing heartbeat Respiratory/Chest Respiratory/Chest: Denies cough, dyspnea, dyspnea on exertion, orthopnea or sputum Gastrointestinal Gastrointestinal: Denies abdominal pain, diarrhea, nausea or vomiting Genitourinary Genitourinary ED: Denies dysuria, hematuria or urinary frequency Musculoskeletal Musculoskeletal: Reports other Details: Left shoulder pain/injury ; Denies arthralgias, back pain, myalgias or neck pain Integumentary Denies abscess, Abrasions or rash Neurologic Neurologic: Denies headache(s) or weakness Psychiatric Psychiatric: Denies anxiety, depression or suicidal thoughts Endocrine Endocrinology: Denies polydipsia, polyphagia or polyuria Hematologic/Lymphatic Hematologic/Lymphatic: Denies easy bleeding, easy bruising or lymphadenopathy Allergic/Immunologic Allergic/Immunologic ED: Denies mouth swelling, tongue swelling or urticaria EXAM Physical Exam Const Vital Signs: 12/20/24 10:34 12/20/24 10:40 Temperature 97.8 F Temperature Source Oral Pulse Rate 111 H Respiratory Rate 20 H Respiratory Effort Normal Blood Pressure 108/61 Blood Pressure Mean 76 Pulse Ox 99 Oxygen Delivery Method Room Air Positive well nourished and well developed General Appearance ED: well developed and NAD HEENT Reports TM's clear and moist mucous membranes normocephalic and atraumatic; Negative for trauma or tenderness Tympanic Membrane ED: Yes TM's clear Eyes PERRL and EOMs intact bilaterally General Eye ED: Negative for pale conjunctiva or scleral icterus Neck no lymphadenopathy, supple and no JVD General: Negative for tenderness Chest Wall inspection of chest normal and palpation of chest normal Chest: Negative for tenderness Resp normal respiratory effort and clear to auscultation bilaterally Effort and Inspection: Negative for respiratory distress or pain with movement Auscultation: Negative for rhonchi, wheezes or diminished lung sounds Cardio regular rate, regular rhythm, S1 normal heart sound, S2 normal heart sound and no murmurs Peripheral Pulses: pulses 2+ throughout GI normal to inspection, nondistended, normoactive bowel sounds, soft to palpation, non-tender, non-distended and no masses Back/Spine no CVA tenderness and no thoracic nor lumbar tenderness Extremity Extremity Narrative: Left arm-patient has tenderness palpation over the proximal humerus. No obvious deformity or sulcus sign noted. She has limited range of motion secondary to pain. Neurovascular intact distally. General Extremety ED: Negative for edema General Extremity: Negative for edema Neuro oriented x3, CN's II-XII intact bilaterally, no sensory deficits noted and gait normal Sensorium / Orientation: awake, alert, oriented to person, oriented to place and oriented to time Motor Exam: strength 5/5 throughout and strength abnormal Psych mental status grossly normal Skin no rashes or lesions noted and no wounds MDM MDM MDM Narrative Medical decision making narrative: Patient presents with a mechanical fall and injury to the left shoulder. CT brain without contrast was obtained given the fall and the fact that she is anticoagulated and this was negative for acute injury or intracranial hemorrhage. Patient had x-rays of the left shoulder that showed a proximal humerus fracture. Patient is right-hand dominant. She believes she can manage at home and does not want to be admitted. I did have the social security specialist speak with her and she is adamant that she does not want to go anywhere for placement and does not want home health coming into the home at this time. Patient will be referred to orthopedics and given a sling. She will be given a prescription for [place] for pain. Advised to use a daily stool softener as narcotic pain medication can cause constipation. She is advised to take her medication with food. Prior to discharge patient stated that she now does not feel comfortable going home. Her power of employment attorney who is also her niece is comfortable with admitting patient for definitive care as she does not believe she can manage at home as she normally uses a walker and a cane. Will discuss with hospitalist to evaluate patient for admission. Lab Data Attestation: I reviewed the patient's lab results. Radiography Diagnostic Testing: Clinical Impression(s) from Imaging Studies Brain CT 12/20/24 10:43 IMPRESSION: CHRONIC CHANGES. NO ACUTE FINDINGS. Reading Location: [place] Shoulder X-Ray 12/20/24 10:43 IMPRESSION: Transverse fracture through the surgical neck of the proximal left humerus with extension to the greater tuberosity. Soft tissue swelling. No evidence of subluxation. Reading Location: [place] 4 view x-ray of the left shoulder obtained interpreted by myself as proximal humerus fracture. Radiology in agreement. Discharge Plan Dx/Rx/DC Orders Clinical Impression: Fall, Closed left humeral fracture Disposition Disposition: Acute Care Hospital [facility]
--- NOTE | 2024-12-20 12:02 | CM.ED ---
Social Work SW met with patient who stated she did not want to consider going to rehab due to her injury. Patient states it was not her dominant arm that she hurt, that she can use a cane to help with ambulation, that she can still get toilet paper, coffee and her remote control and that is all she needs. SW spoke with patient regarding HH, patient states I do not choose company when I bathe. SW spoke with patient about other assistance HH could provide, patient denies need stating she has a CHRIS that lives 3 houses down and a sister that lives 5 minutes away that are able to assist as needed. No further needs identified at this time. Pina Collazo, MACHINE OPERATOR HOP PICKER, RADIOACTIVE WASTE DISPOSAL DISPATCHER
[2024-12-20 12:33] VITALS: BP 140/83; PULSE 103; RESP 16; O2SAT 100
[2024-12-20 12:35] LABS: Hematocrit 40.8 % (37-47); Hemoglobin 13.0 g/dL (12.0-15.0); Immature Granulocytes Count 0.040 X10^3/uL (0.0-0.0); Mean Corp Hgb Conc 31.9 g/dL (32-36); Mean Corpuscular Volume 92.7 fL (81-99); Mean Platelet Vol. 12.5 fl (6.2-12.0); NRBC Flagged by Analyzer 0 % (0-5); Platelet Count 138 K/mm3 (150-450); RBC Distribution Width CV 14.4 % (11.6-14.6); RBC Distribution Width SD 49.0 fl (35.1-43.9); Red Blood Count 4.40 M/mm3 (4.2-5.4); White Blood Count 12.6 K/mm3 (4.4-11.0)
[2024-12-20 12:52] LABS: Anion Gap 11 (5-15); BUN 23 mg/dL (4-19); BUN/Creat Ratio 8.9 RATIO (10-20); Calcium,Total 9.3 mg/dL (7.6-11.0); Carbon Dioxide 20.2 mmol/L (21.0-32.0); Chloride 104 mmol/L (98-108); Estimated Creatinine Clearance 19.04 ml/min (50-250); Glucose 177 mg/dL (70-99); Potassium 4.6 mmol/L (3.3-5.1)
[2024-12-20 12:58] VITALS: BP 140/83; PULSE 103; RESP 16; TEMP 36.6; O2SAT 100
[2024-12-20 13:18] VITALS: BMI 31.4
[2024-12-20 13:41] VITALS: BP 150/86; PULSE 117; RESP 16; TEMP 36.4; O2SAT 96
--- NOTE | 2024-12-20 13:43 | CON.PCM_ITS ---
Assessment & Plan Assessment/Plan (1) Closed left humeral fracture: QUALIFIERS: Encounter type: initial encounter Humerus Location: s urgical neck Fracture alignment: displaced PLAN: Plan Right hand dominant obese 79-year-old with multiple medical comorbidities with displaced left surgical neck fracture and nondisplaced greater tuberosity extension. Thorough discussion was had with the patient and her family in regards to surgical versus nonsurgical intervention. We did discuss that there is risk of loss of motion with either approach and there are more complications and risks associated with surgical fixation however would entail earlier range of motion however would not entail her to do any weightbearing through the extremity. After thorough discussion with her and her family member they opted to proceed with conservative management which is reasonable. I encouraged her to come out of her sling and move her elbow flexion extension supination and pronation at least 3 times a day to avoid loss of elbow wrist and finger range of motion I did explain to her as the swelling continues to migrate down her arm with gravity she is going to get some finger stiffness and I encouraged her to flex and extend her fingers and wrist to avoid getting stiffness in those areas. I would like to kulwant-ray her in 2 weeks if she is in TCU or rehab I can see her here however if she is elsewhere she should follow-up in my office at that time if there is any questions or concerns please feel free to reach out. HPI Consult Data Date of Consult: 12/20/24 HPI Narrative HPI Narrative: JORGE HARRY, is a 79 F who is seen with her niece presents who is a community ambulator with baseline dementia who lives alone who presents after ground-level fall onto her left shoulder she is right-hand dominant. She denies other injury she does have multiple medical comorbidities including atrial fibrillation on anticoagulation end-stage kidney disease chronic systolic heart failure tricuspid valve insufficiency mitral valve regurgitation ischemic cardiomyopathy atherosclerotic coronary artery disease with a stented coronary artery history of non-ST elevation ND, diabetes mellitus, hypothyroidism. She sustained a left proximal humerus surgical neck displaced fracture with nondisplaced extension into the greater tuberosity [facility] Medical History (Updated 12/20/24 @ 13:[address] 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 Bruit of left carotid artery Pure hypercholesterolemia Essential hypertension Paroxysmal atrial fibrillation End stage kidney disease Acute encephalopathy Renal insufficiency Symptomatic anemia Chronic systolic HF (heart failure) Shortness of breath Secondary pulmonary arterial hypertension Nonrheumatic tricuspid (valve) insufficiency Nonrheumatic mitral valve regurgitation Ischemic cardiomyopathy Atherosclerotic heart disease of [place] coronary artery without angina pectoris History of non-ST elevation myocardial infarction (NSTEMI) (10/24/17) Anxiety and depression Obesity (BMI 30-39.9) Hypothyroidism Diabetes mellitus, type II GERD (gastroesophageal reflux disease) Home Medications ?Medication ?Instructions ?Recorded ?Last Taken ?Type escitalopram oxalate 20 mg tablet 20 mg PO DAILY Depre ssion 07/08/18 10/12/23 09:15 History ferrous sulfate 325 mg (65 mg 325 mg PO DAILY suppleme nt 09/11/18 10/12/23 09:15 History iron) tablet levothyroxine 50 mcg tablet 50 mcg PO DAILY hypothyroi d #90 01/08/22 10/12/23 06:00 Rx tabs rosuvastatin 10 mg tablet 10 mg PO DAILY Cholesterol 1 03/11/22 10/11/23 21:05 History apixaban 5 mg tablet (Eliquis) 5 mg PO BID 30 days #60 tabs 10/21/23 Unknown Rx hydrocodone-acetaminophen 5-325mg 1 tab PO Q4H PRN PRN Pain 2 days 12/20/24 Unknown Rx 5mg-325mg #14 TABLETS lorazepam 0.5 mg tablet 0.5 mg PO DAILY PRN 12/20/24 Unknown History metoprolol succinate 25 mg 25 mg PO DAILY 12/20/24 Unk nown History tablet,extended release 24 hr sodium bicarbonate 650 mg tablet 650 mg PO BID 5 Unknown History Allergy/AdvReac Type Severity Reaction Status Date / Time amiodarone AdvReac Severe Affected Verified 10/27/23 09:02 lung function: see PFT 05/2021 Family History Mother CAD (coronary artery disease) Myocardial infarction Father CAD (coronary artery disease) Myocardial infarction Sister Myocardial infarction CAD (coronary artery disease) Stented coronary artery Surgical History History of left heart catheterization (10/25/17) Stented coronary artery (10/25/17) Social History household members: none housing: house Smoking Status: Never smoker alcohol intake: never substance use type: does not use caffeine: Yes Type: coffee Number of servings: 1 Physical Exam Const alert and no apparent distress General Appearance: cooperative and comfortable Extremity Extremity Narrative: She does have swelling in the left shoulder. No open wounds. She is neurovascular intact radial median ulnar and axillary nerves the compartments are compressible with palpable radial pulse brisk capillary refill. Lab / Micro Data 12/20/24 12:20 12/20/24 12:20 Labs: Laboratory Results - last 24 hr 12/20/24 12:20: WBC 12.6 H, RBC 4.40, Hgb 13.0, Hct 40.8, MCV 92.7, MCH 29.5, M CHC 31.9 L, RDW Std Deviation 49.0 H, RDW Coeff of Yesy 14.4, Plt Count 138 L, M PV 12.5 H, Immature Gran % (Auto) 0.300, Neut % (Auto) 78.6 H, Lymph % (Auto) 13.5 L, [place] % (Auto) 7.1, Eos % (Auto) 0.3, Baso % (Auto) 0.2, Absolute Neuts (auto) 9.9 H, Absolute Lymphs (auto) 1.71, Nucleated RBC % 0, Sodium 136, Potassium 4.6, Chloride 104, Carbon Dioxide 20.2 L, Anion Gap 11, BUN 23 H, C reatinine 2.56 H, Estim Creat Clear Calc 19.04 L, Est GFR (MDRD) Non-Af 19 L, B UN/Creatinine Ratio 8.9 L, Glucose 177 H, Calcium 9.3 Imaging Radiology Impression Brain CT 12/20/24 10:43 IMPRESSION: CHRONIC CHANGES. NO ACUTE FINDINGS. Reading Location: [id number] Shoulder X-Ray 12/20/24 10:43 IMPRESSION: Transverse fracture through the surgical neck of the proximal left humerus with extension to the greater tuberosity. Soft tissue swelling. No evidence of subluxation. Reading Location: [id number]
[2024-12-20 17:40] VITALS: BP 116/61; PULSE 90; RESP 16; TEMP 37; O2SAT 93
--- NOTE | 2024-12-20 18:19 | PCM.HP.STD ---
HPI - General General Date of Admission: 12/20/24 Date of Service: 12/20/24 Chief Complaint: Left shoulder and arm pain HPI Narrative JORGE HARRY, is a 79 F who presents to the room at [facility] after sustaining a fall at home and landing on her left shoulder. Patient complains of left shoulder pain, she lives by herself. Workup in the emergency room included a CBC which showed an elevated white blood cell count at 12.6, chemistry profile was abnormal for creatinine of 2.56 and a BUN of 23-it appears that the patient does have chronic kidney disease stage IV after reviewing her previous labs. Patient's urinalysis was unremarkable. X-ray of the left shoulder and arm revealed transverse fracture through the surgical neck of the proximal left humerus with extension into the greater tuberosity. No evidence of subluxation was noted. Patient was not felt to be safe returning to her home, she has a niece who requested the patient be admitted for temporary placement, she also told the emergency room physician she believes the patient has dementia. Patient will be placed in observation status on [facility] 3, she will be seen by orthopedic surgery for consultation, she will be seen by PT and OT and analgesics will be administered. She will need temporary placement in a chcf facility for inpatient skilled services. [facility] Medical History (Updated 12/20/24 @ 13:[address] Jean Greenberg, ) Diabetes Kidney disease Hypertension Alzheimer dementia Closed fracture of right proximal tibia Seizure-like activity Chronic anticoagulation CHI (closed head injury) Closed right tibial fracture BARR (dyspnea on exertion) skilled nursing current use of amiodarone Bruit of left carotid artery Pure hypercholesterolemia Essential hypertension Paroxysmal atrial fibrillation End stage kidney disease Acute encephalopathy Renal insufficiency Symptomatic anemia Chronic systolic HF (heart failure) Shortness of breath Secondary pulmonary arterial hypertension Nonrheumatic tricuspid (valve) insufficiency Nonrheumatic mitral valve regurgitation Ischemic cardiomyopathy Atherosclerotic heart disease of [place] coronary artery without angina pectoris History of non-ST elevation myocardial infarction (NSTEMI) (10/24/17) Anxiety and depression Obesity (BMI 30-39.9) Hypothyroidism Diabetes mellitus, type II GERD (gastroesophageal reflux disease) Home Medications ?Medication ?Instructions ?Recorded ?Last Taken ?Type escitalopram oxalate 20 mg tablet 20 mg PO DAILY Depression 07/08/18 10/12/23 09:15 History ferrous sulfate 325 mg (65 mg 325 mg PO DAILY supplement 09/11/18 10/12/23 09:15 History iron) tablet levothyroxine 50 mcg tablet 50 mcg PO DAILY hypothyroid #90 01/08/22 10/12/23 06:00 Rx tabs rosuvastatin 10 mg tablet 10 mg PO DAILY Cholesterol 01/09/23 10/11/23 21:05 History apixaban 5 mg tablet (Eliquis) 5 mg PO BID 30 days #60 tabs 10/21/23 Unknown Rx hydrocodone-acetaminophen 5-325mg 1 tab PO Q4H PRN PRN Pain 2 days 12/20/24 Unknown Rx 5mg-325mg #14 TABLETS lorazepam 0.5 mg tablet 0.5 mg PO DAILY PRN 12/20/24 Unknown History metoprolol succinate 25 mg 25 mg PO DAILY 12/20/24 Unknown History tablet,extended release 24 hr sodium bicarbonate 650 mg tablet 650 mg PO BID 12/20/24 Unknown History Allergy/AdvReac Type Severity Reaction Status Date / Time amiodarone AdvReac Severe Affected Verified 10/27/23 09:02 lung function: see PFT 05/2021 Family History Mother CAD (coronary artery disease) Myocardial infarction Father CAD (coronary artery disease) Myocardial infarction Sister Myocardial infarction CAD (coronary artery disease) Stented coronary artery Surgical History History of left heart catheterization (10/25/17) Stented coronary artery (10/25/17) Social History household members: none housing: house Smoking Status: Never smoker alcohol intake: never substance use type: does not use caffeine: Yes Type: coffee Number of servings: 1 ROS Constitutional Constitutional: Denies anorexia, change in weight, chills, fatigue, fever(s), malaise, night sweats or weakness Eyes Eyes: Denies blurry vision, change in vision, discharge from eye(s) or eye pain Cardiovascular Cardiovascular: Denies chest pain, claudication, dyspnea on exertion, edema or palpitations Respiratory/Chest Respiratory/Chest: Denies cough, hemoptysis, shortness of breath at rest or shortness of breath with exertion Gastrointestinal Gastrointestinal: Denies abdominal pain, constipation, diarrhea, hematemesis, hematochezia, melena, nausea or vomiting Genitourinary Genitourinary: Denies dysuria, hematuria, urinary frequency, urinary hesitancy, urinary incontinence or urinary urgency Musculoskeletal Musculoskeletal: Reports other Details: Left arm pain ; Denies back pain, joint pain, joint stiffness, joint swelling, myalgias or neck pain Neurologic Neurologic: Denies abnormal gait, abnormal speech, confusion, disequilibrium, dizziness, focal weakness, headache(s), loss of vision, numbness, other visual disturbances, paresthesias, syncope or tingling Psychiatric Psychiatric: Denies anxiety, cognitive impairment, depression, irritability, mood swings or suicidal ideation Endocrine Endocrinology: Denies change in body appearance, cold intolerance, excessive sweating, heat intolerance, polydipsia or polyuria Hematologic/Lymphatic Hematologic/Lymphatic: Denies none, anemia, easy bleeding, easy bruising or lymphadenopathy Allergic/Immunologic Allergic/Immunologic: Denies rhinitis, urticaria, eczemia or asthma Vital Signs Vital Signs Vital Signs: 12/20/24 10:34 12/20/24 10:40 12/20/24 12:33 Temperature 97.8 F Temperature Source Oral Pulse Rate 111 H 103 H Pulse Strength Respiratory Rate 20 H 16 Respiratory Effort Normal Respiratory Depth Respiratory Pattern Blood Pressure 108/61 140/83 H Blood Pressure Mean 76 102 Blood Pressure Source Blood Pressure Position Blood Pressure Location Pulse Ox 99 100 Oxygen Delivery Method Room Air Room Air 12/20/24 12:58 12/20/24 13:37 12/20/24 13:41 Temperature 97.8 F 97.6 F L Temperature Source Oral Pulse Rate 103 H 117 H Pulse Strength Respiratory Rate 16 16 Respiratory Effort Normal Respiratory Depth Normal Respiratory Pattern Normal Blood Pressure 140/83 H 150/86 H Blood Pressure Mean 102 107 Blood Pressure Source Monitor Blood Pressure Position Semi-Fowlers Blood Pressure Location Right Forearm Pulse Ox 100 96 Oxygen Delivery Method Room Air Room Air 12/20/24 13:45 12/20/24 17:40 Temperature 98.6 F Temperature Source Oral Pulse Rate 90 Pulse Strength Normal (2+) Respiratory Rate 16 Respiratory Effort Respiratory Depth Respiratory Pattern Blood Pressure 116/61 Blood Pressure Mean 79 Blood Pressure Source Monitor Blood Pressure Position Semi-Fowlers Blood Pressure Location Right Forearm Pulse Ox 93 Oxygen Delivery Method Room Air Weight Weight: 78.018 kg Body Mass Index (BMI) 31.4 Physical Exam Const alert, oriented x3, no apparent distress and healthy appearing General Appearance: cooperative, well kempt and well developed Orientation / Consciousness: awake, oriented to person, oriented to place and oriented to time HEENT normocephalic, head/scalp atraumatic, hearing grossly normal bilaterally and moist oral mucous membranes Eyes PERRL, EOMs intact bilaterally and conjunctivae normal Neck supple, no JVD, thyroid normal and no carotid bruits General: trachea midline Resp normal respiratory effort, no retractions, no use of accessory muscles and clear to auscultation bilaterally Auscultation: Negative for rales, rhonchi or wheezes Cardio regular rate, regular rhythm, S1 normal heart sound, S2 normal heart sound, no murmurs, no rub and no gallops GI normal to inspection, nondistended, normoactive bowel sounds, soft to palpation, non-tender and non-distended Extremity Extremity Narrative: There is tenderness to palpation over the proximal left humerus, patient has limited range of motion in the left arm due to pain Skin no rashes or lesions noted General Skin Exam: no breakdown Neuro oriented x3, CN's II-XII intact bilaterally, moves all extremities, no focal motor deficits and no sensory deficits noted Sensorium / Orientation: awake and alert Speech: speech normal Psych affect normal Results Lab / Micro Data 12/20/24 12:20 12/20/24 12:20 Labs: Laboratory Results - last 24 hr 12/20/24 12:20: WBC 12.6 H, RBC 4.40, Hgb 13.0, Hct 40.8, MCV 92.7, MCH 29.5, MCHC 31.9 L, RDW Std Deviation 49.0 H, RDW Coeff of Yesy 14.4, Plt Count 138 L, MPV 12.5 H, Immature Gran % (Auto) 0.300, Neut % (Auto) 78.6 H, Lymph % (Auto) 13.5 L, Evangeline % (Auto) 7.1, Eos % (Auto) 0.3, Baso % (Auto) 0.2, Absolute Neuts (auto) 9.9 H, Absolute Lymphs (auto) 1.71, Nucleated RBC % 0, Sodium 136, Potassium 4.6, Chloride 104, Carbon Dioxide 20.2 L, Anion Gap 11, BUN 23 H, Creatinine 2.56 H, Estim Creat Clear Calc 19.04 L, Est GFR (MDRD) Non-Af 19 L, BUN/Creatinine Ratio 8.9 L, Glucose 177 H, Calcium 9.3 Imaging Radiology Impression Brain CT 12/20/24 10:43 IMPRESSION: CHRONIC CHANGES. NO ACUTE FINDINGS. Reading Location: [id number] Shoulder X-Ray 12/20/24 10:43 IMPRESSION: Transverse fracture through the surgical neck of the proximal left humerus with extension to the greater tuberosity. Soft tissue swelling. No evidence of subluxation. Reading Location: [id number] Assessment & Plan Assessment/Plan (1) Closed left humeral fracture: QUALIFIERS: Encounter type: initial encounter Humerus Location: surgical neck Fracture alignment: displaced PLAN: Plan 1. Proximal left humerus fracture-patient was placed in observation status on [facility] 3, she will be seen by orthopedic surgery, patient will utilize a sling with her left arm. IV and p.o. pain meds were ordered #2 paroxysmal [id number] is on rate control medication and Eliquis #3 hypothyroidism-patient is on Synthroid #4 hyperlipidemia-patient is on a statin #5 chronic depression-patient is on Lexapro Total clinical time spent by myself addressing the patient's medical issues, reviewing all of the data, and collaborating with patient's care team: 55 minutes Charges/Coding Visit Charges Inpatient E&M: 28648 Init Hosp L2
[2024-12-20] MEDS: APIXABAN 5 MG TABLET PO (20:55)
[2024-12-20 22:46] VITALS: BP 97/47; PULSE 80; RESP 16; TEMP 36.6; O2SAT 100
[2024-12-21 05:47] VITALS: BP 100/51; PULSE 84; RESP 16; TEMP 36.4; O2SAT 100
[2024-12-21] MEDS: APIXABAN 5 MG TABLET PO ×2 (09:28→20:29)
[2024-12-21 10:11] VITALS: BP 110/72; PULSE 92; RESP 16; TEMP 36.6; O2SAT 96
--- NOTE | 2024-12-21 11:06 | CASEMGMT ---
Discharge Planning A list of?HH & SNF providers including quality and resource use data and consistent with the patient's preferred geographic region, medical needs, and insurance network was created in [employer] Guide.? This list was provided to the RN STACI. Luz Marina Coy, Discharge Planning Asst.
--- NOTE | 2024-12-21 11:55 | CASEMGMT ---
Addendum entered by Brittany Lu 12/21/24 12:49: ERIN SMALL into pt room, pt gurvinder martinez wrote on list the choices and pt states she will go with what her gurvinder martinez decided. She states that they take good care of me!. Pt choices are [facility]. [facility] 2. [facility]. Requested dc assistant manager retail to send referral to [facility]. Original Note: ERIN SMALL Assessment: Face to Face with pt for initial transition planning/care coordination assessment. ERIN SMALL introduced self and role at [facility], pt voices understanding and consents to assessment. Pt is A&O x3 and answers all questions appropriately at this time. Pt sitting up in chair in no distress with gurvinder martinez Danette at bedside. Pt agreeable to assessment with niece present. Care providers, pharmacy, and demographics verified/updated. Admitting Dx: L humerus fx, debility Strata Score: 2 PCP:[facility] Specialists:Pt denies any ongoing. Pt gurvinder martinez states that pt saw a neuro in the past and a neprho. Preferred Pharmacy: [facility] Insurance: [employer] [facility] Prescription Benefit: yes LNOK: Khadijah Morgan, niece; Karla Franklin, gurvinder martinez Living Arrangements: Pt lives alone in a single story home with 3 steps onto the deck then one step into the home with a rail. Pt reports prior to this fall, she was I in ADLs/IADLs at home. Pt denies concerns at home. Transportation: Pt drives self and denies concerns with transportation. DME:cane, [facility], medic alert HHC/SNF: Pt has had HH in the past unsure of name of agency. Pt denies SNF stays. Pt states no concerns with going home at time of dc. Spoke with therapy regarding eval and pt status. Pt states she would like to go home and would be agreeable to HHC. Pt gurvinder nireji states that she feels pt needs s/t rehab. Pt and gurvinder martinez to review lists created for SNF and HHC created by dc assistant manager retail. ERIN SMALL to check back. Pt has POA on file with Karla Franklin listed. Pt states no further concerns/needs. CM to follow. Advised pt to ask CM if any further questions/concerns/needs arise, voices understanding. Pt Goal: Home Plan: TBD Home with HHC vs SNF Jen KHAN CM
--- NOTE | 2024-12-21 12:46 | CASEMGMT ---
Addendum entered by Luz Marina Coy 12/21/24 14:04: [facility] has accepted and will submit for precert. ERIN CM updated. Luz Marina Coy DC Planning Asst. Original Note: Discharge Planning Referral sent to [facility] at [place]. Luz Marina Coy DC Planning Asst.
[2024-12-21 14:27] VITALS: BP 104/53; PULSE 71; RESP 16; TEMP 36.7; O2SAT 98
--- NOTE | 2024-12-21 14:47 | CASEMGMT ---
LAWSON Met with patient to complete LAWSON form. LAWSON form and its content were verbally explained and patient's questions were answered to the best of my ability.? Patient voiced understanding and signed LAWSON form.? Patient provided a copy of signed LAWSON form and original placed in patient's chart.? Patient had no further questions. Luz Marina Coy, Discharge Planning Asst
--- NOTE | 2024-12-21 18:17 | PN.HOSP_ITS ---
Reason for Visit Chief Complaint: Left shoulder and arm pain Subjective Subjective Patient was seen and examined today, [facility] when we are awaiting approval from the patient's insurance to [facility] the [facility]. Objective Data Objective Data Vital Signs: Vital Signs Temp Pulse Resp BP Pulse Ox O2 Del Method 98.1 F 71 16 104/53 L 98 Room Air 12/21/24 14:27 12/21/24 14:27 12/21/24 14:27 12/21/24 14:27 12/21/24 14:27 12/21/24 14:28 Oxygen Delivery Method Room Air Weight: 78.018 kg Body Mass Index (BMI) 31.4 Intake & Output: Intake and Output for Last 24 Hours 12/19/24 12/20/24 12/21/24 23:59 23:59 23:59 Intake Total 300 / 300 Balance 300 / 300 Lab / Micro Data 12/20/24 12:20 12/20/24 12:20 Physical Exam Narrative alert, oriented x3, no apparent distress and healthy appearing General Appearance: cooperative, well kempt and well developed Orientation / Consciousness: awake, oriented to person, oriented to place and oriented to time HEENT normocephalic, head/scalp atraumatic, hearing grossly normal bilaterally and moist oral mucous membranes Eyes PERRL, EOMs intact bilaterally and conjunctivae normal Neck supple, no JVD, thyroid normal and no carotid bruits General: trachea midline Resp normal respiratory effort, no retractions, no use of accessory muscles and clear to auscultation bilaterally Auscultation: Negative for rales, rhonchi or wheezes Cardio regular rate, regular rhythm, S1 normal heart sound, S2 normal heart sound, no murmurs, no rub and no gallops GI normal to inspection, nondistended, normoactive bowel sounds, soft to palpation, non-tender and non-distended Extremity Extremity Narrative: Patient's left arm is in a sling, sling was not removed for examination of the left arm Skin no rashes or lesions noted General Skin Exam: no breakdown Neuro oriented x3, CN's II-XII intact bilaterally, moves all extremities, no focal motor deficits and no sensory deficits noted Sensorium / Orientation: awake and alert Speech: speech normal Psych affect normal Assessment & Plan Assessment/Plan (1) Closed left humeral fracture: QUALIFIERS: Encounter type: initial encounter Humerus Location: s urgical neck Fracture alignment: displaced PLAN: Plan 1. Proximal left humerus fracture-PT and OT will continue, patient was seen by orthopedic surgery and they recommended follow-up in their office in 2 weeks. We are awaiting approval for the patient to go to an extended care facility for short-term rehab. #2 paroxysmal [id number] is on rate control medication and Eliquis #3 hypothyroidism-patient is on Synthroid #4 hyperlipidemia-patient is on a statin #5 chronic depression-patient is on Lexapro Total clinical time spent by myself addressing the patient's medical issues, reviewing all of the data, and collaborating with patient's care team: 35 minutes Charges/Coding Visit Charges Inpatient E&M: 20569 Subs Hosp L2
[2024-12-21] MEDS: MENTHOL 226.8 GM JAR 1 APPLIC TOPICAL (20:28)
[2024-12-21 20:41] VITALS: BP 131/86; PULSE 105; RESP 16; TEMP 36.6; O2SAT 98
[2024-12-22 02:58] VITALS: BP 136/79; PULSE 104; RESP 16; TEMP 36.1; O2SAT 98
[2024-12-22 07:47] VITALS: BP 99/63; PULSE 93; RESP 14; TEMP 36.5
[2024-12-22] MEDS: APIXABAN 5 MG TABLET PO ×2 (09:21→21:10)
[2024-12-22 11:15] VITALS: BP 98/55; PULSE 92; RESP 14; TEMP 36.7
[2024-12-22 15:38] VITALS: BP 114/46; PULSE 86; RESP 16; TEMP 36.6; O2SAT 99
--- NOTE | 2024-12-22 18:29 | PN.HOSP_ITS ---
Reason for Visit Chief Complaint: Left shoulder and arm pain Subjective Subjective Patient was seen and examined today, we are awaiting pre-CERT for the patient to go to an extended care facility for skilled services. Objective Data Objective Data Vital Signs: Vital Signs Temp Pulse Resp BP Pulse Ox O2 Del Method 97.8 F 86 16 114/46 L 99 Room Air 12/22/24 15:38 12/22/24 15:38 12/22/24 15:38 12/22/24 15:38 12/22/24 15:38 12/22/24 15:38 Oxygen Delivery Method Room Air Weight: 78.018 kg Body Mass Index (BMI) 31.4 Intake & Output: Intake and Output for Last 24 Hours 12/20/24 12/21/24 12/22/24 23:59 23:59 23:59 Intake Total 300 / 300 Balance 300 / 300 Lab / Micro Data 12/20/24 12:20 12/20/24 12:20 Physical Exam Narrative alert, oriented x3, no apparent distress and healthy appearing General Appearance: cooperative, well kempt and well developed Orientation / Consciousness: awake, oriented to person, oriented to place and oriented to time HEENT normocephalic, head/scalp atraumatic, hearing grossly normal bilaterally and moist oral mucous membranes Eyes PERRL, EOMs intact bilaterally and conjunctivae normal Neck supple, no JVD, thyroid normal and no carotid bruits General: trachea midline Resp normal respiratory effort, no retractions, no use of accessory muscles and clear to auscultation bilaterally Auscultation: Negative for rales, rhonchi or wheezes Cardio regular rate, regular rhythm, S1 normal heart sound, S2 normal heart sound, no murmurs, no rub and no gallops GI normal to inspection, nondistended, normoactive bowel sounds, soft to palpation, non-tender and non-distended Extremity Extremity Narrative: Patient's left arm is in a sling, sling was not removed for examination of the left arm Skin no rashes or lesions noted General Skin Exam: no breakdown Neuro oriented x3, CN's II-XII intact bilaterally, moves all extremities, no focal motor deficits and no sensory deficits noted Sensorium / Orientation: awake and alert Speech: speech normal Psych affect normal Assessment & Plan Assessment/Plan (1) Closed left humeral fracture: QUALIFIERS: Encounter type: initial encounter Humerus Location: s urgical neck Fracture alignment: displaced PLAN: Plan 1. Proximal left humerus fracture-PT and OT will continue, patient was seen by orthopedic surgery and they recommended follow-up in their office in 2 weeks. We are awaiting approval for the patient to go to an extended care facility for short-term rehab. #2 paroxysmal [id number] is on rate control medication and Eliquis #3 hypothyroidism-patient is on Synthroid #4 hyperlipidemia-patient is on a statin #5 chronic depression-patient is on Lexapro Patient remains medically stable at this time Total clinical time spent by myself addressing the patient's medical issues, reviewing all of the data, and collaborating with patient's care team: 25 minutes Charges/Coding Visit Charges Inpatient E&M: 70982 Subs Hosp L1
[2024-12-22 20:59] VITALS: BP 123/78; PULSE 103; RESP 16; TEMP 36.8; O2SAT 97
[2024-12-23 03:58] VITALS: BP 97/67; PULSE 114; RESP 16; TEMP 36.9; O2SAT 96
[2024-12-23 09:04] VITALS: BP 140/60; PULSE 105; RESP 16; TEMP 36.6; O2SAT 96
[2024-12-23] MEDS: APIXABAN 5 MG TABLET PO (09:08)
--- NOTE | 2024-12-23 11:03 | CASEMGMT ---
Discharge Planning Call rec'd from Corin ([phone]) @ [facility]. [facility] is offering a Peer to Peer that must be completed by 3:15p, 12/23/24. [facility] fax number provided. P2P line is [phone], option 1. ERIN CM updated. Luz Marina Coy DC Planning Asst.
--- NOTE | 2024-12-23 11:18 | CASEMGMT ---
Addendum entered by Brittany Lu 12/23/24 11:37: TC to Karla, this is a work number and she is not available. TC to Khadijah to see about another number for Karla. She states she can transport pt home. RN STACI into pt room, pt states this is ok. Khadijah to arrive in 2-3 hours for transport home. Received message from Lakisha at [facility] that they will see pt on Thursday and have accepted. Updated pt on this information. Pt denies any further homegoing needs. Pt states she is glad to go home. Original Note: RN CM made aware that pt has intent to deny pt for SNF. RN CM into pt room, pt sitting up in chair. Pt made aware of this information. Pt states she feels safe to dc home. She is open to [facility]. She states she has no preference and is agreeable to [facility]. TC to [facility], left vm with intake with referral information requesting PT and OT. Pt asks for her niece Karla to be called to see if she can transport pt home. Updated hospitalist that pt requests to dc home. No peer to peer to be completed. Updated dc household personal assistant to cancel SNF referral.
--- NOTE | 2024-12-23 11:20 | CASEMGMT ---
Discharge Planning [facility] updated via [facility] that pt will return home with HH. Luz Marina Coy DC Planning Asst.
--- NOTE | 2024-12-23 14:02 | DCINST_ITS ---
Discharge Instructions DC O2, CPAP, BIPAP needs Home O2 Discharge instructions: No Dressing / Incision Discharge Activity: Return to Normal Activity and - (Wear sling on left arm at all times) Weight Bearing Status: Full weight bearing Follow Up Care Test Results: Test results from this visit will be discussed in further detail at your follow- up appointment, if applicable. Discharge Plan Admission Admit Date/Time: 12/20/24 12:32 Primary Reason for Your Visit: Left humerus fracture Attending Provider: Christopher Schuster Primary Care Provider: Williams Dunne Instructions Patient Instructions: ED Mechanical Fall, ED Fracture, Upper Extremity Discharge Orders/Prescriptions Prescriptions: New hydrocodone-acetaminophen 5-325 mg tablet 1 tab PO Q4H PRN PRN (Reason: Pain) 2 Days Qty: 14 0RF Continued escitalopram oxalate 20 mg tablet 20 mg PO DAILY ferrous sulfate 325 MG tablet 325 mg PO DAILY rosuvastatin 10 mg tablet 10 mg PO DAILY Patient Comments: take 1 tablet by mouth every morning lorazepam 0.5 mg tablet 0.5 mg PO DAILY PRN metoprolol succinate 25 mg tablet extended release 24 hr 25 mg PO DAILY sodium bicarbonate 650 mg tablet 650 mg PO BID Eliquis 5 mg Tablet 5 mg PO BID 30 Days Qty: 60 0RF levothyroxine 50 mcg tablet 50 mcg PO DAILY Qty: 90 3RF Referrals / Follow Up: Williams Dunne MD [Primary Care Provider, Family Practice] Jean Greenberg DO [Med Staff - Active Staff, Orthopedics] - 3-5 Days Referral Note: Call for an appointment and tell them that you were seen in the hospital by Dr. Greenberg Disposition Disposition (needs filled in before D/C Order can be placed): Home Health Service
[2024-12-23 15:34] VITALS: BP 115/66; PULSE 94; RESP 16; TEMP 36.8; O2SAT 100
--- NOTE | 2024-12-23 15:35 | PCM.DC.SUM ---
Providers Date of Admission: 12/20/24 Date of Discharge: 12/23/24 Primary Care Physician: Dr. Williams Dunne MD Reason For Visit: LEFT HUMERUS FRACTURE, DEBILITY Diagnosis Discharge Diagnosis (1) Closed left humeral fracture: Status: Acute Code(s): S42.302A - Unspecified fracture of shaft of humerus, left arm, initial encounter for closed fracture Qualifiers: Encounter type: initial encounter Fracture alignment: displaced Humerus Location: surgical neck Plan 1. Proximal left humerus fracture-PT and OT will continue, patient was seen by orthopedic surgery and they recommended follow-up in their office in 2 weeks. We are awaiting approval for the patient to go to an extended care facility for short-term rehab. #2 paroxysmal [id number] is on rate control medication and Eliquis #3 hypothyroidism-patient is on Synthroid #4 hyperlipidemia-patient is on a statin #5 chronic depression-patient is on Lexapro Patient remains medically stable at this time Total clinical time spent by myself addressing the patient's medical issues, reviewing all of the data, and collaborating with patient's care team: 25 minutes Medications at Discharge Home Medications escitalopram oxalate 20 mg tablet 20 mg PO DAILY Depression 07/08/18 ferrous sulfate 325 mg (65 mg iron) tablet 325 mg PO DAILY supplement 09/11/18 levothyroxine 50 mcg tablet 50 mcg PO DAILY hypothyroid #90 tabs 01/08/22 rosuvastatin 10 mg tablet 10 mg PO DAILY Cholesterol 01/09/23 apixaban 5 mg tablet (Eliquis) 5 mg PO BID 30 days #60 tabs 10/21/23 hydrocodone-acetaminophen 5-325mg 5mg-325mg 1 tab PO Q4H PRN PRN Pain 2 days #14 TABLETS 12/20/24 lorazepam 0.5 mg tablet 0.5 mg PO DAILY PRN 12/20/24 metoprolol succinate 25 mg tablet,extended release 24 hr 25 mg PO DAILY 12/20/24 sodium bicarbonate 650 mg tablet 650 mg PO BID 12/20/24 Hospital Course Operations None Procedures None Summary of Care Provided Minutes Spent on Discharge: 30 Hospital Course: This 79-year-old white female was seen in the emergency room at [facility] after sustaining a fall at home landing on her left shoulder and complaining of pain in her left upper arm with inability to move it without discomfort. X-rays obtained in the emergency room showed a proximal left humerus fracture, patient was placed in observation status on [facility] 3 and seen by PT and OT, initially the patient's niece wanted the patient to go to an extended care facility, her insurance however would not approve this and arrangements were made for the patient to have home nursing care and follow-up with orthopedic surgery. On 12/23/2024, patient was seen and examined: On examination she appeared in good health and spirits, she does not appear to be in any distress. Vital signs as documented. Skin warm and dry and without overt rashes. Neck without JVD, thyroid appears normal, trachea is midline, neck is supple. Lungs clear, normal air movement was noted. Heart exam notable for regular rhythm, normal sounds and absence of murmurs, rubs or gallops. Abdomen unremarkable and without evidence of organomegaly, masses, or abdominal aortic enlargement, bowel sounds are present in all 4 quadrants, no abdominal tenderness was noted. Extremities nonedematous, no cyanosis was noted, no clubbing was noted. Neuro: Cranial nerves II through XII are grossly intact, no focal motor deficits were noted, sensation to light touch and pinprick is intact, motor exam 5/5 throughout. Psych: Patient is alert and oriented x3, she does not appear anxious or depressed, she does not appear agitated. Patient was discharged home in stable condition on 12/23/2024 Weight / BMI Weight Weight: 78.018 kg Body Mass Index (BMI) 31.4 ABG / Lab / Microbiology Data 12/20/24 12:20 12/20/24 12:20 D/C Instructions Weight Bearing Status: Full weight bearing DC O2, CPAP, BIPAP Needs Home O2 Discharge instructions: No Meaningful Use Info Meaningful Use Meaningful Use Diagnoses (Choose all that apply): None applicable Discharge Plan Admission Admit Date/Time: 12/20/24 12:32 Primary Reason for Your Visit: Left humerus fracture Attending Provider: Christopher Schuster Primary Care Provider: Williams Dunne Instructions Patient Instructions: ED Mechanical Fall, ED Fracture, Upper Extremity Discharge Orders/Prescriptions Prescriptions: New hydrocodone-acetaminophen 5-325 mg tablet 1 tab PO Q4H PRN PRN (Reason: Pain) 2 Days Qty: 14 0RF Continued escitalopram oxalate 20 mg tablet 20 mg PO DAILY ferrous sulfate 325 MG tablet 325 mg PO DAILY rosuvastatin 10 mg tablet 10 mg PO DAILY Patient Comments: take 1 tablet by mouth every morning lorazepam 0.5 mg tablet 0.5 mg PO DAILY PRN metoprolol succinate 25 mg tablet extended release 24 hr 25 mg PO DAILY sodium bicarbonate 650 mg tablet 650 mg PO BID Eliquis 5 mg Tablet 5 mg PO BID 30 Days Qty: 60 0RF levothyroxine 50 mcg tablet 50 mcg PO DAILY Qty: 90 3RF Referrals / Follow Up: Williams Dunne MD [Primary Care Provider, Family Practice] Jean Greenberg DO [Med Staff - Active Staff, Orthopedics] - 3-5 Days Referral Note: Call for an appointment and tell them that you were seen in the hospital by Dr. rGeenberg Disposition Disposition (needs filled in before D/C Order can be placed): Home Health Service Charges/Coding Visit Charges Inpatient E&M: 09792 Disch Hosp
--- NOTE | 2024-12-23 15:53 | PHA.DC_ITS ---
Pharmacy [facility] Counseling Pharmacy Service has performed discharge medication reconciliation and counseling for this patient. The patient's discharge medication list was reviewed for discrepancies and discrepancies were resolved. The patient was counseled on the following discharge medications and changes in medications for homegoing were reviewed. The Reason for Use, instructions for use, and potential side effects were reviewed for all new medications. The patient's questions regarding all of their medications were answered. 1. Hydrocodone/acetaminophen 5/325 mg PO Q4H PRN pain. The patient was able to verbally demonstrate an understanding of their discharge medications. Medications at Discharge Home Medications escitalopram oxalate 20 mg tablet 20 mg PO DAILY Depression 07/08/18 ferrous sulfate 325 mg (65 mg iron) tablet 325 mg PO DAILY supplement 09/11/18 levothyroxine 50 mcg tablet 50 mcg PO DAILY hypothyroid #90 tabs 01/08/22 rosuvastatin 10 mg tablet 10 mg PO DAILY Cholesterol 01/09/23 apixaban 5 mg tablet (Eliquis) 5 mg PO BID 30 days #60 tabs 10/21/23 hydrocodone-acetaminophen 5-325mg 5mg-325mg 1 tab PO Q4H PRN PRN Pain 2 days #14 TABLETS 12/20/24 lorazepam 0.5 mg tablet 0.5 mg PO DAILY PRN 12/20/24 metoprolol succinate 25 mg tablet,extended release 24 hr 25 mg PO DAILY 12/20/24 sodium bicarbonate 650 mg tablet 650 mg PO BID 12/20/24
== END 2024-12-23 15:51 | disposition home health service (06) ==
LOC: ED 12:13 → MS3 12:59
PROVIDERS: Admitting Provider Internal Medicine; Emergency Provider Emergency Medicine; PCP Family Medicine; Visit Provider Internal Medicine
DX: S42.212A Unspecified displaced fracture of surgical neck of left humerus, initial encounter for closed fracture (principal); I13.2 Hypertensive heart and chronic kidney disease with heart failure and with stage 5 chronic kidney disease, or end stage renal disease; N18.6 End stage renal disease; I50.22 Chronic systolic (congestive) heart failure; F03.90 Unspecified dementia, unspecified severity, without behavioral disturbance, psychotic disturbance, mood disturbance, and anxiety; I48.0 Paroxysmal atrial fibrillation; E11.22 Type 2 diabetes mellitus with diabetic chronic kidney disease; I25.10 Atherosclerotic heart disease of native coronary artery without angina pectoris; I25.5 Ischemic cardiomyopathy; I25.2 Old myocardial infarction; F32.A Depression, unspecified; E78.5 Hyperlipidemia, unspecified; E03.9 Hypothyroidism, unspecified; Z79.899 Other long term (current) drug therapy; Z79.01 Long term (current) use of anticoagulants; Z95.5 Presence of coronary angioplasty implant and graft; W19.XXXA Unspecified fall, initial encounter
CPT/HCPCS: 70450; 73030; 80048; 85025; 96372; 97110; 97116; 97162; 97166; 97530; 97535; 99221; 99285; A4216; G0378; J2405